=== PATIENT | female | born 1935 | race Caucasian/White ===

== ENCOUNTER → 2017-01-05 | Outpatient (CLI) | payer MEDICARE ==
--- NOTE | 2017-01-05 14:12 | FL ---
EXAMINATION TYPE: FL small bowel follow through DATE OF EXAM: 01/05/2017 12:36 PM COMPARISON: NONE HISTORY: Abdominal Pain The patient ingested thin liquid barium without difficulty. Preliminary radiograph demonstrates mode rate fecal stasis. Small bowel follow-through was performed with transit time of 180 minutes. Small bowel loops appear to be of normal caliber and demonstrate normal mucosal fold pattern. No evidence for intrinsic or extrinsic mass. No evidence for mucosal abnormality. Moderate-sized proximal jejuna l diverticulum. I do not see evidence for Crohn's disease. Normal-appearing terminal ileum. IMPRESSION: 1.Moderate-sized proximal jejunal diverticulum. Otherwise unremarkable study.
== END | disposition home or self-care (01) ==
LOC: RADFLMAIN 08:50
PROVIDERS: ATTEND Surgery
DX: K57.10 Diverticulosis of small intestine without perforation or abscess without bleeding (principal); K92.2 Gastrointestinal hemorrhage, unspecified
CPT/HCPCS: 74250

== ENCOUNTER 2017-02-02 14:32 | Inpatient (IN) | payer MEDICARE ==
[2017-02-02] MEDS ORDERED: PANTOPRAZOLE 40 MG/10 ML VIAL IVP STA (15:14)
--- NOTE | 2017-02-02 15:20 | ED ---
GI Bleed HPI - General Chief complaint: GI Bleed Stated complaint: PAMELA, Abd Pain Time Seen by Provider: 02/02/17 14:50 Source: patient, family, RN notes reviewed Mode of arrival: ambulatory Limitations: no limitations - History of Present Illness Initial comments: This is a 81-year-old female with a history of diverticulitis with 2 previous episodes of GI bleeding once in July of this past year once in October of this year who felt dizzy last night but this morning he had an episode of burgundy-colored stool. She also complains some lower abdominal discomfort. She denies any fevers chills or sweats per her family members her skin color appears be within normal limits. She has been extensively worked up and thus far no source of bleeding is found MD complaint: gross hematochezia - Related Data Home Medications Medication Instructions Recorded Confirmed Levothyroxine Sodium [Synthroid] 100 mcg PO DAILY 03/07/14 02/02/17 Multivitamins, Thera [Multivitamin 1 tab PO DAILY 03/07/14 02/02/17 (formulary)] Bumetanide [Bumex] 1 mg PO DAILY 12/20/16 02/02/17 DULoxetine HCL [Cymbalta] 20 mg PO DAILY 12/20/16 02/02/17 Ipratropium Nebulized [Atrovent 0.5 mg INHALATION RT-QID 12/20/16 02/02/17 Nebulized] Omeprazole 40 mg PO DAILY 12/20/16 02/02/17 diphenhydrAMINE HCL [Benadryl] 25 mg PO HS 12/20/16 02/02/17 Budesonide/Formoterol Fumarate 2 puff INHALATION RT-BID 02/02/17 02/02/17 [Symbicort 80-4.5 Mcg Inhaler] Meclizine [Antivert] 25 mg PO TID PRN 02/02/17 02/02/17 Potassium Chloride [K-Tab ER] 10 meq PO BID 02/02/17 02/02/17 traMADol HCl [Ultram] 50 mg PO Q6H PRN 02/02/17 02/02/17 Allergies Allergy/AdvReac Type Severity Reaction Status Date / Time codeine Allergy Unknown Itching, Verified 02/02/17 16:03 red skin iodine Allergy Unknown Itching, Verified 02/02/17 16:03 red skin Sulfa (Sulfonamide Allergy Unknown Itching, Verified 02/02/17 16:03 Antibiotics) red skin Review of Systems ROS Statement: Those systems with pertinent positive or pertinent negative responses have been documented in the HPI. ROS Other: All systems not noted in ROS Statement are negative. Past Medical History Past Medical History: Cancer, COPD, GERD/Reflux, Hypertension, Musculoskeletal Disorder, Osteoarthritis (OA), Sleep Apnea/CPAP/BIPAP, Thyroid Disorder Additional Past Medical History / Comment(s): CURRENT HEMATOMA LEFT KNEE, USES A WALKER TO AMBULATE, HX OF SCOLIOSIS, HX ANEMIA, HX BREAST AND SKIN CA History of Any Multi-Drug Resistant Organisms: None Reported Past Surgical History: Back Surgery, Cholecystectomy, Hysterectomy, Joint Replacement, Tonsillectomy Additional Past Surgical History / Comment(s): GILLIAN KNEE REPLACEMENT, (R) mastectomy and lymph node removal 1998, GILLIAN GREAT TOENAILS REMOVED, GILLIAN CATARACT SX Past Anesthesia/Blood Transfusion Reactions: No Reported Reaction Past Psychological History: Anxiety Additional Psychological History / Comment(s): IS CURRENT CAREGIVER FOR WITH CANCER Smoking Status: Former smoker Past Alcohol Use History: None Reported Additional Past Alcohol Use History / Comment(s): STARTED SMOKING 1943, QUIT 1979, 1/2PPD Past Drug Use History: None Reported - Past Family History Mother Additional Family Medical History / Comment(s): MOTHER OF TB WHEN PT WAS 6 MONTHS OLD Father Family Medical History: Coronary Artery Disease (CAD) Additional Family Medical History / Comment(s): Father 18 years ago from a heart attack. General Exam - General Exam Comments Initial Comments: This is a well-developed well-nourished awake alert oriented 3 female Limitations: no limitations General appearance: alert, in no apparent distress Head exam: Present: atraumatic, normocephalic, normal inspection Eye exam: Present: normal appearance, PERRL, EOMI. Absent: scleral icterus, conjunctival injection, periorbital swelling ENT exam: Present: normal exam, mucous membranes moist Neck exam: Present: normal inspection. Absent: tenderness, meningismus, lymphadenopathy Respiratory exam: Present: normal lung sounds bilaterally. Absent: respiratory distress, wheezes, rales, rhonchi, stridor Cardiovascular Exam: Present: regular rate, normal rhythm, normal heart sounds. Absent: systolic murmur, diastolic murmur, rubs, gallop, clicks GI/Abdominal exam: Present: soft, tenderness (Mild left lower quadrant tenderness palpation), normal bowel sounds. Absent: distended, guarding, rebound, rigid Rectal exam: Present: heme (+) stool, other (Burgundy-colored stool) Extremities exam: Present: normal inspection, full ROM, normal capillary refill. Absent: tenderness, pedal edema, joint swelling, calf tenderness Back exam: Present: normal inspection Neurological exam: Present: alert, oriented X3, CN II-XII intact Psychiatric exam: Present: normal affect, normal mood Skin exam: Present: warm, dry, intact, normal color. Absent: rash Course Vital Signs 02/02/17 02/02/17 14:35 15:37 Temperature 98.1 F Pulse Rate 87 81 Respiratory 20 17 Rate Blood Pressure 125/60 109/55 O2 Sat by Pulse 98 97 Oximetry Medical Decision Making - Medical Decision Making I did discuss findings with the patient family as well as Dr. Page who did come the emergency department see the patient patient will be admitted with consultation by Dr. Martin who is covering Dr. camp - Lab Data Result diagrams: 02/02/17 15:08 02/02/17 15:08 Lab Results 02/02/17 02/02/17 02/02/17 Range/Units 15:08 15:08 15:08 WBC 7.0 (3.8-10.6) k/uL RBC 3.18 L (3.80-5.40) m/uL Hgb 11.1 L (11.4-16.0) gm/dL Hct 31.9 L (34.0-46.0) % MCV 100.4 H D (80.0-100.0) fL MCH 34.8 (25.0-35.0) pg MCHC 34.7 (31.0-37.0) g/dL RDW 14.3 (11.5-15.5) % Plt Count 207 (150-450) k/uL Neutrophils % 72 % Lymphocytes % 14 % Monocytes % 9 % Eosinophils % 2 % Basophils % 0 % Neutrophils # 5.0 (1.3-7.7) k/uL Lymphocytes # 1.0 (1.0-4.8) k/uL Monocytes # 0.6 (0-1.0) k/uL Eosinophils # 0.2 (0-0.7) k/uL Basophils # 0.0 (0-0.2) k/uL Macrocytosis Slight PT 9.7 (9.0-12.0) sec INR 0.9 (<1.1) APTT 20.9 L (22.0-30.0) sec Sodium 143 (137-145) mmol/L Potassium 4.3 (3.5-5.1) mmol/L Chloride 102 (98-107) mmol/L Carbon Dioxide 31 H (22-30) mmol/L Anion Gap 10 mmol/L BUN 32 H (7-17) mg/dL Creatinine 0.80 (0.52-1.04) mg/dL Est GFR (MDRD) Af Amer >60 (>60 ml/min/1.73 sqM) Est GFR (MDRD) Non-Af >60 (>60 ml/min/1.73 sqM) Glucose 83 (74-99) mg/dL Calcium 9.1 (8.4-10.2) mg/dL Magnesium 2.3 (1.6-2.3) mg/dL Total Bilirubin 0.6 (0.2-1.3) mg/dL AST 28 (14-36) U/L ALT 35 (9-52) U/L Alkaline Phosphatase 67 (38-126) U/L Total Protein 6.6 (6.3-8.2) g/dL Albumin 3.9 (3.5-5.0) g/dL Stool Occult Blood (Negative) 02/02/17 Range/Units 15:33 WBC (3.8-10.6) k/uL RBC (3.80-5.40) m/uL Hgb (11.4-16.0) gm/dL Hct (34.0-46.0) % MCV (80.0-100.0) fL MCH (25.0-35.0) pg MCHC (31.0-37.0) g/dL RDW (11.5-15.5) % Plt Count (150-450) k/uL Neutrophils % % Lymphocytes % % Monocytes % % Eosinophils % % Basophils % % Neutrophils # (1.3-7.7) k/uL Lymphocytes # (1.0-4.8) k/uL Monocytes # (0-1.0) k/uL Eosinophils # (0-0.7) k/uL Basophils # (0-0.2) k/uL Macrocytosis PT (9.0-12.0) sec INR (<1.1) APTT (22.0-30.0) sec Sodium (137-145) mmol/L Potassium (3.5-5.1) mmol/L Chloride (98-107) mmol/L Carbon Dioxide (22-30) mmol/L Anion Gap mmol/L BUN (7-17) mg/dL Creatinine (0.52-1.04) mg/dL Est GFR (MDRD) Af Amer (>60 ml/min/1.73 sqM) Est GFR (MDRD) Non-Af (>60 ml/min/1.73 sqM) Glucose (74-99) mg/dL Calcium (8.4-10.2) mg/dL Magnesium (1.6-2.3) mg/dL Total Bilirubin (0.2-1.3) mg/dL AST (14-36) U/L ALT (9-52) U/L Alkaline Phosphatase (38-126) U/L Total Protein (6.3-8.2) g/dL Albumin (3.5-5.0) g/dL Stool Occult Blood Positive H (Negative) Disposition Clinical Impression: Hematochezia, GI bleed, Anemia Disposition: ADMITTED IP TO THIS [facility] Condition: Stable
[2017-02-02 15:37] LABS: Basophils % (A) 0 %; CH 33.3; CHCM 33.3; Eosinophils # (A) 0.2 k/uL (0-0.7); Eosinophils % (A) 2 %; HCT 31.9 % (34.0-46.0); HDW 2.87; HGB 11.1 gm/dL (11.4-16.0); Luc # (Auto) 0.22; Luc % (Auto) 3; Lymphocytes % (A) 14 %; MCH 34.8 pg (25.0-35.0); MCHC 34.7 g/dL (31.0-37.0); Macrocytosis Slight; Mean Platelet Volume 7.3; Monocytes # (A) 0.6 k/uL (0-1.0); Monocytes % (A) 9 %; Neutrophils % (A) 72 %; RBC 3.18 m/uL (3.80-5.40); RDW 14.3 % (11.5-15.5)
[2017-02-02 15:43] LABS: MCV 100.4 fL (80.0-100.0)
[2017-02-02 15:45] LABS: ALT 35 U/L (9-52); AST 28 U/L (14-36); Alkaline Phosphatase 67 U/L (38-126); Anion Gap 10 mmol/L; Blood Urea Nitrogen 32 mg/dL (7-17); Calcium 9.1 mg/dL (8.4-10.2); Carbon Dioxide 31 mmol/L (22-30); Chloride 102 mmol/L (98-107); Glucose 83 mg/dL (74-99); Magnesium 2.3 mg/dL (1.6-2.3); Non-African American GFR(MDRD) >60 (>60 ml/min/1.73 sqM); Potassium 4.3 mmol/L (3.5-5.1); Sodium 143 mmol/L (137-145); Total Bilirubin 0.6 mg/dL (0.2-1.3); Total Protein 6.6 g/dL (6.3-8.2)
[2017-02-02 15:47] LABS: INR 0.9 (<1.1); Prothrombin Time 9.7 sec (9.0-12.0)
[2017-02-02 16:00] LABS: Partial Thromboplastin Time 20.9 sec (22.0-30.0)
[2017-02-02 16:04] LABS: Creatine Kinase 31 U/L (30-135)
[2017-02-02] MEDS ORDERED: NALOXONE 0.4 MG/ML 1 ML VIAL IV PRN (16:08)
[2017-02-02] MEDS ORDERED: SODIUM CHLORIDE 0.9% 1,000 ML IV SCH (16:15)
[2017-02-02 16:16] LABS: Troponin I <0.012 ng/mL (0.000-0.034)
[2017-02-02] MEDS ORDERED: ALBUTEROL NEBULIZED 2.5 MG/3 ML INHALATION PRN (16:18)
[2017-02-02] MEDS ORDERED: traMADol 50 MG TAB PO PRN (16:18)
[2017-02-02 16:21] LABS: Creatine Kinase MB 0.3 ng/mL (0.0-2.4)
[2017-02-02] MEDS ORDERED: IPRATROPIUM-ALBUTEROL 3 ML NEB INHALATION SCH (20:00)
--- NOTE | 2017-02-02 20:05 | HP ---
Patient is an 81-year-old with a history of diverticulosis in the past, came in with 3 episodes of GI bleed today morning and patient initially started seeing copper-colored blood, but after which it turned into bright red blood per rectum. Patient was also complaining of dizziness. Patient has episodes of GI bleed in the past, admitted twice in [facility]. Patient underwent extensive testing, twice colonoscopy and upper GI endoscopy along with a nuclear RBC scan, all of which came back negative. Patient is supposed to get a capsule endoscopy. Patient was evaluated by Dr. Bernard and Dr. Taryn Kaye at the other hospital. Patient denied any fever chills. Patient denied any nausea, vomiting. Patient does have history of COPD, does wear 2L of oxygen. Patient denied any recent antibiotics use. Home medications include: 1. Levothyroxine. 2. Multivitamin. 3. Bumex. 4. Duloxetine. 5. Ipratropium. 6. Omeprazole. 7. Diphenhydramine. 8. Symbicort. 9. Meclizine. 10. Potassium chloride. 11. Tramadol. ALLERGIES: ALLERGIC TO CODEINE, IODINE AND SULFA DRUGS. REVIEW OF SYSTEMS: CONSTITUTIONAL: No fever, no malaise, no fatigue. HEENT: No recent visual problems or hearing problems. Denied any sore throat. CARDIOVASCULAR: No chest pain, orthopnea, PND, no palpitations, no syncope. PULMONARY: No shortness of breath, no cough, no hemoptysis. GASTROINTESTINAL: As described in HPI. NEUROLOGICAL: No headaches, no weakness, no numbness. HEMATOLOGICAL: Denies any bleeding or petechiae. GENITOURINARY: Denies any burning micturition, frequency, or urgency. MUSCULOSKELETAL/RHEUMATOLOGICAL: Denies any joint pain, swelling, or any muscle pain. ENDOCRINE: Denies any polyuria or polydipsia. The rest of the 14 point review of systems is negative. PAST MEDICAL HISTORY: Significant for COPD, gastroesophageal reflux disease, hypertension, osteoarthritis, sleep apnea, hypothyroidism, episodes of GI bleed in the past, source is unknown at the time. Patient has a remote history of diverticulosis, back surgery, cholecystectomy, hysterectomy, joint replacement surgery, anxiety disorder. SOCIAL HISTORY: Former smoker, quit smoking in 1979. Denied any alcohol abuse or any drug abuse. FAMILY HISTORY: Mother with tuberculosis. Father had coronary artery disease. PHYSICAL EXAMINATION: VITAL SIGNS: Temperature 98.1, pulse of 57, respiratory rate 20, blood pressure is 101/55, saturating at 97% on room air. GENERAL: The patient is alert and oriented x3, not in any acute distress. Well developed, well nourished. HEENT: Pupils are round and equally reacting to light. EOMI. No scleral icterus. No conjunctival pallor. Normocephalic, atraumatic. No pharyngeal erythema. No thyromegaly. CARDIOVASCULAR: S1 and S2 present. No murmurs, rubs, or gallops. PULMONARY: Chest is clear to auscultation, no wheezing or crackles. ABDOMEN: Soft, nontender, nondistended, normoactive bowel sounds. No palpable organomegaly. MUSCULOSKELETAL: No joint swelling or deformity. EXTREMITIES: No cyanosis, clubbing, or pedal edema. NEUROLOGICAL: Gross neurological examination did not reveal any focal deficits. SKIN: No rashes. LABORATORY DATA: CBC, CMP are abnormal for hemoglobin of 11.1, bicarbonate of 31, BUN of 32, creatinine 0.8. ASSESSMENT AND PLAN: 1. Possible lower gastrointestinal bleed. Since she is actively bleeding, probably this is appropriate time to get a tagged red blood cells scan, which will be obtained and Gastroenterology will be consulted. Patient will be monitored. Patient is on IV b.i.d. Protonix, which will be continued. 2. Chronic obstructive pulmonary disease without any acute exacerbation. 3. Gastroesophageal reflux disease. 4. Hyperlipidemia. 5. Sleep apnea for which she will continue with her home continuous positive airway pressure machine. 6. For above-mentioned chronic medical problems, will go ahead and continue her home medications.
--- NOTE | 2017-02-02 21:03 | NM ---
EXAMINATION TYPE: NM GI bleeding DATE OF EXAM: 02/02/2017 8:40 PM HISTORY: GI bleeding COMPARISON: NONE Following administration of 3 ml PYP 27.2 mCi Tc 99m Sodium Pertechnete. Immediate images post inject ion. FINDINGS: The 2 hour images showed tracer accumulation in the lateral right upper quadrant suggestive of active bleeding near the hepatic flexure of the colon. The tracer appears to move in the transverse colon t owards the splenic flexure. IMPRESSION: The exam shows evidence of active bleeding involving the hepatic flexure of the colon.
[2017-02-02 21:08] LABS: CH 33.3; CHCM 33.3; HCT 28.6 % (34.0-46.0); HGB 9.9 gm/dL (11.4-16.0); MCH 34.6 pg (25.0-35.0); MCHC 34.4 g/dL (31.0-37.0); MCV 100.4 fL (80.0-100.0); Macrocytosis Slight; Mean Platelet Volume 7.7; RBC 2.85 m/uL (3.80-5.40); RDW 14.3 % (11.5-15.5); WBC 5.6 k/uL (3.8-10.6)
[2017-02-02] MEDS ORDERED: IPRATROPIUM-ALBUTEROL 3 ML NEB INHALATION PRN (21:29)
[2017-02-02] MEDS ORDERED: SODIUM CHLORIDE 0.9% 1,000 ML IV ONE (21:44)
[2017-02-02] MEDS: PANTOPRAZOLE 40 MG/10 ML VIAL IV SCH (23:48)
[2017-02-02] MEDS: SODIUM CHLORIDE 0.9% 1,000 ML IV SCH (23:48)
[2017-02-03 04:43] LABS: Basophils % (A) 1 %; CH 32.9; CHCM 32.2; Eosinophils # (A) 0.1 k/uL (0-0.7); Eosinophils % (A) 3 %; HCT 24.1 % (34.0-46.0); HDW 2.87; Luc % (Auto) 4; Lymphocytes # (A) 0.7 k/uL (1.0-4.8); Lymphocytes % (A) 14 %; MCH 34.8 pg (25.0-35.0); MCHC 33.9 g/dL (31.0-37.0); MCV 102.8 fL (80.0-100.0); Macrocytosis Slight; Mean Platelet Volume 7.4; Monocytes # (A) 0.4 k/uL (0-1.0); Monocytes % (A) 8 %; Neutrophils # (A) 3.7 k/uL (1.3-7.7); Neutrophils % (A) 72 %; RBC 2.34 m/uL (3.80-5.40); RDW 14.2 % (11.5-15.5); WBC 5.2 k/uL (3.8-10.6)
[2017-02-03 04:45] LABS: HGB 8.1 gm/dL (11.4-16.0)
[2017-02-03] MEDS: LEVOTHYROXINE 100 MCG TAB PO SCH ×2 (06:29→12:19)
[2017-02-03] MEDS: IPRATROPIUM-ALBUTEROL 3 ML NEB INHALATION SCH ×4 (07:33→19:11)
[2017-02-03] MEDS: SYMBICORT 80-4.5 MCG INHALER INHALATION SCH ×3 (07:33→19:11)
[2017-02-03] MEDS: PANTOPRAZOLE 40 MG/10 ML VIAL IV SCH ×2 (08:54→21:00)
--- NOTE | 2017-02-03 10:24 | P.CONS ---
History of Present Illness - Reason for Consult Consult date: 02/03/17 gi bleed Requesting physician: Toma Page - History of Present Illness 81-year-old female history diverticulosis admitted with rectal bleeding 2 days. Tagged RBC scan reported hepatic flexure bleeding. Apparently she's had multiple GI bleeds in the past and evaluated at [facility] with extensive testing including colonoscopies EGD and nuclear scanning. This is her third episode since July with painless rectal bleeding. Patient describes is bright red burgundy in nature approximate 3-4 episodes since yesterday. Denies fever chills or hematemesis or melena. Denies excessive use of aspirin or NSAIDs. EGD colonoscopy performed by Dr. Bernard at [facility] December 2016 identified extensive diverticular disease with tortuous colon, and hiatal hernia. Hemoglobin on admission 11.1 currently 8.1. MCV 102. INR 0.9. Platelet 175. BUN 32. Creatinine 0.8. Stool occult blood positive. Transfuse 1 unit of blood. Review of Systems Constitutional: Denies fever, chills, sweats, weight gain, or loss. HEENT: Negative for migraines, blurred vision or loss, earaches, drainage, tinnitus, oral mucosal lesions, dysphagia, or odynophagia. CARDIAC: Negative for chest pain, arrhythmias, or palpitation. RESPIRATORY: COPD. Negative for shortness of breath, hemoptysis, cough, or sputum production. GI: See HPI for pertinent findings. : Negative for hematuria, urgency, frequency, polyuria, or dysuria. GYNc: Breast cancer hx. Negative vaginal discharge. MUSCULOSKELETAL: Osteoarthritis. NEUROLOGIC: Negative for stroke or TIA. ENDOCRINE: Hypothyroid. SKIN: Negative for rash or itching. PSYCHIATRIC: Anxiety All systems: negative (See HPI) Past Medical History Past Medical History: Cancer, COPD, GERD/Reflux, Musculoskeletal Disorder, Osteoarthritis (OA), Thyroid Disorder Additional Past Medical History / Comment(s): CURRENT HEMATOMA LEFT KNEE, USES A WALKER TO AMBULATE, HX OF SCOLIOSIS, HX ANEMIA, HX BREAST AND SKIN CA History of Any Multi-Drug Resistant Organisms: None Reported Past Surgical History: Back Surgery, Cholecystectomy, Hysterectomy, Joint Replacement, Tonsillectomy Additional Past Surgical History / Comment(s): GILLIAN KNEE REPLACEMENT, (R) mastectomy and lymph node removal 1998, GILLIAN GREAT TOENAILS REMOVED, GILLIAN CATARACT SX Past Anesthesia/Blood Transfusion Reactions: No Reported Reaction Past Psychological History: Anxiety Additional Psychological History / Comment(s): IS CURRENT CAREGIVER FOR WITH CANCER Smoking Status: Former smoker Past Alcohol Use History: None Reported Additional Past Alcohol Use History / Comment(s): STARTED SMOKING 1943, QUIT 1979, 1/2PPD Past Drug Use History: None Reported - Past Family History Mother Additional Family Medical History / Comment(s): MOTHER OF TB WHEN PT WAS 6 MONTHS OLD Father Family Medical History: Coronary Artery Disease (CAD) Additional Family Medical History / Comment(s): Father 18 years ago from a heart attack. Medications and Allergies Home Medications Medication Instructions Recorded Confirmed Type Levothyroxine Sodium [Synthroid] 100 mcg PO DAILY 03/07/14 02/02/17 History Multivitamins, Thera [Multivitamin 1 tab PO DAILY 03/07/14 02/02/17 History (formulary)] Bumetanide [Bumex] 1 mg PO DAILY 12/20/16 02/02/17 History DULoxetine HCL [Cymbalta] 20 mg PO DAILY 12/20/16 02/02/17 History Ipratropium Nebulized [Atrovent 0.5 mg INHALATION RT-QID 12/20/16 02/02/17 History Nebulized] Omeprazole 40 mg PO DAILY 12/20/16 02/02/17 History diphenhydrAMINE HCL [Benadryl] 25 mg PO HS 12/20/16 02/02/17 History Albuterol Nebulized [Ventolin 2.5 mg INHALATION RT-Q6H PRN 02/02/17 02/02/17 History Nebulized] Budesonide/Formoterol Fumarate 2 puff INHALATION RT-BID 02/02/17 02/02/17 History [Symbicort 80-4.5 Mcg Inhaler] Meclizine [Antivert] 25 mg PO TID PRN 02/02/17 02/02/17 History Potassium Chloride [K-Tab ER] 10 meq PO BID 02/02/17 02/02/17 History traMADol HCl [Ultram] 50 mg PO Q6H PRN 02/02/17 02/02/17 History Allergies Allergy/AdvReac Type Severity Reaction Status Date / Time codeine Allergy Unknown Itching, Verified 02/02/17 16:03 red skin iodine Allergy Unknown Itching, Verified 02/02/17 16:03 red skin Sulfa (Sulfonamide Allergy Unknown Itching, Verified 02/02/17 16:03 Antibiotics) red skin Physical Exam Vitals: Vital Signs Temp Pulse Pulse Resp BP BP Pulse Ox 02/03/17 07:52 80 02/03/17 07:36 80 02/03/17 05:00 79 17 96 02/03/17 00:00 97.5 F L 75 16 105/61 97 02/02/17 23:03 97.6 F 59 L 17 109/56 96 02/02/17 21:41 82 16 101/51 96 02/02/17 21:28 84 18 99/46 96 02/02/17 21:18 82 18 99/52 97 02/02/17 20:59 98.3 F 84 18 98/52 97 02/02/17 16:42 83 17 109/55 99 Intake and Output 02/02/17 02/03/17 02/03/17 22:59 06:59 14:59 Intake Total 1500 0 Balance 1500 0 Intake: Intake, IV Titration 1500 Amount Sodium Chloride 0.9% 1, 500 000 ml @ 75 mls/hr IV . [id number] MILANA Rx#:[id number] Sodium Chloride 0.9% 1, 1000 000 ml @ 999 mls/hr IV . Q1H1M ONE Rx#:[id number] Oral 0 0 Other: # Voids 2 Weight 73.1 kg General appearance: The patient is alert, oriented, in no acute distress. HET: Head is normocephalic and atraumatic. Pupils are equal and reactive. Oropharynx is clear without lesions. Neck: Supple without lymphadenopathy. Trachea midline. Heart: S1 S2. Regular rate and rhythm. Lungs: No crackles or wheezes are heard. Abdomen: Soft, nontender, nondistended with bowel sounds. No peritoneal signs. No palpable organomegaly or masses. Extremities: Normal skin color and turgor. No cyanosis, rash, ulceration, clubbing, or edema. Radial and pedal pulses are 2/4 bilaterally. Neurological: No focal deficits. Strength and sensation are grossly intact. Results CBC & Chem 7: 02/03/17 03:35 02/02/17 15:08 Labs: Abnormal Lab Results - Last 24 Hours (Table) 02/02/17 02/03/17 Range/Units 20:55 03:35 RBC 2.85 L 2.34 L (3.80-5.40) m/uL Hgb 9.9 L 8.1 L D (11.4-16.0) gm/dL Hct 28.6 L 24.1 L (34.0-46.0) % MCV 100.4 H 102.8 H (80.0-100.0) fL Lymphocytes # 0.7 L (1.0-4.8) k/uL Assessment and Plan (1) GI bleed Narrative/Plan: Suspect diverticular bleed Status: Acute (2) Acute blood loss anemia Status: Acute (3) Hematochezia Status: Acute Plan: 1. Clear liquid diet. 2. Recommend general surgical consultation patient is also requesting to see a surgeon. 3. Repeat endoscopy not planned at this time considering she's had multiple endoscopic exams in the last 2-4 months. 4. Continue monitor CBC. Thank you for this kind referral and the opportunity to participate in the care of your patient. This consultation was discussed with Dr. Browning. The impression and plan of care have been directed as dictated.
[2017-02-03 10:57] LABS: Basophils % (A) 0 %; CH 33.4; CHCM 33.8; Eosinophils # (A) 0.1 k/uL (0-0.7); Eosinophils % (A) 3 %; HCT 21.8 % (34.0-46.0); HDW 2.99; HGB 7.7 gm/dL (11.4-16.0); Luc # (Auto) 0.18; Luc % (Auto) 4; Lymphocytes # (A) 0.8 k/uL (1.0-4.8); Lymphocytes % (A) 15 %; MCH 35.2 pg (25.0-35.0); MCHC 35.4 g/dL (31.0-37.0); MCV 99.4 fL (80.0-100.0); Mean Platelet Volume 8.6; Monocytes # (A) 0.4 k/uL (0-1.0); Monocytes % (A) 8 %; Neutrophils # (A) 3.7 k/uL (1.3-7.7); Neutrophils % (A) 71 %; RBC 2.19 m/uL (3.80-5.40); RDW 14.5 % (11.5-15.5); WBC 5.2 k/uL (3.8-10.6); WBC (Perox) 5.54
[2017-02-03] MEDS: DULoxetine HCL 20 MG CAPSULE.DR PO SCH (12:17)
--- NOTE | 2017-02-03 13:26 | P.GSCN ---
History of Present Illness Consult date: 02/03/17 Reason for Consult: GI bleed History of present illness: This is a 81-year-old female who's had multiple hospital admissions for GI bleed. Patient's had extensive workup with multiple upper and lower endoscopies which failed to show source of GI bleeding. Patient states that she started have another episode of GI bleeding yesterday. She states that she had bright red blood per rectum. She had a tagged red cell scan performed last night which shows evidence of bleeding at the hepatic flexure. Review of Systems - Constitutional Reports as per HPI Past Medical History Past Medical History: Cancer, COPD, GERD/Reflux, Musculoskeletal Disorder, Osteoarthritis (OA), Thyroid Disorder Additional Past Medical History / Comment(s): CURRENT HEMATOMA LEFT KNEE, USES A WALKER TO AMBULATE, HX OF SCOLIOSIS, HX ANEMIA, HX BREAST AND SKIN CA History of Any Multi-Drug Resistant Organisms: None Reported Past Surgical History: Back Surgery, Cholecystectomy, Hysterectomy, Joint Replacement, Tonsillectomy Additional Past Surgical History / Comment(s): GILLIAN KNEE REPLACEMENT, (R) mastectomy and lymph node removal 1998, GILLIAN GREAT TOENAILS REMOVED, GILLIAN CATARACT SX Past Anesthesia/Blood Transfusion Reactions: No Reported Reaction Past Psychological History: Anxiety Additional Psychological History / Comment(s): IS CURRENT CAREGIVER FOR WITH CANCER Smoking Status: Former smoker Past Alcohol Use History: None Reported Additional Past Alcohol Use History / Comment(s): STARTED SMOKING 1943, QUIT 1979, 1/2PPD Past Drug Use History: None Reported - Past Family History Mother Additional Family Medical History / Comment(s): MOTHER OF TB WHEN PT WAS 6 MONTHS OLD Father Family Medical History: Coronary Artery Disease (CAD) Additional Family Medical History / Comment(s): Father 18 years ago from a heart attack. Medications and Allergies Home Medications Medication Instructions Recorded Confirmed Type Levothyroxine Sodium [Synthroid] 100 mcg PO DAILY 03/07/14 02/02/17 History Multivitamins, Thera [Multivitamin 1 tab PO DAILY 03/07/14 02/02/17 History (formulary)] Bumetanide [Bumex] 1 mg PO DAILY 12/20/16 02/02/17 History DULoxetine HCL [Cymbalta] 20 mg PO DAILY 12/20/16 02/02/17 History Ipratropium Nebulized [Atrovent 0.5 mg INHALATION RT-QID 12/20/16 02/02/17 History Nebulized] Omeprazole 40 mg PO DAILY 12/20/16 02/02/17 History diphenhydrAMINE HCL [Benadryl] 25 mg PO HS 12/20/16 02/02/17 History Albuterol Nebulized [Ventolin 2.5 mg INHALATION RT-Q6H PRN 02/02/17 02/02/17 History Nebulized] Budesonide/Formoterol Fumarate 2 puff INHALATION RT-BID 02/02/17 02/02/17 History [Symbicort 80-4.5 Mcg Inhaler] Meclizine [Antivert] 25 mg PO TID PRN 02/02/17 02/02/17 History Potassium Chloride [K-Tab ER] 10 meq PO BID 02/02/17 02/02/17 History traMADol HCl [Ultram] 50 mg PO Q6H PRN 02/02/17 02/02/17 History Allergies Allergy/AdvReac Type Severity Reaction Status Date / Time codeine Allergy Unknown Itching, Verified 02/02/17 16:03 red skin iodine Allergy Unknown Itching, Verified 02/02/17 16:03 red skin Sulfa (Sulfonamide Allergy Unknown Itching, Verified 02/02/17 16:03 Antibiotics) red skin Surgical - Exam Vital Signs Temp Pulse Resp BP Pulse Ox 98.1 F 87 20 125/60 98 02/02/17 14:35 02/02/17 14:35 02/02/17 14:35 02/02/17 14:35 02/02/17 14:35 - General well developed, no distress - Eyes PERRL - ENT normal pinna - Neck no masses - Respiratory normal expansion - Cardiovascular Rhythm: regular - Abdomen Abdomen: soft, non tender Results - Labs 02/03/17 09:34 02/02/17 15:08 Abnormal Lab Results - Last 24 Hours (Table) 02/02/17 02/03/17 02/03/17 Range/Units 20:55 03:35 09:34 RBC 2.85 L 2.34 L 2.19 L (3.80-5.40) m/uL Hgb 9.9 L 8.1 L D 7.7 L (11.4-16.0) gm/dL Hct 28.6 L 24.1 L 21.8 L (34.0-46.0) % MCV 100.4 H 102.8 H (80.0-100.0) fL MCH 35.2 H (25.0-35.0) pg Lymphocytes # 0.7 L 0.8 L (1.0-4.8) k/uL Assessment and Plan Plan: GI bleed secondary to bleeding at hepatic flexure. Patient will undergo right colectomy in the a.m. after bowel prep.
[2017-02-03] MEDS ORDERED: PEG 3350-NA SULF,BICARB,CL/KCL 4,000 ML BOTTLE PO ONE (14:00)
--- NOTE | 2017-02-03 15:00 | PN ---
Patient is an 81-year-old admitted with GI bleed. The patient appears to have GI bleed from the hepatic flexure and surgery is being consulted at this point of time. The patient has one bloody bowel movement today and patient's hemoglobin is 7.7. I am transfusing one unit of blood. REVIEW OF SYSTEMS: CARDIOVASCULAR: No chest pain, no orthopnea, no PND, no palpitations. PULMONARY: Denied any shortness of breath. No cough or hemoptysis. GASTROINTESTINAL: No diarrhea, nausea or vomiting. No abdominal pain. Normoactive bowel sounds. NEUROLOGIC: No headaches, no weakness, no numbness. Medications are reviewed. PHYSICAL EXAMINATION: VITAL SIGNS: Temperature 97.3, pulse of 80, respiratory rate 20, blood pressure is 98/44. Saturating at 100% on 2 L O2 by nasal cannula. GENERAL: The patient is alert and oriented x3, not in any acute distress. Well developed, well nourished. HEENT: Pupils round and equally reactive to light and patient does have conjunctival pallor. No scleral icterus was appreciated. CARDIOVASCULAR: S1 and S2 present. No murmurs, rubs, or gallops. PULMONARY: Chest is clear to auscultation, no wheezing or crackles. ABDOMEN: Soft, nontender, nondistended, normoactive bowel sounds. No palpable organomegaly. MUSCULOSKELETAL: No joint swelling or deformity. EXTREMITIES: No cyanosis, clubbing, or pedal edema. NEUROLOGICAL: Gross neurological examination did not reveal any focal deficits. SKIN: No rashes. LABORATORY DATA: Hemoglobin is 7.7. I do not have any basic metabolic profile available. ASSESSMENT AND PLAN: 1. Lower gastrointestinal bleed from hepatic flexure. Surgery is being consulted as mentioned above transfuse one more unit. 2. Chronic obstructive pulmonary disease without any acute exacerbation. 3. Gastroesophageal reflux disease. 4. Hyperlipidemia. 5. Sleep apnea. For above chronic medical problems, we will go ahead and continue with present medications.
[2017-02-03 19:52] LABS: Anisocytosis Slight; Basophils % (A) 0 %; CH 31.8; CHCM 33.2; Eosinophils # (A) 0.2 k/uL (0-0.7); Eosinophils % (A) 3 %; HDW 2.98; HGB 8.7 gm/dL (11.4-16.0); Luc % (Auto) 4; Lymphocytes # (A) 0.9 k/uL (1.0-4.8); Lymphocytes % (A) 16 %; MCH 33.4 pg (25.0-35.0); MCHC 34.6 g/dL (31.0-37.0); MCV 96.6 fL (80.0-100.0); Mean Platelet Volume 8.1; Monocytes # (A) 0.5 k/uL (0-1.0); Monocytes % (A) 9 %; Neutrophils # (A) 3.8 k/uL (1.3-7.7); Neutrophils % (A) 69 %; RBC 2.59 m/uL (3.80-5.40); RDW 16.7 % (11.5-15.5); WBC 5.6 k/uL (3.8-10.6); WBC (Perox) 5.73
[2017-02-04 06:58] LABS: Anisocytosis Slight; CH 32.7; CHCM 33.1; HCT 24.9 % (34.0-46.0); HGB 8.2 gm/dL (11.4-16.0); MCH 32.6 pg (25.0-35.0); MCHC 32.8 g/dL (31.0-37.0); MCV 99.4 fL (80.0-100.0); Macrocytosis Slight; Mean Platelet Volume 7.5; RBC 2.51 m/uL (3.80-5.40); RDW 17.4 % (11.5-15.5); WBC 4.6 k/uL (3.8-10.6)
[2017-02-04 07:07] LABS: Anion Gap 6 mmol/L; Blood Urea Nitrogen 19 mg/dL (7-17); Calcium 8.2 mg/dL (8.4-10.2); Carbon Dioxide 26 mmol/L (22-30); Chloride 110 mmol/L (98-107); Glucose 93 mg/dL (74-99); Non-African American GFR(MDRD) >60 (>60 ml/min/1.73 sqM); Potassium 3.7 mmol/L (3.5-5.1); Sodium 142 mmol/L (137-145)
[2017-02-04] MEDS: IPRATROPIUM-ALBUTEROL 3 ML NEB INHALATION SCH ×4 (08:52→20:29)
[2017-02-04] MEDS: SYMBICORT 80-4.5 MCG INHALER INHALATION SCH ×2 (08:52→20:29)
--- NOTE | 2017-02-04 09:21 | P.PN ---
Subjective Principal diagnosis: GI bleed 81-year-old female with lower GI bleed and extensive diverticulosis. Tagged RBC scan reported bleeding at hepatic flexure. Still passing bloody bowel movements. Scheduled for right colectomy today with general surgery. Hemoglobin 8.2. Minimal abdominal discomfort. No emesis. Afebrile. Objective - Vital Signs Vital signs: Vital Signs Temp 97.6 F 02/04/17 04:00 Pulse 86 02/04/17 09:02 Resp 19 02/04/17 04:00 BP 103/55 02/04/17 04:00 Pulse Ox 96 02/04/17 08:53 Intake & Output 02/03/17 02/04/17 02/04/17 18:59 06:59 18:59 Intake Total 830 4600 Output Total 152 5156 Balance 678 -556 Weight 73.1 kg 75 kg Intake: IV 600 Sodium Chloride 0.9% 1, 600 000 ml @ 75 mls/hr IV . [id number] [facility] Rx#:[id number] Oral 520 4000 Blood Product 310 Rc As-1 Unit 310 [id number] Output: Urine 150 150 Stool 2 6 Urine/Stool Mix 5000 Other: Voiding Method Bedside Commode # Voids 2 # Bowel Movements 2 2 - Exam General appearance: The patient is alert, oriented, in no acute distress. HET: Head is normocephalic and atraumatic. Pupils are equal and reactive. Oropharynx is clear without lesions. Neck: Supple without lymphadenopathy. Trachea midline. Heart: S1 S2. Regular rate and rhythm. Lungs: No crackles or wheezes are heard. Abdomen: Soft, nontender, nondistended with bowel sounds. No peritoneal signs. No palpable organomegaly or masses. Extremities: Normal skin color and turgor. No cyanosis, rash, ulceration, clubbing, or edema. Radial and pedal pulses are 2/4 bilaterally. Neurological: No focal deficits. Strength and sensation are grossly intact. - Labs CBC & Chem 7: 02/04/17 06:24 02/04/17 06:24 Labs: Abnormal Lab Results - Last 24 Hours (Table) 02/03/17 02/03/17 02/04/17 Range/Units 09:34 19:13 06:24 RBC 2.19 L 2.59 L 2.51 L (3.80-5.40) m/uL Hgb 7.7 L 8.7 L 8.2 L (11.4-16.0) gm/dL Hct 21.8 L 25.0 L 24.9 L (34.0-46.0) % MCH 35.2 H (25.0-35.0) pg RDW 16.7 H 17.4 H (11.5-15.5) % Plt Count 145 L 142 L (150-450) k/uL Lymphocytes # 0.8 L 0.9 L (1.0-4.8) k/uL Chloride (98-107) mmol/L BUN (7-17) mg/dL Calcium (8.4-10.2) mg/dL 02/04/17 Range/Units 06:24 RBC (3.80-5.40) m/uL Hgb (11.4-16.0) gm/dL Hct (34.0-46.0) % MCH (25.0-35.0) pg RDW (11.5-15.5) % Plt Count (150-450) k/uL Lymphocytes # (1.0-4.8) k/uL Chloride 110 H (98-107) mmol/L BUN 19 H (7-17) mg/dL Calcium 8.2 L (8.4-10.2) mg/dL Assessment and Plan (1) GI bleed Narrative/Plan: Suspect diverticular bleed Status: Acute (2) Acute blood loss anemia Status: Acute (3) Hematochezia Status: Acute Plan: 1. Right colectomy with general surgery today. 2. CBC monitoring. Supportive measures. We'll follow as needed. Assessment and plan a care discussed with Dr. Browning.
[2017-02-04] MEDS ORDERED: IV FLUID CONTINUATION 1,000 ML IV ONE (11:36)
[2017-02-04] MEDS ORDERED: DEXAMETHASONE SOD PHOS (MDV) 100 MG/10 ML VIAL IVP ONE (12:00)
[2017-02-04] MEDS: ONDANSETRON 4 MG/2 ML VIAL IVP PRN (12:02)
[2017-02-04] MEDS ORDERED: ceFAZolin 2 GM in SODIUM CHLORIDE 0.9% 100 ML IVPB ONE (13:05)
[2017-02-04] MEDS ORDERED: metroNIDAZOLE-NS PMX 500 MG in SALINE 1 100ML.BAG IVPB STA (13:05)
[2017-02-04] MEDS ORDERED: HYDROmorphone (PF) 1 MG/ML ONE (13:50)
[2017-02-04] MEDS ORDERED: PHENYLEPHRINE-0.9% NACL SYG 1 MG/10 ML SYRINGE ONE (13:50)
[2017-02-04] MEDS ORDERED: NEOSTIGMINE 1 MG/ML 10 ML VIAL ONE (13:50)
[2017-02-04] MEDS ORDERED: GLYCOPYRROLATE 0.2 MG/ML 2 ML VIAL ONE (13:50)
[2017-02-04] MEDS ORDERED: ROCURONIUM BROMIDE 10 MG/ML 10 ML VIAL IV ONE (13:50)
[2017-02-04] MEDS ORDERED: PROPOFOL 10 MG/ML 20 ML VIAL IV ONE (13:50)
[2017-02-04] MEDS ORDERED: fentaNYL (PF) 50 MCG/ML 2 ML AMP ONE (13:50)
[2017-02-04] MEDS ORDERED: SUCCINYLCHOLINE CHLORIDE 100 MG/5 ML SYR IV ONE (13:50)
[2017-02-04] MEDS ORDERED: LIDOCAINE 1% INJ 10MG/ML (20 ML MDV) ONE (13:50)
--- NOTE | 2017-02-04 13:58 | PN ---
Patient is an 81-year-old, admitted with GI bleed, found to have GI bleed at that the hepatic flexure of the colon. Patient is going for hemicolectomy. Patient still having blood when she is undergoing the GoLYTELY preparation. REVIEW OF SYSTEMS: GASTROINTESTINAL: As described in HPI. CARDIOVASCULAR: No chest pain, no orthopnea, no PND, no palpitations. PULMONARY: Denied any shortness of breath. No cough or hemoptysis. NEUROLOGIC: No headaches, no weakness, no numbness. Medications were reviewed. PHYSICAL EXAMINATION: Temperature 98.6, pulse of 64, respiratory rate of 16, blood pressure is 123/59, saturating at 100% on 2 L of O2 by nasal cannula. HEENT: Conjunctival pallor unchanged, alert and oriented x3, does not have any scleral icterus. GENERAL: The patient is alert and oriented x3, not in any acute distress. Well developed, well nourished. Normocephalic, atraumatic. No pharyngeal erythema. No thyromegaly. CARDIOVASCULAR: S1 and S2 present. No murmurs, rubs, or gallops. PULMONARY: Chest is clear to auscultation, no wheezing or crackles. ABDOMEN: Soft, nontender, nondistended, normoactive bowel sounds. No palpable organomegaly. MUSCULOSKELETAL: No joint swelling or deformity. EXTREMITIES: No cyanosis, clubbing, or pedal edema. NEUROLOGICAL: Gross neurological examination did not reveal any focal deficits. SKIN: No rashes. LABORATORY DATA: CBC and basic metabolic profile are abnormal for elevated chloride of 110. Will change her fluids to lactated Ringer's because of elevated chloride. ASSESSMENT AND PLAN: 1. Lower gastrointestinal bleed at the hepatic flexure. Management as mentioned above. 2. Chronic obstructive pulmonary disease without any acute exacerbation. 3. Gastroesophageal reflux disease. 4. Hyperlipidemia. 5. Sleep apnea. Patient's hemoglobin remained freely stable though although patient clinically does have bleed. Received 1 unit of blood transfusion; however, hemoglobin is 7.2. Patient may need more transfusions depending on how surgery goes.
[2017-02-04] MEDS ORDERED: SODIUM CHLORIDE 0.9% 1,000 ML IV ONE (15:06)
--- NOTE | 2017-02-04 15:35 | P.PN ---
Progress Note - Text I had a lengthy discussion with the patient and her family in the preoperative hold area. I discussed with her that the tagged RBC scan shows evidence of bleeding at hepatic flexure. I discussed the patient and the family that is possible to have a another site of bleeding start after surgery. I discussed through that if we undergo right colectomy and she bleeds again from her colon she will need subtotal colectomy. Patient family agreed with surgery.
--- NOTE | 2017-02-04 15:38 | P.OP ---
Date of Procedure: 02/04/17 Preoperative Diagnosis: GI bleed Postoperative Diagnosis: GI bleed at hepatic flexure Umbilical hernia. Procedure(s) Performed: Ileocolectomy Umbilical hernia repair Anesthesia: KEVIN Surgeon: Ranier Don Estimated Blood Loss (ml): 10 Pathology: other (Right beto-colectomy) Condition: stable Disposition: PACU Description of Procedure: The patient's placed the operative table in the supine position. She received general anesthesia. Her abdomen was prepped and draped in usual sterile fashion. The abdomen was entered through midline incision. The stomach was examined there is no blood in the stomach. There. Minimal blood in the duodenum or the first part small bowel. At this point the right colon was mobilized. The hepatic flexure is mobilized. Then the terminal ileum was transected with the linear cutter stapler. Using LigaSure device the mesentery of the terminal ileum right colon and proximal transverse colon was divided. The transverse colon was divided near the distal third. The specimen sent to pathology. A [id number] functional end-to-end staple anastomosis was then created using the EPHRAIM and TA stapler. A 3-0 GI silk sutures uses crotch stitch. The abdomen irrigated. There is no bleeding seen. The fascia was closed with looped #1 PDS suture. Skin was closed ivone. Patient was sent to recovery in stable condition.
[2017-02-04] MEDS: HYDROmorphone 1 MG/ML 1 ML SYRINGE IVP PRN ×2 (18:09→21:01)
[2017-02-04] MEDS: LACTATED RINGERS 1,000 ML IV SCH (18:12)
[2017-02-04] MEDS: SODIUM CHLORIDE 0.9% 1,000 ML IV SCH ×2 (18:13→18:15)
[2017-02-04] MEDS: LEVOTHYROXINE 100 MCG TAB PO SCH (18:14)
[2017-02-04] MEDS: DULoxetine HCL 20 MG CAPSULE.DR PO SCH (18:14)
[2017-02-04] MEDS: PANTOPRAZOLE 40 MG/10 ML VIAL IV SCH ×2 (18:14→21:01)
[2017-02-05] MEDS: LACTATED RINGERS 1,000 ML IV SCH ×2 (03:32→18:24)
[2017-02-05] MEDS: HYDROmorphone 1 MG/ML 1 ML SYRINGE IVP PRN ×2 (03:33→18:25)
[2017-02-05] MEDS: LEVOTHYROXINE 100 MCG TAB PO SCH ×2 (06:23→09:08)
[2017-02-05 06:56] LABS: Anisocytosis Slight; CHCM 32.7; HDW 3.02; HGB 10.1 gm/dL (11.4-16.0); MCH 32.1 pg (25.0-35.0); MCHC 32.6 g/dL (31.0-37.0); MCV 98.5 fL (80.0-100.0); Macrocytosis Slight; Mean Platelet Volume 7.2; RBC 3.15 m/uL (3.80-5.40); RDW 16.8 % (11.5-15.5); WBC 14.1 k/uL (3.8-10.6)
[2017-02-05 07:19] LABS: Anion Gap 8 mmol/L; Blood Urea Nitrogen 19 mg/dL (7-17); Calcium 8.4 mg/dL (8.4-10.2); Carbon Dioxide 24 mmol/L (22-30); Chloride 111 mmol/L (98-107); Glucose 107 mg/dL (74-99); Non-African American GFR(MDRD) >60 (>60 ml/min/1.73 sqM); Potassium 4.1 mmol/L (3.5-5.1); Sodium 143 mmol/L (137-145)
--- NOTE | 2017-02-05 07:39 | P.PN ---
Subjective The patient is postoperative day 1 from a right hemicolectomy for GI bleeding. She's having some mild incisional pain. No nausea or vomiting. No flatus. She is thirsty. Objective - Vital Signs Vital signs: Vital Signs Temp 98.0 F 02/05/17 04:00 Pulse 101 H 02/05/17 04:00 Resp 20 02/05/17 04:00 BP 144/63 02/05/17 04:00 Pulse Ox 98 02/05/17 04:00 Intake & Output 02/04/17 02/05/17 02/05/17 18:59 06:59 18:59 Intake Total 3340 0 Output Total 635 200 Balance 2705 -200 Weight 80.5 kg Intake: IV 2100 Oral 0 Blood Product 1240 Rc As-1 Unit 310 [id number] Rc As-1 Unit 310 [id number] Other 0 Rc As-1 Unit 0 [id number] Rc As-1 Unit 0 [id number] Output: Urine 585 200 Estimated Blood Loss 50 Other: Voiding Method Bedside Commode Indwelling Catheter # Voids 1 - Constitutional General appearance: Present: cooperative, no acute distress - Gastrointestinal General gastrointestinal: Present: decreased bowel sounds, soft, tenderness ( Incisional) - Labs CBC & Chem 7: 02/05/17 06:26 02/05/17 06:22 Labs: Abnormal Lab Results - Last 24 Hours (Table) 02/04/17 02/05/17 02/05/17 Range/Units 06:24 06:22 06:26 WBC 14.1 H (3.8-10.6) k/uL RBC 2.51 L 3.15 L (3.80-5.40) m/uL Hgb 8.2 L 10.1 L (11.4-16.0) gm/dL Hct 24.9 L 31.0 L (34.0-46.0) % RDW 17.4 H 16.8 H (11.5-15.5) % Plt Count 142 L (150-450) k/uL Chloride 111 H (98-107) mmol/L BUN 19 H (7-17) mg/dL Glucose 107 H (74-99) mg/dL Assessment and Plan (1) Acute blood loss anemia Status: Acute (2) GI bleed Status: Acute Plan: We'll start the patient on some clear liquids. Encourage activity. Check her CBC. Progressing slowly.
[2017-02-05] MEDS: IPRATROPIUM-ALBUTEROL 3 ML NEB INHALATION SCH ×4 (08:25→20:06)
[2017-02-05] MEDS: SYMBICORT 80-4.5 MCG INHALER INHALATION SCH ×2 (08:26→20:06)
[2017-02-05] MEDS: DEXTROSE 5%-0.45% NACL 1,000 ML IV SCH ×2 (08:58→22:22)
[2017-02-05] MEDS: DULoxetine HCL 20 MG CAPSULE.DR PO SCH (08:59)
[2017-02-05] MEDS: PANTOPRAZOLE 40 MG/10 ML VIAL IV SCH ×2 (08:59→22:22)
[2017-02-05] MEDS: METOCLOPRAMIDE 5 MG/ML 2 ML VIAL IVP SCH ×2 (12:12→18:24)
[2017-02-05] MEDS: ONDANSETRON 4 MG/2 ML VIAL IVP PRN (18:24)
[2017-02-06] MEDS: METOCLOPRAMIDE 5 MG/ML 2 ML VIAL IVP SCH ×4 (00:11→17:02)
[2017-02-06] MEDS: ONDANSETRON 4 MG/2 ML VIAL IVP PRN (01:29)
[2017-02-06] MEDS: LACTATED RINGERS 1,000 ML IV SCH ×2 (05:14→17:04)
[2017-02-06 06:01] LABS: Anisocytosis Slight; Basophils % (A) 0 %; CH 32.8; CHCM 33.1; Eosinophils # (A) 0.1 k/uL (0-0.7); Eosinophils % (A) 1 %; HCT 30.3 % (34.0-46.0); HDW 3.03; HGB 9.5 gm/dL (11.4-16.0); Luc # (Auto) 0.16; Luc % (Auto) 1; Lymphocytes # (A) 0.4 k/uL (1.0-4.8); Lymphocytes % (A) 3 %; MCH 31.4 pg (25.0-35.0); MCHC 31.4 g/dL (31.0-37.0); MCV 99.9 fL (80.0-100.0); Macrocytosis Slight; Mean Platelet Volume 7.5; Monocytes # (A) 0.7 k/uL (0-1.0); Monocytes % (A) 5 %; Neutrophils # (A) 12.2 k/uL (1.3-7.7); Neutrophils % (A) 90 %; RBC 3.03 m/uL (3.80-5.40); RDW 16.7 % (11.5-15.5); WBC 13.5 k/uL (3.8-10.6); WBC (Perox) 14.67
[2017-02-06 06:20] LABS: Anion Gap 7 mmol/L; Blood Urea Nitrogen 13 mg/dL (7-17); Calcium 8.4 mg/dL (8.4-10.2); Carbon Dioxide 26 mmol/L (22-30); Chloride 102 mmol/L (98-107); Glucose 157 mg/dL (74-99); Non-African American GFR(MDRD) >60 (>60 ml/min/1.73 sqM); Potassium 3.6 mmol/L (3.5-5.1); Sodium 135 mmol/L (137-145)
[2017-02-06] MEDS: LEVOTHYROXINE 100 MCG TAB PO SCH (06:56)
[2017-02-06] MEDS: IPRATROPIUM-ALBUTEROL 3 ML NEB INHALATION SCH ×4 (07:35→20:59)
[2017-02-06] MEDS: SYMBICORT 80-4.5 MCG INHALER INHALATION SCH ×2 (07:35→21:00)
[2017-02-06] MEDS: PANTOPRAZOLE 40 MG/10 ML VIAL IV SCH ×2 (08:02→23:21)
--- NOTE | 2017-02-06 09:33 | P.PN ---
Subjective Principal diagnosis: Status post right hemicolectomy for GI bleeding The patient is seen on rounds. She had some oozing from her incision which was controlled with pressure dressing. She's had some nausea and vomiting. No flatus. She feels better today. Objective - Vital Signs Vital signs: Vital Signs Temp 97.7 F 02/06/17 08:00 Pulse 113 H 02/06/17 08:00 Resp 20 02/06/17 08:00 BP 143/65 02/06/17 08:00 Pulse Ox 96 02/06/17 08:00 Intake & Output 02/05/17 02/06/17 02/06/17 18:59 06:59 18:59 Intake Total 1025 1075 Output Total 406 900 2 Balance 619 175 -2 Weight 81 kg Intake: Intake, IV Titration 300 825 Amount Dextrose 5%-0.45% NaCl 1, 300 825 000 ml @ 75 mls/hr IV . [id number] [facility] Rx#:[id number] Oral 725 250 Output: Urine 400 900 Uretheral (Rankin) 450 Stool 6 2 Other: Voiding Method Indwelling Catheter Indwelling Catheter Indwelling Catheter # Voids 1 - Constitutional General appearance: Present: cooperative, no acute distress - Respiratory Respiratory: bilateral: CTA - Gastrointestinal General gastrointestinal: Present: normal bowel sounds (Bowel sounds are very good today), soft Localized gastrointestinal: surgical scar: midline (The dressing is intact clean and dry at this point) - Labs CBC & Chem 7: 02/06/17 05:36 02/06/17 05:36 Labs: Abnormal Lab Results - Last 24 Hours (Table) 02/06/17 02/06/17 Range/Units 05:36 05:36 WBC 13.5 H (3.8-10.6) k/uL RBC 3.03 L (3.80-5.40) m/uL Hgb 9.5 L (11.4-16.0) gm/dL Hct 30.3 L (34.0-46.0) % RDW 16.7 H (11.5-15.5) % Neutrophils # 12.2 H (1.3-7.7) k/uL Lymphocytes # 0.4 L (1.0-4.8) k/uL Sodium 135 L (137-145) mmol/L Glucose 157 H (74-99) mg/dL Assessment and Plan (1) Acute blood loss anemia Status: Acute (2) GI bleed Status: Acute Plan: Encouraged activity. Instructed her to hold off on clear liquids until she begins passing flatus. She is progressing slowly.
[2017-02-06] MEDS: DEXTROSE 5%-0.45% NACL 1,000 ML IV SCH ×2 (12:15→23:20)
[2017-02-06] MEDS: DULoxetine HCL 20 MG CAPSULE.DR PO SCH (12:21)
--- NOTE | 2017-02-06 12:33 | PN ---
DATE OF SERVICE: 02/05/2017 INTERVAL HISTORY: Ms. Spence is an 81-year-old female with past medical history of COPD, GERD, hyperlipidemia, admitted to the hospital with a GI bleed. The patient was found to have GI bleed at the hepatic flexure of the colon and underwent hemicolectomy. The patient is postop day 1 today. She also had reversal of colostomy. Currently, the patient is lying in her bed. She does not have any active complaints. REVIEW OF SYSTEMS: CONSTITUTIONAL: No fever, chills. GI: The patient complains of abdominal soreness and earlier when patient was having some bleed at the incisional site, later the bandage was changed and currently the bleeding is under control. CARDIOVASCULAR: No chest pain. No palpitations. RESPIRATORY: No difficulty in breathing. No cough or hemoptysis. Patient's medications have been reviewed. She is currently on Ventolin, DuoNeb, Symbicort, dextrose, Cymbalta, Dilaudid, Ringer lactate at 75 mL, Synthroid, Reglan,( ), Protonix, and tramadol. VITAL SIGNS: Temperature 97.6, heart rate 98, respiratory rate 16, blood pressure 117/56, saturating at 96% on 2 liters of nasal cannula. GENERAL EXAMINATION: Patient does not appear to be in any acute kind of distress. HEAD: Atraumatic, normocephalic. EYES: Pupils round, and reactive to light. NECK: No JVD. No thyromegaly. CARDIOVASCULAR: S1, S2 heard. PULMONARY: Bilateral breath sounds are slightly diminished in the lower lung howard. No crackles or wheezes. ABDOMEN: Soft, nontender. Patient has a midline surgical scar that is in dressing and dressing does not show any active bleeding. MUSCULOSKELETAL: No joint swelling or deformity. EXTREMITIES: No cyanosis, no clubbing, no edema. NEUROLOGICAL: HOSPICE SUPERINTENDENT alert, awake, oriented x3. SKIN: No rash. The patient's labs: White count of 14.1, hemoglobin is 10.1, platelets of 169. Sodium 143, potassium 4.1, chloride 111, bicarb 24, BUN 19, creatinine 0.72. ASSESSMENT AND PLAN: 1. Lower gastrointestinal bleed at hepatic flexure, status post right hemicolectomy. 2. History of chronic obstructive pulmonary disease not in exacerbation. 3. Gastroesophageal reflux disease. 4. Hypertension. 5. Sleep apnea. PLAN: Patient's hemoglobin status post surgery has been stable at around 10. Will continue the patient on breathing treatments and encourage her to do the incentive spirometry and continue with the rest of the home medications regimen. Further recommendations to follow depending on the progress of the patient.
[2017-02-07] MEDS: METOCLOPRAMIDE 5 MG/ML 2 ML VIAL IVP SCH ×5 (03:45→23:03)
[2017-02-07] MEDS: LEVOTHYROXINE 100 MCG TAB PO SCH ×2 (05:46→07:49)
[2017-02-07 06:25] LABS: Anisocytosis Slight; Basophils % (A) 0 %; CH 31.9; CHCM 32.9; Eosinophils # (A) 0.2 k/uL (0-0.7); Eosinophils % (A) 3 %; HCT 24.7 % (34.0-46.0); HDW 3.24; HGB 8.4 gm/dL (11.4-16.0); Luc # (Auto) 0.15; Luc % (Auto) 2; Lymphocytes # (A) 0.5 k/uL (1.0-4.8); Lymphocytes % (A) 8 %; MCH 33.2 pg (25.0-35.0); MCV 97.5 fL (80.0-100.0); Macrocytosis Slight; Mean Platelet Volume 7.1; Monocytes # (A) 0.5 k/uL (0-1.0); Monocytes % (A) 8 %; Neutrophils # (A) 4.7 k/uL (1.3-7.7); Neutrophils % (A) 78 %; RBC 2.54 m/uL (3.80-5.40); RDW 16.3 % (11.5-15.5); WBC (Perox) 6.35
[2017-02-07 06:37] LABS: Anion Gap 4 mmol/L; Blood Urea Nitrogen 8 mg/dL (7-17); Carbon Dioxide 29 mmol/L (22-30); Chloride 107 mmol/L (98-107); Glucose 103 mg/dL (74-99); Non-African American GFR(MDRD) >60 (>60 ml/min/1.73 sqM); Potassium 3.3 mmol/L (3.5-5.1); Sodium 140 mmol/L (137-145)
[2017-02-07] MEDS: PANTOPRAZOLE 40 MG/10 ML VIAL IV SCH ×2 (07:50→21:51)
[2017-02-07] MEDS: DULoxetine HCL 20 MG CAPSULE.DR PO SCH (07:50)
[2017-02-07] MEDS: SYMBICORT 80-4.5 MCG INHALER INHALATION SCH ×2 (08:31→19:52)
[2017-02-07] MEDS: IPRATROPIUM-ALBUTEROL 3 ML NEB INHALATION SCH ×4 (08:31→19:52)
[2017-02-07] MEDS ORDERED: POTASSIUM CHLORIDE 10 MEQ in WATER FOR INJECTION 1 100ML.BAG IVPB ONE (09:17)
[2017-02-07] MEDS ORDERED: Potassium Replacement Protocol 1 EACH MISC MISCELLANE PRN (09:17)
--- NOTE | 2017-02-07 15:29 | PN ---
DATE OF SERVICE: 02/06/2017 INTERVAL HISTORY: Ms. Spence is an 81-year-old female with a past medical history of COPD, GERD, hypertension, hyperlipidemia, admitted to the hospital with GI bleed. The patient was found to have a GI bleed at the hepatic flexure of the colon and underwent a colostomy. The patient is postop day 2. Yesterday, she had some bleeding at the incisional site, but today she does not have any active complaints. She took a few steps in the hallway. She is doing her incentive spirometry. She does not have any active complaints. She did pass gas once this morning. REVIEW OF SYSTEMS: CONSTITUTIONAL: No fever, chills, or rigors. GI: Patient has abdominal soreness, did pass gas once this morning. CARDIOVASCULAR: No chest pain or palpitations. RESPIRATORY: No cough. No difficulty in breathing. Patient's medications have been reviewed. On examination, patient's vital signs, temperature 97.5, heart rate 90 to 100, respiratory rate 16, blood pressure 116/54, saturating at 96% on 2 L of nasal cannula. GENERAL EXAMINATION: Patient does not appear to be in acute distress. HEAD: Atraumatic, normocephalic. EYES: Pupils, round, and reactive to light. NECK: No JVD. No thyromegaly. CARDIOVASCULAR: S1, S2 heard. Positive for holosystolic murmur. PULMONARY: decreased breath sounds in the lower lung howard. No crackles or wheezes. ABDOMEN: Soft. The patient has a midline surgical scar that is in dressing which does not show any active bleeding. MUSCULOSKELETAL: No joint swelling or deformity. EXTREMITIES: No cyanosis, no clubbing, no edema. NEUROLOGICAL: NEON TUBE PUMPER Alert, awake, oriented x3. SKIN: No rash. Patient's labs from this morning, white count of 13.5, hemoglobin is 9.4, platelets of 201. Sodium 135, potassium 3.6, chloride 102, bicarb 26, BUN 13, creatinine 0.60. ASSESSMENT AND PLAN: 1. Lower gastrointestinal bleed at hepatic flexure, status post right hemicolectomy. 2. History of chronic obstructive pulmonary disease, not in exacerbation. 3. Gastroesophageal reflux disease. 4. Hypertension. 5. Sleep apnea. PLAN: Patient has been having clear liquids and is passing gas. Will continue the patient on the current medication regimen. Continue with breathing treatments and further recommendations to follow depending on the progress of the patient.
[2017-02-07 15:38] VITALS: BMI 34.4
[2017-02-07] MEDS: DEXTROSE 5%-0.45% NACL 1,000 ML IV SCH (16:33)
--- NOTE | 2017-02-07 16:45 | P.PN ---
Subjective Principal diagnosis: GI bleed The patient underwent right colectomy on Tuesday. She has had no further evidence of GI bleed. She denies a significant abdominal pain. Objective - Vital Signs Vital signs: Vital Signs Temp 97.6 F 02/07/17 12:00 Pulse 88 02/07/17 16:11 Resp 18 02/07/17 12:00 BP 130/60 02/07/17 12:00 Pulse Ox 97 02/07/17 12:00 Intake & Output 02/06/17 02/07/17 02/07/17 18:59 06:59 18:59 Intake Total 1200 1150 356 Output Total 636 300 4 Balance 564 850 352 Weight 77.3 kg 77.3 kg Intake: Intake, IV Titration 600 Amount Dextrose 5%-0.45% NaCl 1, 600 000 ml @ 75 mls/hr IV . [id number] [facility] Rx#:[id number] Oral 1200 550 356 Output: Urine 630 300 Uretheral (Rankin) 330 Stool 6 4 Other: Voiding Method Toilet Toilet Toilet # Voids 1 1 - Constitutional General appearance: Present: average body habitus, cooperative - Gastrointestinal Gastrointestinal Comment(s): Abdomen soft. Incision is clean dry and intact. - Labs CBC & Chem 7: 02/07/17 05:52 02/07/17 05:52 Labs: Abnormal Lab Results - Last 24 Hours (Table) 02/07/17 02/07/17 Range/Units 05:52 05:52 RBC 2.54 L (3.80-5.40) m/uL Hgb 8.4 L (11.4-16.0) gm/dL Hct 24.7 L (34.0-46.0) % RDW 16.3 H (11.5-15.5) % Lymphocytes # 0.5 L (1.0-4.8) k/uL Potassium 3.3 L (3.5-5.1) mmol/L Glucose 103 H (74-99) mg/dL Calcium 8.0 L (8.4-10.2) mg/dL Assessment and Plan Plan: Status post extended right colectomy for GI bleed at hepatic flexure. Patient has had no significant GI bleed since surgery. We will increase her diet. Her hemoglobin will be rechecked.
[2017-02-07] MEDS ORDERED: MELATONIN 3 MG TABLET PO PRN (21:38)
[2017-02-07] MEDS: diphenhydrAMINE 25 MG CAP PO SCH (21:50)
--- NOTE | 2017-02-07 21:57 | PN ---
DATE OF SERVICE: 02/07/2017 INTERVAL HISTORY: Ms. Spence is an 81-year-old female with a past medical history of COPD, GERD, hypertension, hyperlipidemia, admitted to the hospital with GI bleed. The patient was found to have GI bleed of the hepatic flexure of the colon and underwent right hemicolectomy. The patient is postop day three. She has been started on clear liquids and is slowly being advanced. Patient did have her lunch this afternoon. She had a small bowel movement which was red in color along with some stool. REVIEW OF SYSTEMS: CONSTITUTIONAL: Denies having any fevers, chills, or rigors. RESPIRATORY: No cough. No difficulty in breathing. GI: Patient has abdominal soreness, had a small bowel movement this morning. : No dysuria or hematuria. The patient's medications have been reviewed. On examination, patient's vital signs temperature 97.6, heart rate 84, respiratory rate 16, blood pressure 130/60, saturating at 97% on 2 liters of nasal cannula. GENERAL EXAMINATION: Patient appears to be in no acute distress. HEAD: Atraumatic, normocephalic. EYES: Pupils equal, round and reactive to light. NECK: No jugular venous distention. No thyromegaly. CARDIOVASCULAR: S1 and S2 heard. Positive for holosystolic murmur. PULMONARY: Decreased breath sounds in the lower lung howard. No crackles or wheezes. ABDOMEN: Soft. The patient has a midline scar that is in dressing though does not show any active bleeding. MUSCULOSKELETAL: No joint swelling or deformity. EXTREMITIES: No cyanosis, no clubbing. Hypopigmented lesions present on bilateral lower extremities. NEUROLOGICAL: ANIMAL CAREGIVER alert and awake and oriented x3. SKIN: No rash. Patient's labs: White count of 6, hemoglobin is 8.4, platelets of 154. Sodium 140, potassium 3.8, chloride 107, bicarb 29, BUN 8, creatinine 0.60. ASSESSMENT AND PLAN: 1. Lower gastrointestinal bleed and hepatic flexure, status post right hemicolectomy. 2. History of chronic obstructive pulmonary disease not in exacerbation. 3. Gastroesophageal reflux disease. 4. Hypertension. 5. Sleep apnea. PLAN: Plan is to advance the patient's diet as tolerated and continue with the rest of his medications regimen and anticipate discharge in the next 24 hours.
[2017-02-08 01:43] VITALS: RESP 16
[2017-02-08] MEDS: LEVOTHYROXINE 100 MCG TAB PO SCH (05:44)
[2017-02-08] MEDS: METOCLOPRAMIDE 5 MG/ML 2 ML VIAL IVP SCH ×3 (05:44→19:23)
[2017-02-08] MEDS: DEXTROSE 5%-0.45% NACL 1,000 ML IV SCH ×2 (05:48→19:22)
[2017-02-08] MEDS: SYMBICORT 80-4.5 MCG INHALER INHALATION SCH ×2 (08:49→20:27)
[2017-02-08] MEDS: IPRATROPIUM-ALBUTEROL 3 ML NEB INHALATION SCH ×4 (08:49→20:27)
[2017-02-08] MEDS: PANTOPRAZOLE 40 MG/10 ML VIAL IV SCH ×2 (09:04→22:11)
[2017-02-08] MEDS: DULoxetine HCL 20 MG CAPSULE.DR PO SCH (09:04)
[2017-02-08 09:56] LABS: Anisocytosis Slight; Basophils % (A) 0 %; CH 31.9; CHCM 31.4; Eosinophils # (A) 0.2 k/uL (0-0.7); Eosinophils % (A) 4 %; HDW 3.15; HGB 9.3 gm/dL (11.4-16.0); Hypochromasia Slight; Luc # (Auto) 0.14; Luc % (Auto) 2; Lymphocytes # (A) 0.8 k/uL (1.0-4.8); Lymphocytes % (A) 12 %; MCH 32.8 pg (25.0-35.0); MCV 102.3 fL (80.0-100.0); Macrocytosis Moderate; Mean Platelet Volume 7.4; Monocytes # (A) 0.4 k/uL (0-1.0); Monocytes % (A) 7 %; Neutrophils # (A) 4.6 k/uL (1.3-7.7); Neutrophils % (A) 75 %; RBC 2.83 m/uL (3.80-5.40); RDW 16.5 % (11.5-15.5); WBC 6.2 k/uL (3.8-10.6); WBC (Perox) 6.22
--- NOTE | 2017-02-08 13:38 | P.PN ---
Progress Note - Text The patient is resting comfortably in her bed. She denies any complaints of significant pain. She is tolerating a soft diet. On exam her vital signs are stable. Her abdomen soft. Her incision site is clean dry and intact. Hemoglobin is 9.4. It is actually increased. Status post right colectomy for GI bleed at hepatic flexure. Patient will be observed. She'll hopefully be discharged home the next 24-48 hours.
--- NOTE | 2017-02-08 17:35 | P.PN ---
Subjective 81-year-old female with past medical history of COPD GERD hypertension dyslipidemia, the hospital with a GI bleed. Patient apparently underwent multiple episodes of small amounts of bleeding in the past. Patient apparently was noted to have some bleeding in the hepatic flexure underwent a right-sided colectomy. Patient is currently tolerating food is ambulating has had 2 bowel movements denies having any difficulty breathing nausea vomiting or diarrhea. Patient is currently and chronically on 2 L supplemental oxygen for the last 15 years. Denies headaches, nausea, vomiting, urinary urgency or frequency. Objective - Vital Signs Vital signs: Vital Signs Temp 97.2 F L 02/08/17 07:00 Pulse 86 02/08/17 16:29 Resp 16 02/08/17 08:00 BP 157/73 02/08/17 07:00 Pulse Ox 98 02/08/17 07:00 Intake & Output 02/07/17 02/08/17 02/08/17 18:59 06:59 18:59 Intake Total 356 955 375 Output Total 6 2 302 Balance 350 953 73 Weight 77.3 kg 77.3 kg 77.3 kg Intake: Intake, IV Titration 600 375 Amount Dextrose 5%-0.45% NaCl 1, 600 375 000 ml @ 75 mls/hr IV . [id number] [facility] Rx#:[id number] Oral 356 355 Output: Urine 300 Stool 6 2 2 Other: Voiding Method Toilet Toilet Toilet # Voids 1 2 - Exam Physical exam Gen. appearance oriented 3 in no distress Neck is supple no JVD Lungs dry crackles appreciated Heart S1-S2 heard regular rate and rhythm no murmurs appreciated Abdomen is soft nontender no organomegaly bowel sounds are intact Neurologically cranial nerves II-12 grossly intact no focal motor or sensory deficits noted Skin no abnormalities appreciated - Labs CBC & Chem 7: 02/08/17 09:35 02/07/17 18:54 Labs: Abnormal Lab Results - Last 24 Hours (Table) 02/08/17 Range/Units 09:35 RBC 2.83 L (3.80-5.40) m/uL Hgb 9.3 L (11.4-16.0) gm/dL Hct 29.0 L (34.0-46.0) % MCV 102.3 H (80.0-100.0) fL RDW 16.5 H (11.5-15.5) % Lymphocytes # 0.8 L (1.0-4.8) k/uL Assessment and Plan Plan: #1 acute on chronic lower GI bleed causing her chronic cough anemia. #2 history of COPD #3 chronic hypoxic respiratory failure #4 GERD #5 hypertension #6 objective sleep apnea Plan Patient is cleared to be discharged. We'll encourage ambulation. Incentive spirometry to continue. We'll repeat a chest x-ray in the a.m. and thereafter be discharged. Physical exam findings appreciated R likely secondary to scarring from a chronic diagnosis of COPD.
[2017-02-08] MEDS: diphenhydrAMINE 25 MG CAP PO SCH (22:12)
[2017-02-09] MEDS: METOCLOPRAMIDE 5 MG/ML 2 ML VIAL IVP SCH ×3 (01:48→12:23)
[2017-02-09] MEDS: LEVOTHYROXINE 100 MCG TAB PO SCH (05:34)
[2017-02-09] MEDS: DEXTROSE 5%-0.45% NACL 1,000 ML IV SCH (06:59)
[2017-02-09] MEDS: IPRATROPIUM-ALBUTEROL 3 ML NEB INHALATION SCH ×2 (08:04→12:22)
[2017-02-09] MEDS: PANTOPRAZOLE 40 MG/10 ML VIAL IV SCH (08:15)
[2017-02-09] MEDS: DULoxetine HCL 20 MG CAPSULE.DR PO SCH (08:15)
[2017-02-09] MEDS: SYMBICORT 80-4.5 MCG INHALER INHALATION SCH (08:16)
[2017-02-09 08:45] VITALS: BP 139/75; PULSE 89; TEMP 98.3
--- NOTE | 2017-02-09 08:59 | XR ---
EXAMINATION TYPE: XR chest 1V portable DATE OF EXAM: 02/09/2017 8:51 AM COMPARISON: 09/19/2012 HISTORY: Difficulty in breathing TECHNIQUE: Single frontal view of the chest is obtained. FINDINGS: The heart is enlarged and there are subsegmental consolidation left upper lobe and right l ower lobe. Postsurgical change involving the right axilla. Arthropathy of the shoulders. Diffuse oste openia noted. IMPRESSION: 1. Left upper lobe and right lower lobe subsegmental consolidation with small right effusion. Correla te for pneumonia.
--- NOTE | 2017-02-09 13:11 | P.DS ---
Providers Date of admission: 02/02/17 16:08 Attending physician: Toma Page Consults: 02/03/17 11:06 Consult Physician Routine Consulting Provider: Rainer Don Consult Reason/Comments: GI bleed Do you want consulting provider notified?: Yes Primary care physician: Torey Manzanares [facility] Course: 81-year-old female with past medical history of COPD GERD hypertension dyslipidemia, the hospital with a GI bleed. Patient apparently underwent multiple episodes of small amounts of bleeding in the past. Patient underwent a tagged nuclear scan was noted to have active bleeding in the hepatic flexure thereafter was taken surgery for right-sided colectomy. Patient's hemoglobin has been stable since then. Patient is currently tolerating food is ambulating has had 2 bowel movements denies having any difficulty breathing nausea vomiting or diarrhea. Patient is currently and chronically on 2 L supplemental oxygen for the last 15 years. A chest x-ray on the day of discharge was noted to have some abnormalities, radiologist read of consolidation. However patient does not have any active symptoms of cough and increased sputum production or fever or chills. This may just be an incidental finding Denies headaches, nausea, vomiting, urinary urgency or frequency. - Exam Physical exam Gen. appearance oriented 3 in no distress Neck is supple no JVD Lungs dry crackles appreciated Heart S1-S2 heard regular rate and rhythm no murmurs appreciated Abdomen is soft nontender no organomegaly bowel sounds are intact Neurologically cranial nerves II-12 grossly intact no focal motor or sensory deficits noted Skin no abnormalities appreciated Assessment and Plan Plan: #1 acute on chronic lower GI bleed causing her chronic cough anemia. #2 history of COPD #3 chronic hypoxic respiratory failure #4 GERD #5 hypertension #6obstructive sleep apnea #7 acute tracheobronchitis Ceftin on discharge. To follow up with general surgeon regards to abdominal wound. A repeat CBC and follow up with Dr. Herrera Was discussed with the patient. And is discharged home in a stable condition recommended breathing treatments 3 times a day to continue Ceftin referred on steroids as patient recently underwent a surgery and has had bleeding episodes. Patient Condition at Discharge: Stable Plan - Discharge Summary New Discharge Prescriptions: Cefuroxime [Ceftin] 250 mg PO BID #14 tablet Discharge Medication List Levothyroxine Sodium [Synthroid] 100 mcg PO DAILY 03/07/14 [History] Multivitamins, Thera [Multivitamin (formulary)] 1 tab PO DAILY 03/07/14 [History ] Bumetanide [BUMEX] 1 mg PO DAILY 12/20/16 [History] DULoxetine HCL [Cymbalta] 20 mg PO DAILY 12/20/16 [History] Ipratropium Nebulized [Atrovent Nebulized] 0.5 mg INHALATION RT-QID 12/20/16 [ History] Omeprazole 40 mg PO DAILY 12/20/16 [History] diphenhydrAMINE HCL [Benadryl] 25 mg PO HS 12/20/16 [History] Albuterol Nebulized [Ventolin Nebulized] 2.5 mg INHALATION RT-Q6H PRN 02/02/17 [ History] Budesonide/Formoterol Fumarate [Symbicort 80-4.5 Mcg Inhaler] 2 puff INHALATION RT-BID 02/02/17 [History] Meclizine [Antivert] 25 mg PO TID PRN 02/02/17 [History] Potassium Chloride [K-Tab ER] 10 meq PO BID 02/02/17 [History] traMADol HCl [Ultram] 50 mg PO Q6H PRN 02/02/17 [History] Cefuroxime [Ceftin] 250 mg PO BID #14 tablet 02/09/17 [Rx] Follow up Appointment(s)/Referral(s): Torey Manzanares DO [Primary Care Provider] - 02/14/17 11:00 am () Will Pizano MD [STAFF PHYSICIAN] - As Needed (This is the doctor that saw you in the hospital) Rainer Don MD [STAFF PHYSICIAN] - 02/15/17 11:00 am Patient Instructions/Handouts: Colectomy (DC) Activity/Diet/Wound Care/Special Instructions: [facility] Visiting Nurse [phone] Discharge Disposition: HOME WITH HOME HEALTH SERVICES
--- NOTE | 2017-02-11 08:06 | CDI ---
In responding to this query, please exercise your independent professional judgment. The [facility] Coding Staff and Clinical Documentation Specialists appreciate your assistance in clarifying documentation, maintaining compliance with coding guidelines, accurately documenting patients condition and capturing severity of illness. The fact that a question is asked does not imply that any particular answer is desired or expected. Communication forms are a method of clarifying documentation and are not made part of the Legal Health Record. Thank you in advance for your clarification. Last Revision, December 2015 [facility] Alesia Marks [address] [place] [address] Documentation Clarification Form Date: 02/11/2017 7:59:00 AM From: Steph Angel Phone: Admit Date: 02/02/2017 4:08:00 PM Patient Name: Simon Spence Visit Number: [id number] Discharge Date: 02/11/17 Dr. Rainer Bushania Documentation in the Operative Report under procedures performed states umbilical hernia was repair. Please add description of umbilical hernia repair to the operative report in order to capture the procedure correctly. Please document in your progress notes and discharge summary in order to capture severity of illness and risk of mortality. Include clinical findings that support your diagnosis. FYI: Press F11 to launch patient chart MIA Hernandez, CCS, AHIMA Certified I-10 Supervisor Keymodule Assembly/Roller Operator Supervisor Keymodule Assembly II EMERSON
== END 2017-02-09 14:03 | disposition home health service (06) | DRG 330 ==
LOC: EC 14:32 → 6SEL 16:08 → 3SUR 02-07 20:17 → 6PED 02-09 12:00
PROVIDERS: ADMIT Internal Medicine; ATTEND Internal Medicine
PROC: 0DTF0ZZ Resection of Right Large Intestine, Open Approach (ICD-10-PCS; 2017-02-04)
PROC: 0WQF0ZZ Repair Abdominal Wall, Open Approach (ICD-10-PCS; 2017-02-04)
PROC: 30233N1 Transfusion of Nonautologous Red Blood Cells into Peripheral Vein, Percutaneous Approach (ICD-10-PCS; principal; 2017-02-04 14:10)
DX: K57.31 Diverticulosis of large intestine without perforation or abscess with bleeding (principal); D62 Acute posthemorrhagic anemia; J96.11 Chronic respiratory failure with hypoxia; J44.0 Chronic obstructive pulmonary disease with (acute) lower respiratory infection; Z99.81 Dependence on supplemental oxygen; J20.9 Acute bronchitis, unspecified; M41.9 Scoliosis, unspecified; K42.9 Umbilical hernia without obstruction or gangrene; I10 Essential (primary) hypertension; K21.9 Gastro-esophageal reflux disease without esophagitis; M19.91 Primary osteoarthritis, unspecified site; G47.30 Sleep apnea, unspecified; E03.9 Hypothyroidism, unspecified; K44.9 Diaphragmatic hernia without obstruction or gangrene; E78.5 Hyperlipidemia, unspecified; F41.9 Anxiety disorder, unspecified; Z90.49 Acquired absence of other specified parts of digestive tract; Z90.710 Acquired absence of both cervix and uterus; Z96.653 Presence of artificial knee joint, bilateral; Z87.891 Personal history of nicotine dependence; Z85.3 Personal history of malignant neoplasm of breast; Z98.42 Cataract extraction status, left eye; Z98.41 Cataract extraction status, right eye; Z85.828 Personal history of other malignant neoplasm of skin; Z90.11 Acquired absence of right breast and nipple; Z79.51 Long term (current) use of inhaled steroids; Z79.899 Other long term (current) drug therapy
CPT/HCPCS: 36415; 36430; 71010; 78278; 80048; 80053; 82272; 82550; 82553; 83735; 84132; 84484; 85025; 85027; 85610; 85730; 86850; 86900; 86901; 86920; 88307; 94640; 94760; 96374; 99285

== ENCOUNTER → 2017-11-21 | Outpatient (CLI) | payer MEDICARE ==
--- NOTE | 2017-11-21 10:58 | MM ---
Reason for exam: additional evaluation requested from prior study. Last mammogram was performed 1 year and 2 months ago. History: Patient is postmenopausal, has history of breast cancer at age 62, and history of other cancer. Excisional biopsy of the right breast, November 02, 2010. Mastectomy of the right breast, 1997. Chemotherapy, 1997. Radiation therapy of the right breast, 1997. Took estrogen for 29 years beginning at age 33. Took tamoxifen for 9 years. Physical Findings: Nurse did not find any significant physical abnormalities on exam. MG 3D Diag Mammo W/Cad LT CC and MLO view(s) were taken of the left breast. Prior study comparison: September 30, 2016, left breast MG 3d diag mammo w/cad LT. September 29, 2015, left breast MG 3d diag mammo w/cad LT. There are scattered fibroglandular densities. Stable benign calcifications. There is no discrete abnormality. No significant new findings when compared with previous films. These results were verbally communicated with the patient and result sheet given to the patient on 11/21/17. ASSESSMENT: Benign, BI-RAD 2 RECOMMENDATION: Follow-up diagnostic mammogram of the left breast in 1 year.
== END | disposition home or self-care (01) ==
LOC: RADMAMWWP 10:04
PROVIDERS: ATTEND Family Medicine
DX: R92.2 Inconclusive mammogram (principal); Z85.3 Personal history of malignant neoplasm of breast
CPT/HCPCS: 77065; G0279

== ENCOUNTER → 2018-02-21 | Outpatient (CLI) | payer MEDICARE | END | disposition home or self-care (01) | LOC: LABPAT 14:09 | PROVIDERS: ATTEND Surgery | DX: Z01.818 Encounter for other preprocedural examination (principal); Z01.812 Encounter for preprocedural laboratory examination; K43.2 Incisional hernia without obstruction or gangrene; D64.9 Anemia, unspecified; F17.200 Nicotine dependence, unspecified, uncomplicated | CPT/HCPCS: 36415; 80053; 85025; 86850; 86900; 86901; 93005 ==

== ENCOUNTER 2018-02-28 07:31 | Day surgery (SDC) | payer MEDICARE ==
[2018-02-21 15:23] LABS: Basophils % (A) 0 %; Eosinophils # (A) 0.1 k/uL (0-0.7); Eosinophils % (A) 2 %; HCT 37.1 % (34.0-46.0); HGB 12.3 gm/dL (11.4-16.0); Lymphocytes % (A) 13 %; MCH 32.5 pg (25.0-35.0); MCHC 33.1 g/dL (31.0-37.0); Mean Platelet Volume 7.3; Monocytes # (A) 0.5 k/uL (0-1.0); Monocytes % (A) 6 %; Neutrophils # (A) 6.3 k/uL (1.3-7.7); Neutrophils % (A) 78 %; Platelet Count 201 k/uL (150-450); RBC 3.77 m/uL (3.80-5.40); RDW 13.4 % (11.5-15.5); WBC 8.1 k/uL (3.8-10.6)
[2018-02-21 15:27] LABS: MCV 98.4 fL (80.0-100.0)
[2018-02-21 15:28] LABS: Calcium 9.4 mg/dL (8.4-10.2); Potassium 4.1 mmol/L (3.5-5.1); Total Bilirubin 0.9 mg/dL (0.2-1.3); Total Protein 6.6 g/dL (6.3-8.2)
[2018-02-23 09:51] VITALS: BMI 35.3
[~2018-02-28 07:31] MED LIST: DEXAMETHASONE SOD PHOSPHATE 10 MG/ML 1 ML VIAL IV ONE; HEPARIN SODIUM,PORCINE 5,000 UNIT/ML 1 ML VIAL SQ ONE; LACTATED RINGERS 1,000 ML IV SCH; LIDOCAINE 1% 20 ML VIAL (10MG/ML) FOR IV START INTRADERMA PRN; MIDAZOLAM 2 MG/2 ML VIAL IV PRN; ONDANSETRON ODT 4 MG TAB PO ONE; ceFAZolin IN SWFI 2 GM/20 ML SYRINGE IVP ONE
--- NOTE | 2018-02-28 08:29 | P.GSHP ---
History of Present Illness H&P Date: 02/28/18 Chief Complaint: Incisional hernia This 82-year-old female who presents today for laparoscopic robotic repair of incisional hernia. Patient a previous right colectomy. She developed an incisional hernia in the upper midline position. Past Medical History Past Medical History: Cancer, COPD, GERD/Reflux, GI Bleed, Musculoskeletal Disorder, Osteoarthritis (OA), Sleep Apnea/CPAP/BIPAP, Thyroid Disorder Additional Past Medical History / Comment(s): INCISIONAL HERNIA, STATES NO CHF, HAS GILLIAN LEG SWELLING, O2 AT 2L VIA NC. OCCASIONAL VERTIGO, HX NARCOLEPSY, HX DIVERTICULITIS, HX OF SCOLIOSIS, HX ANEMIA, HX RT BREAST CA, CHEMO AND RADIATION 1998, AND SKIN CA, History of Any Multi-Drug Resistant Organisms: None Reported Past Surgical History: Back Surgery, Bowel Resection, Cholecystectomy, Hysterectomy, Joint Replacement, Tonsillectomy Additional Past Surgical History / Comment(s): GILLIAN KNEE REPLACEMENT, (R) mastectomy and lymph node removal 1998, GILLIAN GREAT TOENAILS REMOVED, GILLIAN CATARACT SX Past Anesthesia/Blood Transfusion Reactions: No Reported Reaction Past Psychological History: Anxiety, Depression Additional Psychological History / Comment(s): IS CURRENT CAREGIVER FOR WITH CANCER Smoking Status: Former smoker Past Alcohol Use History: None Reported Additional Past Alcohol Use History / Comment(s): STARTED SMOKING 1943, QUIT 1979, 1/2PPD Past Drug Use History: None Reported - Past Family History Mother Additional Family Medical History / Comment(s): MOTHER OF TB WHEN PT WAS 6 MONTHS OLD Father Family Medical History: Coronary Artery Disease (CAD) Additional Family Medical History / Comment(s): Father 18 years ago from a heart attack. Medications and Allergies Home Medications Medication Instructions Recorded Confirmed Type Levothyroxine Sodium [Synthroid] 100 mcg PO DAILY 03/07/14 02/23/18 History Multivitamins, Thera [Multivitamin 1 tab PO DAILY 03/07/14 02/23/18 History (formulary)] Bumetanide [BUMEX] 1 mg PO DAILY 12/20/16 02/23/18 History DULoxetine HCL [Cymbalta] 20 mg PO DAILY 12/20/16 02/23/18 History diphenhydrAMINE HCL [Benadryl] 25 mg PO HS 12/20/16 02/23/18 History Budesonide/Formoterol Fumarate 2 puff INHALATION RT-BID 02/02/17 02/23/18 History [Symbicort 80-4.5 Mcg Inhaler] Meclizine [Antivert] 25 mg PO TID PRN 02/02/17 02/23/18 History Acetaminophen [Tylenol Extra 500 mg PO Q6H PRN 02/23/18 02/23/18 History Strength] Albuterol Sulfate [Proair Hfa] 1 - 2 puff INHALATION Q6HR PRN 02/23/18 02/23/18 History Artificial Tears-Hypromellose 1 drops BOTH EYES TID 02/23/18 02/23/18 History [Artificial Tear Drops] Ascorbic Acid [Vitamin C] 1,000 mg PO DAILY 02/23/18 02/23/18 History Calcium Carbonate [Calcium] 600 mg PO DAILY 02/23/18 02/23/18 History Cholecalciferol [Vitamin D3] 1,000 unit PO DAILY 02/23/18 02/23/18 History DULoxetine HCL [Cymbalta] 30 mg PO DAILY 02/23/18 02/23/18 History Ferrous Sulfate [Feosol] 325 mg PO DAILY 02/23/18 02/23/18 History Folic Acid 0.8 mg PO DAILY 02/23/18 02/23/18 History Ipratropium-Albuterol Nebulize 3 ml INHALATION QID 02/23/18 02/23/18 History [Duoneb 0.5 mg-3 mg/3 ml Soln] L.acidoph,Paracasei, B.lactis 1 each PO DAILY 02/23/18 02/23/18 History [Probiotic] LORazepam [Ativan] 0.5 mg PO BID PRN 02/23/18 02/23/18 History Meloxicam [Mobic] 15 mg PO DAILY 02/23/18 02/23/18 History [place]-3 Fatty Acids/Fish Oil [Fish 1 each PO DAILY 02/23/18 02/23/18 History Oil 1,000 mg Softgel] Potassium Chloride 750 mg PO DAILY 02/23/18 History Vitamin B Complex 1 each PO DAILY 02/23/18 02/23/18 History Allergies Allergy/AdvReac Type Severity Reaction Status Date / Time codeine Allergy Unknown Itching, Verified 02/23/18 09:31 red skin iodine Allergy Unknown Itching, Verified 02/23/18 09:31 red skin Sulfa (Sulfonamide Allergy Unknown Itching, Verified 02/23/18 09:31 Antibiotics) red skin Surgical - Exam Vital Signs Temp Pulse Resp BP Pulse Ox 98.3 F 72 20 132/65 96 02/28/18 08:15 02/28/18 08:15 02/28/18 08:15 02/28/18 08:15 02/28/18 08:15 - General well developed, no distress - Eyes PERRL - ENT normal pinna - Neck no masses - Respiratory normal expansion - Cardiovascular Rhythm: regular - Abdomen Abdomen: soft, non tender Results - Labs 02/21/18 14:22 02/21/18 14:22 Assessment and Plan Assessment: Incisional hernia. We'll perform laparoscopic robotic assistance repair.
[2018-02-28] MEDS ORDERED: ONDANSETRON 4 MG/2 ML VIAL IVP ONE (08:38)
[2018-02-28] MEDS ORDERED: ROCURONIUM BROMIDE 10 MG/ML 10 ML VIAL IV ONE (09:04)
[2018-02-28] MEDS ORDERED: PROPOFOL 10 MG/ML 20 ML VIAL IV ONE (09:04)
[2018-02-28] MEDS ORDERED: MIDAZOLAM 2 MG/2 ML VIAL ONE (09:04)
[2018-02-28] MEDS ORDERED: GLYCOPYRROLATE 0.2 MG/ML 2 ML VIAL ONE (09:04)
[2018-02-28] MEDS ORDERED: LIDOCAINE 1% INJ 10MG/ML (20 ML MDV) ONE (09:04)
[2018-02-28] MEDS ORDERED: fentaNYL (PF) 50 MCG/ML 2 ML AMP ONE (09:04)
[2018-02-28] MEDS ORDERED: NEOSTIGMINE 1 MG/ML 10 ML VIAL ONE (09:04)
[2018-02-28] MEDS ORDERED: BUPIVACAINE (PF) 0.25% 30 ML VIAL SQ ONE ×2 (09:21)
--- NOTE | 2018-02-28 10:15 | P.OP ---
Date of Procedure: 02/28/18 Preoperative Diagnosis: Incisional hernia Postoperative Diagnosis: Incisional hernia Procedure(s) Performed: Laparoscopic robotic-assisted repair of incisional hernia Anesthesia: KEVIN Surgeon: Rainer Don Estimated Blood Loss (ml): 5 Pathology: none sent Condition: stable Disposition: PACU Description of Procedure: The patient was placed on the operating table in the supine position. He received general anesthesia. His abdomen was prepped and draped usual fashion. Using a 5 mm optical trocar under direct visualization the peritoneal cavity was entered in the left upper quadrant. The abdomen was then insufflated. The laparoscope was placed back into the perineal cavity. Next a 8 mm robotic trocar was placed in the left lower quadrant and a 12 mm robotic trocar was placed in the left lateral position. The original 5 mm trocar was exchanged for a 8 mm robotic trocar. The patient's placed in the left side up position. And the patient was docked to the robot. The incisional hernia was visualized. Using hook cautery the peritoneum over the incisional hernia was excised. The fascial opening was repaired using 0V LOC suture. Next a piece of 11 cm round ventral light ST mesh was placed into the. Cavity and secured with 2 OV lock suture. The patient was undocked the robot. The needles were retrieved. The fascia of the 12 mm trocar site was closed with 0 Ethibond suture. Skin was closed interrupted 3-0 Monocryl suture. Dermabond dressings was applied. Patient tolerated procedure well and was sent to recovery room stable condition.
[2018-02-28 10:17] VITALS: TEMP 97
[2018-02-28] MEDS: MORPHINE SULFATE 2 MG/ML SYRINGE IV PRN ×2 (10:24→10:30)
[2018-02-28 11:21] VITALS: RESP 18
[2018-02-28] MEDS ORDERED: HYDROcodone/APAP 7.5-325MG 1 EACH TAB PO ONE (13:00)
[2018-02-28 13:18] VITALS: BP 102/55; PULSE 65
[2018-02-28] MEDS ORDERED: LACTATED RINGERS 1,000 ML IV ONE (13:20)
== END 2018-02-28 13:37 | disposition home or self-care (01) ==
LOC: OR 07:31
PROVIDERS: ATTEND Surgery
DX: K43.2 Incisional hernia without obstruction or gangrene (principal); J44.9 Chronic obstructive pulmonary disease, unspecified; K21.9 Gastro-esophageal reflux disease without esophagitis; M19.90 Unspecified osteoarthritis, unspecified site; E07.9 Disorder of thyroid, unspecified; G47.33 Obstructive sleep apnea (adult) (pediatric); F41.9 Anxiety disorder, unspecified; F32.9 Major depressive disorder, single episode, unspecified; Z99.89 Dependence on other enabling machines and devices; Z99.81 Dependence on supplemental oxygen; Z85.3 Personal history of malignant neoplasm of breast; Z85.828 Personal history of other malignant neoplasm of skin; Z92.3 Personal history of irradiation; Z92.21 Personal history of antineoplastic chemotherapy; Z90.11 Acquired absence of right breast and nipple; Z90.49 Acquired absence of other specified parts of digestive tract; Z79.890 Hormone replacement therapy; Z79.1 Long term (current) use of non-steroidal anti-inflammatories (NSAID); Z79.51 Long term (current) use of inhaled steroids; Z79.899 Other long term (current) drug therapy; Z88.5 Allergy status to narcotic agent; Z88.2 Allergy status to sulfonamides; Z91.09 Other allergy status, other than to drugs and biological substances; Z87.891 Personal history of nicotine dependence
CPT/HCPCS: 49654; C1781; J2250; J1644; J1100; J2710; J2405; J2001; J3010; J2270; J2704; J0690; 36415; 80053; 85025; 86850; 86900; 86901; 93005

== ENCOUNTER → 2018-03-08 | Outpatient (CLI) | payer MEDICARE ==
--- NOTE | 2018-03-08 11:36 | XR ---
EXAMINATION TYPE: XR chest 2V DATE OF EXAM: 03/08/2018 COMPARISON: 02/09/2017 TECHNIQUE: PA and lateral views submitted. HISTORY: Difficulty breathing FINDINGS: Heart is enlarged and there is a curvature of the spine with atherosclerotic change aorta. Postsurgic al change or axilla. Small pleural effusion bilaterally with subsegmental consolidation. IMPRESSION: 1. Bilateral lower lobe subsegmental consolidation and small effusion.
== END | disposition home or self-care (01) ==
LOC: RADXRYALE 10:58
PROVIDERS: ATTEND Physician Assistant Medical
DX: J90 Pleural effusion, not elsewhere classified (principal)
CPT/HCPCS: 71046

== ENCOUNTER 2018-03-15 12:50 | Inpatient (IN) | payer MEDICARE ==
[2018-03-15] MEDS ORDERED: IPRATROPIUM-ALBUTEROL 3 ML NEB INHALATION STA (13:23)
--- NOTE | 2018-03-15 13:34 | ED ---
General Adult HPI - General Chief complaint: Shortness of Breath Stated complaint: Low heart rate / fluid in legs Time Seen by Provider: 03/15/18 13:12 Source: patient, RN notes reviewed, old records reviewed Mode of arrival: wheelchair Limitations: no limitations - History of Present Illness Initial comments: This is an 82-year-old female to the ER for evaluation of lower extremity edema and shortness of breath. Patient has history of recent surgery, coming in for evaluation of significant lower extremity edema not improving with outpatient wound care. Patient currently on antibiotics, edema is worsening and shortness of breath is increasing. again that it just had recent surgery otherwise denies any other complaints no chest pain - Related Data Home Medications Medication Instructions Recorded Confirmed Levothyroxine Sodium [Synthroid] 100 mcg PO DAILY 03/07/14 03/15/18 Multivitamins, Thera [Multivitamin 1 tab PO DAILY 03/07/14 03/15/18 (formulary)] Bumetanide [BUMEX] 1 mg PO DAILY 12/20/16 03/15/18 DULoxetine HCL [Cymbalta] 20 mg PO DAILY 12/20/16 03/15/18 diphenhydrAMINE HCL [Benadryl] 25 mg PO HS 12/20/16 03/15/18 Budesonide/Formoterol Fumarate 2 puff INHALATION RT-BID 02/02/17 03/15/18 [Symbicort 80-4.5 Mcg Inhaler] Meclizine [Antivert] 25 mg PO TID PRN 02/02/17 03/15/18 Acetaminophen [Tylenol Extra 500 mg PO Q6H PRN 02/23/18 03/15/18 Strength] Albuterol Sulfate [Proair Hfa] 1 - 2 puff INHALATION RT-Q6H PRN 02/23/18 Artificial Tears-Hypromellose 1 drops BOTH EYES TID 02/23/18 03/15/18 [Artificial Tear Drops] Ascorbic Acid [Vitamin C] 1,000 mg PO DAILY 02/23/18 03/15/18 Calcium Carbonate [Calcium] 600 mg PO DAILY 02/23/18 03/15/18 Cholecalciferol [Vitamin D3] 1,000 unit PO DAILY 02/23/18 03/15/18 DULoxetine HCL [Cymbalta] 30 mg PO DAILY 02/23/18 03/15/18 Ferrous Sulfate [Feosol] 325 mg PO DAILY 02/23/18 03/15/18 Folic Acid 0.8 mg PO DAILY 02/23/18 03/15/18 Ipratropium-Albuterol Nebulize 3 ml INHALATION RT-QID 02/23/18 03/15/18 [Duoneb 0.5 mg-3 mg/3 ml Soln] L.acidoph,Paracasei, B.lactis 1 cap PO DAILY 02/23/18 03/15/18 [Probiotic] LORazepam [Ativan] 0.5 mg PO BID PRN 02/23/18 03/15/18 Meloxicam [Mobic] 15 mg PO DAILY 02/23/18 03/15/18 [place]-3 Fatty Acids/Fish Oil [Fish 1 cap PO DAILY 02/23/18 03/15/18 Oil 1,000 mg Softgel] Potassium Chloride 750 mg PO DAILY 02/23/18 03/15/18 Vitamin B Complex 1 cap PO DAILY 02/23/18 03/15/18 Cephalexin [Keflex] 500 mg PO TID 03/15/18 03/15/18 Furosemide [Lasix] 20 mg PO BID 03/15/18 03/15/18 HYDROcodone/APAP 7.5-325MG [[place] 1 tab PO Q4H PRN 03/15/18 03/15/18 7.5] Previous Rx's Medication Instructions Recorded Docusate [Colace] 100 mg PO BID #20 capsule 02/28/18 Allergies Allergy/AdvReac Type Severity Reaction Status Date / Time codeine Allergy Unknown Itching, Verified 03/15/18 12:59 red skin iodine Allergy Unknown Itching, Verified 03/15/18 12:59 red skin Sulfa (Sulfonamide Allergy Unknown Itching, Verified 03/15/18 12:59 Antibiotics) red skin Review of Systems ROS Statement: Those systems with pertinent positive or pertinent negative responses have been documented in the HPI. ROS Other: All systems not noted in ROS Statement are negative. Past Medical History Past Medical History: Cancer, COPD, GERD/Reflux, GI Bleed, Musculoskeletal Disorder, Osteoarthritis (OA), Sleep Apnea/CPAP/BIPAP, Thyroid Disorder Additional Past Medical History / Comment(s): INCISIONAL HERNIA, STATES NO CHF, HAS GLILIAN LEG SWELLING, O2 AT 2L VIA NC. OCCASIONAL VERTIGO, HX NARCOLEPSY, HX DIVERTICULITIS, HX OF SCOLIOSIS, HX ANEMIA, HX RT BREAST CA, CHEMO AND RADIATION 1998, AND SKIN CA, History of Any Multi-Drug Resistant Organisms: None Reported Past Surgical History: Back Surgery, Bowel Resection, Cholecystectomy, Hernia Repair, Hysterectomy, Joint Replacement, Tonsillectomy Additional Past Surgical History / Comment(s): GILLIAN KNEE REPLACEMENT, (R) mastectomy and lymph node removal 1998, GILLIAN GREAT TOENAILS REMOVED, GILLIAN CATARACT SX Past Anesthesia/Blood Transfusion Reactions: No Reported Reaction Past Psychological History: Anxiety, Depression Smoking Status: Former smoker Past Alcohol Use History: None Reported Past Drug Use History: None Reported - Past Family History Mother Additional Family Medical History / Comment(s): MOTHER OF TB WHEN PT WAS 6 MONTHS OLD Father Family Medical History: Coronary Artery Disease (CAD) Additional Family Medical History / Comment(s): Father 18 years ago from a heart attack. General Exam Limitations: no limitations General appearance: alert, in no apparent distress Head exam: Present: atraumatic, normocephalic, normal inspection Eye exam: Present: normal appearance, PERRL, EOMI. Absent: scleral icterus, conjunctival injection, periorbital swelling ENT exam: Present: normal exam, mucous membranes moist Neck exam: Present: normal inspection. Absent: tenderness, meningismus, lymphadenopathy Respiratory exam: Present: respiratory distress, decreased breath sounds, prolonged expiratory. Absent: wheezes, rales, rhonchi, stridor Cardiovascular Exam: Present: regular rate, normal rhythm, normal heart sounds. Absent: systolic murmur, diastolic murmur, rubs, gallop, clicks GI/Abdominal exam: Present: soft, normal bowel sounds. Absent: distended, tenderness, guarding, rebound, rigid Extremities exam: Present: normal inspection, full ROM, normal capillary refill , pedal edema, other (Bilateral lower extremity edema 3+, positive erythema with mild weeping). Absent: tenderness, joint swelling, calf tenderness Back exam: Present: normal inspection Neurological exam: Present: alert, oriented X3, CN II-XII intact Psychiatric exam: Present: normal affect, normal mood Skin exam: Present: warm, dry, intact, normal color. Absent: rash Course Vital Signs 03/15/18 03/15/18 03/15/18 12:57 13:48 14:04 Temperature 99.9 F H Pulse Rate 60 91 96 Respiratory 22 Rate Blood Pressure 137/65 O2 Sat by Pulse 97 Oximetry 03/15/18 14:46 Temperature 97.7 F Pulse Rate 91 Respiratory 18 Rate Blood Pressure 129/79 O2 Sat by Pulse 98 Oximetry - Reevaluation(s) Reevaluation #1: 03/15/18 15:14 Patient really denying any chest pain, currently being treated with outpatient antibiotics for lower extremity cellulitis, Keflex EKG Findings - EKG Comments: EKG Findings:: EKG shows sinus rhythm rate of 88, MD 134, QRS 80, QTC 454 Medical Decision Making - Medical Decision Making Female the ER for evaluation of shortness of breath more extremity edema. Increased pitting edema in bilateral legs leg pain. Patient does have concurrent CHF with lower extremity edema. Will admit for diuresis - Lab Data Result diagrams: 03/15/18 13:30 03/15/18 13:30 Lab Results 03/15/18 03/15/18 03/15/18 Range/Units 13:30 13:30 13:30 WBC 9.3 (3.8-10.6) k/uL RBC 3.05 L (3.80-5.40) m/uL Hgb 9.6 L (11.4-16.0) gm/dL Hct 30.1 L (34.0-46.0) % MCV 98.7 (80.0-100.0) fL MCH 31.5 (25.0-35.0) pg MCHC 31.9 (31.0-37.0) g/dL RDW 14.8 (11.5-15.5) % Plt Count 273 (150-450) k/uL Neutrophils % 81 % Lymphocytes % 9 % Monocytes % 6 % Eosinophils % 2 % Basophils % 0 % Neutrophils # 7.5 (1.3-7.7) k/uL Lymphocytes # 0.8 L (1.0-4.8) k/uL Monocytes # 0.5 (0-1.0) k/uL Eosinophils # 0.2 (0-0.7) k/uL Basophils # 0.0 (0-0.2) k/uL Hypochromasia Slight Macrocytosis Slight PT (9.0-12.0) sec INR (<1.2) APTT (22.0-30.0) sec Sodium 143 (137-145) mmol/L Potassium 4.1 (3.5-5.1) mmol/L Chloride 104 (98-107) mmol/L Carbon Dioxide 30 (22-30) mmol/L Anion Gap 9 mmol/L BUN 23 H (7-17) mg/dL Creatinine 0.79 (0.52-1.04) mg/dL Est GFR (CKD-EPI)AfAm 82 (>60 ml/min/1.73 sqM) Est GFR (CKD-EPI)NonAf 71 (>60 ml/min/1.73 sqM) Glucose 90 (74-99) mg/dL Calcium 8.7 (8.4-10.2) mg/dL Magnesium 2.2 (1.6-2.3) mg/dL Total Bilirubin 0.6 (0.2-1.3) mg/dL AST 28 (14-36) U/L ALT 32 (9-52) U/L Alkaline Phosphatase 62 (38-126) U/L Total Creatine Kinase 35 (30-135) U/L CK-MB (CK-2) 0.6 (0.0-2.4) ng/mL CK-MB (CK-2) Rel Index 1.7 Troponin I 0.019 (0.000-0.034) ng/mL NT-Pro-B Natriuret Pep pg/mL Total Protein 5.8 L (6.3-8.2) g/dL Albumin 3.4 L (3.5-5.0) g/dL 03/15/18 03/15/18 Range/Units 13:30 13:30 WBC (3.8-10.6) k/uL RBC (3.80-5.40) m/uL Hgb (11.4-16.0) gm/dL Hct (34.0-46.0) % MCV (80.0-100.0) fL MCH (25.0-35.0) pg MCHC (31.0-37.0) g/dL RDW (11.5-15.5) % Plt Count (150-450) k/uL Neutrophils % % Lymphocytes % % Monocytes % % Eosinophils % % Basophils % % Neutrophils # (1.3-7.7) k/uL Lymphocytes # (1.0-4.8) k/uL Monocytes # (0-1.0) k/uL Eosinophils # (0-0.7) k/uL Basophils # (0-0.2) k/uL Hypochromasia Macrocytosis PT 9.6 (9.0-12.0) sec INR 1.0 (<1.2) APTT 21.4 L (22.0-30.0) sec Sodium (137-145) mmol/L Potassium (3.5-5.1) mmol/L Chloride (98-107) mmol/L Carbon Dioxide (22-30) mmol/L Anion Gap mmol/L BUN (7-17) mg/dL Creatinine (0.52-1.04) mg/dL Est GFR (CKD-EPI)AfAm (>60 ml/min/1.73 sqM) Est GFR (CKD-EPI)NonAf (>60 ml/min/1.73 sqM) Glucose (74-99) mg/dL Calcium (8.4-10.2) mg/dL Magnesium (1.6-2.3) mg/dL Total Bilirubin (0.2-1.3) mg/dL AST (14-36) U/L ALT (9-52) U/L Alkaline Phosphatase (38-126) U/L Total Creatine Kinase (30-135) U/L CK-MB (CK-2) (0.0-2.4) ng/mL CK-MB (CK-2) Rel Index Troponin I (0.000-0.034) ng/mL NT-Pro-B Natriuret Pep 773 pg/mL Total Protein (6.3-8.2) g/dL Albumin (3.5-5.0) g/dL - Radiology Data Radiology results: report reviewed (Chest x-ray positive for CHF), image reviewed Disposition Clinical Impression: Acute pulmonary edema, Congestive heart failure, Bilateral lower extremity edema Disposition: ADMITTED IP TO THIS HOSP Condition: Fair Referrals: Torey Manzanares DO [Primary Care Provider] - 1-2 days
[2018-03-15 13:55] LABS: Basophils % (A) 0 %; Eosinophils # (A) 0.2 k/uL (0-0.7); Eosinophils % (A) 2 %; HCT 30.1 % (34.0-46.0); HGB 9.6 gm/dL (11.4-16.0); Hypochromasia Slight; Lymphocytes # (A) 0.8 k/uL (1.0-4.8); Lymphocytes % (A) 9 %; MCH 31.5 pg (25.0-35.0); MCHC 31.9 g/dL (31.0-37.0); MCV 98.7 fL (80.0-100.0); Macrocytosis Slight; Mean Platelet Volume 7.1; Monocytes # (A) 0.5 k/uL (0-1.0); Monocytes % (A) 6 %; Neutrophils # (A) 7.5 k/uL (1.3-7.7); Neutrophils % (A) 81 %; Platelet Count 273 k/uL (150-450); RBC 3.05 m/uL (3.80-5.40); RDW 14.8 % (11.5-15.5); WBC 9.3 k/uL (3.8-10.6)
[2018-03-15 14:04] LABS: Prothrombin Time 9.6 sec (9.0-12.0)
[2018-03-15 14:13] LABS: Albumin 3.4 g/dL (3.5-5.0); Calcium 8.7 mg/dL (8.4-10.2); Magnesium 2.2 mg/dL (1.6-2.3); Potassium 4.1 mmol/L (3.5-5.1); Total Bilirubin 0.6 mg/dL (0.2-1.3); Total Protein 5.8 g/dL (6.3-8.2)
[2018-03-15 14:15] LABS: Partial Thromboplastin Time 21.4 sec (22.0-30.0)
[2018-03-15 14:25] LABS: Creatine Kinase MB 0.6 ng/mL (0.0-2.4); Troponin I 0.019 ng/mL (0.000-0.034)
--- NOTE | 2018-03-15 14:33 | XR ---
EXAMINATION TYPE: XR chest 2V DATE OF EXAM: 03/15/2018 COMPARISON: 03/08/2018 HISTORY: 82-year-old female difficulty breathing, bilateral leg edema TECHNIQUE: AP and lateral views FINDINGS: Heart mildly enlarged. Diffuse interstitial prominence. Some hazy right upper lung densities likely s uperimposition artifact. No significant pleural effusion on the lateral view. Patient's panniculus al riaz the right base limits assessment. Surgical clips in the right axilla. IMPRESSION: Cardiomegaly and interstitial prominence. Correlate for mild CHF. No pedro luis pulmonary edema or pleural effusion.
[2018-03-15] MEDS ORDERED: cefTRIAXone IN SWFI 1,000 MG/10 ML SYRINGE IVP STA (15:14)
--- NOTE | 2018-03-15 15:17 | US ---
EXAMINATION TYPE: US venous doppler duplex LE BI DATE OF EXAM: 03/15/2018 3:03 PM COMPARISON: NONE CLINICAL HISTORY: 82-year-old female Swelling and pain. SIDE PERFORMED: Bilateral TECHNIQUE: The lower extremity deep venous system is examined utilizing real time linear array sonog michael with graded compression, doppler sonography and color-flow sonography. FINDINGS: VESSELS IMAGED: External Iliac Vein (EIV) Common Femoral Vein Deep Femoral Vein Greater Saphenous Vein * Femoral Vein Popliteal Vein Small Saphenous Vein * Proximal Calf Veins (* superficial vessels) Right Leg: Negative for DVT Left Leg: Negative for DVT. There is some subcutaneous edema along the visualized upper left calf. IMPRESSION: No evidence for DVT within the bilateral lower extremities imaged from the groin to the upper calves.
[2018-03-15] MEDS ORDERED: ACETAMINOPHEN TAB 500 MG TAB PO PRN (16:11)
[2018-03-15] MEDS ORDERED: MECLIZINE 25 MG TAB PO PRN (16:14)
[2018-03-15] MEDS ORDERED: LORazepam 0.5 MG TAB PO PRN (16:14)
--- NOTE | 2018-03-15 16:14 | P.HPIM ---
History of Present Illness this is a pleasant 82 years old female with past medical history of COPD, GERD , GI bleed, OA, sleep apnea on CPAP, thyroid disorder, recent surgery for bowel obstruction and incisional hernia , she has been chronic bilateral leg swelling recently treated for cellulitis history of right breast cancer status post chemo and radiotherapy 1998 and skin cancer who presents with dyspnea and worsening like edema of 2 days' duration patient had recent surgery for her umbilical hernia done laparoscopically about 2 weeks ago. After that patient was getting worse with bilateral leg swelling and developed cellulitis of the left lower extremity, she's been treated on Keflex today is her fifth day of treatment and as per patient and daughter she showed interval improvement, however her left leg is distal warm and swollen Review of Systems 14 point systemic review were negative except for mentioned in HPI Past Medical History Past Medical History: Cancer, COPD, GERD/Reflux, GI Bleed, Musculoskeletal Disorder, Osteoarthritis (OA), Sleep Apnea/CPAP/BIPAP, Thyroid Disorder Additional Past Medical History / Comment(s): INCISIONAL HERNIA, STATES NO CHF, HAS GILLIAN LEG SWELLING, O2 AT 2L VIA NC. OCCASIONAL VERTIGO, HX NARCOLEPSY, HX DIVERTICULITIS, HX OF SCOLIOSIS, HX ANEMIA, HX RT BREAST CA, CHEMO AND RADIATION 1998, AND SKIN CA, History of Any Multi-Drug Resistant Organisms: None Reported Past Surgical History: Back Surgery, Bowel Resection, Cholecystectomy, Hernia Repair, Hysterectomy, Joint Replacement, Tonsillectomy Additional Past Surgical History / Comment(s): GILLIAN KNEE REPLACEMENT, (R) mastectomy and lymph node removal 1998, GILLIAN GREAT TOENAILS REMOVED, GILLIAN CATARACT SX Past Anesthesia/Blood Transfusion Reactions: No Reported Reaction Past Psychological History: Anxiety, Depression Smoking Status: Former smoker Past Alcohol Use History: None Reported Past Drug Use History: None Reported - Past Family History Mother Additional Family Medical History / Comment(s): MOTHER OF TB WHEN PT WAS 6 MONTHS OLD Father Family Medical History: Coronary Artery Disease (CAD) Additional Family Medical History / Comment(s): Father 18 years ago from a heart attack. Medications and Allergies Home Medications Medication Instructions Recorded Confirmed Type Levothyroxine Sodium [Synthroid] 100 mcg PO DAILY 03/07/14 03/15/18 History Multivitamins, Thera [Multivitamin 1 tab PO DAILY 03/07/14 03/15/18 History (formulary)] Bumetanide [BUMEX] 1 mg PO DAILY 12/20/16 03/15/18 History DULoxetine HCL [Cymbalta] 20 mg PO DAILY 12/20/16 03/15/18 History diphenhydrAMINE HCL [Benadryl] 25 mg PO HS 12/20/16 03/15/18 History Budesonide/Formoterol Fumarate 2 puff INHALATION RT-BID 02/02/17 03/15/18 History [Symbicort 80-4.5 Mcg Inhaler] Meclizine [Antivert] 25 mg PO TID PRN 02/02/17 03/15/18 History Acetaminophen [Tylenol Extra 500 mg PO Q6H PRN 02/23/18 03/15/18 History Strength] Albuterol Sulfate [Proair Hfa] 1 - 2 puff INHALATION RT-Q6H PRN 02/23/18 History Artificial Tears-Hypromellose 1 drops BOTH EYES TID 02/23/18 03/15/18 History [Artificial Tear Drops] Ascorbic Acid [Vitamin C] 1,000 mg PO DAILY 02/23/18 03/15/18 History Calcium Carbonate [Calcium] 600 mg PO DAILY 02/23/18 03/15/18 History Cholecalciferol [Vitamin D3] 1,000 unit PO DAILY 02/23/18 03/15/18 History DULoxetine HCL [Cymbalta] 30 mg PO DAILY 02/23/18 03/15/18 History Ferrous Sulfate [Feosol] 325 mg PO DAILY 02/23/18 03/15/18 History Folic Acid 0.8 mg PO DAILY 02/23/18 03/15/18 History Ipratropium-Albuterol Nebulize 3 ml INHALATION RT-QID 02/23/18 03/15/18 History [Duoneb 0.5 mg-3 mg/3 ml Soln] L.acidoph,Paracasei, B.lactis 1 cap PO DAILY 02/23/18 03/15/18 History [Probiotic] LORazepam [Ativan] 0.5 mg PO BID PRN 02/23/18 03/15/18 History Meloxicam [Mobic] 15 mg PO DAILY 02/23/18 03/15/18 History [place]-3 Fatty Acids/Fish Oil [Fish 1 cap PO DAILY 02/23/18 03/15/18 History Oil 1,000 mg Softgel] Potassium Chloride 750 mg PO DAILY 02/23/18 03/15/18 History Vitamin B Complex 1 cap PO DAILY 02/23/18 03/15/18 History Docusate [Colace] 100 mg PO BID #20 capsule 02/28/18 03/15/18 Rx Cephalexin [Keflex] 500 mg PO TID 03/15/18 03/15/18 History Furosemide [Lasix] 20 mg PO BID 03/15/18 03/15/18 History HYDROcodone/APAP 7.5-325MG [[place] 1 tab PO Q4H PRN 03/15/18 03/15/18 History 7.5] Allergies Allergy/AdvReac Type Severity Reaction Status Date / Time codeine Allergy Unknown Itching, Verified 03/15/18 12:59 red skin iodine Allergy Unknown Itching, Verified 03/15/18 12:59 red skin Sulfa (Sulfonamide Allergy Unknown Itching, Verified 03/15/18 12:59 Antibiotics) red skin Physical Exam Vitals: Vital Signs Temp Pulse Resp BP Pulse Ox 03/15/18 14:46 97.7 F 91 18 129/79 98 03/15/18 14:04 96 03/15/18 13:48 91 03/15/18 12:57 99.9 F H 60 22 137/65 97 Intake and Output 03/15/18 03/15/18 03/15/18 06:59 14:59 22:59 Other: Weight 82.554 kg Constitutional: No acute distress, conversant, pleasant Eyes: Anicteric sclerae, moist conjunctiva, no lid-lag PERRLA ENMT: NC/AT Oropharynx clear, no erythema, exudates Neck: Supple, FROM, no masses, or JVD No carotid bruits No thyromegaly Lungs: Clear to auscultation Clear to percussion Normal respiratory effort, no accessory muscle use Cardiovascular: Heart regular in rate and rhythm, No murmurs, gallops, or rubs No peripheral edema Abdominal: Soft Nontender, no guarding, rebound or rigidity Abdomen moving with respiration Normoactive bowel sounds No hepatomegaly, No splenomegaly No palpable mass No abdominal wall hernia noted Skin: Normal temperature, tone, texture, turgor No induration No subcutaneous nodules No rash, lesions No ulcers Extremities: No digital cyanosis No clubbing Pedal pulses intact and symmetrical Radial pulses intact and symmetrical Normal gait and station bilateral leg edema left leg erythema and swelling, improved partially on Keflex by the patient and daughter at bedside Psychiatric: Alert and oriented to person, place and time Appropriate affect Intact judgement Neuro: Muscles Strength 5/5 in all 4 extremities Sensation to light touch grossly present throughout Cranial nerves II-XII grossly intact No focal sensory deficits Results CBC & Chem 7: 03/15/18 13:30 03/15/18 13:30 Labs: Abnormal Lab Results - Last 24 Hours (Table) 03/15/18 03/15/18 03/15/18 Range/Units 13:30 13:30 13:30 RBC 3.05 L (3.80-5.40) m/uL Hgb 9.6 L (11.4-16.0) gm/dL Hct 30.1 L (34.0-46.0) % Lymphocytes # 0.8 L (1.0-4.8) k/uL APTT 21.4 L (22.0-30.0) sec BUN 23 H (7-17) mg/dL Total Protein 5.8 L (6.3-8.2) g/dL Albumin 3.4 L (3.5-5.0) g/dL Assessment and Plan Plan: -possible acute CHF exacerbation,CXR shows cardiomegaly with interstitial prominence possible for mild CHF, we'll do serial troponins, EKG, echocardiogram, and call cardiology consult with Dr. Marc wilde. Continue with diuresis. EKG reviewed shows normal sinus rhythm at 88 bpm -hypothyroidism on levothyroxine -Bilateral lower extremity cellulitis, she was recently on Keflex, comes with worsening leg edema. Patient has low-grade fever of 99.9 on admission, no leukocytosis, US of lower extremity is negative for DVT in both legs. Continue with Keflex. Call ID consult DVT prophylaxis subcutaneous heparin GI pX Pepcid PT/OT is called and suspended patient is okay to involve the daughter and son at bedside with her healthcare and share all her information with them
[2018-03-15] MEDS: FUROSEMIDE 10 MG/ML 4 ML VIAL IV SCH ×2 (16:31→23:04)
[2018-03-15] MEDS: SYMBICORT 80-4.5 MCG INHALER INHALATION SCH (20:00)
[2018-03-15] MEDS: ALBUTEROL NEBULIZED 2.5 MG/3 ML INHALATION PRN (20:00)
[2018-03-15] MEDS ORDERED: FUROSEMIDE 20 MG TAB PO SCH (21:00)
[2018-03-15] MEDS: diphenhydrAMINE 25 MG CAP PO SCH (21:29)
[2018-03-15] MEDS: DOCUSATE 100 MG CAP PO SCH (21:29)
[2018-03-15] MEDS: FAMOTIDINE 20 MG/2 ML VIAL IV SCH (21:29)
[2018-03-15] MEDS: HEPARIN SODIUM,PORCINE 5,000 UNIT/ML 1 ML VIAL SQ SCH (21:30)
[2018-03-15] MEDS: ARTIFICIAL TEARS-HYPROMELLOSE DROPS 15 ML BTL BOTH EYES SCH (21:30)
[2018-03-15] MEDS: CEPHALEXIN 500 MG CAP PO SCH (21:30)
[2018-03-15] MEDS: cefTRIAXone IN SWFI 1,000 MG/10 ML SYRINGE IVP SCH (23:03)
[2018-03-16] MEDS: LEVOTHYROXINE 100 MCG TAB PO SCH (06:08)
[2018-03-16 06:28] LABS: Basophils % (A) 0 %; Eosinophils # (A) 0.2 k/uL (0-0.7); Eosinophils % (A) 2 %; HCT 29.8 % (34.0-46.0); HGB 9.4 gm/dL (11.4-16.0); Hypochromasia Moderate; Lymphocytes # (A) 0.6 k/uL (1.0-4.8); Lymphocytes % (A) 6 %; MCH 32.2 pg (25.0-35.0); MCHC 31.7 g/dL (31.0-37.0); MCV 101.9 fL (80.0-100.0); Macrocytosis Slight; Mean Platelet Volume 6.7; Monocytes # (A) 0.7 k/uL (0-1.0); Monocytes % (A) 6 %; Neutrophils # (A) 8.7 k/uL (1.3-7.7); Neutrophils % (A) 84 %; Platelet Count 250 k/uL (150-450); RBC 2.92 m/uL (3.80-5.40); RDW 14.9 % (11.5-15.5); WBC 10.4 k/uL (3.8-10.6)
[2018-03-16 06:33] LABS: Calcium 8.7 mg/dL (8.4-10.2); Potassium 3.8 mmol/L (3.5-5.1)
[2018-03-16] MEDS: SYMBICORT 80-4.5 MCG INHALER INHALATION SCH ×2 (07:32→20:10)
[2018-03-16] MEDS: ALBUTEROL NEBULIZED 2.5 MG/3 ML INHALATION PRN ×2 (07:32→20:10)
[2018-03-16] MEDS: CEPHALEXIN 500 MG CAP PO SCH ×2 (08:48→16:16)
[2018-03-16] MEDS: DULoxetine HCL 20 MG CAPSULE.DR PO SCH (08:48)
[2018-03-16] MEDS: ARTIFICIAL TEARS-HYPROMELLOSE DROPS 15 ML BTL BOTH EYES SCH ×3 (08:48→20:12)
[2018-03-16] MEDS: BUMETANIDE 1 MG TAB PO SCH (08:48)
[2018-03-16] MEDS: FUROSEMIDE 10 MG/ML 4 ML VIAL IV SCH ×3 (08:48→23:19)
[2018-03-16] MEDS: HEPARIN SODIUM,PORCINE 5,000 UNIT/ML 1 ML VIAL SQ SCH ×2 (08:48→20:12)
[2018-03-16] MEDS: POTASSIUM CHLORIDE ER 10 MEQ TAB.ER.PRT PO SCH (08:49)
[2018-03-16] MEDS: FOLIC ACID 1 MG TAB PO SCH (08:49)
[2018-03-16] MEDS: FAMOTIDINE 20 MG/2 ML VIAL IV SCH (08:49)
[2018-03-16] MEDS: FERROUS SULFATE 325 MG TAB PO SCH (08:49)
[2018-03-16] MEDS: ASCORBIC ACID 500 MG TAB PO SCH (08:49)
[2018-03-16] MEDS: CHOLECALCIFEROL 1,000 UNIT TAB PO SCH (08:49)
[2018-03-16] MEDS: DOCUSATE 100 MG CAP PO SCH ×2 (08:49→20:12)
[2018-03-16] MEDS: cefTRIAXone IN SWFI 1,000 MG/10 ML SYRINGE IVP SCH (08:52)
[2018-03-16] MEDS ORDERED: NON-FORMULARY DRUG (Omega-3 Fatty Acids/Fish Oil [Fish Oil 1,000 Mg Softgel] 1 CAP) PO SCH (09:00)
[2018-03-16 10:21] VITALS: BMI 35.6
[2018-03-16] MEDS: CALCIUM CARBONATE 500 MG CHEWABLE PO SCH (11:34)
--- NOTE | 2018-03-16 12:00 | P.PN ---
Subjective this is a pleasant 82 years old female with past medical history of COPD, GERD , GI bleed, OA, sleep apnea on CPAP, thyroid disorder, recent surgery for bowel obstruction and incisional hernia , she has been chronic bilateral leg swelling recently treated for cellulitis history of right breast cancer status post chemo and radiotherapy 1998 and skin cancer who presents with dyspnea and worsening like edema of 2 days' duration patient had recent surgery for her umbilical hernia done laparoscopically about 2 weeks ago. After that patient was getting worse with bilateral leg swelling and developed cellulitis of the left lower extremity, she's been treated on Keflex today is her fifth day of treatment and as per patient and daughter she showed interval improvement, however her left leg is distal warm and swollen On 03/16/2018 Objective - Vital Signs Vital signs: Vital Signs Temp 96.4 F L 03/16/18 11:21 Pulse 62 03/16/18 11:22 Resp 18 03/16/18 11:22 BP 113/56 03/16/18 11:21 Pulse Ox 98 03/16/18 11:21 Intake & Output 03/15/18 03/16/18 03/16/18 18:59 06:59 18:59 Intake Total 240 200 Output Total 200 1950 Balance 40 -1950 200 Weight 82.554 kg 80.2 kg 80.2 kg Intake: Oral 240 200 Output: Urine 200 1950 Other: Voiding Method Toilet Toilet Toilet # Voids 1 1 - Exam Constitutional: No acute distress, conversant, pleasant Eyes: Anicteric sclerae, moist conjunctiva, no lid-lag PERRLA ENMT: NC/AT Oropharynx clear, no erythema, exudates Neck: Supple, FROM, no masses, or JVD No carotid bruits No thyromegaly Lungs: Clear to auscultation Clear to percussion Normal respiratory effort, no accessory muscle use Cardiovascular: Heart regular in rate and rhythm, No murmurs, gallops, or rubs No peripheral edema Abdominal: Soft Nontender, no guarding, rebound or rigidity Abdomen moving with respiration Normoactive bowel sounds No hepatomegaly, No splenomegaly No palpable mass No abdominal wall hernia noted Skin: Normal temperature, tone, texture, turgor No induration No subcutaneous nodules No rash, lesions No ulcers Extremities: No digital cyanosis No clubbing Pedal pulses intact and symmetrical Radial pulses intact and symmetrical Normal gait and station bilateral leg edema - left leg erythema and swelling, improved partially on Keflex by the patient and daughter at bedside Psychiatric: Alert and oriented to person, place and time Appropriate affect Intact judgement Neuro: Muscles Strength 5/5 in all 4 extremities Sensation to light touch grossly present throughout Cranial nerves II-XII grossly intact No focal sensory deficits - Labs CBC & Chem 7: 03/16/18 05:52 03/16/18 05:52 Labs: Abnormal Lab Results - Last 24 Hours (Table) 03/15/18 03/15/18 03/15/18 Range/Units 13:30 13:30 13:30 RBC 3.05 L (3.80-5.40) m/uL Hgb 9.6 L (11.4-16.0) gm/dL Hct 30.1 L (34.0-46.0) % MCV (80.0-100.0) fL Neutrophils # (1.3-7.7) k/uL Lymphocytes # 0.8 L (1.0-4.8) k/uL APTT 21.4 L (22.0-30.0) sec Carbon Dioxide (22-30) mmol/L BUN 23 H (7-17) mg/dL Total Protein 5.8 L (6.3-8.2) g/dL Albumin 3.4 L (3.5-5.0) g/dL 03/16/18 03/16/18 Range/Units 05:52 05:52 RBC 2.92 L (3.80-5.40) m/uL Hgb 9.4 L (11.4-16.0) gm/dL Hct 29.8 L (34.0-46.0) % MCV 101.9 H (80.0-100.0) fL Neutrophils # 8.7 H (1.3-7.7) k/uL Lymphocytes # 0.6 L (1.0-4.8) k/uL APTT (22.0-30.0) sec Carbon Dioxide 31 H (22-30) mmol/L BUN 19 H (7-17) mg/dL Total Protein (6.3-8.2) g/dL Albumin (3.5-5.0) g/dL Assessment and Plan Plan: -possible acute CHF exacerbation,CXR shows cardiomegaly with interstitial prominence possible for mild CHF, serial troponins are negative, echocardiogram : Pending, and call cardiology consult with Dr. Marc wilde. Continue with diuresis. EKG reviewed shows normal sinus rhythm at 88 bpm -hypothyroidism on levothyroxine -Left lower extremity cellulitis, she was recently on Keflex, comes with worsening leg edema. Patient has low-grade fever of 99.9 on admission, no leukocytosis, US of lower extremity is negative for DVT in both legs. She is improving, Continue with Keflex. Call ID consult DVT prophylaxis subcutaneous heparin GI pX Pepcid PT/OT is called and is reviewed patient is okay to involve the daughter and son at bedside with her healthcare and share all her information with them
--- NOTE | 2018-03-16 12:22 | P.PN ---
Subjective Progress Note Date: 03/16/18 Principal diagnosis: CHF This is a pleasant 82-year-old female who follows with Dr. Ramirez in the office. Patient has had a cardiac catheterization in 2011 which revealed minimal coronary artery disease with mild aortic stenosis. A MONO was performed in 2010 which revealed moderate left ear, moderate TR, secundum ASD. Echo performed in 2016 short and normal ejection fraction, moderate MR and moderate AI's. She has a known history of COPD, sleep apnea on CPAP, thyroid disorder, prior history of breast cancer with mastectomy, scoliosis, anemia, prior skin cancer, prior history of smoking, she had a recent surgery for a bowel obstruction as well as incisional hernia, patient also recently noticed significant swelling in her bilateral lower extremities and they became very red. She went to see her primary care doctor as an outpatient who initiated antibiotics and also put her on Lasix. Patient usually takes Bumex as her diuretic at home in spite of being put on Lasix she states that her legs continued to swell, she went back to see her primary care doctor who referred her to come to the emergency room for further evaluation. Besides the fact that her legs are swollen and quite red, she also states that she has been more short of breath than her usual. Chest x-ray on admission showed cardiomegaly and interstitial prominence. Mild congestive heart failure with no pedro luis pulmonary edema or pleural effusion. Bilateral venous duplex study was also performed which was negative for DVT in the right or left leg. At pressure 112/ 56 with a heart rate in the 60s, 98% on 2 L of oxygen. White blood cell count is normal, hemoglobin 9.4, platelet count 250. Sodium 140, potassium 3.8, BUN 19, creatinine 0.8. Troponins 0.019, 0.014, 0.012, 0.012. BNP level 773, 864 and 1030. At the time of my examination this morning, patient is sitting up in her chair at bedside, denies any overt shortness of breath at present. States that her legs have decreased in size at least by half of what they were at home. Patient has diuresed well on IV Lasix. Objective - Vital Signs Vital signs: Vital Signs Temp 96.4 F L 03/16/18 11:21 Pulse 62 03/16/18 11:22 Resp 18 03/16/18 11:22 BP 113/56 03/16/18 11:21 Pulse Ox 98 03/16/18 11:21 Intake & Output 03/15/18 03/16/18 03/16/18 18:59 06:59 18:59 Intake Total 240 200 Output Total 200 1950 Balance 40 -1950 200 Weight 82.554 kg 80.2 kg 80.2 kg Intake: Oral 240 200 Output: Urine 200 1950 Other: Voiding Method Toilet Toilet Toilet # Voids 1 1 - Exam PHYSICAL EXAMINATION: HEENT: Head is atraumatic, normocephalic. Pupils equal, round. Neck is supple. There is no elevated jugular venous pressure. HEART EXAMINATION: Heart S1 and S2 1 systolic murmur is heard. CHEST EXAMINATION: Lungs are clear to auscultation and precussion. No chest wall tenderness is noted on palpation or with deep breathing. ABDOMEN: Soft, nontender. Bowel sounds are heard. No organomegaly noted. EXTREMITIES:[ 2+ peripheral pulses with trace to 1+ evidence of peripheral edema , bilateral cellulitis. Swelling greater in the left lower extremity. Tender to touch. NEUROLOGIC patient is awake, alert and oriented -3. . - Labs CBC & Chem 7: 03/16/18 05:52 03/16/18 05:52 Labs: Abnormal Lab Results - Last 24 Hours (Table) 03/15/18 03/15/18 03/15/18 Range/Units 13:30 13:30 13:30 RBC 3.05 L (3.80-5.40) m/uL Hgb 9.6 L (11.4-16.0) gm/dL Hct 30.1 L (34.0-46.0) % MCV (80.0-100.0) fL Neutrophils # (1.3-7.7) k/uL Lymphocytes # 0.8 L (1.0-4.8) k/uL APTT 21.4 L (22.0-30.0) sec Carbon Dioxide (22-30) mmol/L BUN 23 H (7-17) mg/dL Total Protein 5.8 L (6.3-8.2) g/dL Albumin 3.4 L (3.5-5.0) g/dL 03/16/18 03/16/18 Range/Units 05:52 05:52 RBC 2.92 L (3.80-5.40) m/uL Hgb 9.4 L (11.4-16.0) gm/dL Hct 29.8 L (34.0-46.0) % MCV 101.9 H (80.0-100.0) fL Neutrophils # 8.7 H (1.3-7.7) k/uL Lymphocytes # 0.6 L (1.0-4.8) k/uL APTT (22.0-30.0) sec Carbon Dioxide 31 H (22-30) mmol/L BUN 19 H (7-17) mg/dL Total Protein (6.3-8.2) g/dL Albumin (3.5-5.0) g/dL Assessment and Plan Plan: Assessment and plan #1 symptoms of bilateral lower extremity edema with evidence of cellulitis. Patient currently on antibiotics. BNP level normal for the patient's age, no clear-cut evidence of congestive cardiac failure. Echocardiogram with Doppler study performed in the office in 2015 revealed a normal left ventricular systolic function with moderate MR and moderate . DVT ruled out by venous duplex study in either lower extremity. #2 hypertension #3 COPD #4 prior history of smoking #5 hypothyroidism on levothyroxine #6 sleep apnea, on CPAP #7 recent surgery for bowel obstruction and incisional hernia Plan We will continue current dose of IV Lasix. We will also repeat an echocardiogram with Doppler study. Further recommendations to follow. DNP note has been reviewed, I agree with a documented findings and plan of care. Patient was seen and examined.
--- NOTE | 2018-03-16 13:27 | ECHOF ---
Referral Reason:CHF MEASUREMENTS -------- HEIGHT: 149.9 cm WEIGHT: 79.8 kg BP: 126/62 IVSd: 1.4 cm (0.6 - 1.1) LVIDd: 3.5 cm (3.9 - 5.3) LVPWd: 1.3 cm (0.6 - 1.1) IVSs: 2.0 cm LVIDs: 2.3 cm LVPWs: 1.7 cm RVIDd: 3.5 cm (< 3.3) LAESV Index (A-L): 32.30 ml/m Ao Diam: 3.1 cm (2.0 - 3.7) LA Diam: 3.2 cm (2.7 - 3.8) AV Cusp: 0.9 cm (1.5 - 2.6) MV E Oscar: 1.21 m/s MV DecT: 248 ms MV A Oscar: 1.15 m/s MV E/A Ratio: 1.06 AV maxP.57 mmHg AV meanP.20 mmHg RAP: 5.00 mmHg RVSP: 30.75 mmHg FINDINGS -------- Sinus rhythm with extra systolic beats. This was a technically adequate study. The left ventricular size is normal. There is mild concentric left ventricular hypertrophy. Overa ll left ventricular systolic function is normal with, an EF between 55 - 60 %. The right ventricle is mildly enlarged. LA is midly dilated 29-33ml/m2. RA appears enlarged. There is severe aortic valve sclerosis. Trace amount of aortic regurgitation. There is severe ao rtic stenosis present. Peak/mean gradient across the Aortic Valve is 76.57mmHg / 49.20mmHg. The mitral valve leaflets are mildly thickened. Mild mitral annular calcification present. Mild-t o-moderate mitral regurgitation is present. Mild tricuspid regurgitation present. Right ventricular systolic pressure is normal at < 35 mmHg. There is no evidence of pulmonary hypertension. The pulmonic valve was not well visualized. The aortic root size is normal. Normal inferior vena cava with normal inspiratory collapse consistent with estimated right atrial pre ssure of 5 mmHg. There is no pericardial effusion. CONCLUSIONS -------- 1. Sinus rhythm with extra systolic beats. 2. This was a technically adequate study. 3. The left ventricular size is normal. 4. There is mild concentric left ventricular hypertrophy. 5. Overall left ventricular systolic function is normal with, an EF between 55 - 60 %. 6. The right ventricle is mildly enlarged. 7. LA is midly dilated 29-33ml/m2. 8. RA appears enlarged. 9. There is severe aortic valve sclerosis. 10. Trace amount of aortic regurgitation. 11. There is severe aortic stenosis present. 12. Peak/mean gradient across the Aortic Valve is 76.57mmHg / 49.20mmHg. 13. The mitral valve leaflets are mildly thickened. 14. Mild mitral annular calcification present. 15. [id number] mitral regurgitation is present. 16. Mild tricuspid regurgitation present. 17. Right ventricular systolic pressure is normal at < 35 mmHg. 18. There is no evidence of pulmonary hypertension. 19. The pulmonic valve was not well visualized. 20. The aortic root size is normal. 21. There is no pericardial effusion. SOCIAL WELFARE CLERK: Km Tee RDCS
[2018-03-16] MEDS: FAMOTIDINE 20 MG TAB PO SCH (22:15)
[2018-03-16] MEDS: diphenhydrAMINE 25 MG CAP PO SCH (22:15)
[2018-03-16] MEDS: ceFAZolin IN SWFI 2 GM/20 ML SYRINGE IVP SCH (23:19)
--- NOTE | 2018-03-17 00:39 | CONS ---
CONSULTATION DATE OF CONSULTATION: 03/16/2018. REASON FOR CONSULTATION: Bilateral lower extremity cellulitis. HISTORY OF PRESENT ILLNESS: The patient is an 82-year-old, female presenting to the ER at [facility] yesterday afternoon with chief complaints of the lower extremity edema and shortness of breath. The patient did mention that she was having significant swelling and redness in her both legs, left more than right, that started about a week ago. The patient has been evaluated by the nurse practitioner for the PCP who started her on the oral Keflex despite being on Keflex for a few days. The patient did have significant swelling and redness of the left lung base specially the patient described having a pain in the left leg is mostly throbbing 5 to 6/10, and no radiation. With these symptoms, the patient presented to the hospital with the patient has been evaluated. She did have a lower extremity Doppler that was negative for DVT. The patient did have a chest x-ray. The patient has cardiomegaly interstitial prominence. For mild CHF. The patient was started on Rocephin 1 g. Keflex was continued. Infectious Disease was consulted for any further recommendation regarding antibiotic therapy. REVIEW OF SYSTEMS: CONSTITUTIONAL: Positive for weakness, some chills but denies any high-grade fever. Eyes no complaint. ENT no complaint. Respiratory as per HPI. CARDIOVASCULAR: As per HPI. Genitourinary no complaint. Gastrointestinal: No complaint. Musculoskeletal no complaint. Integumentary: As per HPI. PSYCHOLOGICAL: No complaint. Neurological no complaint. NEUROLOGICAL: No complaint. PAST MEDICAL HISTORY: Significant for COPD, gastroesophageal reflux disease, GI bleed, sleep apnea, osteoarthritis, hypothyroidism, incisional hernia. PAST SURGICAL HISTORY: Back surgery, bowel resection, cholecystectomy, hernia repair, hysterectomy, bilateral knee replacement, right mastectomy. SOCIAL HISTORY: Remote history of smoking. No drinking or drug use. FAMILY HISTORY: Mother of TB when the patient was [id number]. Father history coronary artery disease, who of heart attack. ALLERGIES: SULFA, IODINE and CODEINE. MEDICATIONS: Include the patient is currently on Tylenol, Ventolin, vitamin C, Symbicort, Bumex, TUMS, Keflex 500 every 8, Benadryl, Colace, Cymbalta, Pepcid, iron sulfate, Lasix, heparin, Synthroid, Ativan and Antivert. EXAMINATION: Blood pressure is 119/57 with a pulse of 76, temperature 97.5. She is 99% on 2 L nasal cannula. General description is an elderly female, lying in bed in no distress. No tachypnea or accessory muscles of respiration use. HEENT: Shows pallor, no scleral icterus. Oral mucosa membranes are dry. No pharyngeal erythema or thrush. Neck trachea central. No thyromegaly. Lungs unlabored breathing, decreased breath sounds. No wheeze or crackles. Heart S1, S2. Regular rate and rhythm. ABDOMEN: Soft no tenderness. No guarding or rigidity. Extremities: Left leg with more swelling and slightly warm to touch. No evidence of athlete's foot. No induration or fluctuation or any drainage. Neurological: The patient is awake, alert, oriented times three. Mood and affect normal. LABS: Hemoglobin 9.4, white count 10.4, BUN of 19, creatinine 0.80. Electrolytes have been normal. Liver enzymes are normal. No culture during this admission. Lower extremity Doppler was negative for DVT. DIAGNOSTIC IMPRESSION AND PLAN: Patient with bilateral lower extremity cellulitis, left in the right with diffuse swelling and redness likely representing a streptococcal cellulitis. The failing outpatient oral Keflex could be related to the burden of disease. PLAN: 1. Discontinue the Rocephin Keflex. 2. Start the patient on cefazolin 2 g q.8 hours. 3. from just above to below the knee to keep the swelling down. 4. We will follow up on clinical condition and culture to further adjust medication if needed. Thank you for this consultation. Will follow this patient along with you. MMODL / IJN: [id number] /
[2018-03-17] MEDS: LEVOTHYROXINE 100 MCG TAB PO SCH (05:52)
[2018-03-17 06:55] LABS: Basophils # (A) 0.1 k/uL (0-0.2); Basophils % (A) 1 %; Eosinophils # (A) 0.2 k/uL (0-0.7); Eosinophils % (A) 3 %; HCT 30.5 % (34.0-46.0); HGB 9.5 gm/dL (11.4-16.0); Hypochromasia Slight; Lymphocytes # (A) 0.7 k/uL (1.0-4.8); Lymphocytes % (A) 13 %; MCH 31.2 pg (25.0-35.0); MCV 100.6 fL (80.0-100.0); Macrocytosis Slight; Mean Platelet Volume 6.9; Monocytes # (A) 0.4 k/uL (0-1.0); Monocytes % (A) 8 %; Neutrophils # (A) 3.6 k/uL (1.3-7.7); Neutrophils % (A) 71 %; Platelet Count 240 k/uL (150-450); RBC 3.04 m/uL (3.80-5.40); RDW 14.5 % (11.5-15.5); WBC 5.2 k/uL (3.8-10.6)
[2018-03-17 07:08] LABS: Calcium 8.7 mg/dL (8.4-10.2); Potassium 3.7 mmol/L (3.5-5.1)
[2018-03-17] MEDS: ALBUTEROL NEBULIZED 2.5 MG/3 ML INHALATION PRN ×2 (07:18→19:33)
[2018-03-17] MEDS: SYMBICORT 80-4.5 MCG INHALER INHALATION SCH ×2 (07:18→19:32)
[2018-03-17] MEDS: ceFAZolin IN SWFI 2 GM/20 ML SYRINGE IVP SCH ×3 (09:15→22:46)
[2018-03-17] MEDS: HEPARIN SODIUM,PORCINE 5,000 UNIT/ML 1 ML VIAL SQ SCH ×2 (09:16→20:53)
[2018-03-17] MEDS: DOCUSATE 100 MG CAP PO SCH ×2 (09:16→20:53)
[2018-03-17] MEDS: FUROSEMIDE 10 MG/ML 4 ML VIAL IV SCH ×3 (09:16→22:47)
[2018-03-17] MEDS: DULoxetine HCL 20 MG CAPSULE.DR PO SCH (09:16)
[2018-03-17] MEDS: CHOLECALCIFEROL 1,000 UNIT TAB PO SCH (09:16)
[2018-03-17] MEDS: BUMETANIDE 1 MG TAB PO SCH (09:16)
[2018-03-17] MEDS: ARTIFICIAL TEARS-HYPROMELLOSE DROPS 15 ML BTL BOTH EYES SCH ×3 (09:16→20:53)
[2018-03-17] MEDS: ASCORBIC ACID 500 MG TAB PO SCH (09:16)
[2018-03-17] MEDS: FAMOTIDINE 20 MG TAB PO SCH (09:17)
[2018-03-17] MEDS: FERROUS SULFATE 325 MG TAB PO SCH (09:17)
[2018-03-17] MEDS: POTASSIUM CHLORIDE ER 10 MEQ TAB.ER.PRT PO SCH (09:17)
[2018-03-17] MEDS: FOLIC ACID 1 MG TAB PO SCH (09:17)
[2018-03-17] MEDS: CALCIUM CARBONATE 500 MG CHEWABLE PO SCH (11:49)
--- NOTE | 2018-03-17 12:10 | P.PN ---
Subjective this is a pleasant 82 years old female with past medical history of COPD, GERD , GI bleed, OA, sleep apnea on CPAP, thyroid disorder, recent surgery for bowel obstruction and incisional hernia , she has been chronic bilateral leg swelling recently treated for cellulitis history of right breast cancer status post chemo and radiotherapy 1998 and skin cancer who presents with dyspnea and worsening like edema of 2 days' duration patient had recent surgery for her umbilical hernia done laparoscopically about 2 weeks ago. After that patient was getting worse with bilateral leg swelling and developed cellulitis of the left lower extremity, she's been treated on Keflex today is her fifth day of treatment and as per patient and daughter she showed interval improvement, however her left leg is distal warm and swollen On 03/17/2018 Patient still with little dyspnea and weakness, patient antibiotic is wished to cefazolin, patient has improvement in her lower extremity cellulitis patient repeat echocardiogram showing severe aortic stenosis. Cardiology team are following the patient Patient does not have fever, she is a little bit tachypneic at 20-22/m oxygen saturation are 99% on 2 L nasal cannula. WBC 5.2, hemoglobin 9.5 sodium 143, potassium 3.7, creatinine 1.09 Objective - Vital Signs Vital signs: Vital Signs Temp 97.0 F L 03/17/18 12:04 Pulse 82 03/17/18 12:04 Resp 18 03/17/18 12:04 BP 104/54 03/17/18 12:04 Pulse Ox 99 03/17/18 12:04 Intake & Output 03/16/18 03/17/18 03/17/18 18:59 06:59 18:59 Intake Total 400 200 Output Total 700 Balance 400 -700 200 Weight 80.2 kg 77.6 kg Intake: Oral 400 200 Output: Urine 700 Other: Voiding Method Toilet Toilet Toilet # Voids 1 2 - Exam Constitutional: No acute distress, conversant, pleasant Eyes: Anicteric sclerae, moist conjunctiva, no lid-lag PERRLA ENMT: NC/AT Oropharynx clear, no erythema, exudates Neck: Supple, FROM, no masses, or JVD No carotid bruits No thyromegaly Lungs: Clear to auscultation Clear to percussion Normal respiratory effort, no accessory muscle use Cardiovascular: Heart regular in rate and rhythm, No murmurs, gallops, or rubs No peripheral edema Abdominal: Soft Nontender, no guarding, rebound or rigidity Abdomen moving with respiration Normoactive bowel sounds No hepatomegaly, No splenomegaly No palpable mass No abdominal wall hernia noted Skin: Normal temperature, tone, texture, turgor No induration No subcutaneous nodules No rash, lesions No ulcers Extremities: No digital cyanosis No clubbing Pedal pulses intact and symmetrical Radial pulses intact and symmetrical Normal gait and station bilateral leg edema - left leg erythema and swelling, improved partially on Keflex by the patient and daughter at bedside Psychiatric: Alert and oriented to person, place and time Appropriate affect Intact judgement Neuro: Muscles Strength 5/5 in all 4 extremities Sensation to light touch grossly present throughout Cranial nerves II-XII grossly intact No focal sensory deficits - Labs CBC & Chem 7: 03/17/18 06:29 03/17/18 06:29 Labs: Abnormal Lab Results - Last 24 Hours (Table) 03/17/18 03/17/18 Range/Units 06:29 06:29 RBC 3.04 L (3.80-5.40) m/uL Hgb 9.5 L (11.4-16.0) gm/dL Hct 30.5 L (34.0-46.0) % MCV 100.6 H (80.0-100.0) fL Lymphocytes # 0.7 L (1.0-4.8) k/uL Chloride 97 L (98-107) mmol/L Carbon Dioxide 38 H (22-30) mmol/L BUN 27 H (7-17) mg/dL Creatinine 1.09 H (0.52-1.04) mg/dL Assessment and Plan Plan: -possible acute CHF exacerbation,CXR shows cardiomegaly with interstitial prominence possible for mild CHF, serial troponins are negative, echocardiogram : Severe aortic stenosis, cardiology consult is appreciated. Continue with diuresis. EKG reviewed shows normal sinus rhythm at 88 bpm, patient still needs monitoring of lytes and vitals, and a dressing the aortic stenosis problem -hypothyroidism on levothyroxine -Left lower extremity cellulitis, change antibiotic to cefazolin, no leukocytosis, US of lower extremity is negative for DVT in both legs. She is improving, Continue with Keflex. ID consult is appreciated. Patient still needs intravenous antibiotics DVT prophylaxis subcutaneous heparin GI pX Pepcid PT/OT is called and is reviewed patient is okay to involve the daughter and son at bedside with her healthcare and share all her information with them
--- NOTE | 2018-03-17 16:09 | P.PN ---
Subjective Progress Note Date: 03/17/18 This 82-year-old female was admitted to the hospital with a edema of the legs and cellulitis. She also had mild CHF changes and chest x-ray. Echo showed evidence of severe aortic stenosis. Patient however also showed evidence of progressive anemia. Patient has history of previous GI bleeding. The gradient may be falsely high because of the anemia. I will recommend evaluation for GI bleeding. Because of the infection and cellulitis, patient is not a candidate for any valve surgery at this time. Once patient is stable she could be discharged home. Patient to have evaluation for valve disease as an outpatient. Objective - Vital Signs Vital signs: Vital Signs Temp 97.0 F L 03/17/18 12:04 Pulse 82 03/17/18 12:04 Resp 18 03/17/18 12:04 BP 104/54 03/17/18 12:04 Pulse Ox 98 03/17/18 12:25 Intake & Output 03/16/18 03/17/18 03/17/18 18:59 06:59 18:59 Intake Total 400 500 Output Total 700 300 Balance 400 -700 200 Weight 80.2 kg 77.6 kg Intake: Oral 400 500 Output: Urine 700 300 Other: Voiding Method Toilet Toilet Toilet # Voids 1 2 1 # Bowel Movements 1 - Exam GENERAL EXAM: Patient is alert and oriented and doesn't appear to be in any acute distress HEENT: Normocephalic. Normal reaction of pupils, equal size, normal range of extraocular motion. No erythema or exudates in the throat. NECK: No masses, no nuchal rigidity. CHEST: No chest wall deformity. LUNGS: Equal air entry with no crackles or wheeze. HEART: Systolic murmur heard ABDOMEN: No hepatosplenomegaly, normal bowel sounds, no guarding or rigidity. SKIN: No rashes CENTRAL NERVOUS SYSTEM: No focal deficits. EXTREMITIES: Resolving edema and cellulitis - Labs CBC & Chem 7: 03/17/18 06:29 03/17/18 06:29 Labs: Abnormal Lab Results - Last 24 Hours (Table) 03/17/18 03/17/18 Range/Units 06:29 06:29 RBC 3.04 L (3.80-5.40) m/uL Hgb 9.5 L (11.4-16.0) gm/dL Hct 30.5 L (34.0-46.0) % MCV 100.6 H (80.0-100.0) fL Lymphocytes # 0.7 L (1.0-4.8) k/uL Chloride 97 L (98-107) mmol/L Carbon Dioxide 38 H (22-30) mmol/L BUN 27 H (7-17) mg/dL Creatinine 1.09 H (0.52-1.04) mg/dL Assessment and Plan (1) Aortic stenosis Current Visit: Yes Status: Acute Code(s): I35.0 - NONRHEUMATIC AORTIC (VALVE ) STENOSIS SNOMED Code(s): 78900720 (2) Bilateral lower extremity edema Current Visit: Yes Status: Acute Code(s): R60.0 - LOCALIZED EDEMA SNOMED Code(s): 203983747 (3) Cellulitis Current Visit: Yes Status: Acute Code(s): L03.90 - CELLULITIS, UNSPECIFIED SNOMED Code(s): 272017396 (4) Anemia Current Visit: No Status: Acute Code(s): D64.9 - ANEMIA, UNSPECIFIED SNOMED Code(s): 716996108 (5) GI bleed Current Visit: No Status: Acute Code(s): K92.2 - GASTROINTESTINAL HEMORRHAGE , UNSPECIFIED SNOMED Code(s): 89400786 Plan: Patient is mainly admitted with edema and cellulitis. That seemed to be improving. Echo is suggestive of severe aortic stenosis. The gradient may be falsely high because of anemia. I would recommend evaluation of her anemia. Because of cellulitis and infections, patient is not a candidate for bipolar replacement at this time. I will recommend that patient be discharged home. She could have further evaluation of the valve disease as an outpatient.
--- NOTE | 2018-03-17 17:43 | PN ---
PROGRESS NOTE DATE OF SERVICE: 03/17/2018 REASON FOR FOLLOWUP: Left lower extremity cellulitis. INTERVAL HISTORY: The patient is afebrile. She is breathing comfortably. Denies having any chest pain or cough; no abdominal pain. Overall swelling and redness of the leg have improved. The pain has improved as well. PHYSICAL EXAMINATION: Blood pressure 104/54 with a pulse of 82, temperature 97. She is 99% on 2 L nasal cannula. General description is an elderly female lying in bed in no distress. RESPIRATORY SYSTEM: Unlabored breathing. Clear to auscultation anteriorly. HEART: S1, S2. Regular rate and rhythm. ABDOMEN: Soft. No tenderness. Left leg swelling and redness are much improved. LABS: Hemoglobin 9.5, white count 5.2, BUN of 27, creatinine 1.09. DIAGNOSTIC IMPRESSION AND PLAN: Patient with left lower extremity cellulitis with diffuse swelling and redness, likely streptococcal disease, currently on Cefazolin; to be transitioned to oral Keflex on discharge. She has been advised Jesse wrap to keep the swelling down to prevent recurrent cellulitis. Continue with supportive care. MMODL / IJN: [id number] /
[2018-03-17] MEDS: diphenhydrAMINE 25 MG CAP PO SCH (22:35)
[2018-03-18 06:29] LABS: Basophils % (A) 1 %; Eosinophils # (A) 0.2 k/uL (0-0.7); Eosinophils % (A) 4 %; HCT 29.6 % (34.0-46.0); HGB 9.6 gm/dL (11.4-16.0); Hypochromasia Slight; Lymphocytes # (A) 0.7 k/uL (1.0-4.8); Lymphocytes % (A) 14 %; MCHC 32.5 g/dL (31.0-37.0); MCV 98.6 fL (80.0-100.0); Mean Platelet Volume 7.4; Monocytes # (A) 0.4 k/uL (0-1.0); Monocytes % (A) 9 %; Neutrophils # (A) 3.3 k/uL (1.3-7.7); Neutrophils % (A) 69 %; Platelet Count 245 k/uL (150-450); RDW 14.5 % (11.5-15.5); WBC 4.7 k/uL (3.8-10.6)
[2018-03-18] MEDS: LEVOTHYROXINE 100 MCG TAB PO SCH (06:30)
[2018-03-18 06:43] LABS: Calcium 8.9 mg/dL (8.4-10.2); Potassium 3.8 mmol/L (3.5-5.1)
[2018-03-18] MEDS: FUROSEMIDE 10 MG/ML 4 ML VIAL IV SCH ×2 (10:05→17:48)
[2018-03-18] MEDS: ceFAZolin IN SWFI 2 GM/20 ML SYRINGE IVP SCH ×2 (10:05→17:48)
[2018-03-18] MEDS: DOCUSATE 100 MG CAP PO SCH ×2 (10:06→21:42)
[2018-03-18] MEDS: BUMETANIDE 1 MG TAB PO SCH (10:06)
[2018-03-18] MEDS: HEPARIN SODIUM,PORCINE 5,000 UNIT/ML 1 ML VIAL SQ SCH ×2 (10:07→21:42)
[2018-03-18] MEDS: FAMOTIDINE 20 MG TAB PO SCH (10:07)
[2018-03-18] MEDS: DULoxetine HCL 20 MG CAPSULE.DR PO SCH (10:07)
[2018-03-18] MEDS: POTASSIUM CHLORIDE ER 10 MEQ TAB.ER.PRT PO SCH (10:08)
[2018-03-18] MEDS: ARTIFICIAL TEARS-HYPROMELLOSE DROPS 15 ML BTL BOTH EYES SCH ×3 (10:25→21:42)
[2018-03-18] MEDS: ALBUTEROL NEBULIZED 2.5 MG/3 ML INHALATION PRN ×2 (11:52→20:51)
[2018-03-18] MEDS: SYMBICORT 80-4.5 MCG INHALER INHALATION SCH ×2 (11:52→20:49)
[2018-03-18] MEDS: FERROUS SULFATE 325 MG TAB PO SCH (12:14)
[2018-03-18] MEDS: ASCORBIC ACID 500 MG TAB PO SCH (12:14)
[2018-03-18] MEDS: FOLIC ACID 1 MG TAB PO SCH (12:14)
[2018-03-18] MEDS: CHOLECALCIFEROL 1,000 UNIT TAB PO SCH (12:14)
[2018-03-18] MEDS: CALCIUM CARBONATE 500 MG CHEWABLE PO SCH (12:14)
--- NOTE | 2018-03-18 15:27 | P.PN ---
Subjective Progress Note Date: 03/18/18 This patient is admitted with cellulitis and edema of the legs and also CHF. She responded very well to diuretic therapy. Edema is almost cleared. She continues to be mildly anemic. No complaints of chest pain or shortness of breath. Echocardiogram showed evidence of possible severe aortic stenosis. Patient will have follow-up with Dr. Ramirez for further evaluation as an outpatient Objective - Vital Signs Vital signs: Vital Signs Temp 98.2 F 03/18/18 12:00 Pulse 60 03/18/18 12:07 Resp 18 03/18/18 12:00 BP 100/62 03/18/18 12:00 Pulse Ox 91 L 03/18/18 12:00 Intake & Output 03/17/18 03/18/18 03/18/18 18:59 06:59 18:59 Intake Total 500 180 Output Total 300 Balance 200 180 Weight 77.3 kg Intake: Oral 500 180 Output: Urine 300 Other: Voiding Method Toilet Toilet Toilet # Voids 1 0 2 # Bowel Movements 1 1 - Exam GENERAL EXAM: Patient is alert and oriented and doesn't appear to be in any acute distress HEENT: Normocephalic. Normal reaction of pupils, equal size, normal range of extraocular motion. No erythema or exudates in the throat. NECK: No masses, no nuchal rigidity. CHEST: No chest wall deformity. LUNGS: Equal air entry with no crackles or wheeze. HEART: Systolic murmur heard ABDOMEN: No hepatosplenomegaly, normal bowel sounds, no guarding or rigidity. SKIN: No rashes CENTRAL NERVOUS SYSTEM: No focal deficits. EXTREMITIES: Resolving edema and cellulitis - Labs CBC & Chem 7: 03/18/18 06:05 03/18/18 06:05 Labs: Abnormal Lab Results - Last 24 Hours (Table) 03/18/18 03/18/18 Range/Units 06:05 06:05 RBC 3.00 L (3.80-5.40) m/uL Hgb 9.6 L (11.4-16.0) gm/dL Hct 29.6 L (34.0-46.0) % Lymphocytes # 0.7 L (1.0-4.8) k/uL Chloride 97 L (98-107) mmol/L Carbon Dioxide 38 H (22-30) mmol/L BUN 34 H (7-17) mg/dL Creatinine 1.06 H (0.52-1.04) mg/dL Assessment and Plan (1) Aortic stenosis Current Visit: Yes Status: Acute Code(s): I35.0 - NONRHEUMATIC AORTIC (VALVE ) STENOSIS SNOMED Code(s): 10572079 (2) Bilateral lower extremity edema Current Visit: Yes Status: Acute Code(s): R60.0 - LOCALIZED EDEMA SNOMED Code(s): 468703834 (3) Cellulitis Current Visit: Yes Status: Acute Code(s): L03.90 - CELLULITIS, UNSPECIFIED SNOMED Code(s): 101764645 (4) Anemia Current Visit: No Status: Acute Code(s): D64.9 - ANEMIA, UNSPECIFIED SNOMED Code(s): 854105766 (5) GI bleed Current Visit: No Status: Acute Code(s): K92.2 - GASTROINTESTINAL HEMORRHAGE , UNSPECIFIED SNOMED Code(s): 51460730 Plan: Stable. Less short of breath. Edema is cleared. Possible discharge tomorrow. Follow-up with Dr. Ramirez
[2018-03-18] MEDS: diphenhydrAMINE 25 MG CAP PO SCH (21:42)
[2018-03-19] MEDS: ceFAZolin IN SWFI 2 GM/20 ML SYRINGE IVP SCH ×2 (00:20→10:05)
[2018-03-19] MEDS: FUROSEMIDE 10 MG/ML 4 ML VIAL IV SCH ×2 (00:20→09:34)
[2018-03-19] MEDS: LEVOTHYROXINE 100 MCG TAB PO SCH (06:51)
[2018-03-19] MEDS: ALBUTEROL NEBULIZED 2.5 MG/3 ML INHALATION PRN (08:52)
[2018-03-19] MEDS: SYMBICORT 80-4.5 MCG INHALER INHALATION SCH (08:52)
[2018-03-19] MEDS: ARTIFICIAL TEARS-HYPROMELLOSE DROPS 15 ML BTL BOTH EYES SCH (09:34)
[2018-03-19] MEDS: BUMETANIDE 1 MG TAB PO SCH (09:35)
[2018-03-19] MEDS: DOCUSATE 100 MG CAP PO SCH (09:35)
[2018-03-19] MEDS: FAMOTIDINE 20 MG TAB PO SCH (09:35)
[2018-03-19] MEDS: HEPARIN SODIUM,PORCINE 5,000 UNIT/ML 1 ML VIAL SQ SCH (09:36)
[2018-03-19] MEDS: POTASSIUM CHLORIDE ER 10 MEQ TAB.ER.PRT PO SCH (09:36)
[2018-03-19] MEDS: DULoxetine HCL 20 MG CAPSULE.DR PO SCH (10:05)
[2018-03-19 10:49] VITALS: RESP 18
--- NOTE | 2018-03-19 11:43 | P.PN ---
Subjective Progress Note Date: 03/18/18 Principal diagnosis: Cellulitis Ms. Spence is an 22-year-old pleasant female with a past medical history of COPD, GERD, ulcerative sleep apnea, thyroid disorder admitted to the hospital with a chief complaint of chronic bilateral leg swelling that has worsened over the past few days. She is currently being treated for bilateral lower extremity cellulitis with IV antibiotics and showed interval significant improvement. On 03/18/2018- patient is lying in her bed comfortably. She mentions that the bilateral lower extremity pain and redness improved significantly, but still has some pain in the left leg. Review of systems Constitutional: No fever chills or rigors Cardiovascular: No chest pain, palpitations, PND Respiratory: No cough or sputum production or difficulty in breathing GI: No abdominal pain nausea vomiting or diarrhea Neurological: No focal deficits Objective - Vital Signs Vital signs: Vital Signs Temp 97 F L 03/18/18 08:00 Pulse 60 03/18/18 11:53 Resp 18 03/18/18 08:00 BP 94/55 03/18/18 08:00 Pulse Ox 98 03/18/18 08:00 Intake & Output 03/17/18 03/18/18 03/18/18 18:59 06:59 18:59 Intake Total 500 180 Output Total 300 Balance 200 180 Weight 77.3 kg Intake: Oral 500 180 Output: Urine 300 Other: Voiding Method Toilet Toilet # Voids 1 0 # Bowel Movements 1 1 - Exam GENERAL EXAM GEN. APPEARANCE: alert, in no apparent distress HEAD EXAM: atraumatic, normocephalic, normal inspection RESPIRATORY EXAM: normal lung sounds bilaterally. Absent: respiratory distress , wheezes, rales, rhonchi, stridor CARDIOVASCULAR EXAM: regular rate, normal rhythm, normal heart sounds. Absent : systolic murmur, diastolic murmur, rubs, gallop, clicks GI/ABDOMINAL EXAM: soft, normal bowel sounds. Absent: distended, tenderness, guarding, rebound, rigid EXTREMITIES EXAM: Hyperpigmentation of the skin over bilateral lower extremities. Positive for mild tenderness on the left lower extremity NEUROLOGICAL EXAM: alert, oriented X3, CN II-XII intact, motor sensory deficit PSYCHIATRIC EXAM: normal affect, normal mood SKIN EXAM: warm, dry, intact, normal color. Absent: rash - Labs CBC & Chem 7: 03/18/18 06:05 03/18/18 06:05 Labs: Abnormal Lab Results - Last 24 Hours (Table) 03/18/18 03/18/18 Range/Units 06:05 06:05 RBC 3.00 L (3.80-5.40) m/uL Hgb 9.6 L (11.4-16.0) gm/dL Hct 29.6 L (34.0-46.0) % Lymphocytes # 0.7 L (1.0-4.8) k/uL Chloride 97 L (98-107) mmol/L Carbon Dioxide 38 H (22-30) mmol/L BUN 34 H (7-17) mg/dL Creatinine 1.06 H (0.52-1.04) mg/dL Assessment and Plan Assessment: ASSESSMENT Left lower extremity cellulitis Acute exacerbation systolic congestive heart failure Severe aortic stenosis Hypothyroidism PLAN Will continue with IV antibiotics as per ID recommendations for now. Patient's respiratory status has improved with diuretics. Anticipate discharge in the next 24 hours.
[2018-03-19] MEDS: CHOLECALCIFEROL 1,000 UNIT TAB PO SCH (12:15)
[2018-03-19] MEDS: FERROUS SULFATE 325 MG TAB PO SCH (12:15)
[2018-03-19] MEDS: FOLIC ACID 1 MG TAB PO SCH (12:15)
[2018-03-19] MEDS: ASCORBIC ACID 500 MG TAB PO SCH (12:15)
[2018-03-19] MEDS: CALCIUM CARBONATE 500 MG CHEWABLE PO SCH (12:15)
--- NOTE | 2018-03-19 12:29 | P.DS ---
Providers Date of admission: 03/16/18 13:59 Attending physician: Danielle Vergara Consults: 03/15/18 15:11 Consult Physician Routine Consulting Provider: Kamlesh Shipman Consult Reason/Comments: chfy Do you want consulting provider notified?: Yes 03/15/18 16:10 Consult Physician Routine Consulting Provider: Veronica Gee Consult Reason/Comments: Left leg cellulitis Do you want consulting provider notified?: Already Contacted Primary care physician: Torey Manzanares [facility] Course: Mrs. Spence is a pleasant 82 years old female with past medical history of COPD , GERD, GI bleed, OA, sleep apnea on CPAP, thyroid disorder, recent surgery for bowel obstruction and incisional hernia , she has chronic bilateral leg swelling recently treated for cellulitis. She also has history of right breast cancer status post chemo and radiotherapy 1998 and skin cancer who presents with dyspnea and worsening like edema of 2 days duration Patient had recent surgery for her umbilical hernia done laparoscopically about 2 weeks ago. After that patient was getting worse with bilateral leg swelling and developed cellulitis of the left lower extremity, she's been treated on Keflex today is her fifth day of treatment and as per patient and daughter she showed interval improvement, however her left leg is distal warm and swollen. In the hospital she was treated with Cefazolin and she showed significant improvement in her left lower extremity swelling and redness. She was seen by ID Dr. Gee and recommended that she can be discharged on Keflex. DISCHARGE DIAGNOSIS Left lower extremity cellulitis - resolved Acute exacerbation systolic congestive heart failure - resolved Severe aortic stenosis Hypothyroidism She is advised to follow up with her PCP Dr. Manzanares in 3-4 days. Within 30 minutes spent towards the discharge of the patient. Patient Condition at Discharge: Fair Plan - Discharge Summary Discharge Rx Participant: No New Discharge Prescriptions: Continue Levothyroxine Sodium [Synthroid] 100 mcg PO DAILY Multivitamins, Thera [Multivitamin (formulary)] 1 tab PO DAILY DULoxetine HCL [Cymbalta] 20 mg PO DAILY diphenhydrAMINE HCL [Benadryl] 25 mg PO HS Bumetanide [BUMEX] 1 mg PO DAILY Budesonide/Formoterol Fumarate [Symbicort 80-4.5 Mcg Inhaler] 2 puff INHALATION RT-BID Meclizine [Antivert] 25 mg PO TID PRN PRN Reason: DIZZINESS Ferrous Sulfate [Iron (65 MG Elemental)] 325 mg PO DAILY Cholecalciferol [Vitamin D3] 1,000 unit PO DAILY Meloxicam [Mobic] 15 mg PO DAILY Artificial Tears-Hypromellose [Artificial Tear Drops] 1 drops BOTH EYES TID Albuterol Sulfate [Proair Hfa] 1 - 2 puff INHALATION RT-Q6H PRN PRN Reason: Shortness Of Breath LORazepam [Ativan] 0.5 mg PO BID PRN PRN Reason: Anxiety Potassium Chloride 750 mg PO DAILY [place]-3 Fatty Acids/Fish Oil [Fish Oil 1,000 mg Softgel] 1 cap PO DAILY L.acidoph,Paracasei, B.lactis [Probiotic] 1 cap PO DAILY Ipratropium-Albuterol Nebulize [Duoneb 0.5 mg-3 mg/3 ml Soln] 3 ml INHALATION RT-QID Folic Acid 0.8 mg PO DAILY Calcium Carbonate [Calcium] 600 mg PO DAILY Ascorbic Acid [Vitamin C] 1,000 mg PO DAILY Acetaminophen [Tylenol Extra Strength] 500 mg PO Q6H PRN PRN Reason: Pain DULoxetine HCL [Cymbalta] 30 mg PO DAILY Docusate [Colace] 100 mg PO BID #20 capsule Furosemide [Lasix] 20 mg PO BID HYDROcodone/APAP 7.5-325MG [[place] 7.5-325] 1 tab PO Q4H PRN PRN Reason: Pain Cephalexin [Keflex] 500 mg PO TID 3 Days #9 No Action Vitamin B Complex 1 cap PO DAILY Discharge Medication List Levothyroxine Sodium [Synthroid] 100 mcg PO DAILY 03/07/14 [History] Multivitamins, Thera [Multivitamin (formulary)] 1 tab PO DAILY 03/07/14 [History ] Bumetanide [BUMEX] 1 mg PO DAILY 12/20/16 [History] DULoxetine HCL [Cymbalta] 20 mg PO DAILY 12/20/16 [History] diphenhydrAMINE HCL [Benadryl] 25 mg PO HS 12/20/16 [History] Budesonide/Formoterol Fumarate [Symbicort 80-4.5 Mcg Inhaler] 2 puff INHALATION RT-BID 02/02/17 [History] Meclizine [Antivert] 25 mg PO TID PRN 02/02/17 [History] Acetaminophen [Tylenol Extra Strength] 500 mg PO Q6H PRN 02/23/18 [History] Albuterol Sulfate [Proair Hfa] 1 - 2 puff INHALATION RT-Q6H PRN 02/23/18 [ History] Artificial Tears-Hypromellose [Artificial Tear Drops] 1 drops BOTH EYES TID [History] Ascorbic Acid [Vitamin C] 1,000 mg PO DAILY 02/23/18 [History] Calcium Carbonate [Calcium] 600 mg PO DAILY 02/23/18 [History] Cholecalciferol [Vitamin D3] 1,000 unit PO DAILY 02/23/18 [History] DULoxetine HCL [Cymbalta] 30 mg PO DAILY 02/23/18 [History] Ferrous Sulfate [Iron (65 MG Elemental)] 325 mg PO DAILY 02/23/18 [History] Folic Acid 0.8 mg PO DAILY 02/23/18 [History] Ipratropium-Albuterol Nebulize [Duoneb 0.5 mg-3 mg/3 ml Soln] 3 ml INHALATION RT -QID 02/23/18 [History] L.acidoph,Paracasei, B.lactis [Probiotic] 1 cap PO DAILY 02/23/18 [History] LORazepam [Ativan] 0.5 mg PO BID PRN 02/23/18 [History] Meloxicam [Mobic] 15 mg PO DAILY 02/23/18 [History] [place]-3 Fatty Acids/Fish Oil [Fish Oil 1,000 mg Softgel] 1 cap PO DAILY [History] Potassium Chloride 750 mg PO DAILY 02/23/18 [History] Vitamin B Complex 1 cap PO DAILY 02/23/18 [History] Docusate [Colace] 100 mg PO BID #20 capsule 02/28/18 [Rx] Furosemide [Lasix] 20 mg PO BID 03/15/18 [History] HYDROcodone/APAP 7.5-325MG [[place] 7.5-325] 1 tab PO Q4H PRN 03/15/18 [History] Cephalexin [Keflex] 500 mg PO TID 3 Days #9 03/19/18 [Rx] Follow up Appointment(s)/Referral(s): [facility], [NON-STAFF] - Torey Manzanares DO [Primary Care Provider] - 1-2 days Discharge Disposition: HOME SELF-CARE
[2018-03-19 13:00] VITALS: BP 113/61; PULSE 58; TEMP 99.9
== END 2018-03-19 14:54 | disposition home health service (06) | DRG 602 ==
LOC: EC 12:50 → 6SEL 15:11 → OBSVTOIN 03-16 13:59 → 6SEL 03-19 14:28
PROVIDERS: ADMIT Hospitalist; ATTEND Hospitalist
DX: L03.116 Cellulitis of left lower limb (principal); I50.23 Acute on chronic systolic (congestive) heart failure; Q21.1 Atrial septal defect; I08.3 Combined rheumatic disorders of mitral, aortic and tricuspid valves; M41.9 Scoliosis, unspecified; D64.9 Anemia, unspecified; I11.0 Hypertensive heart disease with heart failure; J44.9 Chronic obstructive pulmonary disease, unspecified; L03.115 Cellulitis of right lower limb; M19.91 Primary osteoarthritis, unspecified site; G47.30 Sleep apnea, unspecified; K21.9 Gastro-esophageal reflux disease without esophagitis; K43.2 Incisional hernia without obstruction or gangrene; G47.419 Narcolepsy without cataplexy; F32.9 Major depressive disorder, single episode, unspecified; F41.9 Anxiety disorder, unspecified; E03.9 Hypothyroidism, unspecified; Z79.1 Long term (current) use of non-steroidal anti-inflammatories (NSAID); Z79.890 Hormone replacement therapy; Z79.51 Long term (current) use of inhaled steroids; Z79.899 Other long term (current) drug therapy; Z99.81 Dependence on supplemental oxygen; Z92.21 Personal history of antineoplastic chemotherapy; Z92.3 Personal history of irradiation; Z85.828 Personal history of other malignant neoplasm of skin; Z85.3 Personal history of malignant neoplasm of breast; Z90.11 Acquired absence of right breast and nipple; Z90.710 Acquired absence of both cervix and uterus; Z90.49 Acquired absence of other specified parts of digestive tract; Z96.653 Presence of artificial knee joint, bilateral; Z87.891 Personal history of nicotine dependence; Z98.42 Cataract extraction status, left eye; Z98.41 Cataract extraction status, right eye; Z88.5 Allergy status to narcotic agent; Z88.2 Allergy status to sulfonamides; Z88.8 Allergy status to other drugs, medicaments and biological substances; Z83.1 Family history of other infectious and parasitic diseases; Z82.49 Family history of ischemic heart disease and other diseases of the circulatory system
CPT/HCPCS: 36415; 71046; 80048; 80053; 82550; 82553; 83735; 83880; 84484; 85025; 85610; 85730; 93005; 93306; 93970; 94640; 94760; 96374; 96375; 99285

== ENCOUNTER 2018-06-16 06:23 | Day surgery (SDC) | payer MEDICARE ==
[2018-06-08 15:19] VITALS: BMI 34.9
[2018-06-16] MEDS ORDERED: ALPRAZolam 0.5 MG TAB PO PRN (06:24)
[2018-06-16] MEDS ORDERED: ATORVASTATIN 80 MG TAB PO STA (06:24)
[2018-06-16] MEDS ORDERED: ASPIRIN 325 MG TAB PO STA (06:24)
[2018-06-16] MEDS ORDERED: SODIUM CHLORIDE 0.9% 1,000 ML in EMPTY BAG 1 BAG IV ONE (06:24)
[2018-06-16] MEDS ORDERED: ALPRAZolam 0.25 MG TAB PO PRN (06:24)
[2018-06-16] MEDS ORDERED: NITROGLYCERIN SL TABS 0.4 MG TAB SUBLINGUAL PRN (06:24)
[2018-06-16 07:12] VITALS: PULSE 74; TEMP 97.9
[2018-06-16] MEDS ORDERED: fentaNYL (PF) 50 MCG/ML 2 ML AMP ONE ×2 (07:17→08:46)
[2018-06-16] MEDS ORDERED: MIDAZOLAM 2 MG/2 ML VIAL ONE (07:17)
[2018-06-16] MEDS ORDERED: IV FLUID CONTINUATION 900 ML IV ONE (07:30)
[2018-06-16] MEDS: BENZOCAINE SPRAY 1 CAN MUCOUS MEM ONE ×2 (07:32→07:39)
[2018-06-16] MEDS ORDERED: LIDOCAINE 1% INJ 10MG/ML (20 ML MDV) ONE (07:35)
[2018-06-16] MEDS: fentaNYL (PF) 50 MCG/ML 2 ML AMP IVP ONE ×2 (07:37→09:07)
[2018-06-16] MEDS ORDERED: MIDAZOLAM 2 MG/2 ML VIAL IVP ONE ×2 (07:38→07:42)
[2018-06-16] MEDS: IV FLUID CONTINUATION 1,000 ML IV ONE ×2 (08:00→10:56)
[2018-06-16] MEDS ORDERED: methylPREDNISolone SOD SUCCI 125 MG/2 ML VIAL ONE (08:32)
[2018-06-16] MEDS ORDERED: methylPREDNISolone SOD SUCCI 125 MG/2 ML VIAL IVP ONE (08:35)
[2018-06-16] MEDS ORDERED: LIDOCAINE 1% (PF) 10MG/ML VIAL SQ ONE (08:41)
[2018-06-16] MEDS ORDERED: LIDOCAINE 1% INJ 10MG/ML (20 ML MDV) SQ ONE (08:41)
[2018-06-16] MEDS ORDERED: fentaNYL (PF) 50 MCG/ML 2 ML AMP IV ONE (08:47)
[2018-06-16] MEDS ORDERED: IOPAMIDOL-370 125ML BTL INJ ONE (09:07)
[2018-06-16] MEDS ORDERED: RX INFO: IV CONTRAST WAS GIVEN 1 EACH MISC MISCELLANE PRN (09:25)
[2018-06-16] MEDS ORDERED: SODIUM CHLORIDE 0.9% 1,000 ML IV SCH (09:30)
--- NOTE | 2018-06-16 09:43 | ECHOT ---
TRANSESOPHAGEAL ECHOCARDIOGRAM DATE OF SERVICE: 06/16/2018 PERFORMING PHYSICIAN: Maury Ayala MD, broker assistant. PROCEDURE PERFORMED: Transesophageal echocardiogram. INDICATION: This is a pleasant 82-year-old female patient who was diagnosed recently with severe aortic stenosis based on transthoracic echocardiogram. A transesophageal echocardiogram is for further clarification of the aortic valve. COMPLICATION: None. LEVEL OF SEDATION: Moderate with sedation length of 8 minutes. PROCEDURE DESCRIPTION: After obtaining an informed consent, explaining the procedure, benefits, risks, complications and alternatives, the patient was brought to the transesophageal echocardiogram suite. A pulse oximetry and heart rate monitors were attached to the patient prior to the procedure. The patient's throat was sprayed using lidocaine locally. Following that, the patient was turned into left lateral position. A bite guard was placed and the patient was then sedated with the above doses of Versed and fentanyl in divided doses. Following that, the transesophageal echocardiogram probe was advanced through the bite guard into the mid esophagus where 2-D echocardiogram images as well as color Doppler images of various cardiac structures were obtained. We evaluated the interatrial septum using 2-D echocardiogram, color Doppler, and contrast study. The procedure was completed. There were no complications. FINDINGS: The left ventricular dimension appeared to be within normal limits. The left ventricular systolic function is mildly impaired with EF around 45%. The right ventricle is of normal size and function. The left atrium appeared to be moderately dilated. The left atrial appendage appeared to be free from any thrombus. 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 The aortic valve is thickened and calcified. It seems to be trileaflet aortic valve with evidence of severe aortic stenosis with an aortic valve area by planimetry of 0.7 centimeters square and peak gradient of 83 and mean of 53 mmHg. The mitral valve also seems to be thickened and calcified with evidence of moderate mitral regurgitation with a central jet. There was moderate tricuspid regurgitation seen as well. The aortic root appeared to be within normal limits for dimension. CONCLUSION: 1. Severe aortic stenosis. The aortic valve area by planimetry was 0.7 centimeters square. The aortic valve peak gradient was 83 and mean of 53 mmHg. 2. Mildly impaired left ventricular function with an ejection fraction between 45% to 50% and global hypokinesia. 3. Normal right ventricular dimension and systolic function. 4. Moderate biatrial enlargement. 5. Normal left atrial appendage without any evidence of thrombus. 6. 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 7. Thickened mitral valve leaflets with moderate mitral insufficiency. 8. Moderate tricuspid regurgitation. 9. No evidence of pericardial effusion. POSTPROCEDURE MANAGEMENT: Evaluate the patient for aortic valve replacement, likely transcatheter replacement. MMODL / IJN: [id number] /
--- NOTE | 2018-06-16 09:49 | CC ---
CARDIAC CATHETERIZATION REPORT DATE OF SERVICE: 06/16/2018 PERFORMING PHYSICIAN: Maury Ayala MD, inspector wreath. PROCEDURE PERFORMED: 1. Right heart catheterization. 2. Selective right and left coronary angiogram. INDICATION: This is a pleasant 82-year-old female patient who was diagnosed recently with severe aortic stenosis. The heart catheterization is to evaluate her coronaries. APPROACH: Right common femoral artery. COMPLICATION: None. LEVEL OF SEDATION: Moderate with sedation length of 25 minutes. PROCEDURE DESCRIPTION: After obtaining an informed consent, the patient was brought to the cardiac label paster. The right common femoral vein was cannulated using micropuncture technique, the micropuncture wire passed easily then I placed an 8-Croatian sheath in the right common femoral vein. Subsequently I did cannulate the right common femoral artery using also micropuncture technique, the micropuncture wire passed easily then I placed a 6-Croatian sheath in the right common femoral artery. Subsequently I performed a right heart catheterization using 6-Croatian swan catheter. I did measure the pressures in the right heart including pulmonary capillary wedge pressure. I did not do thermodilution. Subsequently I did selective right and left coronary angiogram using an Amplatzer 1 for the right coronary artery and JL4 for the left coronary system. The procedure was completed without any complication. SELECTIVE CORONARY ANGIOGRAM: 1. The right coronary artery does have posterior takeoff. I had difficulty engaging it using JR4 or Nico right or Nico right posterior. I was able to engage the right coronary artery using an AL1. The RCA has mild disease only in the proximal portion. In the mid and distal portion, it appeared to be angiographically normal. 2. The left main is a large caliber vessel and seems to be angiographically normal. It bifurcates into left circumflex and left anterior descending artery. 3. The left circumflex is a large caliber vessel and it is a codominant vessel. The proximal left circumflex appeared to be angiographically normal. The mid circumflex is normal and gives rise into a large OM branch which bifurcates into 2 separate branches both are angiographically normal. The circumflex distally is angiographically normal and bifurcates into PDA and PLV branches both are angiographically normal. 4. The LAD: The proximal LAD is angiographically normal and gives rise into a medium- sized diagonal branch which seems to be normal. The mid LAD and distal LAD are angiographically normal as well. The LAD in the mid portion gives rise into a small diagonal branch which seems to be angiographically normal. HEMODYNAMICS: 1. The pulmonary capillary wedge pressure was 22 mmHg. 2. Pulmonary artery pressures were as follows: Systolic 38, diastolic 20, and mean of 28 mmHg. 3. The right ventricular systolic pressure was 37 mmHg and end-diastolic pressure of 12 mmHg. 4. The RA pressure was 10 mmHg. CONCLUSION: 1. Mild pulmonary hypertension. The pulmonary artery systolic pressure was 39 mmHg with a mean of 28 mmHg. 2. Mild nonobstructive disease involving the right coronary artery. The RCA has posterior takeoff. It was engaged using an AL1 catheter. 3. Mild disease involving the left coronary system. 4. Codominant right and left coronary systems. POSTPROCEDURE MANAGEMENT: The patient will be evaluated for transcatheter aortic valve replacement. MMODL / IJN: [id number] /
--- NOTE | 2018-06-16 09:55 | LTR ---
June 16, 2018 Re: Fredeverton Simon Dear Dr. Manzanares: Ms. Simon Spence underwent today transesophageal echocardiogram and heart catheterization for further evaluation of aortic valve disease. She does have severe aortic stenosis confirmed by transesophageal echocardiogram. Beside that, she does have mild nonobstructive coronary artery disease confirmed by a heart catheterization. I am going to send the patient to be evaluated for transcatheter aortic valve replacement in the next few weeks. I want to thank you for allowing me to participate in her care and please do not hesitate to call if you have any question or concern. Sincerely, Maury Ayala MD MMMANJUL / CARMENN: [id number] /
[2018-06-16 11:08] VITALS: RESP 20
[2018-06-16] MEDS ORDERED: ACETAMINOPHEN TAB 325 MG TAB ONE (14:06)
[2018-06-16 16:50] VITALS: BP 139/44
== END 2018-06-16 16:50 | disposition home or self-care (01) ==
LOC: CATHCVL 06:23
PROVIDERS: ATTEND Internal Medicine Interventional Cardiology
DX: I08.3 Combined rheumatic disorders of mitral, aortic and tricuspid valves (principal); I25.10 Atherosclerotic heart disease of native coronary artery without angina pectoris; Q21.1 Atrial septal defect; I27.20 Pulmonary hypertension, unspecified; I10 Essential (primary) hypertension; E78.00 Pure hypercholesterolemia, unspecified
CPT/HCPCS: 93312; 93320; 93325; 93460; C1894 ×3; C1769 ×2; J2250; J2930; J2001; J3010; Q9967

== ENCOUNTER → 2018-07-18 | Outpatient (CLI) | payer MEDICARE | END | disposition home or self-care (01) | LOC: CPPFTMAIN 09:02 | PROVIDERS: ATTEND Internal Medicine Cardiovascular Disease | DX: I35.0 Nonrheumatic aortic (valve) stenosis (principal) | CPT/HCPCS: 94060; 94726; 94729 ==

== ENCOUNTER → 2018-07-25 | Outpatient (CLI) | payer MEDICARE ==
--- NOTE | 2018-07-25 12:01 | XR ---
EXAMINATION TYPE: XR abdomen 2V DATE OF EXAM: 07/25/2018 COMPARISON: NONE HISTORY: Abdominal pain and diarrhea TECHNIQUE: One view abdominal series FINDINGS: The osseous structures are intact. The bowel gas pattern is nonspecific. There are multiple air-flui d levels. There are dilated bowel loops in the mid and upper abdomen. Basilar consolidation is seen. Diffuse osteopenia with arthropathy of the hips and severe degenerative disc disease with scoliosis o f the vertebral column. IMPRESSION: 1. Nonspecific abdomen with dilated bowel loops and air-fluid levels correlate for ileus or enteritis versus partial obstruction. 2. Bilateral subsegmental atelectasis or infiltrate.
== END | disposition home or self-care (01) ==
LOC: RADXRYALE 11:14
PROVIDERS: ATTEND Physician Assistant Medical
DX: K63.89 Other specified diseases of intestine (principal)
CPT/HCPCS: 74019

== ENCOUNTER 2018-08-18 11:15 | Emergency (ER) | payer MEDICARE ==
--- NOTE | 2018-08-18 12:04 | ED ---
General Adult HPI - General Chief complaint: Recheck/Abnormal Lab/Rx Stated complaint: Abnormal Labs-sent by dr Ramirez Seen by Provider: 08/18/18 11:43 Source: patient, RN notes reviewed Mode of arrival: wheelchair Limitations: no limitations - History of Present Illness Initial comments: Patient 82-year-old female presented to the emergency room today with a chief complaint of low hemoglobin. Patient does admit that she had blood drawn recently and was called told that her hemoglobin was low to come here to the hospital. She has not that she's been tired. She states been tired for approximately the last year. Patient doesn't that she had a recent colonoscopy one week ago was told that everything looked okay. She denies any other complaints or symptoms. Patient denies any recent fever, chills, shortness of breath, chest pain, back pain, abdominal pain, nausea or vomiting, numbness or tingling, dysuria or hematuria, constipation or diarrhea, headaches or visual changes, or any other complaints. - Related Data Home Medications Medication Instructions Recorded Confirmed Levothyroxine Sodium [Synthroid] 100 mcg PO DAILY 03/07/14 08/18/18 Multivitamins, Thera [Multivitamin 1 tab PO DAILY 03/07/14 08/18/18 (formulary)] Calcium Carbonate [Calcium] 600 mg PO DAILY 02/23/18 08/18/18 DULoxetine HCL [Cymbalta] 30 mg PO DAILY 02/23/18 08/18/18 Ferrous Sulfate [Iron (65 MG 325 mg PO DAILY 02/23/18 08/18/18 Elemental)] LORazepam [Ativan] 0.5 mg PO DAILY PRN 02/23/18 08/18/18 Meloxicam [Mobic] 15 mg PO HS 02/23/18 08/18/18 Furosemide [Lasix] 40 mg PO BID 03/15/18 08/18/18 Albuterol Inhaler [Ventolin Hfa 1 - 2 puff INHALATION RT-Q6H PRN 06/08/18 Inhaler] Albuterol Nebulized [Ventolin 2.5 mg INHALATION RT-Q6H 06/08/18 08/18/18 Nebulized] Budesonide-Formot 160-4.5 Mcg 2 puff INHALATION RT-BID 06/08/18 08/18/18 [Symbicort 160-4.5 Mcg Inhaler] Ipratropium Nebulized [Atrovent 0.5 mg INHALATION RT-Q8H 06/08/18 08/18/18 Nebulized] Omeprazole 40 mg PO DAILY 06/08/18 08/18/18 Potassium Chloride [Klor-Con 10 meq PO BID 06/08/18 08/18/18 Sprinkle] SILVER sulfADIAZINE Cream 1 applic TOPICAL DAILY 06/08/18 08/18/18 [Silvadene 1% Cream] Allergies Allergy/AdvReac Type Severity Reaction Status Date / Time codeine Allergy Unknown Itching, Verified 08/18/18 12:43 red skin iodine Allergy Unknown Itching, Verified 08/18/18 12:43 red skin Sulfa (Sulfonamide Allergy Unknown Itching, Verified 08/18/18 12:43 Antibiotics) red skin lactose AdvReac belching,ga Verified 08/18/18 12:43 s,bloating Review of Systems ROS Statement: Those systems with pertinent positive or pertinent negative responses have been documented in the HPI. ROS Other: All systems not noted in ROS Statement are negative. Past Medical History Past Medical History: Cancer, COPD, GERD/Reflux, GI Bleed, Musculoskeletal Disorder, Osteoarthritis (OA), Sleep Apnea/CPAP/BIPAP, Thyroid Disorder Additional Past Medical History / Comment(s): INCISIONAL HERNIA(sx), STATES NO CHF, HAS GILLIAN LEG SWELLING, O2 AT 2L VIA NC. OCCASIONAL VERTIGO, HX NARCOLEPSY, HX DIVERTICULITIS, HX OF SCOLIOSIS, HX ANEMIA, HX RT BREAST CA, CHEMO AND RADIATION 1998, AND SKIN CA,no cpap used,uti History of Any Multi-Drug Resistant Organisms: None Reported Past Surgical History: Back Surgery, Bowel Resection, Cholecystectomy, Hernia Repair, Hysterectomy, Joint Replacement, Tonsillectomy Additional Past Surgical History / Comment(s): GILLIAN KNEE REPLACEMENT, (R) mastectomy and lymph node removal 1998, GILLIAN GREAT TOENAILS REMOVED, GILLIAN CATARACT SX,02-28-18 laparoscopic robotic assisted repair of incisional hernia. Past Anesthesia/Blood Transfusion Reactions: No Reported Reaction Additional Past Anesthesia/Blood Transfusion Reaction / Comment(s): past blood transfusions-no reaction Past Psychological History: Anxiety, Depression Smoking Status: Former smoker Past Alcohol Use History: None Reported Past Drug Use History: None Reported - Past Family History Mother Additional Family Medical History / Comment(s): MOTHER OF TB WHEN PT WAS 6 MONTHS OLD Father Family Medical History: Coronary Artery Disease (CAD), Myocardial Infarction (ME ) Additional Family Medical History / Comment(s): Father 18 years ago from a heart attack. General Exam - General Exam Comments Initial Comments: General: The patient is awake and alert, in no distress, and does not appear acutely ill. Eye: Pupils are equal, round and reactive to light. Extra-ocular movements are intact. No nystagmus. There is normal conjunctiva bilaterally. No signs of icterus. Ears, nose, mouth and throat: There are moist mucous membranes and no oral lesions. Neck: The neck is supple, there is no tenderness or JVD. Cardiovascular: There is a regular rate and rhythm. No murmur, rub or gallop is appreciated. Respiratory: Lungs are clear to auscultation, respirations are non-labored, breath sounds are equal. No wheezes, stridor, rales, or rhonchi. Gastrointestinal: Soft, non-distended, non-tender abdomen without masses or organomegaly noted. There is no rebound or guarding present. No CVA tenderness. Musculoskeletal: Normal ROM, no tenderness. Sensation intact. Strength 5/5. Pulses equal bilaterally 2+. Neurological: A&O x 3. CN II-XII intact, There are no obvious motor or sensory deficits. Coordination appears grossly intact. Speech is normal. Skin: Skin is warm and dry and no rashes or lesions are noted. Psychiatric: Cooperative, appropriate mood & affect, normal judgment. Limitations: no limitations Course Vital Signs 08/18/18 08/18/18 11:35 12:34 Temperature 97.5 F L Pulse Rate 89 85 Respiratory 16 Rate Blood Pressure 99/56 107/51 O2 Sat by Pulse 93 L 100 Oximetry Medical Decision Making - Medical Decision Making Patient's labs been reviewed. Her hemoglobin is 8.1. This is stable. Her guaiac is negative. Patient has no other complaint other than generalized feeling tired she states is been over the last year. She has no pain. Vital stable. At this time patient will be discharged follow-up family doctor over the next 2 days to have repeat blood work. Advised return if any symptoms increase or worsen. - Lab Data Result diagrams: 08/18/18 12:15 08/18/18 12:15 Lab Results 08/18/18 08/18/18 08/18/18 Range/Units 12:15 12:15 12:15 WBC 7.4 (3.8-10.6) k/uL RBC 2.48 L (3.80-5.40) m/uL Hgb 8.1 L (11.4-16.0) gm/dL Hct 25.1 L (34.0-46.0) % MCV 101.0 H (80.0-100.0) fL MCH 32.7 (25.0-35.0) pg MCHC 32.4 (31.0-37.0) g/dL RDW 16.9 H (11.5-15.5) % Plt Count 256 (150-450) k/uL Neutrophils % 72 % Lymphocytes % 15 % Monocytes % 7 % Eosinophils % 3 % Basophils % 1 % Neutrophils # 5.3 (1.3-7.7) k/uL Lymphocytes # 1.1 (1.0-4.8) k/uL Monocytes # 0.5 (0-1.0) k/uL Eosinophils # 0.2 (0-0.7) k/uL Basophils # 0.0 (0-0.2) k/uL Hypochromasia Moderate Poikilocytosis Slight Anisocytosis Slight Macrocytosis Slight PT 9.7 (9.0-12.0) sec INR 1.0 (<1.2) APTT 23.4 (22.0-30.0) sec Sodium 141 (137-145) mmol/L Potassium 4.2 (3.5-5.1) mmol/L Chloride 102 (98-107) mmol/L Carbon Dioxide 31 H (22-30) mmol/L Anion Gap 8 mmol/L BUN 29 H (7-17) mg/dL Creatinine 1.20 H (0.52-1.04) mg/dL Est GFR (CKD-EPI)AfAm 49 (>60 ml/min/1.73 sqM) Est GFR (CKD-EPI)NonAf 43 (>60 ml/min/1.73 sqM) Glucose 90 (74-99) mg/dL Calcium 8.6 (8.4-10.2) mg/dL Total Bilirubin 0.8 (0.2-1.3) mg/dL AST 29 (14-36) U/L ALT 24 (9-52) U/L Alkaline Phosphatase 70 (38-126) U/L Total Protein 6.5 (6.3-8.2) g/dL Albumin 3.3 L (3.5-5.0) g/dL Urine Color Urine Appearance (Clear) Urine pH (5.0-8.0) Ur Specific [place] (1.001-1.035) Urine Protein (Negative) Urine Glucose (UA) (Negative) Urine Ketones (Negative) Urine Blood (Negative) Urine Nitrite (Negative) Urine Bilirubin (Negative) Urine Urobilinogen (<2.0) mg/dL Ur Leukocyte Esterase (Negative) Stool Occult Blood (Negative) 08/18/18 08/18/18 Range/Units 12:15 13:40 WBC (3.8-10.6) k/uL RBC (3.80-5.40) m/uL Hgb (11.4-16.0) gm/dL Hct (34.0-46.0) % MCV (80.0-100.0) fL MCH (25.0-35.0) pg MCHC (31.0-37.0) g/dL RDW (11.5-15.5) % Plt Count (150-450) k/uL Neutrophils % % Lymphocytes % % Monocytes % % Eosinophils % % Basophils % % Neutrophils # (1.3-7.7) k/uL Lymphocytes # (1.0-4.8) k/uL Monocytes # (0-1.0) k/uL Eosinophils # (0-0.7) k/uL Basophils # (0-0.2) k/uL Hypochromasia Poikilocytosis Anisocytosis Macrocytosis PT (9.0-12.0) sec INR (<1.2) APTT (22.0-30.0) sec Sodium (137-145) mmol/L Potassium (3.5-5.1) mmol/L Chloride (98-107) mmol/L Carbon Dioxide (22-30) mmol/L Anion Gap mmol/L BUN (7-17) mg/dL Creatinine (0.52-1.04) mg/dL Est GFR (CKD-EPI)AfAm (>60 ml/min/1.73 sqM) Est GFR (CKD-EPI)NonAf (>60 ml/min/1.73 sqM) Glucose (74-99) mg/dL Calcium (8.4-10.2) mg/dL Total Bilirubin (0.2-1.3) mg/dL AST (14-36) U/L ALT (9-52) U/L Alkaline Phosphatase (38-126) U/L Total Protein (6.3-8.2) g/dL Albumin (3.5-5.0) g/dL Urine Color Light Yellow Urine Appearance Clear (Clear) Urine pH 7.0 (5.0-8.0) Ur Specific [place] 1.007 (1.001-1.035) Urine Protein Negative (Negative) Urine Glucose (UA) Negative (Negative) Urine Ketones Negative (Negative) Urine Blood Negative (Negative) Urine Nitrite Negative (Negative) Urine Bilirubin Negative (Negative) Urine Urobilinogen <2.0 (<2.0) mg/dL Ur Leukocyte Esterase Negative (Negative) Stool Occult Blood Negative (Negative) Disposition Clinical Impression: Anemia Disposition: HOME SELF-CARE Condition: Good Instructions: Anemia (ED) Additional Instructions: Please use medication as discussed. Please follow-up with family doctor in the next 2 days. Please return to emergency room if the symptoms increase or worsen or for any other concerns. Is patient prescribed a controlled substance at d/c from ED?: No Referrals: Torey Manzanares DO [Primary Care Provider] - 1-2 days Time of Disposition: 14:23
[2018-08-18 12:35] LABS: Anisocytosis Slight; Appearance,Urine Clear (Clear); Basophils % (A) 1 %; Bilirubin,Urine Negative (Negative); Blood,Urine Negative (Negative); Color,Urine Light Yellow; Eosinophils # (A) 0.2 k/uL (0-0.7); Eosinophils % (A) 3 %; Glucose,Urine (UA) Negative (Negative); HCT 25.1 % (34.0-46.0); HGB 8.1 gm/dL (11.4-16.0); Hypochromasia Moderate; Ketones,Urine Negative (Negative); Leukocyte Esterase,Urine Negative (Negative); Lymphocytes # (A) 1.1 k/uL (1.0-4.8); Lymphocytes % (A) 15 %; MCH 32.7 pg (25.0-35.0); MCHC 32.4 g/dL (31.0-37.0); Macrocytosis Slight; Mean Platelet Volume 6.9; Monocytes # (A) 0.5 k/uL (0-1.0); Monocytes % (A) 7 %; Neutrophils # (A) 5.3 k/uL (1.3-7.7); Neutrophils % (A) 72 %; Nitrite,Urine Negative (Negative); Platelet Count 256 k/uL (150-450); Poikilocytosis Slight; Protein,Urine Negative (Negative); RBC 2.48 m/uL (3.80-5.40); RDW 16.9 % (11.5-15.5); Specific Gravity,Urine 1.007 (1.001-1.035); Urobilinogen,Urine <2.0 mg/dL (<2.0); WBC 7.4 k/uL (3.8-10.6)
[2018-08-18 12:42] LABS: Partial Thromboplastin Time 23.4 sec (22.0-30.0); Prothrombin Time 9.7 sec (9.0-12.0)
[2018-08-18 12:46] LABS: Albumin 3.3 g/dL (3.5-5.0); Calcium 8.6 mg/dL (8.4-10.2); Potassium 4.2 mmol/L (3.5-5.1); Total Bilirubin 0.8 mg/dL (0.2-1.3); Total Protein 6.5 g/dL (6.3-8.2)
--- NOTE | 2018-08-18 13:08 | XR ---
EXAMINATION TYPE: XR chest 2V DATE OF EXAM: 08/18/2018 COMPARISON: Prior chest x-ray 03/15/2018 HISTORY: Shortness of breath TECHNIQUE: Frontal and lateral views of the chest are obtained. FINDINGS: Surgical clips present over the right axilla. Patient is rotated. There is no focal air sp pilo opacity, pleural effusion, or pneumothorax seen. The cardiac silhouette size is stable, appearan ce of the heart may be accentuated by rotation. There is a spinal curvature, possible kyphosis Thoracic lumbar junction. Question prominence of the interstitium. The osseous structures are intact. The aorta is dense. IMPRESSION: Possible cardiomegaly. Correlate to exclude pulmonary venous hypertension and interstiti al edema, follow-up recommended.
[2018-08-18 15:01] VITALS: BP 123/60; PULSE 84; RESP 22; TEMP 98.4
== END 2018-08-18 15:01 | disposition home or self-care (01) ==
LOC: EC 11:15
DX: D64.9 Anemia, unspecified (principal); J44.9 Chronic obstructive pulmonary disease, unspecified; K21.9 Gastro-esophageal reflux disease without esophagitis; M19.90 Unspecified osteoarthritis, unspecified site; E07.9 Disorder of thyroid, unspecified; F41.9 Anxiety disorder, unspecified; F32.9 Major depressive disorder, single episode, unspecified; G47.30 Sleep apnea, unspecified; Z99.89 Dependence on other enabling machines and devices; Z85.3 Personal history of malignant neoplasm of breast; Z92.21 Personal history of antineoplastic chemotherapy; Z85.828 Personal history of other malignant neoplasm of skin; Z96.653 Presence of artificial knee joint, bilateral; Z87.891 Personal history of nicotine dependence; Z79.1 Long term (current) use of non-steroidal anti-inflammatories (NSAID); Z79.51 Long term (current) use of inhaled steroids; Z79.899 Other long term (current) drug therapy; Z88.5 Allergy status to narcotic agent; Z91.048 Other nonmedicinal substance allergy status; Z88.2 Allergy status to sulfonamides; Z91.011 Allergy to milk products
CPT/HCPCS: 36415; 71046; 80053; 81003; 82272; 85025; 85610; 85730; 99283

== ENCOUNTER → 2018-11-20 | Outpatient (CLI) | payer MEDICARE ==
--- NOTE | 2018-11-21 11:51 | MM ---
Reason for exam: history of breast cancer, mastectomy. Last mammogram was performed 1 year ago. History: Patient is postmenopausal, has history of breast cancer at age 62, and history of other cancer. Excisional biopsy of the right breast, November 02, 2010. Mastectomy of the right breast, 1997. Chemotherapy, 1997. Radiation therapy of the right breast, 1997. Took estrogen for 29 years beginning at age 33. Took tamoxifen for 9 years. Physical Findings: Nurse did not find any significant physical abnormalities on exam. MG 3D Diag Mammo W/Cad LT CC, MLO, ML, and LM view(s) were taken of the left breast. Prior study comparison: November 21, 2017, left breast MG 3d diag mammo w/cad LT. September 30, 2016, left breast MG 3d diag mammo w/cad LT. There are scattered fibroglandular densities. There are vascular calcifications. stable small axillary tail node. No significant new finding when compared with prior studies. These results were verbally communicated with the patient and result sheet given to the patient on 11/20/18. ASSESSMENT: Negative, BI-RAD 1 RECOMMENDATION: Routine screening mammogram of the left breast in 1 year.
== END | disposition home or self-care (01) ==
LOC: RADMAMWWP 12:50
PROVIDERS: ATTEND Family Medicine
DX: Z08 Encounter for follow-up examination after completed treatment for malignant neoplasm (principal); Z85.3 Personal history of malignant neoplasm of breast
CPT/HCPCS: 77065; G0279; 77061

== ENCOUNTER → 2019-12-13 | Outpatient (CLI) | payer MEDICARE ==
--- NOTE | 2019-12-17 08:59 | MM ---
Reason for exam: screening (asymptomatic). Last mammogram was performed 1 year and 1 month ago. History: Patient is postmenopausal, has history of breast cancer at age 62, and history of other cancer. Excisional biopsy of the right breast, November 02, 2010. Mastectomy of the right breast, 1997. Chemotherapy, 1997. Radiation therapy of the right breast, 1997. Took estrogen for 29 years beginning at age 33. Took tamoxifen for 9 years. Physical Findings: A clinical breast exam by your physician is recommended on an annual basis and results should be correlated with mammographic findings. MG 3D Scr Ritchie Unilateral W/Cad CC and MLO view(s) were taken of the left breast. Prior study comparison: November 20, 2018, left breast MG 3d diag mammo w/cad LT. November 21, 2017, left breast MG 3d diag mammo w/cad LT. There are scattered fibroglandular densities. No significant changes when compared with prior studies. ASSESSMENT: Benign, BI-RAD 2 RECOMMENDATION: Routine screening mammogram of the left breast in 1 year.
== END | disposition home or self-care (01) ==
LOC: RADMAMWWP 10:46
PROVIDERS: ATTEND Family Medicine
DX: Z12.31 Encounter for screening mammogram for malignant neoplasm of breast (principal); Z85.3 Personal history of malignant neoplasm of breast
CPT/HCPCS: 77067

== ENCOUNTER → 2020-07-30 | Outpatient (CLI) | payer MEDICARE ==
--- NOTE | 2020-07-30 08:31 | US ---
EXAMINATION TYPE: US abdomen limited DATE OF EXAM: 07/30/2020 COMPARISON: NONE CLINICAL HISTORY: R94.5 Abn Liver function, R19.7 Diarrhea. Hx of cholecystectomy EXAM MEASUREMENTS: Liver Length: 14.4 cm Gallbladder Wall: Surgically absent CBD: 1.5 cm Right Kidney: 8.0 x 4.4 x 5.0 cm Pancreas: limited visualization/not seen well Liver: Increased attenuation, decreased visualization of vessels suggestive of fatty infiltrate Gallbladder: Surgically absent Evidence for sonographic Spencer's sign: No CBD: appears enlarged Right Kidney: No hydronephrosis or masses seen IMPRESSION: 1. Nonspecific appearance of liver can be seen with hepatic steatosis, enteritis or diffuse hepatocel lular disease. 2. postcholecystectomy changes. CBD does measure dilated at 1.5 cm (normal for postcholecystectomy up to 1 cm), correlate clinically.
== END | disposition home or self-care (01) ==
LOC: RADUSWWP 07:32
PROVIDERS: ATTEND Family Medicine
DX: K76.0 Fatty (change of) liver, not elsewhere classified (principal); K83.8 Other specified diseases of biliary tract; Z90.49 Acquired absence of other specified parts of digestive tract
CPT/HCPCS: 76705

== ENCOUNTER 2020-09-19 20:55 | Observation (INO) | payer MEDICARE ==
[2020-09-19] MEDS ORDERED: SODIUM CHLORIDE 0.9% 1,000 ML IV ONE (21:56)
[2020-09-19] MEDS ORDERED: methylPREDNISolone SOD SUCCI 125 MG/2 ML VIAL IV STA (22:20)
[2020-09-19] MEDS ORDERED: diphenhydrAMINE 50 MG/ML 1 ML VIAL IVP STA (22:20)
[2020-09-19] MEDS ORDERED: FAMOTIDINE 20 MG/2 ML VIAL IV STA (22:20)
[2020-09-19 22:40] LABS: Basophils # (A) 0.1 k/uL (0-0.2); Basophils % (A) 1 %; Eosinophils # (A) 0.2 k/uL (0-0.7); Eosinophils % (A) 2 %; HCT 31.2 % (34.0-46.0); Hypochromasia Slight; Lymphocytes # (A) 1.3 k/uL (1.0-4.8); Lymphocytes % (A) 9 %; MCH 31.4 pg (25.0-35.0); MCHC 32.1 g/dL (31.0-37.0); MCV 97.8 fL (80.0-100.0); Mean Platelet Volume 7.3; Monocytes % (A) 7 %; Neutrophils # (A) 12.1 k/uL (1.3-7.7); Neutrophils % (A) 80 %; Platelet Count 224 k/uL (150-450); RBC 3.19 m/uL (3.80-5.40); RDW 14.3 % (11.5-15.5); WBC 15.1 k/uL (3.8-10.6)
[2020-09-19 22:43] LABS: Appearance,Urine Clear (Clear); Bilirubin,Urine Negative (Negative); Blood,Urine Negative (Negative); Color,Urine Yellow; Glucose,Urine (UA) Negative (Negative); Hyaline Casts,Urine 16 /lpf (0-2); Ketones,Urine Negative (Negative); Leukocyte Esterase,Urine Moderate (Negative); Mucus,Urine Rare /hpf; Nitrite,Urine Negative (Negative); PH, Urine 5.5 (5.0-8.0); Protein,Urine Trace (Negative); RBC,Urine 2 /hpf (0-5); Specific Gravity,Urine 1.022 (1.001-1.035); Squamous Epithelial Cell,Urine <1 /hpf (0-4); Urobilinogen,Urine <2.0 mg/dL (<2.0); WBC,Urine 8 /hpf (0-5)
[2020-09-19 22:50] LABS: INR 0.9 (<1.2); Prothrombin Time 9.6 sec (9.0-12.0)
[2020-09-19 22:53] LABS: Amphetamine Screen,Urine Not Detected (NotDetected); Barbiturate Screen,Urine Not Detected (NotDetected); Benzodiazepines Screen,Urine Not Detected (NotDetected); Cocaine Screen,Urine Not Detected (NotDetected); Methadone Screen, Urine Not Detected (NotDetected); Opiate Screen,Urine Not Detected (NotDetected); Oxycodone Screen, Urine Not Detected (NotDetected); Phencyclidine Screen,Urine Not Detected (NotDetected); Tricyclic Antidepressant,Urine Not Detected (NotDetected); Urn Cannabinoid Scrn Not Detected (NotDetected)
[2020-09-19 22:56] LABS: Albumin 3.3 g/dL (3.5-5.0); Calcium 8.5 mg/dL (8.4-10.2); Potassium 5.2 mmol/L (3.5-5.1); Total Bilirubin 0.6 mg/dL (0.2-1.3); Total Protein 6.8 g/dL (6.3-8.2)
--- NOTE | 2020-09-19 22:58 | ED ---
General Adult HPI - General Chief complaint: Altered Mental Status Stated complaint: Altered Mental Status Time Seen by Provider: 09/19/20 21:41 Source: patient, family, EMS, RN notes reviewed, old records reviewed Mode of arrival: EMS Limitations: no limitations - History of Present Illness Initial comments: 84-year-old female presents to the emergency department today with complaints of increased confusion and weakness and falls for the past 3 days. Patient's daughter reports that they went to see their primary care doctor because she fell and caused an abrasion over her right leg. Patient's daughter noted that she seemed to have some episodes of confusion and didn't know where she was in the home. She also reports it seemed that her eyes were not tracking well. Patient at this time denies any complaints including headache. Patient's aroldo contreras reports that she has been diagnosed with dementia and is concerned that seems to be significantly progressing of her confusion intermittently for the past 3 days. Patient has had a history of TAVR 2 years ago. - Related Data Home Medications Medication Instructions Recorded Confirmed Levothyroxine Sodium [Synthroid] 100 mcg PO DAILY 03/07/14 08/18/18 Multivitamins, Thera [Multivitamin 1 tab PO DAILY 03/07/14 08/18/18 (formulary)] Calcium Carbonate [Calcium] 600 mg PO DAILY 02/23/18 08/18/18 DULoxetine HCL [Cymbalta] 30 mg PO DAILY 02/23/18 08/18/18 Ferrous Sulfate [Iron (65 MG 325 mg PO DAILY 02/23/18 08/18/18 Elemental)] LORazepam [Ativan] 0.5 mg PO DAILY PRN 02/23/18 08/18/18 Meloxicam [Mobic] 15 mg PO HS 02/23/18 08/18/18 Furosemide [Lasix] 40 mg PO BID 03/15/18 08/18/18 Albuterol Inhaler (Mhu) [Ventolin 1 - 2 puff INHALATION RT-Q6H PRN 06/08/18 08/18/18 Hfa Inhaler (Mhu)] Albuterol Nebulized [Ventolin 2.5 mg INHALATION RT-Q6H 06/08/18 08/18/18 Nebulized] Budesonide-Formot 160-4.5 Mcg 2 puff INHALATION RT-BID 06/08/18 08/18/18 [Symbicort 160-4.5 Mcg Inhaler] Ipratropium Nebulized [Atrovent 0.5 mg INHALATION RT-Q8H 06/08/18 08/18/18 Nebulized 0.2 MG/ML] Omeprazole 40 mg PO DAILY 06/08/18 08/18/18 Potassium Chloride [Klor-Con 10 meq PO BID 06/08/18 08/18/18 Sprinkle] SILVER sulfADIAZINE Cream 1 applic TOPICAL DAILY 06/08/18 08/18/18 [Silvadene 1% Cream] Allergies Allergy/AdvReac Type Severity Reaction Status Date / Time codeine Allergy Unknown Itching, Verified 09/19/20 22:17 red skin iodine Allergy Unknown Itching, Verified 09/19/20 22:17 red skin Sulfa (Sulfonamide Allergy Unknown Itching, Verified 09/19/20 22:17 Antibiotics) red skin lactose AdvReac belching,ga Verified 09/19/20 22:17 s,bloating Review of Systems ROS Statement: Those systems with pertinent positive or pertinent negative responses have been documented in the HPI. ROS Other: All systems not noted in ROS Statement are negative. Past Medical History Past Medical History: Cancer, COPD, GERD/Reflux, GI Bleed, Musculoskeletal Disorder, Osteoarthritis (OA), Sleep Apnea/CPAP/BIPAP, Thyroid Disorder Additional Past Medical History / Comment(s): INCISIONAL HERNIA(sx), STATES NO CHF, HAS GILLIAN LEG SWELLING, O2 AT 2L VIA NC. OCCASIONAL VERTIGO, HX NARCOLEPSY, HX DIVERTICULITIS, HX OF SCOLIOSIS, HX ANEMIA, HX RT BREAST CA, CHEMO AND RADIATION 1998, AND SKIN CA,no cpap used,uti History of Any Multi-Drug Resistant Organisms: ESBL Date of last positivie culture/infection: 12/01/18 ESBL E. coli MDRO Source:: Urine Past Surgical History: Back Surgery, Bowel Resection, Cholecystectomy, Hernia Repair, Hysterectomy, Joint Replacement, Tonsillectomy Additional Past Surgical History / Comment(s): GILLIAN KNEE REPLACEMENT, (R) mastectomy and lymph node removal 1998, GILLIAN GREAT TOENAILS REMOVED, GILLIAN CATARACT SX,02-28-18 laparoscopic robotic assisted repair of incisional hernia. Past Anesthesia/Blood Transfusion Reactions: No Reported Reaction Additional Past Anesthesia/Blood Transfusion Reaction / Comment(s): past blood transfusions-no reaction Past Psychological History: Anxiety, Depression Smoking Status: Former smoker Past Alcohol Use History: None Reported Past Drug Use History: None Reported - Past Family History Mother Additional Family Medical History / Comment(s): MOTHER OF TB WHEN PT WAS 6 MONTHS OLD Father Family Medical History: Coronary Artery Disease (CAD), Myocardial Infarction (MT) Additional Family Medical History / Comment(s): Father 18 years ago from a heart attack. General Exam - General Exam Comments Initial Comments: 84-year-old female. Alert and oriented 3. Limitations: no limitations General appearance: alert, in no apparent distress Head exam: Present: atraumatic, normocephalic, normal inspection Eye exam: Present: normal appearance, PERRL, EOMI. Absent: scleral icterus, conjunctival injection, periorbital swelling ENT exam: Present: normal exam, mucous membranes moist, other (Patient has evidence of a left-sided facial droop. Normal sensation over the face.) Neck exam: Present: normal inspection. Absent: tenderness, meningismus, lymp hadenopathy Respiratory exam: Present: normal lung sounds bilaterally. Absent: respiratory distress, wheezes, rales, rhonchi, stridor Cardiovascular Exam: Present: regular rate, normal rhythm, normal heart sounds. Absent: systolic murmur, diastolic murmur, rubs, gallop, clicks GI/Abdominal exam: Present: soft, normal bowel sounds. Absent: distended, tenderness, guarding, rebound, rigid Extremities exam: Present: normal inspection, full ROM, normal capillary refill, other (Patient has evidence of bilateral peripheral edema. She has evidence of abrasion with dressing covering this over her right walls). Absent: tenderness, pedal edema, joint swelling, calf tenderness Back exam: Present: normal inspection Neurological exam: Present: alert, oriented X3, CN II-XII intact Expanded Patient oriented to: Present: person, place, time Speech: Present: fluid speech Cranial nerves: EOM's Intact: Normal, Tongue Deviation: Abnormal Left, Facial Palsy with Forehead Movement: Abnormal Left Cerebellar function: Finger to Nose: Normal Upper motor neuron: Pronator Drift: Normal Sensory exam: Upper Extremity Light Touch: Normal, Lower Extremity Light Touch: Normal Motor strength exam: RUE: 5, LUE: 5, RLE: 5, LLE: 5 Eye Response: (4) open spontaneously Motor Response: (6) obeys commands Verbal Response: (5) oriented Morse Total: 15 Psychiatric exam: Present: normal affect, normal mood Skin exam: Present: warm, dry, intact, normal color. Absent: rash Course Vital Signs 09/19/20 09/19/20 09/19/20 21:16 21:30 22:00 Temperature 98.4 F Pulse Rate 87 Respiratory 18 Rate Blood Pressure 126/48 126/48 126/48 O2 Sat by Pulse 96 99 87 L Oximetry 09/19/20 09/19/20 22:30 23:33 Temperature Pulse Rate 71 Respiratory 18 Rate Blood Pressure 126/48 127/59 O2 Sat by Pulse 100 100 Oximetry - Reevaluation(s) Reevaluation #1: 09/20/20 00:31 With questioning daughter she's noticed a facial droop she cannot point in time frame when she noticed that the facial droop. This may have been going on for the past 3 days without the daughter noticing. Medical Decision Making - Medical Decision Making 84-year-old female with history of developing dementia presents with worsening altered mental status changes for the past 3 days as well as falls. Patient denies any complaints of pain at this time. Patient's daughter noted that she's been somewhat confused around the house and he seemed to be intermittent episodes of confusion. At time of arrival Patient was noted have a mild left- sided facial droop and daughter does not know when this could've started. Patient's denies any complaints of pain. Patient had an NIH of 2, and with length of symptoms starting approximately 3 days ago Patient is not a candidate for TPA. Patient did have CT brain and a CHERRY completed showing no significant stenosis. There was a right carotid artery bifurcation plaque that was noted. Patient case was discussed with Dr. Galvez Whom discussed the case with Bethanie Morgan who agrees to the admission for weakness and failure to thrive and falls. Aware that no neurology is available this weekend. - Lab Data Result diagrams: 09/19/20 22:09/19/20: Lab Results 09/19/20 09/19/20 09/19/20 Range/Units 22:27 22:27 22:27 WBC 15.1 H (3.8-10.6) k/uL RBC 3.19 L (3.80-5.40) m/uL Hgb 10.0 L (11.4-16.0) gm/dL Hct 31.2 L (34.0-46.0) % MCV 97.8 (80.0-100.0) fL MCH 31.4 (25.0-35.0) pg MCHC 32.1 (31.0-37.0) g/dL RDW 14.3 (11.5-15.5) % Plt Count 224 (150-450) k/uL MPV 7.3 Neutrophils % 80 % Lymphocytes % 9 % Monocytes % 7 % Eosinophils % 2 % Basophils % 1 % Neutrophils # 12.1 H (1.3-7.7) k/uL Lymphocytes # 1.3 (1.0-4.8) k/uL Monocytes # 1.0 (0-1.0) k/uL Eosinophils # 0.2 (0-0.7) k/uL Basophils # 0.1 (0-0.2) k/uL Hypochromasia Slight PT 9.6 (9.0-12.0) sec INR 0.9 (<1.2) APTT 23.0 (22.0-30.0) sec Sodium (137-145) mmol/L Potassium (3.5-5.1) mmol/L Chloride (98-107) mmol/L Carbon Dioxide (22-30) mmol/L Anion Gap mmol/L BUN (7-17) mg/dL Creatinine (0.52-1.04) mg/dL Est GFR (CKD-EPI)AfAm (>60 ml/min/1.73 sqM) Est GFR (CKD-EPI)NonAf (>60 ml/min/1.73 sqM) Glucose (74-99) mg/dL Calcium (8.4-10.2) mg/dL Total Bilirubin (0.2-1.3) mg/dL AST (14-36) U/L ALT (4-34) U/L Alkaline Phosphatase (38-126) U/L Troponin I (0.000-0.034) ng/mL Total Protein (6.3-8.2) g/dL Albumin (3.5-5.0) g/dL Urine Color Yellow Urine Appearance Clear (Clear) Urine pH 5.5 (5.0-8.0) Ur Specific Fischer 1.022 (1.001-1.035) Urine Protein Trace H (Negative) Urine Glucose (UA) Negative (Negative) Urine Ketones Negative (Negative) Urine Blood Negative (Negative) Urine Nitrite Negative (Negative) Urine Bilirubin Negative (Negative) Urine Urobilinogen <2.0 (<2.0) mg/dL Ur Leukocyte Esterase Moderate H (Negative) Urine RBC 2 (0-5) /hpf Urine WBC 8 H (0-5) /hpf Ur Squamous Epith Cells <1 (0-4) /hpf Hyaline Casts 16 H (0-2) /lpf Urine Mucus Rare H (None) /hpf Urine Opiates Screen Not Detected (NotDetected) Ur Oxycodone Screen Not Detected (NotDetected) Urine Methadone Screen Not Detected (NotDetected) Ur Propoxyphene Screen Not Detected (NotDetected) Ur Barbiturates Screen Not Detected (NotDetected) U Tricyclic Antidepress Not Detected (NotDetected) Ur Phencyclidine Scrn Not Detected (NotDetected) Ur Amphetamines Screen Not Detected (NotDetected) U Methamphetamines Scrn Not Detected (NotDetected) U Benzodiazepines Scrn Not Detected (NotDetected) Urine Cocaine Screen Not Detected (NotDetected) U Marijuana (THC) Screen Not Detected (NotDetected) 09/19/20 09/19/20 Range/Units 22:27 22:27 WBC (3.8-10.6) k/uL RBC (3.80-5.40) m/uL Hgb (11.4-16.0) gm/dL Hct (34.0-46.0) % MCV (80.0-100.0) fL MCH (25.0-35.0) pg MCHC (31.0-37.0) g/dL RDW (11.5-15.5) % Plt Count (150-450) k/uL MPV Neutrophils % % Lymphocytes % % Monocytes % % Eosinophils % % Basophils % % Neutrophils # (1.3-7.7) k/uL Lymphocytes # (1.0-4.8) k/uL Monocytes # (0-1.0) k/uL Eosinophils # (0-0.7) k/uL Basophils # (0-0.2) k/uL Hypochromasia PT (9.0-12.0) sec INR (<1.2) APTT (22.0-30.0) sec Sodium 138 (137-145) mmol/L Potassium 5.2 H (3.5-5.1) mmol/L Chloride 107 (98-107) mmol/L Carbon Dioxide 28 (22-30) mmol/L Anion Gap 3 mmol/L BUN 37 H (7-17) mg/dL Creatinine 0.96 (0.52-1.04) mg/dL Est GFR (CKD-EPI)AfAm 63 (>60 ml/min/1.73 sqM) Est GFR (CKD-EPI)NonAf 55 (>60 ml/min/1.73 sqM) Glucose 114 H (74-99) mg/dL Calcium 8.5 (8.4-10.2) mg/dL Total Bilirubin 0.6 (0.2-1.3) mg/dL AST 40 H (14-36) U/L ALT 12 (4-34) U/L Alkaline Phosphatase 74 (38-126) U/L Troponin I <0.012 (0.000-0.034) ng/mL Total Protein 6.8 (6.3-8.2) g/dL Albumin 3.3 L (3.5-5.0) g/dL Urine Color Urine Appearance (Clear) Urine pH (5.0-8.0) Ur Specific Fischer (1.001-1.035) Urine Protein (Negative) Urine Glucose (UA) (Negative) Urine Ketones (Negative) Urine Blood (Negative) Urine Nitrite (Negative) Urine Bilirubin (Negative) Urine Urobilinogen (<2.0) mg/dL Ur Leukocyte Esterase (Negative) Urine RBC (0-5) /hpf Urine WBC (0-5) /hpf Ur Squamous Epith Cells (0-4) /hpf Hyaline Casts (0-2) /lpf Urine Mucus (None) /hpf Urine Opiates Screen (NotDetected) Ur Oxycodone Screen (NotDetected) Urine Methadone Screen (NotDetected) Ur Propoxyphene Screen (NotDetected) Ur Barbiturates Screen (NotDetected) U Tricyclic Antidepress (NotDetected) Ur Phencyclidine Scrn (NotDetected) Ur Amphetamines Screen (NotDetected) U Methamphetamines Scrn (NotDetected) U Benzodiazepines Scrn (NotDetected) Urine Cocaine Screen (NotDetected) U Marijuana (THC) Screen (NotDetected) 09/20/20 01:03 EKG performed at 2220 shows normal sinus rhythm left axis. Minimal voltage criteria for LVH may be normal.. Abnormal EKG. Ventricular rate of 83 bpm. Was 146 most seconds. QRS ration is 80 ms. QT QTc is 368/432 ms. - Radiology Data Radiology results: report reviewed Chest x-ray shows pulmonary fibrotic changes. No heart failure. Cardiomegaly. No change compared old exam. Cervical atrophy and chronic small vessel ischemia changes. No acute intracranial abnormality. There are some progression of atrophy compared old exam. Mild plaque of the right carotid artery bifurcation. No evidence of hemodynamic stenosis. Negative CT angiogram of the brain. Disposition Clinical Impression: Falls, Failure to thrive, Facial droop, UTI (urinary tract infection), Congestive heart failure, Bilateral lower extremity edema, Dementia Disposition: ADMITTED IP TO THIS HOSP Condition: Stable Is patient prescribed a controlled substance at d/c from ED?: No Referrals: Torey Manzanares DO [Primary Care Provider] - 1-2 days Time of Disposition: 01:09
--- NOTE | 2020-09-19 23:43 | XR ---
EXAMINATION TYPE: XR chest 1V DATE OF EXAM: 09/19/2020 COMPARISON: 08/18/2018 HISTORY: Altered mental status. Short of breath. TECHNIQUE: FINDINGS: Heart is enlarged. There is some coarsening of interstitial markings. There is no gross hea rt failure. There is aortic valve surgery. There is no definite pleural effusion. There is mild thora cic dextroscoliosis. Thoracic aorta is atheromatous. IMPRESSION: Pulmonary fibrotic changes. No heart failure. Cardiomegaly. No change compared to old exa m.
--- NOTE | 2020-09-19 23:49 | CT ---
EXAMINATION TYPE: CT brain wo con DATE OF EXAM: 09/19/2020 COMPARISON: 03/07/2014 HISTORY: ams CT DLP: 1104 mGycm Automated exposure control for dose reduction was used. There is diffuse cerebral atrophy. There is no mass effect nor midline shift. There is no evidence of intracranial hemorrhage. There is patchy hypodensity in the periventricular white matter. The calvar ium is intact. Skull base is intact. IMPRESSION: Cerebral atrophy and chronic small vessel ischemia. No acute intracranial abnormality. There is some progression of the atrophy compared to old exam.
--- NOTE | 2020-09-20 00:02 | CT ---
EXAMINATION TYPE: CT angio head neck DATE OF EXAM: 09/19/2020 COMPARISON: None HISTORY: ams CT DLP: 395.7 mGycm Automated exposure control for dose reduction was used. CONTRAST: Performed with IV Contrast, patient injected with 65 mL of Isovue 370. Images were obtained from the aortic arch to the vertex of the brain with IV contrast and 3-D post pr ocessed images. There is intact aortic arch. There is normal branching pattern of the great vessels on the aortic arc h. There is arterial flow in both subclavian arteries. There is arterial flow in the common internal and external carotid arteries bilaterally. There is some plaque formation at the right carotid artery bifurcation with calcification. There is no evidence of any significant stenosis. Lumen narrowing is less than 15%. There is arterial flow in both vertebral arteries. Left vertebral artery is larger th an the right. The basilar artery fills mostly from the left side. There is no evidence of carotid or vertebral artery aneurysm or dissection. There is arterial flow in the anterior middle and posterior cerebral arteries. There is no mass effec t. I see no evidence of intracranial arterial stenosis. There is arterial flow in both intracranial i nternal carotid arteries. There is normal contrast opacification of the venous sinuses. There is no m ass effect. I see no intracranial aneurysm or neovascularity. IMPRESSION: Mild plaque at the right carotid artery bifurcation. No evidence of hemodynamic stenosis. Negative CT angiogram of the brain.
[2020-09-20] MEDS ORDERED: cefTRIAXone IN SWFI 1,000 MG/10 ML SYRINGE IVP STA (01:09)
[2020-09-20] MEDS ORDERED: NALOXONE 0.4 MG/ML 1 ML VIAL IV PRN (01:10)
[2020-09-20] MEDS ORDERED: IBUPROFEN 400 MG TAB PO PRN (01:10)
[2020-09-20] MEDS ORDERED: ACETAMINOPHEN TAB 325 MG TAB PO PRN (01:10)
[2020-09-20] MEDS ORDERED: LORazepam 0.5 MG TAB PO PRN (01:11)
[2020-09-20] MEDS ORDERED: IPRATROPIUM-ALBUTEROL 3 ML NEB INHALATION PRN (01:52)
[2020-09-20] MEDS ORDERED: ALBUTEROL NEBULIZED 2.5 MG/3 ML INHALATION SCH (02:00)
[2020-09-20] MEDS ORDERED: ASPIRIN 325 MG TAB PO STA (02:58)
[2020-09-20] MEDS: LEVOTHYROXINE 100 MCG TAB PO SCH (06:38)
[2020-09-20] MEDS ORDERED: IPRATROPIUM 0.5 MG/2.5 ML NEBU INHALATION SCH (08:00)
[2020-09-20] MEDS ORDERED: NON FORMULARY DRUG (Omeprazole [Omeprazole] 40 MG Capsule.Dr) PO SCH (09:00)
[2020-09-20] MEDS ORDERED: SILVER SULFADIAZINE TOPICAL SCH (09:00)
[2020-09-20] MEDS ORDERED: POTASSIUM CHLORIDE ER 10 MEQ TAB.ER.PRT PO SCH (09:00)
[2020-09-20] MEDS ORDERED: FAMOTIDINE 20 MG TAB PO SCH (09:30)
[2020-09-20] MEDS: CALCIUM CARBONATE 500 MG CHEWABLE PO SCH (09:44)
[2020-09-20] MEDS: MULTIVITAMINS, THERA 1 EACH TAB PO SCH (09:44)
[2020-09-20] MEDS: PANTOPRAZOLE 40 MG/10 ML VIAL IV SCH (09:44)
[2020-09-20] MEDS: DULoxetine HCL 30 MG CAPSULE.DR PO SCH (09:44)
[2020-09-20] MEDS: FERROUS SULFATE 325 MG TAB PO SCH (09:44)
[2020-09-20] MEDS: FUROSEMIDE 20 MG TAB PO SCH ×2 (09:44→20:23)
--- NOTE | 2020-09-20 11:17 | P.HPIM ---
History of Present Illness 84-year-old pleasant female was sent in because of increased confusion weakness and fall. When I valid the patient patient is alert oriented 3 doesn't appear to be confused although does have generalized weakness. No evidence of sepsis at this time. Patient had history of TAVR 2 years ago she denied any significant cough or dysuria. Patient was told she had does have dementia although patient mental status and memory are pretty good for her age. Patient used to live in an apartment by herself for presently living with the daughter although daughter is unable to take care of the patient lately. Patient doesn't like to go to [facility] but willing to go to subacute rehabitation for Few days. Patient denied any syncope. Patient is a bit short of breath when I saw the patient although this is normal for her patient has probably fibrosis and uses 2 L of oxygen at home predominantly at nighttime patient is an not believe she is more short of breath than usual chest x-ray showed pulmonary fibrosis Review of Systems REVIEW OF SYSTEMS: CONSTITUTIONAL: No fever, no malaise, no fatigue. HEENT: No recent visual problems or hearing problems. Denied any sore throat. CARDIOVASCULAR: No chest pain, orthopnea, PND, no palpitations, no syncope. PULMONARY: No shortness of breath, no cough, no hemoptysis. GASTROINTESTINAL: No diarrhea, no nausea, no vomiting, no abdominal pain. NEUROLOGICAL: No headaches, no weakness, no numbness. HEMATOLOGICAL: Denies any bleeding or petechiae. GENITOURINARY: Denies any burning micturition, frequency, or urgency. MUSCULOSKELETAL/RHEUMATOLOGICAL: Denies any joint pain, swelling, or any muscle pain. ENDOCRINE: Denies any polyuria or polydipsia. The rest of the 14-point review of systems is negative. Past Medical History Past Medical History: Cancer, COPD, GERD/Reflux, GI Bleed, Musculoskeletal Disorder, Osteoarthritis (OA), Sleep Apnea/CPAP/BIPAP, Thyroid Disorder Additional Past Medical History / Comment(s): INCISIONAL HERNIA(sx), STATES NO CHF, HAS GILLIAN LEG SWELLING, O2 AT 2L VIA NC. OCCASIONAL VERTIGO, HX NARCOLEPSY, HX DIVERTICULITIS, HX OF SCOLIOSIS, HX ANEMIA, HX RT BREAST CA, CHEMO AND RADIATION 1998, AND SKIN CA,no cpap used,uti History of Any Multi-Drug Resistant Organisms: ESBL Date of last positivie culture/infection: 12/01/18 ESBL E. coli MDRO Source:: Urine Past Surgical History: Appendectomy, Back Surgery, Bowel Resection, Cholecystectomy, Hernia Repair, Hysterectomy, Joint Replacement, Tonsillectomy Additional Past Surgical History / Comment(s): GILLIAN KNEE REPLACEMENT, (R) mastectomy and lymph node removal 1998, GILLIAN GREAT TOENAILS REMOVED, GILLIAN CATARACT SX,5-11-17 laparoscopic robotic assisted repair of incisional hernia. Past Anesthesia/Blood Transfusion Reactions: No Reported Reaction Additional Past Anesthesia/Blood Transfusion Reaction / Comment(s): past blood t ransfusions-no reaction Past Psychological History: Anxiety, Depression Additional Psychological History / Comment(s): Lives with daughter. Wears 2 L of O2 at night. Smoking Status: Former smoker Past Alcohol Use History: None Reported Additional Past Alcohol Use History / Comment(s): STARTED SMOKING 1943, QUIT 1979, 1/2PPD Past Drug Use History: None Reported - Past Family History Mother Additional Family Medical History / Comment(s): MOTHER OF TB WHEN PT WAS 6 MONTHS OLD Father Family Medical History: Coronary Artery Disease (CAD), Myocardial Infarction ([place]) Additional Family Medical History / Comment(s): Father 18 years ago from a heart attack. Medications and Allergies Home Medications Medication Instructions Recorded Confirmed Type Levothyroxine Sodium [Synthroid] 100 mcg PO DAILY 03/07/14 09/20/20 History Multivitamins, Thera [Multivitamin 1 tab PO DAILY 03/07/14 09/20/20 History (formulary)] Calcium Carbonate [Calcium] 600 mg PO DAILY 02/23/18 09/20/20 History Ferrous Sulfate [Iron (65 MG 325 mg PO DAILY 02/23/18 09/20/20 History Elemental)] Meloxicam [Mobic] 15 mg PO HS 02/23/18 09/20/20 History Furosemide [Lasix] 20 mg PO DAILY 03/15/18 09/20/20 History Albuterol Nebulized [Ventolin 2.5 mg INHALATION RT-Q6H PRN 06/08/18 09/20/20 History Nebulized] Budesonide-Formot 160-4.5 Mcg 1 puff INHALATION RT-DAILY PRN 06/08/18 09/20/20 History [Symbicort 160-4.5 Mcg Inhaler] Albuterol Inhaler [Ventolin Hfa 1 puff INHALATION RT-TID PRN 09/20/20 09/20/20 History Inhaler] Ascorbic Acid [Vitamin C] 500 mg PO DAILY 09/20/20 09/20/20 History Atorvastatin [Lipitor] 20 mg PO DAILY 09/20/20 09/20/20 History Cetirizine HCl [Zyrtec] 10 mg PO DAILY 09/20/20 09/20/20 History Cholecalciferol [Vitamin D3 (25 1,000 unit PO DAILY 09/20/20 09/20/20 History Mcg = 1000 Iu)] Clopidogrel [Plavix] 75 mg PO DAILY 09/20/20 09/20/20 History Clotrimazole Cream [Lotrimin Cream] 1 applic TOPICAL BID 09/20/20 09/20/20 History Diphenoxylate HCl/Atropine 1 tab PO QID PRN 09/20/20 09/20/20 History [Lomotil 2.5-0.025 mg Tablet] Memantine [Namenda] 10 mg PO BID 09/20/20 09/20/20 History Metoprolol Succinate [Toprol XL] 25 mg PO DAILY 09/20/20 09/20/20 History Nystatin 100,000 Unit/gm Powd 1 applic TOPICAL BID PRN 09/20/20 09/20/20 History [Mycostatin Powder] Potassium Chloride [Klor-Con 10] 10 meq PO DAILY 09/20/20 09/20/20 History Triamcinolone 0.1% Cream [Kenalog 1 applicatio TOPICAL DAILY 09/20/20 09/20/20 History 0.1% Cream] Vit C/E/Zn/Coppr/Lutein/Zeaxan 1 cap PO BID 09/20/20 09/20/20 History [Preservision Areds 2 Softgel] Allergies Allergy/AdvReac Type Severity Reaction Status Date / Time codeine Allergy Unknown Itching, Verified 09/19/20 22:17 red skin iodine Allergy Unknown Itching, Verified 09/19/20 22:17 red skin Sulfa (Sulfonamide Allergy Unknown Itching, Verified 09/19/20 22:17 Antibiotics) red skin lactose AdvReac belching,ga Verified 09/19/20 22:17 s,bloating Physical Exam Vitals: Vital Signs Temp Pulse Pulse Resp BP BP Pulse Ox 09/20/20 09:35 98.1 F 66 18 141/63 98 09/20/20 04:00 98.0 F 73 18 126/58 98 09/20/20 03:30 99.2 F 82 18 132/74 96 09/20/20 01:38 97.8 F 71 20 148/79 98 09/19/20 23:33 71 18 127/59 100 09/19/20 22:30 126/48 100 09/19/20 22:00 126/48 87 L 09/19/20 21:30 126/48 99 09/19/20 21:16 98.4 F 87 18 126/48 96 Intake and Output 09/19/20 09/20/20 09/20/20 22:59 06:59 14:59 Intake Total 200 Balance 200 Intake: Oral 200 Other: Voiding Method Diaper Diaper Incontinent Incontinent # Voids 0 Weight 78.471 kg 82.5 kg PHYSICAL EXAMINATION: GENERAL: The patient is alert and oriented x3, not in any acute distress. Well developed, well nourished. HEENT: Pupils are round and equally reacting to light. EOMI. No scleral icterus. No conjunctival pallor. Normocephalic, atraumatic. No pharyngeal erythema. No thyromegaly. CARDIOVASCULAR: S1 and S2 present. No murmurs, rubs, or gallops. PULMONARY: Chest is clear to auscultation, no wheezing or crackles. ABDOMEN: Soft, nontender, nondistended, normoactive bowel sounds. No palpable organomegaly. MUSCULOSKELETAL: No joint swelling or deformity. EXTREMITIES: No cyanosis, clubbing, or pedal edema. NEUROLOGICAL: Gross neurological examination did not reveal any focal deficits. SKIN: Some skin abrasions due to fall Results CBC & Chem 7: 09/19/20 22:27 09/19/20 22:27 Labs: Abnormal Lab Results - Last 24 Hours (Table) 09/19/20 09/19/20 09/19/20 Range/Units 22:27 22:27 22:27 WBC 15.1 H (3.8-10.6) k/uL RBC 3.19 L (3.80-5.40) m/uL Hgb 10.0 L (11.4-16.0) gm/dL Hct 31.2 L (34.0-46.0) % Neutrophils # 12.1 H (1.3-7.7) k/uL Potassium 5.2 H (3.5-5.1) mmol/L BUN 37 H (7-17) mg/dL Glucose 114 H (74-99) mg/dL AST 40 H (14-36) U/L Albumin 3.3 L (3.5-5.0) g/dL Urine Protein Trace H (Negative) Ur Leukocyte Esterase Moderate H (Negative) Urine WBC 8 H (0-5) /hpf Hyaline Casts 16 H (0-2) /lpf Urine Mucus Rare H (None) /hpf Thrombosis Risk Factor Assmnt - Choose All That Apply Any of the Below Risk Factors Present?: Yes Each Factor Represents 1 point: Abnormal pulmonary function (COPD), Obesity (BMI >25) Other Risk Factors: Yes Each Risk Factor Represents 3 Points: Age 75 years or older Other congenital or acquired thrombophilia - If yes, enter type in comment: No Thrombosis Risk Factor Assessment Total Risk Factor Score: 5 Thrombosis Risk Factor Assessment Level: High Risk Assessment and Plan Plan: -Fall: Secondary to generalized weakness which I believe his AIDS-related patient will need physical therapy and occupational therapy evaluation. -Possibly of some senile dementia although patient is alert oriented 3 not confused when I evaluated the patient no evidence of infection at this time -Chronic Hypoxic respiratory failure secondary to pulmonary fibrosis no evidence of CHF exacerbation of pneumonia at this time -COPD without any acute exacerbation -Sleep apnea CPAP machine at nighttime -Hypothyroidism -Depression -DVT prophylaxis with Lovenox
[2020-09-20] MEDS: SYMBICORT 160-4.5 MCG INHALER INHALATION SCH ×2 (11:25→18:53)
[2020-09-20] MEDS: IPRATROPIUM-ALBUTEROL 3 ML NEB INHALATION SCH ×3 (11:26→18:53)
[2020-09-20] MEDS ORDERED: MELOXICAM 7.5 MG TAB PO SCH (21:00)
[2020-09-21] MEDS: LEVOTHYROXINE 100 MCG TAB PO SCH (05:35)
[2020-09-21 06:10] LABS: HCT 29.1 % (34.0-46.0); HGB 9.5 gm/dL (11.4-16.0); Hypochromasia Slight; MCH 31.9 pg (25.0-35.0); MCHC 32.5 g/dL (31.0-37.0); MCV 98.1 fL (80.0-100.0); Mean Platelet Volume 7.2; Platelet Count 203 k/uL (150-450); RBC 2.97 m/uL (3.80-5.40); RDW 14.3 % (11.5-15.5); WBC 10.7 k/uL (3.8-10.6)
[2020-09-21 06:19] LABS: Calcium 7.9 mg/dL (8.4-10.2); Potassium 3.9 mmol/L (3.5-5.1)
[2020-09-21 07:30] VITALS: BP 173/81; RESP 14; TEMP 97.7
[2020-09-21] MEDS: FUROSEMIDE 20 MG TAB PO SCH (08:15)
[2020-09-21] MEDS: MULTIVITAMINS, THERA 1 EACH TAB PO SCH (08:15)
[2020-09-21] MEDS: CALCIUM CARBONATE 500 MG CHEWABLE PO SCH (08:15)
[2020-09-21] MEDS: PANTOPRAZOLE 40 MG/10 ML VIAL IV SCH (08:15)
[2020-09-21] MEDS: FERROUS SULFATE 325 MG TAB PO SCH (08:15)
[2020-09-21] MEDS: DULoxetine HCL 30 MG CAPSULE.DR PO SCH (08:24)
[2020-09-21] MEDS: SYMBICORT 160-4.5 MCG INHALER INHALATION SCH (08:34)
[2020-09-21] MEDS: IPRATROPIUM-ALBUTEROL 3 ML NEB INHALATION SCH ×2 (08:34→12:00)
[2020-09-21] MEDS ORDERED: ENOXAPARIN 30 MG/0.3 ML SYRINGE SQ SCH (09:00)
[2020-09-21 12:11] VITALS: PULSE 82
--- NOTE | 2020-09-21 14:57 | P.DS ---
Providers Date of admission: 09/20/20 01:10 Attending physician: Danielle Vergara [facility] Course: 84-year-old pleasant female was sent in because of increased confusion weakness and fall. When I valid the patient patient is alert oriented 3 doesn't appear to be confused although does have generalized weakness. No evidence of sepsis at this time. Patient had history of TAVR 2 years ago she denied any significant cough or dysuria. Patient was told she had does have dementia although patient mental status and memory are pretty good for her age. Patient used to live in an apartment by herself for presently living with the daughter although daughter is unable to take care of the patient lately. Patient doesn't like to go to correction but willing to go to subacute rehabitation for Few days. Patient denied any syncope. Patient is a bit short of breath when I saw the patient although this is normal for her patient has probably fibrosis and uses 2 L of oxygen at home predominantly at nighttime patient is an not believe she is more short of breath than usual chest x-ray showed pulmonary fibrosis REVIEW OF SYSTEMS: CONSTITUTIONAL: No fever, no malaise, no fatigue. CARDIOVASCULAR: No chest pain, PND, no palpitations, PULMONARY: No shortness of breath, GASTROINTESTINAL: No diarrhea, no nausea, no vomiting, no abdominal pain. NEUROLOGICAL: No headaches, , no numbness. GENITOURINARY: Denies any burning micturition, 09/21/2020 patient seen onfollow-up, she is very anxious to go home, states she does not wish to stay in the hospital any longer. She is reportedly then pacing up and down the hallway because she doesn't wish to be here anymore, daughter has agreed to pick patient up. Discussed with patient that medical recommendations for her to be evaluated by PT/OT so that any physical needs could be appropriately addressed. there is no evidence of any contributing acute infectious etiology. No fever, hemodynamically stable. PHYSICAL EXAMINATION: GENERAL: The patient is alert and oriented x3, not in any acute distress. Well developed, well nourished. HEENT: Pupils are round and equally reacting to light. EOMI. No scleral icterus. No conjunctival pallor. Normocephalic, atraumatic. No pharyngeal erythema. No thyromegaly. CARDIOVASCULAR: S1 and S2 present. No murmurs, rubs, or gallops. PULMONARY: Chest is clear to auscultation, no wheezing or crackles. ABDOMEN: Soft, nontender, nondistended, normoactive bowel sounds. No palpable organomegaly. MUSCULOSKELETAL: No joint swelling or deformity. EXTREMITIES: No cyanosis, clubbing, 2+ edema NEUROLOGICAL: Gross neurological examination did not reveal any focal deficits. SKIN: Some skin abrasions due to fall Plan: -Fall: Secondary to generalized weakness which I believe is age-related f unctional decline. we recommended patient be evaluated by PT/OT to address any physical needs, or possibly evaluate her for placement, however patient does not wish to stay in the hospital any longer and would prefer to go home. patient is alert and appropriate and family is willing to take her back home. -asymptomatic bacteriuria: Patient will not require further antimicrobial therapy upon discharge -Possibly of some senile dementia although patient is alert oriented 3 not confused when I evaluated the patient no evidence of infection at this time -Chronic Hypoxic respiratory failure secondary to pulmonary fibrosis no evidence of CHF exacerbation of pneumonia at this time -COPD without any acute exacerbation -Sleep apnea CPAP machine at nighttime -Hypothyroidism -Depression -DVT prophylaxis with Lovenox Patient Condition at Discharge: Stable Plan - Discharge Summary Discharge Rx Participant: No New Discharge Prescriptions: Continue Levothyroxine Sodium [Synthroid] 100 mcg PO DAILY Multivitamins, Thera [Multivitamin (formulary)] 1 tab PO DAILY Ferrous Sulfate [Iron (65 MG Elemental)] 325 mg PO DAILY Meloxicam [Mobic] 15 mg PO HS Calcium Carbonate [Calcium] 600 mg PO DAILY Furosemide [Lasix] 20 mg PO DAILY Albuterol Nebulized [Ventolin Nebulized] 2.5 mg INHALATION RT-Q6H PRN PRN Reason: Shortness Of Breath Budesonide-Formot 160-4.5 Mcg [Symbicort 160-4.5 Mcg Inhaler] 1 puff INHALATION RT-DAILY PRN PRN Reason: Shortness Of Breath Triamcinolone 0.1% Cream [Kenalog 0.1% Cream] 1 applicatio TOPICAL DAILY Potassium Chloride [Klor-Con 10] 10 meq PO DAILY Nystatin 100,000 Unit/gm Powd [Mycostatin Powder] 1 applic TOPICAL BID PRN PRN Reason: Rash Metoprolol Succinate [Toprol XL] 25 mg PO DAILY Memantine [Namenda] 10 mg PO BID Diphenoxylate HCl/Atropine [Lomotil 2.5-0.025 mg Tablet] 1 tab PO QID PRN PRN Reason: Loose Stool Clotrimazole Cream [Lotrimin Cream] 1 applic TOPICAL BID Clopidogrel [Plavix] 75 mg PO DAILY Atorvastatin [Lipitor] 20 mg PO DAILY Albuterol Inhaler [Ventolin Hfa Inhaler] 1 puff INHALATION RT-TID PRN PRN Reason: Shortness Of Breath Vit C/E/Zn/Coppr/Lutein/Zeaxan [Preservision Areds 2 Softgel] 1 cap PO BID Cholecalciferol [Vitamin D3 (25 Mcg = 1000 Iu)] 1,000 unit PO DAILY Cetirizine HCl [Zyrtec] 10 mg PO DAILY Ascorbic Acid [Vitamin C] 500 mg PO DAILY Discharge Medication List Levothyroxine Sodium [Synthroid] 100 mcg PO DAILY 03/07/14 [History] Multivitamins, Thera [Multivitamin (formulary)] 1 tab PO DAILY 03/07/14 [History] Calcium Carbonate [Calcium] 600 mg PO DAILY 02/23/18 [History] Ferrous Sulfate [Iron (65 MG Elemental)] 325 mg PO DAILY 02/23/18 [History] Meloxicam [Mobic] 15 mg PO HS 02/23/18 [History] Furosemide [Lasix] 20 mg PO DAILY 03/15/18 [History] Albuterol Nebulized [Ventolin Nebulized] 2.5 mg INHALATION RT-Q6H PRN 06/08/18 [History] Budesonide-Formot 160-4.5 Mcg [Symbicort 160-4.5 Mcg Inhaler] 1 puff INHALATION RT-DAILY PRN 06/08/18 [History] Albuterol Inhaler [Ventolin Hfa Inhaler] 1 puff INHALATION RT-TID PRN 09/20/20 [History] Ascorbic Acid [Vitamin C] 500 mg PO DAILY 09/20/20 [History] Atorvastatin [Lipitor] 20 mg PO DAILY 09/20/20 [History] Cetirizine HCl [Zyrtec] 10 mg PO DAILY 09/20/20 [History] Cholecalciferol [Vitamin D3 (25 Mcg = 1000 Iu)] 1,000 unit PO DAILY 09/20/20 [History] Clopidogrel [Plavix] 75 mg PO DAILY 09/20/20 [History] Clotrimazole Cream [Lotrimin Cream] 1 applic TOPICAL BID 09/20/20 [History] Diphenoxylate HCl/Atropine [Lomotil 2.5-0.025 mg Tablet] 1 tab PO QID PRN 09/20/20 [History] Memantine [Namenda] 10 mg PO BID 09/20/20 [History] Metoprolol Succinate [Toprol XL] 25 mg PO DAILY 09/20/20 [History] Nystatin 100,000 Unit/gm Powd [Mycostatin Powder] 1 applic TOPICAL BID PRN 09/20/20 [History] Potassium Chloride [Klor-Con 10] 10 meq PO DAILY 09/20/20 [History] Triamcinolone 0.1% Cream [Kenalog 0.1% Cream] 1 applicatio TOPICAL DAILY 09/20/20 [History] Vit C/E/Zn/Coppr/Lutein/Zeaxan [Preservision Areds 2 Softgel] 1 cap PO BID 09/20/20 [History] Follow up Appointment(s)/Referral(s): Torey Manzanares DO [Primary Care Provider] - 3 Days
== END 2020-09-21 15:40 | disposition home health service (06) ==
LOC: EC 20:55 → 6NMEDSUR 09-20 01:10 → 3SCARD 09-20 04:31 → 5NMEDONC 09-20 21:06
PROVIDERS: ADMIT Hospitalist; ATTEND Hospitalist
DX: F03.90 Unspecified dementia, unspecified severity, without behavioral disturbance, psychotic disturbance, mood disturbance, and anxiety (principal); J44.9 Chronic obstructive pulmonary disease, unspecified; K21.9 Gastro-esophageal reflux disease without esophagitis; Z87.19 Personal history of other diseases of the digestive system; M19.90 Unspecified osteoarthritis, unspecified site; I11.0 Hypertensive heart disease with heart failure; I50.9 Heart failure, unspecified; R62.7 Adult failure to thrive; E03.9 Hypothyroidism, unspecified; G47.30 Sleep apnea, unspecified; Z99.89 Dependence on other enabling machines and devices; M79.89 Other specified soft tissue disorders; Z99.81 Dependence on supplemental oxygen; M41.9 Scoliosis, unspecified; F41.9 Anxiety disorder, unspecified; F32.9 Major depressive disorder, single episode, unspecified; D64.9 Anemia, unspecified; Z85.3 Personal history of malignant neoplasm of breast; Z91.81 History of falling; Z92.21 Personal history of antineoplastic chemotherapy; Z92.3 Personal history of irradiation; Z85.828 Personal history of other malignant neoplasm of skin; Z86.19 Personal history of other infectious and parasitic diseases; Z87.440 Personal history of urinary (tract) infections; Z98.49 Cataract extraction status, unspecified eye; Z98.890 Other specified postprocedural states; Z96.653 Presence of artificial knee joint, bilateral; Z87.891 Personal history of nicotine dependence; Z83.1 Family history of other infectious and parasitic diseases; Z82.49 Family history of ischemic heart disease and other diseases of the circulatory system; Z95.2 Presence of prosthetic heart valve; R82.71 Bacteriuria; J96.11 Chronic respiratory failure with hypoxia; J84.10 Pulmonary fibrosis, unspecified; Z79.1 Long term (current) use of non-steroidal anti-inflammatories (NSAID); Z90.49 Acquired absence of other specified parts of digestive tract; Z90.10 Acquired absence of unspecified breast and nipple; Z90.710 Acquired absence of both cervix and uterus; Z79.890 Hormone replacement therapy; Z79.51 Long term (current) use of inhaled steroids; Z79.899 Other long term (current) drug therapy; Z79.02 Long term (current) use of antithrombotics/antiplatelets; Z91.011 Allergy to milk products; Z88.5 Allergy status to narcotic agent; Z88.2 Allergy status to sulfonamides; Z91.048 Other nonmedicinal substance allergy status
CPT/HCPCS: 96376; 96372; 96375 ×3; 96361 ×2; 96374; 99285; 36415; 94640 ×4; 94760; 93005; 80061; 80053; 80048; 84484; 85025; 85027; 85610; 85730; 81001; 80306; 87086; 71045; 70496; 70450; 70498; G0378 ×4; J1200; J2930; J0696; J1650; C9113 ×2; Q9967

== ENCOUNTER 2021-02-04 15:44 | Emergency (ER) | payer MEDICARE ==
[2021-02-04 18:09] VITALS: BP 149/81; PULSE 69; RESP 17; TEMP 98.7
--- NOTE | 2021-02-04 19:16 | ED ---
General Adult HPI - General Chief complaint: Extremity Problem,Nontraumatic Stated complaint: possible blood clot Time Seen by Provider: 02/04/21 18:55 Source: patient, family Mode of arrival: wheelchair Limitations: no limitations - History of Present Illness Initial comments: 85-year-old female patient presents to the emergency department today for rickie luation for possible blood clot in the left leg. Patient had a fall several days ago and sustained injury to her left leg. They report an area of bruising and swelling. They called the PCP today who told them to come in for evaluation for possible blood clot. Patient reports tenderness to the area, no pain. Generally has swelling to her lower extremities and takes lasix. States this is not different or worse than usual. Does report progressing dementia and general debility family is working on placement to extended care facility. Patient denies any recent rash, fever, chills, cough, shortness of breath, chest pain, abdominal pain, nausea, vomiting, diarrhea, constipation, back pain, numbness, tingling, dizziness, weakness, hematuria, dysuria, urinary urgency, urinary frequency, headache, visual changes, or any other complaints. - Related Data Home Medications Medication Instructions Recorded Confirmed Levothyroxine Sodium [Synthroid] 100 mcg PO DAILY 03/07/14 09/20/20 Multivitamins, Thera [Multivitamin 1 tab PO DAILY 03/07/14 09/20/20 (formulary)] Calcium Carbonate [Calcium] 600 mg PO DAILY 02/23/18 09/20/20 Ferrous Sulfate [Iron (65 MG 325 mg PO DAILY 02/23/18 09/20/20 Elemental)] Meloxicam [Mobic] 15 mg PO HS 02/23/18 09/20/20 Furosemide [Lasix] 20 mg PO DAILY 03/15/18 09/20/20 Albuterol Nebulized [Ventolin 2.5 mg INHALATION RT-Q6H PRN 06/08/18 09/20/20 Nebulized] Budesonide-Formot 160-4.5 Mcg 1 puff INHALATION RT-DAILY PRN 06/08/18 09/20/20 [Symbicort 160-4.5 Mcg Inhaler] Albuterol Inhaler [Ventolin Hfa 1 puff INHALATION RT-TID PRN 09/20/20 09/20/20 Inhaler] Ascorbic Acid [Vitamin C] 500 mg PO DAILY 09/20/20 09/20/20 Atorvastatin [Lipitor] 20 mg PO DAILY 09/20/20 09/20/20 Cetirizine HCl [Zyrtec] 10 mg PO DAILY 09/20/20 09/20/20 Cholecalciferol [Vitamin D3 (25 1,000 unit PO DAILY 09/20/20 09/20/20 Mcg = 1000 Iu)] Clopidogrel [Plavix] 75 mg PO DAILY 09/20/20 09/20/20 Clotrimazole Cream [Lotrimin Cream] 1 applic TOPICAL BID 09/20/20 09/20/20 Diphenoxylate HCl/Atropine 1 tab PO QID PRN 09/20/20 09/20/20 [Lomotil 2.5-0.025 mg Tablet] Memantine [Namenda] 10 mg PO BID 09/20/20 09/20/20 Metoprolol Succinate [Toprol XL] 25 mg PO DAILY 09/20/20 09/20/20 Nystatin 100,000 Unit/gm Powd 1 applic TOPICAL BID PRN 09/20/20 09/20/20 [Mycostatin Powder] Potassium Chloride [Klor-Con 10] 10 meq PO DAILY 09/20/20 09/20/20 Triamcinolone 0.1% Cream [Kenalog 1 applicatio TOPICAL DAILY 09/20/20 09/20/20 0.1% Cream] Vit C/E/Zn/Coppr/Lutein/Zeaxan 1 cap PO BID 09/20/20 09/20/20 [Preservision Areds 2 Softgel] Allergies Allergy/AdvReac Type Severity Reaction Status Date / Time codeine Allergy Unknown Itching, Verified 02/04/21 18:09 red skin iodine Allergy Unknown Itching, Verified 02/04/21 18:09 red skin Sulfa (Sulfonamide Allergy Unknown Itching, Verified 02/04/21 18:09 Antibiotics) red skin lactose AdvReac belching,ga Verified 02/04/21 18:09 s,bloating Review of Systems ROS Statement: Those systems with pertinent positive or pertinent negative responses have been documented in the HPI. ROS Other: All systems not noted in ROS Statement are negative. Past Medical History Past Medical History: Cancer, COPD, GERD/Reflux, GI Bleed, Musculoskeletal Disorder, Osteoarthritis (OA), Sleep Apnea/CPAP/BIPAP, Thyroid Disorder Additional Past Medical History / Comment(s): INCISIONAL HERNIA(sx), STATES NO CHF, HAS GILLIAN LEG SWELLING, O2 AT 2L VIA NC. OCCASIONAL VERTIGO, HX NARCOLEPSY, HX DIVERTICULITIS, HX OF SCOLIOSIS, HX ANEMIA, HX RT BREAST CA, CHEMO AND RADIATION 1998, AND SKIN CA,no cpap used,uti History of Any Multi-Drug Resistant Organisms: ESBL Date of last positivie culture/infection: 12/01/18 ESBL E. coli MDRO Source:: Urine Past Surgical History: Appendectomy, Back Surgery, Bowel Resection, Cholecystectomy, Hernia Repair, Hysterectomy, Joint Replacement, Tonsillectomy Additional Past Surgical History / Comment(s): GILLIAN KNEE REPLACEMENT, (R) mastectomy and lymph node removal 1998, GILLIAN GREAT TOENAILS REMOVED, GILLIAN CATARACT SX,02-28-18 laparoscopic robotic assisted repair of incisional hernia. Past Anesthesia/Blood Transfusion Reactions: No Reported Reaction Additional Past Anesthesia/Blood Transfusion Reaction / Comment(s): past blood transfusions-no reaction Past Psychological History: Anxiety, Depression Smoking Status: Former smoker Past Alcohol Use History: None Reported Past Drug Use History: None Reported - Past Family History Mother Additional Family Medical History / Comment(s): MOTHER OF TB WHEN PT WAS 6 MONTHS OLD Father Family Medical History: Coronary Artery Disease (CAD), Myocardial Infarction ([place]) Additional Family Medical History / Comment(s): Father 18 years ago from a heart attack. General Exam Limitations: no limitations General appearance: alert, in no apparent distress, other (This is a well- developed, well-nourished adult female patient in no acute distress. Vital signs upon presentation are temperature 98.7F, pulse 69, respirations 17, blood pressure 149/81, pulse ox 94% on room air.) Eye exam: Present: normal appearance, PERRL, EOMI. Absent: scleral icterus, conjunctival injection, periorbital swelling ENT exam: Present: normal exam, normal oropharynx, mucous membranes moist Respiratory exam: Present: normal lung sounds bilaterally. Absent: respiratory distress, wheezes, rales, rhonchi, stridor Cardiovascular Exam: Present: regular rate, normal rhythm, normal heart sounds. Absent: systolic murmur, diastolic murmur, rubs, gallop, clicks GI/Abdominal exam: Present: soft, normal bowel sounds. Absent: distended, tenderness, guarding, rebound, rigid Extremities exam: Present: full ROM, normal capillary refill, other (Left anterior lower leg ecchymosis and hematoma. There is 2+ pitting edema to the right lower extremity. Skin to the leg is pink, warm, dry. Cap refill less than 3 seconds. Pedal and posttibial pulses 2+.). Absent: tenderness, pedal edema, joint swelling, calf tenderness Neurological exam: Present: alert, oriented X3, CN II-XII intact Psychiatric exam: Present: normal affect, normal mood Skin exam: Present: warm, dry, intact, normal color. Absent: rash Course Vital Signs 02/04/21 18:06 Temperature 98.7 F Pulse Rate 69 Respiratory 17 Rate Blood Pressure 149/81 O2 Sat by Pulse 94 L Oximetry Medical Decision Making - Medical Decision Making 85-year-old female patient presents to the emergency department today for evaluation of an area of ecchymosis to the left lower leg. Physical examination did reveal small hematoma with surrounding ecchymosis. This area was tender to touch. No swelling to the leg generally. Tenderness. There was 2+ pitting edema to the right lower leg which patient states is common for her, states the asymmetry is common. Denies any shortness of breath. They were instructed to come in by the primary care physician for possible blood clot, the area of concern was the hematoma to the left leg. Symptoms and findings are not consistent with DVT. No ultrasound is necessary. Patient and family are requesting discharge. They're instructed to follow-up with the primary care physician for recheck in 1-2 days. Return parameters were discussed in detail. They verbalize understanding and agree with this plan. My attending is Dr. Baldwin. Disposition Clinical Impression: Hematoma of left lower leg, Lower extremity edema Disposition: HOME SELF-CARE Condition: Good Instructions (If sedation given, give patient instructions): Leg Edema (ED), Hematoma (ED) Additional Instructions: Keeps legs elevated. Follow-up with the primary care physician for recheck in 1-2 days. Return to the emergency department for any new, worsening, or concerning symptoms. Is patient prescribed a controlled substance at d/c from ED?: No Referrals: Torey Manzanares DO [Primary Care Provider] - 1-2 days Time of Disposition: 19:15
== END 2021-02-04 19:28 | disposition home or self-care (01) ==
LOC: EC 15:44
DX: S80.12XA Contusion of left lower leg, initial encounter (principal); R60.0 Localized edema; J44.9 Chronic obstructive pulmonary disease, unspecified; K21.9 Gastro-esophageal reflux disease without esophagitis; M19.90 Unspecified osteoarthritis, unspecified site; F03.90 Unspecified dementia, unspecified severity, without behavioral disturbance, psychotic disturbance, mood disturbance, and anxiety; G47.30 Sleep apnea, unspecified; F41.9 Anxiety disorder, unspecified; F32.9 Major depressive disorder, single episode, unspecified; Z87.891 Personal history of nicotine dependence; Z79.51 Long term (current) use of inhaled steroids; W18.30XA Fall on same level, unspecified, initial encounter
CPT/HCPCS: 99283

== ENCOUNTER 2021-05-24 13:08 | Emergency (ER) | payer MEDICARE ==
[2021-05-24 13:31] VITALS: RESP 18; TEMP 98.7
[2021-05-24 14:11] LABS: Albumin 3.8 g/dL (3.5-5.0); Calcium 9.8 mg/dL (8.4-10.2); Potassium 5.2 mmol/L (3.5-5.1); Total Bilirubin 0.7 mg/dL (0.2-1.3); Total Protein 6.6 g/dL (6.3-8.2)
[2021-05-24 14:19] LABS: INR 0.9 (<1.2); Partial Thromboplastin Time 22.1 sec (22.0-30.0); Prothrombin Time 9.7 sec (9.0-12.0)
[2021-05-24 14:24] LABS: Basophils % (A) 1 %; Eosinophils # (A) 0.2 k/uL (0-0.7); Eosinophils % (A) 2 %; HCT 33.1 % (34.0-46.0); HGB 11.1 gm/dL (11.4-16.0); Lymphocytes % (A) 13 %; MCH 34.5 pg (25.0-35.0); MCHC 33.5 g/dL (31.0-37.0); Macrocytosis Slight; Mean Platelet Volume 7.3; Monocytes # (A) 0.6 k/uL (0-1.0); Monocytes % (A) 8 %; Neutrophils # (A) 5.5 k/uL (1.3-7.7); Neutrophils % (A) 74 %; Platelet Count 179 k/uL (150-450); RBC 3.21 m/uL (3.80-5.40); RDW 14.5 % (11.5-15.5); WBC 7.4 k/uL (3.8-10.6)
--- NOTE | 2021-05-24 14:34 | CT ---
EXAMINATION TYPE: CT brain prashantine wo con DATE OF EXAM: 05/24/2021 COMPARISON: 09/19/2020 HISTORY: fall CT DLP: 1359.8 mGycm Automated exposure control for dose reduction was used. There is cerebral cortical atrophy. There is no mass effect nor midline shift. There is no sign of in tracranial hemorrhage. Calvarium is intact. Skull base is intact. There is normal aeration of the mas toid sinuses. There is mild cervical kyphotic curvature. There is degenerative disc space narrowing from C4 to C7 w ith spur formation. Posterior elements are intact. The facet joints appear intact. The skull base is intact. There is no evidence of a fracture. IMPRESSION: Spondylotic changes in the cervical spine. No fracture. Cerebral atrophy and hydrocephalus. No acute intracranial abnormality. No change compared to old exam .
--- NOTE | 2021-05-24 14:49 | XR ---
EXAMINATION TYPE: XR shoulder complete RT DATE OF EXAM: 05/24/2021 COMPARISON: NONE HISTORY: Pain TECHNIQUE: 3 views FINDINGS: I see no fracture nor dislocation. Glenohumeral joint is intact. There are surgical clips a t the right axilla. IMPRESSION: Negative right shoulder exam.
--- NOTE | 2021-05-24 14:51 | XR ---
EXAMINATION TYPE: XR lumbar spine 2 or 3V DATE OF EXAM: 05/24/2021 COMPARISON: 01/14/2014 HISTORY: Pain TECHNIQUE: 3 views FINDINGS: There is lumbar dextroscoliosis. There is multilevel lumbar spondylotic changes. There is n o significant compression deformity. There is osteosclerosis in the L1-L2 levels with extensive spur formation. The sacroiliac joints are intact. IMPRESSION: Spondylotic changes with dextroscoliosis. No acute fracture seen. No change compared to o ld exam.
[2021-05-24 14:57] LABS: Appearance,Urine Clear (Clear); Bilirubin,Urine Negative (Negative); Blood,Urine Negative (Negative); Color,Urine Yellow; Glucose,Urine (UA) Negative (Negative); Ketones,Urine Negative (Negative); Leukocyte Esterase,Urine Negative (Negative); Nitrite,Urine Negative (Negative); PH, Urine 6.5 (5.0-8.0); Protein,Urine Negative (Negative); Specific Gravity,Urine 1.007 (1.001-1.035); Urobilinogen,Urine <2.0 mg/dL (<2.0)
--- NOTE | 2021-05-24 15:39 | ED ---
Fall HPI - General Chief Complaint: Fall Stated Complaint: fall out of bed Time Seen by Provider: 05/24/21 13:24 Source: patient, RN notes reviewed Mode of arrival: wheelchair - History of Present Illness Initial Comments: Patient is an 85-year-old female that presents to the emergency department status post fall 1 day ago at her assisted living facility. She notes that she fell in the bed and then bounced onto the floor. She noted that she does have several bruises on her right shoulder back of her head neck and low back. Patient daughter notes that she does have a history of UTIs and has been more confused lately. Patient's daughter also notes that she was recently diagnosed with Alzheimer's/dementia. Patient was otherwise a well-appearing 85-year-old female who denied any pain while sitting up in bed during exam and interview. Daughter did note that she is being treated for a cellulitis of the right lower extremity but it looks more swollen today than usual. Patient denied any chest pain shortness of breath headache nausea vomiting diarrhea constipation fever fatigue chills. - Related Data Home Medications Medication Instructions Recorded Confirmed Levothyroxine Sodium [Synthroid] 100 mcg PO DAILY 03/07/14 09/20/20 Multivitamins, Thera [Multivitamin 1 tab PO DAILY 03/07/14 09/20/20 (formulary)] Calcium Carbonate [Calcium] 600 mg PO DAILY 02/23/18 09/20/20 Ferrous Sulfate [Iron (65 MG 325 mg PO DAILY 02/23/18 09/20/20 Elemental)] Meloxicam [Mobic] 15 mg PO HS 02/23/18 09/20/20 Furosemide [Lasix] 20 mg PO DAILY 03/15/18 09/20/20 Albuterol Nebulized [Ventolin 2.5 mg INHALATION RT-Q6H PRN 06/08/18 09/20/20 Nebulized] Budesonide-Formot 160-4.5 Mcg 1 puff INHALATION RT-DAILY PRN 06/08/18 09/20/20 [Symbicort 160-4.5 Mcg Inhaler] Albuterol Inhaler [Ventolin Hfa 1 puff INHALATION RT-TID PRN 09/20/20 09/20/20 Inhaler] Ascorbic Acid [Vitamin C] 500 mg PO DAILY 09/20/20 09/20/20 Atorvastatin [Lipitor] 20 mg PO DAILY 09/20/20 09/20/20 Cetirizine HCl [Zyrtec] 10 mg PO DAILY 09/20/20 09/20/20 Cholecalciferol [Vitamin D3 (25 1,000 unit PO DAILY 09/20/20 09/20/20 Mcg = 1000 Iu)] Clopidogrel [Plavix] 75 mg PO DAILY 09/20/20 09/20/20 Clotrimazole Cream [Lotrimin Cream] 1 applic TOPICAL BID 09/20/20 09/20/20 Diphenoxylate HCl/Atropine 1 tab PO QID PRN 09/20/20 09/20/20 [Lomotil 2.5-0.025 mg Tablet] Memantine [Namenda] 10 mg PO BID 09/20/20 09/20/20 Metoprolol Succinate [Toprol XL] 25 mg PO DAILY 09/20/20 09/20/20 Nystatin 100,000 Unit/gm Powd 1 applic TOPICAL BID PRN 09/20/20 09/20/20 [Mycostatin Powder] Potassium Chloride [Klor-Con 10] 10 meq PO DAILY 09/20/20 09/20/20 Triamcinolone 0.1% Cream [Kenalog 1 applicatio TOPICAL DAILY 09/20/20 09/20/20 0.1% Cream] Vit C/E/Zn/Coppr/Lutein/Zeaxan 1 cap PO BID 09/20/20 09/20/20 [Preservision Areds 2 Softgel] Allergies Allergy/AdvReac Type Severity Reaction Status Date / Time codeine Allergy Unknown Itching, Verified 02/04/21 18:09 red skin iodine Allergy Unknown Itching, Verified 02/04/21 18:09 red skin Sulfa (Sulfonamide Allergy Unknown Itching, Verified 02/04/21 18:09 Antibiotics) red skin lactose AdvReac belching,ga Verified 02/04/21 18:09 s,bloating Review of Systems ROS Statement: Those systems with pertinent positive or pertinent negative responses have been documented in the HPI. ROS Other: All systems not noted in ROS Statement are negative. Past Medical History Past Medical History: Cancer, COPD, Dementia, GERD/Reflux, GI Bleed, Musculoskeletal Disorder, Osteoarthritis (OA), Sleep Apnea/CPAP/BIPAP, Thyroid Disorder Additional Past Medical History / Comment(s): INCISIONAL HERNIA(sx), STATES NO CHF, HAS GILLIAN LEG SWELLING, O2 AT 2L VIA NC. OCCASIONAL VERTIGO, HX NARCOLEPSY, HX DIVERTICULITIS, HX OF SCOLIOSIS, HX ANEMIA, HX RT BREAST CA, CHEMO AND RADIATION 1998, AND SKIN CA,no cpap used,uti History of Any Multi-Drug Resistant Organisms: ESBL Date of last positivie culture/infection: 12/01/18 ESBL E. coli MDRO Source:: Urine Past Surgical History: Appendectomy, Back Surgery, Bowel Resection, Cholecystectomy, Hernia Repair, Hysterectomy, Joint Replacement, Tonsillectomy Additional Past Surgical History / Comment(s): GILLIAN KNEE REPLACEMENT, (R) mastectomy and lymph node removal 1998, GILLIAN GREAT TOENAILS REMOVED, GILLIAN CATARACT SX,02-28-18 laparoscopic robotic assisted repair of incisional hernia. Past Anesthesia/Blood Transfusion Reactions: No Reported Reaction Additional Past Anesthesia/Blood Transfusion Reaction / Comment(s): past blood transfusions-no reaction Past Psychological History: Anxiety, Depression Smoking Status: Former smoker Past Alcohol Use History: None Reported Past Drug Use History: None Reported - Past Family History Mother Additional Family Medical History / Comment(s): MOTHER OF TB WHEN PT WAS 6 MONTHS OLD Father Family Medical History: Coronary Artery Disease (CAD), Myocardial Infarction ([place]) Additional Family Medical History / Comment(s): Father 18 years ago from a heart attack. General Exam Limitations: no limitations General appearance: alert, in no apparent distress Head exam: Present: atraumatic, normocephalic, normal inspection Eye exam: Present: normal appearance, PERRL, EOMI. Absent: scleral icterus, conjunctival injection, periorbital swelling Neck exam: Present: normal inspection Respiratory exam: Present: normal lung sounds bilaterally. Absent: respiratory distress, wheezes, rales, rhonchi, stridor Cardiovascular Exam: Present: regular rate, normal rhythm, normal heart sounds. Absent: systolic murmur, diastolic murmur, rubs, gallop, clicks GI/Abdominal exam: Present: soft, normal bowel sounds. Absent: distended, tenderness, guarding, rebound, rigid Extremities exam: Present: normal inspection, full ROM, normal capillary refill. Absent: tenderness, pedal edema, joint swelling, calf tenderness Neurological exam: Present: alert, oriented X3 Psychiatric exam: Present: normal affect, normal mood Skin exam: Present: warm, dry, intact, normal color, other (Several bruises on the right shoulder posterior skull posterior neck and lumbar area back.). Absent: rash Course Vital Signs 05/24/21 13:23 Temperature 98.7 F Pulse Rate 66 Respiratory 18 Rate Blood Pressure 165/73 O2 Sat by Pulse 98 Oximetry Medical Decision Making - Medical Decision Making 85-year-old female status post fall with right shoulder posterior head and neck and lumbar bruising. Patient does take blood thinners. Basic labs, CT of the brain and C-spine, right shoulder x-ray, lumbar spine x- ray ordered. Imaging negative for any acute fractures dislocations or processes. Labs unremarkable. Case discussed with Dr. Jarquin, patient can discharge home with follow-up to primary care. - Lab Data Result diagrams: 05/24/21 13:45 05/24/21 13:45 Lab Results 05/24/21 05/24/21 05/24/21 Range/Units 13:45 13:45 13:45 WBC 7.4 (3.8-10.6) k/uL RBC 3.21 L (3.80-5.40) m/uL Hgb 11.1 L (11.4-16.0) gm/dL Hct 33.1 L (34.0-46.0) % MCV 103.0 H (80.0-100.0) fL MCH 34.5 (25.0-35.0) pg MCHC 33.5 (31.0-37.0) g/dL RDW 14.5 (11.5-15.5) % Plt Count 179 (150-450) k/uL MPV 7.3 Neutrophils % 74 % Lymphocytes % 13 % Monocytes % 8 % Eosinophils % 2 % Basophils % 1 % Neutrophils # 5.5 (1.3-7.7) k/uL Lymphocytes # 1.0 (1.0-4.8) k/uL Monocytes # 0.6 (0-1.0) k/uL Eosinophils # 0.2 (0-0.7) k/uL Basophils # 0.0 (0-0.2) k/uL Macrocytosis Slight PT 9.7 (9.0-12.0) sec INR 0.9 (<1.2) APTT 22.1 (22.0-30.0) sec Sodium (137-145) mmol/L Potassium (3.5-5.1) mmol/L Chloride (98-107) mmol/L Carbon Dioxide (22-30) mmol/L Anion Gap mmol/L BUN (7-17) mg/dL Creatinine (0.52-1.04) mg/dL Est GFR (CKD-EPI)AfAm (>60 ml/min/1.73 sqM) Est GFR (CKD-EPI)NonAf (>60 ml/min/1.73 sqM) Glucose (74-99) mg/dL Calcium (8.4-10.2) mg/dL Total Bilirubin (0.2-1.3) mg/dL AST (14-36) U/L ALT (4-34) U/L Alkaline Phosphatase (38-126) U/L Total Protein (6.3-8.2) g/dL Albumin (3.5-5.0) g/dL Urine Color Yellow Urine Appearance Clear (Clear) Urine pH 6.5 (5.0-8.0) Ur Specific [place] 1.007 (1.001-1.035) Urine Protein Negative (Negative) Urine Glucose (UA) Negative (Negative) Urine Ketones Negative (Negative) Urine Blood Negative (Negative) Urine Nitrite Negative (Negative) Urine Bilirubin Negative (Negative) Urine Urobilinogen <2.0 (<2.0) mg/dL Ur Leukocyte Esterase Negative (Negative) 05/24/21 Range/Units 13:45 WBC (3.8-10.6) k/uL RBC (3.80-5.40) m/uL Hgb (11.4-16.0) gm/dL Hct (34.0-46.0) % MCV (80.0-100.0) fL MCH (25.0-35.0) pg MCHC (31.0-37.0) g/dL RDW (11.5-15.5) % Plt Count (150-450) k/uL MPV Neutrophils % % Lymphocytes % % Monocytes % % Eosinophils % % Basophils % % Neutrophils # (1.3-7.7) k/uL Lymphocytes # (1.0-4.8) k/uL Monocytes # (0-1.0) k/uL Eosinophils # (0-0.7) k/uL Basophils # (0-0.2) k/uL Macrocytosis PT (9.0-12.0) sec INR (<1.2) APTT (22.0-30.0) sec Sodium 138 (137-145) mmol/L Potassium 5.2 H (3.5-5.1) mmol/L Chloride 104 (98-107) mmol/L Carbon Dioxide 30 (22-30) mmol/L Anion Gap 4 mmol/L BUN 20 H (7-17) mg/dL Creatinine 0.89 (0.52-1.04) mg/dL Est GFR (CKD-EPI)AfAm 69 (>60 ml/min/1.73 sqM) Est GFR (CKD-EPI)NonAf 60 (>60 ml/min/1.73 sqM) Glucose 79 (74-99) mg/dL Calcium 9.8 (8.4-10.2) mg/dL Total Bilirubin 0.7 (0.2-1.3) mg/dL AST 42 H (14-36) U/L ALT 19 (4-34) U/L Alkaline Phosphatase 65 (38-126) U/L Total Protein 6.6 (6.3-8.2) g/dL Albumin 3.8 (3.5-5.0) g/dL Urine Color Urine Appearance (Clear) Urine pH (5.0-8.0) Ur Specific [place] (1.001-1.035) Urine Protein (Negative) Urine Glucose (UA) (Negative) Urine Ketones (Negative) Urine Blood (Negative) Urine Nitrite (Negative) Urine Bilirubin (Negative) Urine Urobilinogen (<2.0) mg/dL Ur Leukocyte Esterase (Negative) - Radiology Data Radiology results: report reviewed, image reviewed CT of the brain and C-spine: Spondylitic changes in the cervical spine. No fr acture. Cerebral atrophy and hydrocephalus. No acute intracranial abnormality. No change compared to old exam. X-ray right shoulder: Negative right shoulder exam. Lumbar spine x-ray: Spondylitic changes with dextroscoliosis. No acute fracture seen. No change compared to old exam. Ultrasound right lower extremity: No evidence of deep vein thrombosis in right leg. Disposition Clinical Impression: Fall, Contusion of right shoulder, Scalp contusion Disposition: HOME SELF-CARE Condition: Stable Instructions (If sedation given, give patient instructions): Fall Prevention for Older Adults (ED) Additional Instructions: Please return to the Emergency Department if symptoms worsen or any other concerns. Follow-up with primary care in the next 1-2 days. Continue to see wound care for right lower extremity. Take Tylenol and/or Motrin as needed for pain control. Is patient prescribed a controlled substance at d/c from ED?: No Referrals: Torey Manzanares DO [Primary Care Provider] - 1-2 days Time of Disposition: 15:45
--- NOTE | 2021-05-24 15:41 | US ---
EXAMINATION TYPE: US venous doppler duplex LE RT DATE OF EXAM: 05/24/2021 3:26 PM COMPARISON: NONE CLINICAL HISTORY: swelling. Patient has recently been on antibiotics for leg infection. Swelling. O n blood thinners. No hx blood clot. SIDE PERFORMED: Right TECHNIQUE: The lower extremity deep venous system is examined utilizing real time linear array sonog michael with graded compression, doppler sonography and color-flow sonography. VESSELS IMAGED: Common Femoral Vein Deep Femoral Vein Greater Saphenous Vein * Femoral Vein Popliteal Vein Small Saphenous Vein * Proximal Calf Veins (* superficial vessels) Right Leg: Negative for DVT IMPRESSION: No evidence of deep vein thrombosis in the right leg.
[2021-05-24 16:53] VITALS: BP 155/74; PULSE 72
== END 2021-05-24 16:51 | disposition home or self-care (01) ==
LOC: EC 13:08
DX: S40.011A Contusion of right shoulder, initial encounter (principal); S00.03XA Contusion of scalp, initial encounter; S30.0XXA Contusion of lower back and pelvis, initial encounter; J44.9 Chronic obstructive pulmonary disease, unspecified; K21.9 Gastro-esophageal reflux disease without esophagitis; M19.90 Unspecified osteoarthritis, unspecified site; G47.30 Sleep apnea, unspecified; E07.9 Disorder of thyroid, unspecified; F32.9 Major depressive disorder, single episode, unspecified; Z90.89 Acquired absence of other organs; Z90.49 Acquired absence of other specified parts of digestive tract; Z90.710 Acquired absence of both cervix and uterus; Z90.09 Acquired absence of other part of head and neck; W06.XXXA Fall from bed, initial encounter; Z87.891 Personal history of nicotine dependence
CPT/HCPCS: 36415; 70450; 72100; 72125; 80053; 81003; 85025; 85610; 85730; 99284

== ENCOUNTER 2021-06-09 10:22 | Inpatient (IN) | payer MEDICARE ==
--- NOTE | 2021-06-09 11:01 | ED ---
General Adult HPI - General Chief complaint: Chest Pain Stated complaint: chest pain, SOB, leg infection Source: patient, family Mode of arrival: wheelchair Limitations: no limitations - History of Present Illness Initial comments: 85 year old female presents for chest pain ongoing today. Patient states the pain starts in the center of the chest and wraps around to the right. Patient also complains of bilateral leg swelling. Patient does have a history of dementia. Denies SOB, NVD, abdominal pain. Patient seen for ATP. - Related Data Home Medications Medication Instructions Recorded Confirmed Levothyroxine Sodium [Synthroid] 100 mcg PO DAILY@79903/07/14 06/09/21 Multivitamins, Thera [Multivitamin 1 tab PO DAILY@79903/07/14 06/09/21 (formulary)] Ferrous Sulfate [Iron (65 MG 325 mg PO DAILY@169902/23/18 06/09/21 Elemental)] Meloxicam [Mobic] 15 mg PO DAILY@79902/23/18 06/09/21 Furosemide [Lasix] 20 mg PO DAILY@0803/15/18 06/09/21 Albuterol Nebulized [Ventolin 2.5 mg INHALATION RT-TID 06/08/18 06/09/21 Nebulized] Budesonide-Formot 160-4.5 Mcg 1 puff INHALATION RT-BID@0800,0 06/08/18 06/09/21 [Symbicort 160-4.5 Mcg Inhaler] Albuterol Inhaler [Ventolin Hfa 2 puff INHALATION RT-Q4H PRN 09/20/20 06/09/21 Inhaler] Atorvastatin [Lipitor] 20 mg PO DAILY@0 09/20/20 06/09/21 Cetirizine HCl [Zyrtec] 10 mg PO DAILY@0809/20/20 06/09/21 Clopidogrel [Plavix] 75 mg PO DAILY@0809/20/20 06/09/21 Diphenoxylate HCl/Atropine 1 tab PO BID PRN 09/20/20 06/09/21 [Lomotil 2.5-0.025 mg Tablet] Metoprolol Succinate [Toprol XL] 25 mg PO DAILY@0809/20/20 06/09/21 Nystatin 100,000 Unit/gm Powd 1 applic TOPICAL BID PRN 09/20/20 06/09/21 [Mycostatin Powder] Potassium Chloride [Klor-Con 10] 10 meq PO DAILY@0809/20/20 06/09/21 Vit C/E/Zn/Coppr/Lutein/Zeaxan 2 cap PO DAILY@0809/20/20 06/09/21 [Preservision Areds 2 Softgel] ALPRAZolam [Xanax] 0.25 mg PO BID PRN 06/09/21 06/09/21 Acetaminophen Tab [Tylenol Tab] 500 mg PO Q4H PRN 06/09/21 06/09/21 Pilar-Cookson Gummies 2 tab PO Q6H PRN 06/09/21 06/09/21 Bismuth Subsalicylate 262 - 524 mg PO Q6H PRN 06/09/21 06/09/21 [Pepto-Bismol] Calcium Carbonate/Vitamin D3 1 tab PO DAILY@169906/09/21 06/09/21 [Calcium 600 mg-D3 20 mcg (800 unit)] Cholecalciferol (Vitamin D3) 125 mcg PO DAILY@169906/09/21 06/09/21 [Vitamin D3 (125 MCG = 5,000 IU)] Dextromethorphan Polistirex 60 ml PO Q12H PRN 06/09/21 06/09/21 [Delsym] Escitalopram [Lexapro] 20 mg PO DAILY@1300 06/09/21 06/09/21 Alie-C 1 tab PO DAILY@169906/09/21 06/09/21 Gabapentin [Neurontin] 100 mg PO DAILY@169906/09/21 06/09/21 Ipratropium Nebulized [Atrovent 0.5 mg INHALATION RT-TID 06/09/21 06/09/21 Nebulized 0.2 MG/ML] L.acidoph,Paracasei, B.lactis 1 cap PO DAILY@1700 PRN 06/09/21 06/09/21 [Probiotic] Meclizine HCl 25 mg PO TID PRN 06/09/21 06/09/21 Melatonin 10 mg PO HS@199906/09/21 06/09/21 Mirabegron [Myrbetriq] 25 mg PO DAILY@0806/09/21 06/09/21 Mupirocin 2% Oint [Bactroban 2% 1 applic TOPICAL HS@199906/09/21 06/09/21 Oint] Super Vitamin B Complex 1 tab PO DAILY@79906/09/21 06/09/21 Allergies Allergy/AdvReac Type Severity Reaction Status Date / Time codeine Allergy Unknown Itching, Verified 06/09/21 15:11 red skin iodine Allergy Unknown Itching, Verified 06/09/21 15:11 red skin Sulfa (Sulfonamide Allergy Unknown Itching, Verified 06/09/21 15:11 Antibiotics) red skin lactose AdvReac belching,ga Verified 06/09/21 15:11 s,bloating Review of Systems ROS Statement: Those systems with pertinent positive or pertinent negative responses have been documented in the HPI. ROS Other: All systems not noted in ROS Statement are negative. Past Medical History Past Medical History: Cancer, Chest Pain / Angina, COPD, Dementia, GERD/Reflux, GI Bleed, Musculoskeletal Disorder, Osteoarthritis (OA), Sleep Apnea/CPAP/BIPAP, Thyroid Disorder Additional Past Medical History / Comment(s): INCISIONAL HERNIA(sx), STATES NO CHF, HAS GILLIAN LEG SWELLING, O2 AT 2L VIA NC. OCCASIONAL VERTIGO, HX NARCOLEPSY, HX DIVERTICULITIS, HX OF SCOLIOSIS, HX ANEMIA, HX RT BREAST CA, CHEMO AND RADIATION 1998, AND SKIN CA,no cpap used,uti History of Any Multi-Drug Resistant Organisms: ESBL Date of last positivie culture/infection: 12/01/18 ESBL E. coli MDRO Source:: Urine Past Surgical History: Appendectomy, Back Surgery, Bowel Resection, Cholecystectomy, Hernia Repair, Hysterectomy, Joint Replacement, Tonsillectomy Additional Past Surgical History / Comment(s): GILLIAN KNEE REPLACEMENT, (R) mastectomy and lymph node removal 1998, GILLIAN GREAT TOENAILS REMOVED, GILLIAN CATARACT SX,02-28-18 laparoscopic robotic assisted repair of incisional hernia. Past Anesthesia/Blood Transfusion Reactions: No Reported Reaction Additional Past Anesthesia/Blood Transfusion Reaction / Comment(s): past blood transfusions-no reaction Past Psychological History: Anxiety, Depression Smoking Status: Former smoker Past Alcohol Use History: None Reported Past Drug Use History: None Reported - Past Family History Mother Additional Family Medical History / Comment(s): MOTHER OF TB WHEN PT WAS 6 MONTHS OLD Father Family Medical History: Coronary Artery Disease (CAD), Myocardial Infarction ([place]) Additional Family Medical History / Comment(s): Father 18 years ago from a heart attack. General Exam Limitations: no limitations General appearance: alert, in no apparent distress Head exam: Present: atraumatic, normocephalic, normal inspection Eye exam: Present: normal appearance, PERRL, EOMI. Absent: scleral icterus, conjunctival injection, periorbital swelling ENT exam: Present: normal exam, mucous membranes moist Neck exam: Present: normal inspection, full ROM. Absent: tenderness Respiratory exam: Present: normal lung sounds bilaterally. Absent: respiratory distress, wheezes Cardiovascular Exam: Present: regular rate, normal rhythm, normal heart sounds Extremities exam: Present: normal capillary refill (Capillary refill less than 2 seconds, DP pulse 2+ right lower extremity.), other (Erythema noted on the right lower leg below the knee and into the right foot. There are chronic-appearing wounds.) Course Vital Signs 06/09/21 06/09/21 06/09/21 10:51 14:38 15:06 Temperature 98.1 F 97.3 F L Pulse Rate 75 68 Respiratory 18 18 18 Rate Blood Pressure 137/82 180/99 O2 Sat by Pulse 95 96 Oximetry EKG Findings - EKG Comments: EKG Findings:: Normal sinus rhythm, ventricular rate 77, WV interval 150, QTC 434 Medical Decision Making - Medical Decision Making Patient was formally seen by me in the emergency room. Patient has a history of breast cancer, COPD, dementia. She is presenting to the emergency room for a chief complaint of chest pain as well as right leg infection. Patient was complaining of pain when she presented worse on the left side and wrapping around under her breast. Her daughter states she was also complaining of left arm pain during this time. Daughter also brings patient in because she has had an infection in the right leg. This has been ongoing for a few weeks now. They have been on 3 different antibiotics and have been wrapping the leg without success. No fevers. Daughter feels patient may need placement because she is an assisted facility right now does not seem to be enough care for her.Patient has no other complaints at this time including shortness of breath, chest pain, abdominal pain, nausea or vomiting, headache, or visual changes. EKG nonischemic. Troponin is negative. Chest x-ray shows a correlate for p ulmonary artery hypertension as well as aortic ectasia. Patient will be admitted for cardiology consultation and trending troponin. In regards to cellulitis patient does have a white blood cell count of 11 with a left shift. X-ray of the foot and the lower legs show no acute abnormalities. At this time patient will be admitted for failure of outpatient treatment for cellulitis as well. Patient started on some physical and - Lab Data Result diagrams: 06/09/21 11:30 06/09/21 11:30 Lab Results 06/09/21 06/09/21 06/09/21 Range/Units 11:30 11:30 11:30 WBC 11.1 H (3.8-10.6) k/uL RBC 4.38 (3.80-5.40) m/uL Hgb 13.4 (11.4-16.0) gm/dL Hct 40.8 (34.0-46.0) % MCV 93.1 D (80.0-100.0) fL MCH 30.7 (25.0-35.0) pg MCHC 32.9 (31.0-37.0) g/dL RDW 13.5 (11.5-15.5) % Plt Count 379 D (150-450) k/uL MPV 7.2 Neutrophils % 73 % Lymphocytes % 18 % Monocytes % 6 % Eosinophils % 1 % Basophils % 0 % Neutrophils # 8.2 H (1.3-7.7) k/uL Lymphocytes # 2.0 (1.0-4.8) k/uL Monocytes # 0.7 (0-1.0) k/uL Eosinophils # 0.1 (0-0.7) k/uL Basophils # 0.0 (0-0.2) k/uL PT 10.4 (9.0-12.0) sec INR 1.0 (<1.2) APTT 22.3 (22.0-30.0) sec Sodium 132 L (137-145) mmol/L Potassium 4.2 (3.5-5.1) mmol/L Chloride 98 (98-107) mmol/L Carbon Dioxide 25 (22-30) mmol/L Anion Gap 9 mmol/L BUN 13 (7-17) mg/dL Creatinine 0.77 (0.52-1.04) mg/dL Est GFR (CKD-EPI)AfAm 82 (>60 ml/min/1.73 sqM) Est GFR (CKD-EPI)NonAf 71 (>60 ml/min/1.73 sqM) Glucose 109 H (74-99) mg/dL Calcium 9.5 (8.4-10.2) mg/dL Magnesium 1.9 (1.6-2.3) mg/dL Total Bilirubin 0.5 (0.2-1.3) mg/dL AST 21 (14-36) U/L ALT 12 (4-34) U/L Alkaline Phosphatase 70 (38-126) U/L Troponin I (0.000-0.034) ng/mL Total Protein 6.8 (6.3-8.2) g/dL Albumin 4.0 (3.5-5.0) g/dL 06/09/21 Range/Units 11:30 WBC (3.8-10.6) k/uL RBC (3.80-5.40) m/uL Hgb (11.4-16.0) gm/dL Hct (34.0-46.0) % MCV (80.0-100.0) fL MCH (25.0-35.0) pg MCHC (31.0-37.0) g/dL RDW (11.5-15.5) % Plt Count (150-450) k/uL MPV Neutrophils % % Lymphocytes % % Monocytes % % Eosinophils % % Basophils % % Neutrophils # (1.3-7.7) k/uL Lymphocytes # (1.0-4.8) k/uL Monocytes # (0-1.0) k/uL Eosinophils # (0-0.7) k/uL Basophils # (0-0.2) k/uL PT (9.0-12.0) sec INR (<1.2) APTT (22.0-30.0) sec Sodium (137-145) mmol/L Potassium (3.5-5.1) mmol/L Chloride (98-107) mmol/L Carbon Dioxide (22-30) mmol/L Anion Gap mmol/L BUN (7-17) mg/dL Creatinine (0.52-1.04) mg/dL Est GFR (CKD-EPI)AfAm (>60 ml/min/1.73 sqM) Est GFR (CKD-EPI)NonAf (>60 ml/min/1.73 sqM) Glucose (74-99) mg/dL Calcium (8.4-10.2) mg/dL Magnesium (1.6-2.3) mg/dL Total Bilirubin (0.2-1.3) mg/dL AST (14-36) U/L ALT (4-34) U/L Alkaline Phosphatase (38-126) U/L Troponin I <0.012 (0.000-0.034) ng/mL Total Protein (6.3-8.2) g/dL Albumin (3.5-5.0) g/dL Disposition Clinical Impression: Cellulitis, Failure of outpatient treatment, Chest pain Disposition: ADMITTED IP TO THIS HOSP Is patient prescribed a controlled substance at d/c from ED?: No Referrals: Torey Manzanares DO [Primary Care Provider] - 1-2 days Time of Disposition: 15:47
[2021-06-09 12:13] LABS: Potassium 4.2 mmol/L (3.5-5.1)
[2021-06-09 12:25] LABS: Partial Thromboplastin Time 22.3 sec (22.0-30.0); Prothrombin Time 10.4 sec (9.0-12.0)
[2021-06-09 12:32] LABS: Basophils % (A) 0 %; Eosinophils # (A) 0.1 k/uL (0-0.7); Eosinophils % (A) 1 %; HCT 40.8 % (34.0-46.0); HGB 13.4 gm/dL (11.4-16.0); Lymphocytes % (A) 18 %; MCH 30.7 pg (25.0-35.0); MCHC 32.9 g/dL (31.0-37.0); Mean Platelet Volume 7.2; Monocytes # (A) 0.7 k/uL (0-1.0); Monocytes % (A) 6 %; Neutrophils # (A) 8.2 k/uL (1.3-7.7); Neutrophils % (A) 73 %; RBC 4.38 m/uL (3.80-5.40); RDW 13.5 % (11.5-15.5); WBC 11.1 k/uL (3.8-10.6)
[2021-06-09 12:36] LABS: MCV 93.1 fL (80.0-100.0); Platelet Count 379 k/uL (150-450)
[2021-06-09 12:51] LABS: Calcium 9.5 mg/dL (8.4-10.2); Magnesium 1.9 mg/dL (1.6-2.3); Total Bilirubin 0.5 mg/dL (0.2-1.3); Total Protein 6.8 g/dL (6.3-8.2)
--- NOTE | 2021-06-09 14:50 | XR ---
EXAMINATION TYPE: XR chest 2V DATE OF EXAM: 06/09/2021 COMPARISON: Chest x-ray 09/19/2020, CT lumbar spine 03/07/2014, CT 09/19/2020 HISTORY: Chest pain, shortness of breath, cellulitis TECHNIQUE: Frontal and lateral views of the chest are obtained. FINDINGS: There is no focal air space opacity, pleural effusion, or pneumothorax seen. The cardiac silhouette size is stable.. The osseous structures are remarkable for spinal curvature, multilevel lower thoracic spinal fusion changes, compression deformity at T11 is present.. The aorta is dense an d ectatic, tortuous. There is eventration of the right hemidiaphragm. There is some basal pleural thi ckening. Prominence of the pulmonary artery is again noted. IMPRESSION: Correlate for pulmonary artery hypertension. Aortic ectasia. Additional findings above.
[2021-06-09] MEDS ORDERED: CEFEPIME 2 GM in SODIUM CHLORIDE 0.9% 100 ML IVPB STA (14:57)
--- NOTE | 2021-06-09 15:36 | XR ---
EXAMINATION TYPE: XR tibia fibula RT DATE OF EXAM: 06/09/2021 COMPARISON: NONE HISTORY: Pain TECHNIQUE: Two views are submitted. FINDINGS: The osseous structures are intact. Diffuse osteopenia with postsurgical change involving the knee. So ft tissue calcifications are noted. Vascular calcification seen. Calcifications are seen anterior to the knee joint and indeterminate in etiology. IMPRESSION: 1. No acute osseous abnormality.
[2021-06-09] MEDS ORDERED: ASPIRIN 81 MG PO STA (15:39)
--- NOTE | 2021-06-09 15:40 | XR ---
EXAMINATION TYPE: XR foot complete RT DATE OF EXAM: 06/09/2021 COMPARISON: NONE HISTORY: Pain TECHNIQUE: Three views are submitted. FINDINGS: The osseous structures are intact. There is no acute fracture or dislocation. Pes planus deformity with small plantar calcaneal spur. Soft tissue edema suggested. There are hammertoe deformities with arthropathy of the all and TP joints most marked involving the first digit with erosive changes and complete loss of joint space. Arthropathy of the first tarsal metatarsal junction noted.. IMPRESSION: 1. No acute fracture or dislocation. If symptoms persist, follow-up exam in 7 to 10 days could be ob tained. 2. Severe arthropathy.
[2021-06-09] MEDS ORDERED: MELATONIN 5 MG TABLET PO PRN (15:49)
[2021-06-09] MEDS ORDERED: ACETAMINOPHEN TAB 500 MG TAB PO PRN (15:49)
[2021-06-09] MEDS ORDERED: DIPHENOX-ATROP 2.5-0.025 MG 1 EACH TAB PO PRN (15:49)
[2021-06-09] MEDS ORDERED: BISMUTH SUBSALICYLATE 4,192 MG/240 ML BOTTLE PO PRN (15:49)
[2021-06-09] MEDS ORDERED: DEXTROMETHORPHAN POLISTIREX 30 MG/5 ML PO PRN (15:49)
[2021-06-09] MEDS ORDERED: ALBUTEROL NEBULIZED 2.5 MG/3 ML INHALATION PRN (15:49)
[2021-06-09] MEDS ORDERED: MECLIZINE 25 MG TAB PO PRN (15:49)
[2021-06-09] MEDS ORDERED: NYSTATIN 100,000 UNIT/GM POWD 15 GM TOPICAL PRN (15:49)
[2021-06-09] MEDS: ATORVASTATIN 20 MG TAB PO SCH (17:04)
[2021-06-09] MEDS: CHOLECALCIFEROL 25 MCG (1000 IU) TABLET PO SCH (17:05)
[2021-06-09] MEDS: GABAPENTIN 100 MG CAP PO SCH (17:05)
[2021-06-09] MEDS: FERROUS SULFATE 325 MG TAB PO SCH (17:11)
[2021-06-09] MEDS: CALCIUM CARB-VIT D 500 MG-5 MCG TAB PO SCH (17:15)
[2021-06-09] MEDS ORDERED: IPRATROPIUM 0.5 MG/2.5 ML NEBU INHALATION SCH (20:00)
[2021-06-09] MEDS: IPRATROPIUM-ALBUTEROL 3 ML NEB INHALATION SCH (20:19)
[2021-06-09] MEDS: SYMBICORT 160-4.5 MCG INHALER INHALATION SCH (20:19)
[2021-06-09] MEDS: FAMOTIDINE 20 MG TAB PO SCH (21:24)
[2021-06-09] MEDS: MUPIROCIN 2% OINT 22 GM TUBE TOPICAL SCH (21:24)
[2021-06-09] MEDS: FUROSEMIDE 10 MG/ML 4 ML VIAL IV SCH (21:24)
[2021-06-10 08:38] LABS: Calcium 9.2 mg/dL (8.4-10.2); Potassium 4.4 mmol/L (3.5-5.1)
[2021-06-10 08:44] LABS: HCT 31.8 % (34.0-46.0); HGB 10.8 gm/dL (11.4-16.0); MCH 35.4 pg (25.0-35.0); Macrocytosis Slight; Mean Platelet Volume 7.2; Platelet Count 246 k/uL (150-450); RBC 3.06 m/uL (3.80-5.40); RDW 14.5 % (11.5-15.5); WBC 8.7 k/uL (3.8-10.6)
[2021-06-10] MEDS: ENOXAPARIN 40 MG/0.4 ML SYRINGE SQ SCH (08:49)
[2021-06-10 08:50] LABS: MCV 104.2 fL (80.0-100.0)
[2021-06-10] MEDS: FUROSEMIDE 10 MG/ML 4 ML VIAL IV SCH (08:50)
[2021-06-10] MEDS: FAMOTIDINE 20 MG TAB PO SCH (08:50)
[2021-06-10] MEDS: CLOPIDOGREL 75 MG TAB PO SCH (08:50)
[2021-06-10] MEDS: METOPROLOL SUCCINATE (ER) 25 MG TAB.ER.24H PO SCH (08:50)
[2021-06-10] MEDS: LEVOTHYROXINE 100 MCG TAB PO SCH (08:51)
[2021-06-10] MEDS: POTASSIUM CHLORIDE ER 10 MEQ TAB.ER.PRT PO SCH (08:51)
[2021-06-10] MEDS: MIRABEGRON 25 MG PO SCH (08:54)
[2021-06-10] MEDS: MULTIVITAMINS, THERA 1 EACH TAB PO SCH (08:55)
[2021-06-10] MEDS ORDERED: ASPIRIN 325 MG TAB PO SCH (09:00)
[2021-06-10] MEDS: SYMBICORT 160-4.5 MCG INHALER INHALATION SCH ×2 (09:11→20:37)
[2021-06-10] MEDS: IPRATROPIUM-ALBUTEROL 3 ML NEB INHALATION SCH ×3 (09:11→20:37)
--- NOTE | 2021-06-10 11:16 | P.CRDCN ---
History of Present Illness Consult date: 06/10/21 History of present illness: HISTORY OF PRESENT ILLNESS: This is a 85-year-old female with a past medical history significant for mild non-obstructive coronary artery disease, TAVR, hypertension, hyperlipidemia, COPD, and congestive heart failure. Patient follows in the office with Dr. Ayala. We have been asked to see the patient in consultation for chest pain. Patient examined at the bedside. Patient is somewhat of a poor historian. She states she has had wounds to her lower extremities for the past 8 weeks. She states they have been managed by her PCP. She reports she has been on antibiotics. The patient has a gauze dressing to her right lower extremity. The patient states she had a episode of chest pain yesterday. She states it felt like a pressure on her chest. She states "it felt like I had a bump on my chest". Patient denied any nausea or vomiting. She states she felt mildly short of breath during this time. She states the pain only lasted for approximately 1 minute and then resolved on its own. She denies having any further episodes of chest pain since that time. The time of my examination she denies chest pain or pressure. She denies shortness of breath. Patient's blood pressure this morning is elevated at 180/73. EKG reveals sinus mechanism with no signs of acute ischemia Chest xray correlate for pulmonary artery hypertension. Aortic ectasia Laboratory data: WBC 8.7. Hemoglobin 10.8. Platelet count 246. Sodium 138. Potassium 4.4. BUN 19. Creatinine 0.86. Lactic acid 1.2. Troponin negative x 3. Current home cardiac medications include metoprolol succinate 25 mg daily, Lasix 20 mg daily, Plavix 75 mg daily, atorvastatin 20 mg daily Most recent echocardiogram obtained in February 2021 revealing ejection fraction 55%. No regional wall motion abnormalities. Mild to mitral regurgitation. Richards scatheter A-V prosthesis. [id number] tricuspid regurgitation. Cardiac catheterization history: 2018 revealing mild pulmonary hypertension. Mild nonobstructive disease involving the right coronary artery. Mild disease involving the left coronary system. Codominant right and left coronary systems. REVIEW OF SYSTEMS: At the time of my exam: CONSTITUTIONAL: Denies fever or chills. HEENT: Denies blurred vision, vision changes, or eye pain. Denies hemoptysis CARDIOVASCULAR: Denies chest pain. Denies orthopnea. Denies PND. Denies palpitations RESPIRATORY: Denies shortness of breath. GASTROINTESTINAL: Denies abdominal pain. Denies nausea or vomiting. HEMATOLOGIC: Denies bleeding disorders. GENITOURINARY: Denies any blood in urine. SKIN: Denies pruitis. Denies rash. PHYSICAL EXAM: VITAL SIGNS: Reviewed. GENERAL: Well-developed in no acute distress. HEENT: Head is normocephalic. Pupils are equal, round. Sclerae anicteric. Mucous membranes of the mouth are moist. Neck supple. No JVD or thyromegaly LUNGS: Respirations even and unlabored. Lungs essentially clear to auscultation bilaterally. HEART: Regular rate and rhythm. S1 and S2 heard. Systolic murmur noted. ABDOMEN: Soft. Nondistended. Nontender. EXTREMITIES: Normal range of motion. No clubbing or cyanosis. Peripheral pulses intact. Dressing to right lower extremity noted. Chronic skin discoloration to bilateral lower extremities. NEUROLOGIC: Awake and alert. ASSESSMENT: Right lower extremity wound Chest pain, atypical, troponin negative 3, acute coronary syndrome ruled out History of severe aortic stenosis with TAVR Chronic diastolic congestive heart failure, ejection fraction 55% Hypertension, uncontrolled Hyperlipidemia COPD Mild nonobstructive CAD, per cardiac catheterization 2018 PLAN: An acute coronary event has been ruled out No need to repeat echocardiogram as this was performed in February 2021 at the office Resume home cardiac medications Add losartan 50mg daily for optimal blood pressure control Infectious disease consulted for right lower extremity wounds Further recommendations pending patient's course Nurse practitioner note has been reviewed by physician. Signing provider agrees with the documented findings, assessment, and plan of care. Past Medical History Past Medical History: Cancer, Chest Pain / Angina, COPD, Dementia, GERD/Reflux, GI Bleed, Musculoskeletal Disorder, Osteoarthritis (OA), Sleep Apnea/CPAP/BIPAP, Thyroid Disorder Additional Past Medical History / Comment(s): INCISIONAL HERNIA(sx), STATES NO CHF, HAS GILLIAN LEG SWELLING, OCCASIONAL VERTIGO, HX NARCOLEPSY, HX DIVERTICU LITIS, HX OF SCOLIOSIS, HX ANEMIA, HX RT BREAST CA, CHEMO AND RADIATION 1998, AND SKIN CA,no cpap used,uti History of Any Multi-Drug Resistant Organisms: ESBL Date of last positivie culture/infection: 12/01/18 ESBL E. coli MDRO Source:: Urine Past Surgical History: Appendectomy, Back Surgery, Bowel Resection, Cholecystectomy, Hernia Repair, Hysterectomy, Joint Replacement, Tonsillectomy Additional Past Surgical History / Comment(s): GILLIAN KNEE REPLACEMENT, (R) mastectomy and lymph node removal 1998, GILLIAN GREAT TOENAILS REMOVED, GILLIAN CATARACT SX,02-28-18 laparoscopic robotic assisted repair of incisional hernia. Past Anesthesia/Blood Transfusion Reactions: No Reported Reaction Additional Past Anesthesia/Blood Transfusion Reaction / Comment(s): past blood transfusions-no reaction Past Psychological History: Anxiety, Depression Additional Psychological History / Comment(s): Lives with daughter. Smoking Status: Former smoker Past Alcohol Use History: None Reported Additional Past Alcohol Use History / Comment(s): STARTED SMOKING 1943, QUIT 1979, 1/2PPD Past Drug Use History: None Reported - Past Family History Mother Additional Family Medical History / Comment(s): MOTHER OF TB WHEN PT WAS 6 MONTHS OLD Father Family Medical History: Coronary Artery Disease (CAD), Myocardial Infarction (MT) Additional Family Medical History / Comment(s): Father 18 years ago from a heart attack. Medications and Allergies Home Medications Medication Instructions Recorded Confirmed Type Levothyroxine Sodium [Synthroid] 100 mcg PO DAILY@79903/07/14 06/09/21 History Multivitamins, Thera [Multivitamin 1 tab PO DAILY@79903/07/14 06/09/21 History (formulary)] Ferrous Sulfate [Iron (65 MG 325 mg PO DAILY@169902/23/18 06/09/21 History Elemental)] Meloxicam [Mobic] 15 mg PO DAILY@79902/23/18 06/09/21 History Furosemide [Lasix] 20 mg PO DAILY@79903/15/18 06/09/21 History Albuterol Nebulized [Ventolin 2.5 mg INHALATION RT-TID 06/08/18 06/09/21 History Nebulized] Budesonide-Formot 160-4.5 Mcg 1 puff INHALATION RT-BID@0800,1700 06/08/18 06/09/21 History [Symbicort 160-4.5 Mcg Inhaler] Albuterol Inhaler [Ventolin Hfa 2 puff INHALATION RT-Q4H PRN 09/20/20 06/09/21 History Inhaler] Atorvastatin [Lipitor] 20 mg PO DAILY@1700 09/20/20 06/09/21 History Cetirizine HCl [Zyrtec] 10 mg PO DAILY@0809/20/20 06/09/21 History Clopidogrel [Plavix] 75 mg PO DAILY@0809/20/20 06/09/21 History Diphenoxylate HCl/Atropine 1 tab PO BID PRN 09/20/20 06/09/21 History [Lomotil 2.5-0.025 mg Tablet] Metoprolol Succinate [Toprol XL] 25 mg PO DAILY@0809/20/20 06/09/21 History Nystatin 100,000 Unit/gm Powd 1 applic TOPICAL BID PRN 09/20/20 06/09/21 History [Mycostatin Powder] Potassium Chloride [Klor-Con 10] 10 meq PO DAILY@0809/20/20 06/09/21 History Vit C/E/Zn/Coppr/Lutein/Zeaxan 2 cap PO DAILY@0800 09/20/20 06/09/21 History [Preservision Areds 2 Softgel] ALPRAZolam [Xanax] 0.25 mg PO BID PRN 06/09/21 06/09/21 History Acetaminophen Tab [Tylenol Tab] 500 mg PO Q4H PRN 06/09/21 06/09/21 History Pilar-Edinburgh Gummies 2 tab PO Q6H PRN 06/09/21 06/09/21 History Bismuth Subsalicylate 262 - 524 mg PO Q6H PRN 06/09/21 06/09/21 History [Pepto-Bismol] Calcium Carbonate/Vitamin D3 1 tab PO DAILY@1700 06/09/21 06/09/21 History [Calcium 600 mg-D3 20 mcg (800 unit)] Cholecalciferol (Vitamin D3) 125 mcg PO DAILY@0 06/09/21 06/09/21 History [Vitamin D3 (125 MCG = 5,000 IU)] Dextromethorphan Polistirex 60 ml PO Q12H PRN 06/09/21 06/09/21 History [Delsym] Escitalopram [Lexapro] 20 mg PO DAILY@1300 06/09/21 06/09/21 History Alie-C 1 tab PO DAILY@17006/09/21 06/09/21 History Gabapentin [Neurontin] 100 mg PO DAILY@1700 06/09/21 06/09/21 History Ipratropium Nebulized [Atrovent 0.5 mg INHALATION RT-TID 06/09/21 06/09/21 History Nebulized 0.2 MG/ML] L.acidoph,Paracasei, B.lactis 1 cap PO DAILY@1700 PRN 06/09/21 06/09/21 History [Probiotic] Meclizine HCl 25 mg PO TID PRN 06/09/21 06/09/21 History Melatonin 10 mg PO HS@199906/09/21 06/09/21 History Mirabegron [Myrbetriq] 25 mg PO DAILY@0800 06/09/21 06/09/21 History Mupirocin 2% Oint [Bactroban 2% 1 applic TOPICAL HS@199906/09/21 06/09/21 History Oint] Super Vitamin B Complex 1 tab PO DAILY@0800 06/09/21 06/09/21 History Allergies Allergy/AdvReac Type Severity Reaction Status Date / Time codeine Allergy Unknown Itching, Verified 06/09/21 15:11 red skin iodine Allergy Unknown Itching, Verified 06/09/21 15:11 red skin Sulfa (Sulfonamide Allergy Unknown Itching, Verified 06/09/21 15:11 Antibiotics) red skin lactose AdvReac belching,ga Verified 06/09/21 15:11 s,bloating Physical Exam Vitals: Vital Signs Temp Pulse Pulse Pulse Resp BP BP 06/10/21 09:20 80 16 06/10/21 09:11 80 16 06/10/21 08:44 97.8 F 77 16 180/73 06/10/21 04:49 98.0 F 80 16 150/75 06/10/21 02:43 16 06/09/21 23:16 98.0 F 84 16 120/76 06/09/21 21:38 16 06/09/21 20:46 98.0 F 67 16 144/77 06/09/21 20:32 82 06/09/21 20:21 76 06/09/21 20:14 97.7 F 81 16 165/66 06/09/21 15:06 18 06/09/21 14:38 97.3 F L 68 18 180/99 Pulse Ox 06/10/21 09:20 06/10/21 09:11 06/10/21 08:44 94 L 06/10/21 04:49 97 06/10/21 02:43 06/09/21 23:16 96 06/09/21 21:38 06/09/21 20:46 06/09/21 20:32 06/09/21 20:21 06/09/21 20:14 95 06/09/21 15:06 06/09/21 14:38 96 Intake and Output 06/09/21 06/10/21 06/10/21 22:59 06:59 14:59 Other: # Voids 1 Weight 73.482 kg 72 kg Results 06/10/21 07:24 06/10/21 07:24 Cardiac Enzymes 06/09/21 06/09/21 06/09/21 Range/Units 11:30 11:30 16:58 AST 21 (14-36) U/L Troponin I <0.012 <0.012 (0.000-0.034) ng/mL 06/09/21 Range/Units 18:14 AST (14-36) U/L Troponin I <0.012 (0.000-0.034) ng/mL Coagulation 06/09/21 Range/Units 11:30 PT 10.4 (9.0-12.0) sec APTT 22.3 (22.0-30.0) sec CBC 06/09/21 06/10/21 Range/Units 11:30 07:24 WBC 11.1 H 8.7 (3.8-10.6) k/uL RBC 4.38 3.06 L (3.80-5.40) m/uL Hgb 13.4 10.8 L (11.4-16.0) gm/dL Hct 40.8 31.8 L (34.0-46.0) % Plt Count 379 D 246 (150-450) k/uL Comprehensive Metabolic Panel 06/09/21 06/10/21 Range/Units 11:30 07:24 Sodium 132 L 138 (137-145) mmol/L Potassium 4.2 4.4 (3.5-5.1) mmol/L Chloride 98 105 (98-107) mmol/L Carbon Dioxide 25 26 (22-30) mmol/L BUN 13 19 H (7-17) mg/dL Creatinine 0.77 0.86 (0.52-1.04) mg/dL Glucose 109 H 88 (74-99) mg/dL Calcium 9.5 9.2 (8.4-10.2) mg/dL AST 21 (14-36) U/L ALT 12 (4-34) U/L Alkaline Phosphatase 70 (38-126) U/L Total Protein 6.8 (6.3-8.2) g/dL Albumin 4.0 (3.5-5.0) g/dL Current Medications Generic Name Dose Route Start Last Admin Trade Name Freq PRN Reason Stop Dose Admin Acetaminophen 500 mg 06/09/21 15:49 Acetaminophen Tab 500 Mg Tab PO Q4H PRN Pain Albuterol Sulfate 2.5 mg 06/09/21 15:49 Albuterol Nebulized 2.5 Mg/3 Ml INHALATION RT-Q4H PRN Shortness Of Breath Albuterol/Ipratropium 3 ml 06/09/21 20:00 06/10/21 09:11 Ipratropium-Albuterol 3 Ml Neb INHALATION 3 ml RT-TID MILANA Administration Aspirin 81 mg 06/11/21 09:00 Aspirin 81 Mg PO DAILY MILANA Atorvastatin Calcium 20 mg 06/09/21 17:00 06/09/21 17:04 Atorvastatin 20 Mg Tab PO 20 mg DAILY@1700 MILANA Administration Bismuth Subsalicylate 262 mg 06/09/21 15:49 Bismuth Subsalicylate 4,192 Mg/240 Ml Bottle PO Q6H PRN UPSET STOMACH Budesonide/Formoterol Fumarate 1 puff 06/09/21 17:00 06/10/21 09:11 Symbicort 160-4.5 Mcg Inhaler INHALATION 1 puff RT-BID@0800,1700 [facility] Administration Calcium Carbonate 1 each 06/09/21 17:00 06/09/21 17:15 Calcium Carb-Vit D 500 Mg-5 Mcg Tab PO 1 each DAILY@1700 MILANA Administration Cholecalciferol 125 mcg 06/09/21 17:00 06/09/21 17:05 Cholecalciferol 25 Mcg (1000 Iu) Tablet PO 125 mcg DAILY@1700 MILANA Administration Clopidogrel Bisulfate 75 mg 06/10/21 08:00 06/10/21 08:50 Clopidogrel 75 Mg Tab PO 75 mg DAILY@0800 [facility] Administration Diphenoxylate HCl/Atropine 1 each 06/09/21 15:49 Diphenox-Atrop 2.5-0.025 Mg 1 Each Tab PO BID PRN Loose Stool Enoxaparin Sodium 40 mg 06/10/21 09:00 06/10/21 08:49 Enoxaparin 40 Mg/0.4 Ml Syringe SQ 40 mg DAILY [facility] Administration Escitalopram Oxalate 20 mg 06/10/21 13:00 Escitalopram 20 Mg Tab PO DAILY@1300 [facility] Famotidine 20 mg 06/09/21 21:00 06/10/21 08:50 Famotidine 20 Mg Tab PO 20 mg BID MILANA Administration Ferrous Sulfate 325 mg 06/09/21 17:00 06/09/21 17:11 Ferrous Sulfate 325 Mg Tab PO 325 mg DAILY@1700 MILANA Administration Furosemide 40 mg 06/09/21 21:00 06/10/21 08:50 Furosemide 10 Mg/Ml 4 Ml Vial IV 40 mg BID [facility] Administration Gabapentin 100 mg 06/09/21 17:00 06/09/21 17:05 Gabapentin 100 Mg Cap PO 100 mg DAILY@1700 [facility] Administration Cefazolin Sodium 2 gm/ Sodium 50 mls @ 100 mls/hr 06/10/21 00:00 06/10/21 08:49 Chloride IVPB 100 mls/hr Q8HR [facility] Administration Levothyroxine Sodium 100 mcg 06/10/21 08:00 06/10/21 08:51 Levothyroxine 100 Mcg Tab PO 100 mcg DAILY@0800 [facility] Administration Losartan Potassium 50 mg 06/10/21 10:00 Losartan 50 Mg Tab PO DAILY [facility] Meclizine HCl 25 mg 06/09/21 15:49 Meclizine 25 Mg Tab PO TID PRN DIZZINESS Melatonin 10 mg 06/09/21 15:49 Melatonin 5 Mg Tablet PO HS@2000 PRN Insomnia Metoprolol Succinate 25 mg 06/10/21 08:00 06/10/21 08:50 Metoprolol Succinate (Er) 25 Mg Tab.Er.24h PO 25 mg DAILY@0800 [facility] Administration Multivitamins 1 each 06/10/21 08:00 06/10/21 08:55 Multivitamins, Thera 1 Each Tab PO Not Given DAILY@0800 [facility] Mupirocin 1 applic 06/09/21 20:00 06/09/21 21:24 Mupirocin 2% Oint 22 Gm Tube TOPICAL 1 applic HS@2000 [facility] Administration Protocol (Mirabegron [ 25 mg 06/10/21 08:00 06/10/21 08:54 Myrbetriq] 25 Mg Tab PO Not Given .Er.24h DAILY@0800 [facility] Nystatin 1 applic 06/09/21 15:49 Nystatin 100,000 Unit/Gm Powd 15 Gm TOPICAL BID PRN Rash Protocol Potassium Chloride 10 meq 06/10/21 08:00 06/10/21 08:51 Potassium Chloride Er 10 Meq Tab.Er.Prt PO 10 meq DAILY@0800 [facility] Administration Intake and Output 06/09/21 06/10/21 06/10/21 22:59 06:59 14:59 Other: # Voids 1 Weight 73.482 kg 72 kg 06/10/21 07:24 06/10/21 07:24
--- NOTE | 2021-06-10 12:03 | P.HPIM ---
History of Present Illness Patient was a pleasant 85-year-old female was brought in for increasing swelling or redness in the cellulitis of the right lower extremity along with stage II ulcer. Patient lives at an assisted living and patient will need more than assisted living as per the family, patient's right lower extremity wound is being managed as an outpatient which she has for 8 weeks. Patient does have a history of aortic stenosis status post TAVR, had an EF of around 40 with 50% with global hypokinesia patient does have bilateral lower extremity edema. Patient is also hyponatremic. Probably hypervolemic hyponatremia. Patient doesn't have any fever chills patient is alert oriented 2 unable to provide any good history. Patient apparently was comparing of chest pain is well because of which troponin was done which was negative EKG showed sinus rhythm without any acute ST-T wave changes. Denied any nausea vomiting. blood pressure is bit elevated to 180/73. REVIEW OF SYSTEMS: All other review of systems is negative except those mentioned was patient is a poor historian. PHYSICAL EXAMINATION: GENERAL: The patient is alert and oriented x3, not in any acute distress. Well developed, well nourished. HEENT: Pupils are round and equally reacting to light. EOMI. No scleral icterus. No conjunctival pallor. Normocephalic, atraumatic. No pharyngeal erythema. No thyromegaly. CARDIOVASCULAR: S1 and S2 present. No murmurs, rubs, or gallops. PULMONARY: Chest is clear to auscultation, no wheezing or crackles. ABDOMEN: Soft, nontender, nondistended, normoactive bowel sounds. No palpable organomegaly. MUSCULOSKELETAL: No joint swelling or deformity. EXTREMITIES: No cyanosis, clubbing, patient does have bilateral lower extremity edema NEUROLOGICAL: Gross neurological examination did not reveal any focal deficits. SKIN: Significant redness in bilateral lower extremity is but there is local is of temperature in the right lower extremity along with skin breakdown and stage II large ulcer in the posterior aspect of the right leg. Assessment and plan -Cellulitis of the right lower extremity: Patient will be started on ceftezolin and infectious disease will be consulted wound care will be consulted. -Compensative chest pain: Cardiology was consulted, will obtain 2 more sets of troponins and EKG. -Bilateral lower extremity edema part of which is peripheral edema patient does have congestive heart failure as well patient had EF of around 45- 50% chronic systolic dysfunction. Patient will be started on Lasix 40 mg IV twice a day monitor kidney function -Congestive heart failure chronic diastolic and systolic dysfunction with mild acute exacerbation -History of aortic stenosis status post aortic replacement -Hypervolemic hyponatremia expected to improve with the Lasix -The history of 4 coronary artery disease -Hypertension uncontrolled elevated -COPD without any acute exacerbation -Sleep apnea -hypothyroidism -Depression DVT prophylaxis:. Lovenox Past Medical History Past Medical History: Cancer, Chest Pain / Angina, COPD, Dementia, GERD/Reflux, GI Bleed, Musculoskeletal Disorder, Osteoarthritis (OA), Sleep Apnea/CPAP/BIPAP, Thyroid Disorder Additional Past Medical History / Comment(s): INCISIONAL HERNIA(sx), STATES NO CHF, HAS GILLIAN LEG SWELLING, OCCASIONAL VERTIGO, HX NARCOLEPSY, HX DIVERTICULITIS, HX OF SCOLIOSIS, HX ANEMIA, HX RT BREAST CA, CHEMO AND RADIATION 1998, AND SKIN CA,no cpap used,uti History of Any Multi-Drug Resistant Organisms: ESBL Date of last positivie culture/infection: 12/01/18 ESBL E. coli MDRO Source:: Urine Past Surgical History: Appendectomy, Back Surgery, Bowel Resection, Cholecystectomy, Hernia Repair, Hysterectomy, Joint Replacement, Tonsillectomy Additional Past Surgical History / Comment(s): GILLIAN KNEE REPLACEMENT, (R) mastectomy and lymph node removal 1998, GILLIAN GREAT TOENAILS REMOVED, GILLIAN CATARACT SX,02-28-18 laparoscopic robotic assisted repair of incisional hernia. Past Anesthesia/Blood Transfusion Reactions: No Reported Reaction Additional Past Anesthesia/Blood Transfusion Reaction / Comment(s): past blood transfusions-no reaction Past Psychological History: Anxiety, Depression Additional Psychological History / Comment(s): Lives with daughter. Smoking Status: Former smoker Past Alcohol Use History: None Reported Additional Past Alcohol Use History / Comment(s): STARTED SMOKING 1943, QUIT 1979, 1/2PPD Past Drug Use History: None Reported - Past Family History Mother Additional Family Medical History / Comment(s): MOTHER OF TB WHEN PT WAS 6 MONTHS OLD Father Family Medical History: Coronary Artery Disease (CAD), Myocardial Infarction ([place]) Additional Family Medical History / Comment(s): Father 18 years ago from a heart attack. Medications and Allergies Home Medications Medication Instructions Recorded Confirmed Type Levothyroxine Sodium [Synthroid] 100 mcg PO DAILY@0800 03/07/14 06/09/21 History Multivitamins, Thera [Multivitamin 1 tab PO DAILY@0803/07/14 06/09/21 History (formulary)] Ferrous Sulfate [Iron (65 MG 325 mg PO DAILY@1700 02/23/18 06/09/21 History Elemental)] Meloxicam [Mobic] 15 mg PO DAILY@0800 02/23/18 06/09/21 History Furosemide [Lasix] 20 mg PO DAILY@0803/15/18 06/09/21 History Albuterol Nebulized [Ventolin 2.5 mg INHALATION RT-TID 06/08/18 06/09/21 History Nebulized] Budesonide-Formot 160-4.5 Mcg 1 puff INHALATION RT-BID@0800,1700 06/08/18 06/09/21 History [Symbicort 160-4.5 Mcg Inhaler] Albuterol Inhaler [Ventolin Hfa 2 puff INHALATION RT-Q4H PRN 09/20/20 06/09/21 History Inhaler] Atorvastatin [Lipitor] 20 mg PO DAILY@1700 09/20/20 06/09/21 History Cetirizine HCl [Zyrtec] 10 mg PO DAILY@0809/20/20 06/09/21 History Clopidogrel [Plavix] 75 mg PO DAILY@0809/20/20 06/09/21 History Diphenoxylate HCl/Atropine 1 tab PO BID PRN 09/20/20 06/09/21 History [Lomotil 2.5-0.025 mg Tablet] Metoprolol Succinate [Toprol XL] 25 mg PO DAILY@0809/20/20 06/09/21 History Nystatin 100,000 Unit/gm Powd 1 applic TOPICAL BID PRN 09/20/20 06/09/21 History [Mycostatin Powder] Potassium Chloride [Klor-Con 10] 10 meq PO DAILY@0800 09/20/20 06/09/21 History Vit C/E/Zn/Coppr/Lutein/Zeaxan 2 cap PO DAILY@0800 09/20/20 06/09/21 History [Preservision Areds 2 Softgel] ALPRAZolam [Xanax] 0.25 mg PO BID PRN 06/09/21 06/09/21 History Acetaminophen Tab [Tylenol Tab] 500 mg PO Q4H PRN 06/09/21 06/09/21 History Pilar-[place] Gummies 2 tab PO Q6H PRN 06/09/21 06/09/21 History Bismuth Subsalicylate 262 - 524 mg PO Q6H PRN 06/09/21 06/09/21 History [Pepto-Bismol] Calcium Carbonate/Vitamin D3 1 tab PO DAILY@17006/09/21 06/09/21 History [Calcium 600 mg-D3 20 mcg (800 unit)] Cholecalciferol (Vitamin D3) 125 mcg PO DAILY@1700 06/09/21 06/09/21 History [Vitamin D3 (125 MCG = 5,000 IU)] Dextromethorphan Polistirex 60 ml PO Q12H PRN 06/09/21 06/09/21 History [Delsym] Escitalopram [Lexapro] 20 mg PO DAILY@1300 06/09/21 06/09/21 History Alie-C 1 tab PO DAILY@17006/09/21 06/09/21 History Gabapentin [Neurontin] 100 mg PO DAILY@1700 06/09/21 06/09/21 History Ipratropium Nebulized [Atrovent 0.5 mg INHALATION RT-TID 06/09/21 06/09/21 History Nebulized 0.2 MG/ML] L.acidoph,Paracasei, B.lactis 1 cap PO DAILY@1700 PRN 06/09/21 06/09/21 History [Probiotic] Meclizine HCl 25 mg PO TID PRN 06/09/21 06/09/21 History Melatonin 10 mg PO HS@199906/09/21 06/09/21 History Mirabegron [Myrbetriq] 25 mg PO DAILY@79906/09/21 06/09/21 History Mupirocin 2% Oint [Bactroban 2% 1 applic TOPICAL HS@199906/09/21 06/09/21 History Oint] Super Vitamin B Complex 1 tab PO DAILY@0806/09/21 06/09/21 History Allergies Allergy/AdvReac Type Severity Reaction Status Date / Time codeine Allergy Unknown Itching, Verified 06/09/21 15:11 red skin iodine Allergy Unknown Itching, Verified 06/09/21 15:11 red skin Sulfa (Sulfonamide Allergy Unknown Itching, Verified 06/09/21 15:11 Antibiotics) red skin lactose AdvReac belching,ga Verified 06/09/21 15:11 s,bloating Physical Exam Vitals: Vital Signs Temp Pulse Pulse Pulse Resp BP BP 06/10/21 09:20 80 16 06/10/21 09:11 80 16 06/10/21 08:44 97.8 F 77 16 180/73 06/10/21 04:49 98.0 F 80 16 150/75 06/10/21 02:43 16 06/09/21 23:16 98.0 F 84 16 120/76 06/09/21 21:38 16 06/09/21 20:46 98.0 F 67 16 144/77 06/09/21 20:32 82 06/09/21 20:21 76 06/09/21 20:14 97.7 F 81 16 165/66 06/09/21 15:06 18 06/09/21 14:38 97.3 F L 68 18 180/99 Pulse Ox 06/10/21 09:20 06/10/21 09:11 06/10/21 08:44 94 L 06/10/21 04:49 97 06/10/21 02:43 06/09/21 23:16 96 06/09/21 21:38 06/09/21 20:46 06/09/21 20:32 06/09/21 20:21 06/09/21 20:14 95 06/09/21 15:06 06/09/21 14:38 96 Intake and Output 06/09/21 06/10/21 06/10/21 22:59 06:59 14:59 Other: # Voids 1 Weight 73.482 kg 72 kg Results CBC & Chem 7: 06/10/21 07:24 06/10/21 07:24 Labs: Abnormal Lab Results - Last 24 Hours (Table) 06/09/21 06/09/21 06/10/21 Range/Units 11:30 11:30 07:24 WBC 11.1 H (3.8-10.6) k/uL RBC (3.80-5.40) m/uL Hgb (11.4-16.0) gm/dL Hct (34.0-46.0) % MCV (80.0-100.0) fL MCH (25.0-35.0) pg Neutrophils # 8.2 H (1.3-7.7) k/uL Sodium 132 L (137-145) mmol/L BUN 19 H (7-17) mg/dL Glucose 109 H (74-99) mg/dL 06/10/21 Range/Units 07:24 WBC (3.8-10.6) k/uL RBC 3.06 L (3.80-5.40) m/uL Hgb 10.8 L (11.4-16.0) gm/dL Hct 31.8 L (34.0-46.0) % MCV 104.2 H D (80.0-100.0) fL MCH 35.4 H (25.0-35.0) pg Neutrophils # (1.3-7.7) k/uL Sodium (137-145) mmol/L BUN (7-17) mg/dL Glucose (74-99) mg/dL Microbiology - Last 24 Hours (Table) 06/09/21 16:07 Anaerobic Culture - Preliminary Leg - Right 06/09/21 16:07 Wound Culture - Preliminary Foot - Right Thrombosis Risk Factor Assmnt - Choose All That Apply Each Factor Represents 1 point: Obesity (BMI >25), Swollen legs (current) Each Risk Factor Represents 3 Points: Age 75 years or older Thrombosis Risk Factor Assessment Total Risk Factor Score: 5 Thrombosis Risk Factor Assessment Level: High Risk
[2021-06-10] MEDS: LOSARTAN 50 MG TAB PO SCH (12:07)
[2021-06-10] MEDS: ESCITALOPRAM 20 MG TAB PO SCH (12:07)
[2021-06-10] MEDS ORDERED: QUEtiapine 25 MG TAB PO PRN (16:08)
--- NOTE | 2021-06-10 16:10 | P.PN ---
Subjective Patient was a pleasant 85-year-old female was brought in for increasing swelling or redness in the cellulitis of the right lower extremity along with stage II ulcer. Patient lives at an assisted living and patient will need more than assisted living as per the family, patient's right lower extremity wound is being managed as an outpatient which she has for 8 weeks. Patient does have a history of aortic stenosis status post TAVR, had an EF of around 40 with 50% with global hypokinesia patient does have bilateral lower extremity edema. Patient is also hyponatremic. Probably hypervolemic hyponatremia. Patient doesn't have any fever chills patient is alert oriented 2 unable to provide any good history. Patient apparently was comparing of chest pain is well because of which troponin was done which was negative EKG showed sinus rhythm without any acute ST-T wave changes. Denied any nausea vomiting. blood pressure is bit elevated to 180/73. 06/10/2021 Patient's hyponatremia improved with IV Lasix patient was subsequently switched to oral Lasix which will be continued patient sick edema signal failure improved redness in the right leg a significant improved as well patient is being continued on ceftezolin cardiology evaluate the patient to go further intervention is being planned from cardiology perspective patient had a recent echocardiogram in month of February no repeat is being up and at this time. Review of systems: Unable to obtain as patient is confused All inpatient medications were reviewed and appropriate changes in these medications as dictated in the interval history and assessment and plan. PHYSICAL EXAMINATION: GENERAL: The patient is alert and oriented x3, not in any acute distress. Well developed, well nourished. HEENT: Pupils are round and equally reacting to light. EOMI. No scleral icterus. No conjunctival pallor. Normocephalic, atraumatic. No pharyngeal erythema. No thyromegaly. CARDIOVASCULAR: S1 and S2 present. No murmurs, rubs, or gallops. PULMONARY: Chest is clear to auscultation, no wheezing or crackles. ABDOMEN: Soft, nontender, nondistended, normoactive bowel sounds. No palpable organomegaly. MUSCULOSKELETAL: No joint swelling or deformity. EXTREMITIES: No cyanosis, clubbing, patient does have bilateral lower extremity edema NEUROLOGICAL: Gross neurological examination did not reveal any focal deficits. SKIN: Significant redness in bilateral lower extremity is but there is local is of temperature in the right lower extremity along with skin breakdown and stage II large ulcer in the posterior aspect of the right leg. Assessment and plan -Cellulitis of the right lower extremity: Patient is on started on ceftezolin and infectious disease will be consulted wound care evaluated the patient - chest pain: Cardiology evaluated the patient troponins are negative ruled out acute current syndromes -Bilateral lower extremity edema part of which is peripheral edema patient does have congestive heart failure as well patient had EF of around 45- 50% chronic systolic dysfunction. Improved peripheral edema patient was switched to oral Lasix -Congestive heart failure chronic diastolic and systolic dysfunction with mild acute exacerbation -History of aortic stenosis status post aortic replacement -Hypervolemic hyponatremia improved with IV Lasix - history of coronary artery disease -Hypertension uncontrolled elevated patient was started on NAN inhibitor -COPD without any acute exacerbation -Sleep apnea -hypothyroidism -Depression DVT prophylaxis:. Lovenox Objective - Vital Signs Vital signs: Vital Signs Temp 98.1 F 06/10/21 15:00 Pulse 75 06/10/21 15:00 Resp 16 06/10/21 15:00 BP 137/72 06/10/21 15:00 Pulse Ox 94 L 06/10/21 15:00 Intake & Output 06/09/21 06/10/21 06/10/21 18:59 06:59 18:59 Output Total 300 Balance -300 Weight 73.482 kg 72 kg Output: Urine 300 Other: # Voids 1 - Labs CBC & Chem 7: 06/10/21 07:24 06/10/21 07:24 Labs: Abnormal Lab Results - Last 24 Hours (Table) 06/10/21 06/10/21 Range/Units 07:24 07:24 RBC 3.06 L (3.80-5.40) m/uL Hgb 10.8 L (11.4-16.0) gm/dL Hct 31.8 L (34.0-46.0) % MCV 104.2 H D (80.0-100.0) fL MCH 35.4 H (25.0-35.0) pg BUN 19 H (7-17) mg/dL Microbiology - Last 24 Hours (Table) 06/09/21 16:07 Anaerobic Culture - Preliminary Leg - Right 06/09/21 16:07 Wound Culture - Preliminary Foot - Right
[2021-06-10] MEDS: CHOLECALCIFEROL 25 MCG (1000 IU) TABLET PO SCH (16:48)
[2021-06-10] MEDS: GABAPENTIN 100 MG CAP PO SCH (16:48)
[2021-06-10] MEDS: CALCIUM CARB-VIT D 500 MG-5 MCG TAB PO SCH (16:48)
[2021-06-10] MEDS: ATORVASTATIN 20 MG TAB PO SCH (16:48)
[2021-06-10] MEDS: FERROUS SULFATE 325 MG TAB PO SCH (16:48)
--- NOTE | 2021-06-10 20:23 | P.CONS ---
History of Present Illness - Reason for Consult Consult date: 06/10/21 Right leg wound and cellulitis Requesting physician: Toma Page - Chief Complaint Right leg pain swelling and redness few days - History of Present Illness Patient is 85-year female presented to the ER at [facility] yesterday morning for evaluation of chest pain that started the night before presentation to the hospital he is also complaining of bilateral lower extremity swelling and the patient did have a more swollen right lower extremity did have some superficial ulceration from ruptured blister patient complaining of pain to the right leg to be more of a sharp in nature intensity is almost 7-8 out of 10 had no radiation denies any drainage from the superficial wound on the leg patient did have some chills but denies high-grade fever no fever was recorded patient did have a white count of 11.1 kidney function was normal pa tient did have a chest x-ray negative for acute findings x-rays of the tibia- fibula no acute bony abnormality foot x-ray with severe arthropathy but no acute findings patient was started on cefazolin infectious was consulted for further management of right lower extremity wound and cellulitis Review of Systems Positive point has been mentioned in the HPI rest of the systems are negative Past Medical History Past Medical History: Cancer, Chest Pain / Angina, COPD, Dementia, GERD/Reflux, GI Bleed, Musculoskeletal Disorder, Osteoarthritis (OA), Sleep Apnea/CPAP/BIPAP, Thyroid Disorder Additional Past Medical History / Comment(s): INCISIONAL HERNIA(sx), STATES NO CHF, HAS GILLIAN LEG SWELLING, OCCASIONAL VERTIGO, HX NARCOLEPSY, HX DIVERTICULITIS, HX OF SCOLIOSIS, HX ANEMIA, HX RT BREAST CA, CHEMO AND RADIATION 1998, AND SKIN CA,no cpap used,uti History of Any Multi-Drug Resistant Organisms: ESBL Year Discovered:: 12/01/18 ESBL E. coli MDRO Source:: Urine Past Surgical History: Appendectomy, Back Surgery, Bowel Resection, Cholecystectomy, Hernia Repair, Hysterectomy, Joint Replacement, Tonsillectomy Additional Past Surgical History / Comment(s): GILLIAN KNEE REPLACEMENT, (R) mastectomy and lymph node removal 1998, GILLIAN GREAT TOENAILS REMOVED, GILLIAN CATARACT SX,02-28-18 laparoscopic robotic assisted repair of incisional hernia. Past Anesthesia/Blood Transfusion Reactions: No Reported Reaction Additional Past Anesthesia/Blood Transfusion Reaction / Comm: past blood transfusions-no reaction Past Psychological History: Anxiety, Depression Additional Psychological History / Comment(s): Lives with daughter. Smoking Status: Former smoker Past Alcohol Use History: None Reported Additional Past Alcohol Use History / Comment(s): STARTED SMOKING 1943, QUIT 1979, 1/2PPD Past Drug Use History: None Reported - Past Family History Mother Additional Family Medical History / Comment(s): MOTHER OF TB WHEN PT WAS 6 MONTHS OLD Father Family Medical History: Coronary Artery Disease (CAD), Myocardial Infarction ([place]) Additional Family Medical History / Comment(s): Father 18 years ago from a heart attack. Medications and Allergies Home Medications Medication Instructions Recorded Confirmed Type Levothyroxine Sodium [Synthroid] 100 mcg PO DAILY@79903/07/14 06/09/21 History Multivitamins, Thera [Multivitamin 1 tab PO DAILY@79903/07/14 06/09/21 History (formulary)] Ferrous Sulfate [Iron (65 MG 325 mg PO DAILY@1700 02/23/18 06/09/21 History Elemental)] Meloxicam [Mobic] 15 mg PO DAILY@79902/23/18 06/09/21 History Furosemide [Lasix] 20 mg PO DAILY@0800 03/15/18 06/09/21 History Albuterol Nebulized [Ventolin 2.5 mg INHALATION RT-TID 06/08/18 06/09/21 History Nebulized] Budesonide-Formot 160-4.5 Mcg 1 puff INHALATION RT-BID@0800,1700 06/08/18 06/09/21 History [Symbicort 160-4.5 Mcg Inhaler] Albuterol Inhaler [Ventolin Hfa 2 puff INHALATION RT-Q4H PRN 09/20/20 06/09/21 History Inhaler] Atorvastatin [Lipitor] 20 mg PO DAILY@1700 09/20/20 06/09/21 History Cetirizine HCl [Zyrtec] 10 mg PO DAILY@0809/20/20 06/09/21 History Clopidogrel [Plavix] 75 mg PO DAILY@0800 09/20/20 06/09/21 History Diphenoxylate HCl/Atropine 1 tab PO BID PRN 09/20/20 06/09/21 History [Lomotil 2.5-0.025 mg Tablet] Metoprolol Succinate [Toprol XL] 25 mg PO DAILY@0800 09/20/20 06/09/21 History Nystatin 100,000 Unit/gm Powd 1 applic TOPICAL BID PRN 09/20/20 06/09/21 History [Mycostatin Powder] Potassium Chloride [Klor-Con 10] 10 meq PO DAILY@0800 09/20/20 06/09/21 History Vit C/E/Zn/Coppr/Lutein/Zeaxan 2 cap PO DAILY@0809/20/20 06/09/21 History [Preservision Areds 2 Softgel] ALPRAZolam [Xanax] 0.25 mg PO BID PRN 06/09/21 06/09/21 History Acetaminophen Tab [Tylenol Tab] 500 mg PO Q4H PRN 06/09/21 06/09/21 History Pilar-[place] Gummies 2 tab PO Q6H PRN 06/09/21 06/09/21 History Bismuth Subsalicylate 262 - 524 mg PO Q6H PRN 06/09/21 06/09/21 History [Pepto-Bismol] Calcium Carbonate/Vitamin D3 1 tab PO DAILY@1700 06/09/21 06/09/21 History [Calcium 600 mg-D3 20 mcg (800 unit)] Cholecalciferol (Vitamin D3) 125 mcg PO DAILY@1700 06/09/21 06/09/21 History [Vitamin D3 (125 MCG = 5,000 IU)] Dextromethorphan Polistirex 60 ml PO Q12H PRN 06/09/21 06/09/21 History [Delsym] Escitalopram [Lexapro] 20 mg PO DAILY@1300 06/09/21 06/09/21 History Alie-C 1 tab PO DAILY@1700 06/09/21 06/09/21 History Gabapentin [Neurontin] 100 mg PO DAILY@0 06/09/21 06/09/21 History Ipratropium Nebulized [Atrovent 0.5 mg INHALATION RT-TID 06/09/21 06/09/21 History Nebulized 0.2 MG/ML] L.acidoph,Paracasei, B.lactis 1 cap PO DAILY@1700 PRN 06/09/21 06/09/21 History [Probiotic] Meclizine HCl 25 mg PO TID PRN 06/09/21 06/09/21 History Melatonin 10 mg PO HS@199906/09/21 06/09/21 History Mirabegron [Myrbetriq] 25 mg PO DAILY@79906/09/21 06/09/21 History Mupirocin 2% Oint [Bactroban 2% 1 applic TOPICAL HS@199906/09/21 06/09/21 History Oint] Super Vitamin B Complex 1 tab PO DAILY@79906/09/21 06/09/21 History Allergies Allergy/AdvReac Type Severity Reaction Status Date / Time codeine Allergy Unknown Itching, Verified 06/09/21 15:11 red skin iodine Allergy Unknown Itching, Verified 06/09/21 15:11 red skin Sulfa (Sulfonamide Allergy Unknown Itching, Verified 06/09/21 15:11 Antibiotics) red skin lactose AdvReac belching,ga Verified 06/09/21 15:11 s,bloating Physical Exam Vitals: Vital Signs Temp Pulse Pulse Pulse Resp BP BP 06/10/21 09:11 80 16 06/10/21 08:44 97.8 F 77 16 180/73 06/10/21 04:49 98.0 F 80 16 150/75 06/10/21 02:43 16 06/09/21 23:16 98.0 F 84 16 120/76 06/09/21 21:38 16 06/09/21 20:46 98.0 F 67 16 144/77 06/09/21 20:32 82 06/09/21 20:21 76 06/09/21 20:14 97.7 F 81 16 165/66 06/09/21 15:06 18 06/09/21 14:38 97.3 F L 68 18 180/99 06/09/21 10:51 98.1 F 75 18 137/82 Pulse Ox 06/10/21 09:11 06/10/21 08:44 94 L 06/10/21 04:49 97 06/10/21 02:43 06/09/21 23:16 96 06/09/21 21:38 06/09/21 20:46 06/09/21 20:32 06/09/21 20:21 08/10/21 20:14 95 06/09/21 15:06 06/09/21 14:38 96 06/09/21 10:51 95 Intake and Output 06/09/21 06/10/21 06/10/21 22:59 06:59 14:59 Other: # Voids 1 Weight 73.482 kg 72 kg GENERAL DESCRIPTION: An elderly female lying in bed, no distress. No tachypnea or accessory muscle of respiration use. HEENT: Shows Pallor , no scleral icterus. Oral mucous membrane is dry. No pharyngeal erythema or thrush NECK: Trachea central, no thyromegaly. LUNGS: Unlabored breathing. Clear to auscultation anteriorly. No wheeze or crackle. HEART: S1, S2, regular rate and rhythm. No loud murmur ABDOMEN: Soft, no tenderness , guarding or rigidity, no organomegaly EXTREMITIES: Right lower leg with superficial ulceration no significant slough tissue some surrounding swelling and redness SKIN: No rash, no masses palpable. NEUROLOGICAL: The patient is awake, alert, oriented x3, mood and affect normal. Results CBC & Chem 7: 06/10/21 07:24 06/10/21 07:24 Labs: Abnormal Lab Results - Last 24 Hours (Table) 06/09/21 06/09/21 06/10/21 Range/Units 11:30 11:30 07:24 WBC 11.1 H (3.8-10.6) k/uL RBC (3.80-5.40) m/uL Hgb (11.4-16.0) gm/dL Hct (34.0-46.0) % MCV (80.0-100.0) fL MCH (25.0-35.0) pg Neutrophils # 8.2 H (1.3-7.7) k/uL Sodium 132 L (137-145) mmol/L BUN 19 H (7-17) mg/dL Glucose 109 H (74-99) mg/dL 06/10/21 Range/Units 07:24 WBC (3.8-10.6) k/uL RBC 3.06 L (3.80-5.40) m/uL Hgb 10.8 L (11.4-16.0) gm/dL Hct 31.8 L (34.0-46.0) % MCV 104.2 H D (80.0-100.0) fL MCH 35.4 H (25.0-35.0) pg Neutrophils # (1.3-7.7) k/uL Sodium (137-145) mmol/L BUN (7-17) mg/dL Glucose (74-99) mg/dL Microbiology - Last 24 Hours (Table) 06/09/21 16:07 Anaerobic Culture - Preliminary Leg - Right 06/09/21 16:07 Wound Culture - Preliminary Foot - Right Assessment and Plan Assessment: patient with acute right lower extremity cellulitis this patient did have a superficial ulceration likely from a ruptured blister and likely from a gram- positive skin jan such as strep clinically doubt MRSA or gram-negative infection (1) Cellulitis of right leg Current Visit: Yes Status: Acute Code(s): L03.115 - CELLULITIS OF RIGHT LOWER LIMB SNOMED Code(s): 186392246 Plan: 1-carlos the area of the redness right leg 2-local wound care with Aquacel silver dressing and Jesse wrap 3-cefazolin 2 g every 8 hours We will follow on clinical condition and cultures to further adjust medication if needed Thank you for this consultation we will follow the patient along with you Time with Patient: Greater than 30
[2021-06-10] MEDS: MUPIROCIN 2% OINT 22 GM TUBE TOPICAL SCH (20:50)
[2021-06-10 21:34] LABS: Chol/HDL Ratio 2.19; LDL Cholesterol,Calculated 48.2 mg/dL (0.0-131.0); VLDL Calculation 15.8 mg/dL (5.00-40.00)
[2021-06-11] MEDS: LOSARTAN 50 MG TAB PO SCH (08:42)
[2021-06-11] MEDS: MULTIVITAMINS, THERA 1 EACH TAB PO SCH (08:42)
[2021-06-11] MEDS: ASPIRIN 81 MG PO SCH (08:42)
[2021-06-11] MEDS: FAMOTIDINE 20 MG TAB PO SCH (08:42)
[2021-06-11] MEDS: LEVOTHYROXINE 100 MCG TAB PO SCH (08:42)
[2021-06-11] MEDS: FUROSEMIDE 20 MG TAB PO SCH (08:42)
[2021-06-11] MEDS: CLOPIDOGREL 75 MG TAB PO SCH (08:43)
[2021-06-11] MEDS: METOPROLOL SUCCINATE (ER) 25 MG TAB.ER.24H PO SCH (08:43)
[2021-06-11] MEDS: POTASSIUM CHLORIDE ER 10 MEQ TAB.ER.PRT PO SCH (08:43)
[2021-06-11] MEDS: SYMBICORT 160-4.5 MCG INHALER INHALATION SCH ×2 (08:49→19:47)
[2021-06-11] MEDS: IPRATROPIUM-ALBUTEROL 3 ML NEB INHALATION SCH ×3 (08:49→19:47)
[2021-06-11] MEDS: ENOXAPARIN 40 MG/0.4 ML SYRINGE SQ SCH (08:53)
--- NOTE | 2021-06-11 12:49 | P.PN ---
Subjective Progress Note Date: 06/11/21 Is a pleasant 85-year-old female with a past medical history significant for mild nonobstructive CAD, status post TAVR, hypertension, hyperlipidemia, COPD and congestive heart failure. She follows in the office with Dr. Ayala. Her asked to see the patient in consultation for chest pain. She's also been d ealing with some wounds and cellulitis of the lower extremities for the past 8 weeks which failed outpatient treatment. Troponins were negative 3, and acute coronary event has been ruled out. Overall this morning upon examination the patient is resting comfortably in bed. Denies any further complaints of chest discomfort. She denies any shortness of breath, palpitations or dizziness. Objective - Vital Signs Vital signs: Vital Signs Temp 99 F 06/11/21 08:00 Pulse 78 06/11/21 08:00 Resp 18 06/11/21 08:00 BP 125/71 06/11/21 08:00 Pulse Ox 92 L 06/11/21 08:00 Intake & Output 06/10/21 06/11/21 06/11/21 18:59 06:59 18:59 Intake Total 120 Output Total 300 850 Balance -300 -850 120 Weight 71 kg Intake: Oral 120 Output: Urine 300 850 - Exam PHYSICAL EXAMINATION: HEENT: Head is atraumatic, normocephalic. Pupils equal, round. Neck is supple. There is no elevated jugular venous pressure. HEART EXAMINATION: Heart sounds regular, S1 and S2 and a systolic murmur. CHEST EXAMINATION: Lungs are clear to auscultation and precussion. No chest wall tenderness is noted on palpation or with deep breathing. ABDOMEN: Soft, nontender. Bowel sounds are heard. No organomegaly noted. EXTREMITIES: 2+ peripheral pulses with evidence of peripheral edema and no calf tenderness noted. Dressing noted to the right lower extremity. Discoloration to bilateral lower extremities consistent with chronic changes. NEUROLOGIC patient is awake and alert. . - Labs CBC & Chem 7: 06/10/21 07:24 06/10/21 07:24 Labs: Microbiology - Last 24 Hours (Table) 06/09/21 16:07 Gram Stain - Preliminary Foot - Right Wound Culture - Preliminary Gram Neg Bacilli 06/09/21 16:07 Blood Culture - Preliminary Blood No Growth after 24 hours Assessment and Plan Assessment: 1 bilateral lower extremity cellulitis with right lower extremity wound #2 chest pain, atypical, acute coronary event ruled out #3 history of severe aortic stenosis status post TAVR #4 chronic diastolic congestive heart failure, ejection fraction 55% #5 hypertension #6 hyperlipidemia #7 COPD #8 mild nonobstructive CAD Plan: From cardiology's perspective dictations were reviewed and we will continue the same. From our standpoint she is stable for discharge home once cleared by primary. At this time we will follow the patient on an as-needed basis. She'll follow-up with an outpatient in the office with Dr. Ayala. SYSTEM DESIGNER note has been reviewed, I agree with a documented findings and plan of care. Patient was seen and examined.
--- NOTE | 2021-06-11 12:53 | XR ---
EXAMINATION TYPE: XR chest 1V DATE OF EXAM: 06/11/2021 COMPARISON: 06/09/2021 HISTORY: Chest pain TECHNIQUE: Single frontal view of the chest is obtained. FINDINGS: Bilateral lower lobe infiltrate with small effusion. Postsurgical change involving the aor ta. Scoliosis and degenerative changes spine. Diffuse osteopenia. Atherosclerotic change aorta. Surgi octavio clips in the right axilla. Underlying COPD noted. No pneumothorax. IMPRESSION: 1. Bilateral infiltrate and pleural effusion similar to the prior exam. 2. COPD.
--- NOTE | 2021-06-11 13:49 | P.PN ---
Subjective Progress Note Date: 06/11/21 Patient was a pleasant 85-year-old female was brought in for increasing swelling or redness in the cellulitis of the right lower extremity along with stage II ulcer. Patient lives at an assisted living and patient will need more than assisted living as per the family, patient's right lower extremity wound is being managed as an outpatient which she has for 8 weeks. Patient does have a history of aortic stenosis status post TAVR, had an EF of around 40 with 50% with global hypokinesia patient does have bilateral lower extremity edema. Patient is also hyponatremic. Probably hypervolemic hyponatremia. Patient doesn't have any fever chills patient is alert oriented 2 unable to provide any good history. Patient apparently was comparing of chest pain is well because of which troponin was done which was negative EKG showed sinus rhythm without any acute ST-T wave changes. Denied any nausea vomiting. blood pressure is bit elevated to 180/73. 06/10/2021 Patient's hyponatremia improved with IV Lasix patient was subsequently switched to oral Lasix which will be continued patient sick edema signal failure improved redness in the right leg a significant improved as well patient is being continued on ceftezolin cardiology evaluate the patient to go further intervention is being planned from cardiology perspective patient had a recent echocardiogram in month of February no repeat is being up and at this time. 06/11/2021 Patient is evaluated today on bedrest. Patient is able to ambulate, PT OT consultation. Patient denies any chest pain, cough, shortness of breath. Patient continues with mild lower extremity edema, improved as compared to yesterday. Patient initially came to the hospital with complaints of shortness of breath, she was evaluated by cardiology services who transition patient from IV Lasix to oral Lasix today. Patient has been cleared by cardiology services f or a follow-up with the office post discharge. Patient is being treated with IV cefazolin for a ulceration to her right lower extremity with associated cellulitis. Patient has been being treated with this outpatient, and has failed therapy this is an ongoing for a total of 8 weeks. Final cultures are pending. Patient will be discharged to rehabilitation services when medically stable. Patient had a chest x-ray today which revealed bilateral infiltrate and pleural effusion similar to the prior exam, COPD. Patient denies any nausea, vomiting, diarrhea. Patient has remained afebrile, heart rate 80s sinus rhythm, blood pressure 125/71, 93% room air. Tylenol as needed for pain. Review of systems: Unable to obtain as patient is confused All inpatient medications were reviewed and appropriate changes in these medications as dictated in the interval history and assessment and plan. PHYSICAL EXAMINATION: GENERAL: The patient is alert and oriented x3, not in any acute distress. Well developed, well nourished. HEENT: Pupils are round and equally reacting to light. EOMI. No scleral icterus. No conjunctival pallor. Normocephalic, atraumatic. No pharyngeal erythema. No thyromegaly. CARDIOVASCULAR: S1 and S2 present. No murmurs, rubs, or gallops. PULMONARY: Chest is clear to auscultation, no wheezing or crackles. ABDOMEN: Soft, nontender, nondistended, normoactive bowel sounds. No palpable organomegaly. MUSCULOSKELETAL: No joint swelling or deformity. EXTREMITIES: No cyanosis, clubbing, patient does have bilateral lower extremity edema NEUROLOGICAL: Gross neurological examination did not reveal any focal deficits. SKIN: Significant redness in bilateral lower extremity is but there is local is of temperature in the right lower extremity along with skin breakdown and stage II large ulcer in the posterior aspect of the right leg. Assessment and plan -Cellulitis of the right lower extremity: Patient is on started on cefepime and infectious disease will be consulted wound care evaluated the patient. Blood cultures are negative at this time. - chest pain: Cardiology evaluated the patient troponins are negative ruled out acute current syndromes cardiology has signed off -Bilateral lower extremity edema part of which is peripheral edema patient does have congestive heart failure as well patient had EF of around 45- 50% chronic systolic dysfunction. Improved peripheral edema patient was switched to oral Lasix -Congestive heart failure chronic diastolic and systolic dysfunction with mild acute exacerbation -History of aortic stenosis status post aortic replacement -Hypervolemic hyponatremia improved with IV Lasix - history of coronary artery disease -Hypertension uncontrolled elevated patient was started on NAN inhibitor -COPD without any acute exacerbation -Sleep apnea -hypothyroidism -Depression DVT prophylaxis:. Lovenox Physical therapy is recommending subacute rehab on discharge, patient and family are in agreement with this plan. Patient has been downgraded today to the medical surgical floor with telemetry monitoring. Once cultures are finalized, antibiotics per infectious disease patient may be discharged, plan is for tomorrow. Objective - Vital Signs Vital signs: Vital Signs Temp 99 F 08/12/21 08:00 Pulse 84 06/11/21 12:50 Resp 18 06/11/21 08:00 BP 125/71 06/11/21 08:00 Pulse Ox 92 L 06/11/21 08:00 Intake & Output 06/10/21 06/11/21 06/11/21 18:59 06:59 18:59 Intake Total 120 Output Total 300 850 Balance -300 -850 120 Weight 71 kg Intake: Oral 120 Output: Urine 300 850 - Labs CBC & Chem 7: 06/10/21 07:24 06/10/21 07:24 Labs: Microbiology - Last 24 Hours (Table) 06/09/21 16:07 Gram Stain - Preliminary Foot - Right Wound Culture - Preliminary Gram Neg Bacilli 06/09/21 16:07 Blood Culture - Preliminary Blood No Growth after 24 hours Assessment and Plan Time with Patient: Greater than 30
[2021-06-11] MEDS: ESCITALOPRAM 20 MG TAB PO SCH (14:00)
--- NOTE | 2021-06-11 15:57 | PN ---
PROGRESS NOTE DATE OF SERVICE: 06/11/2021 REASON FOR FOLLOWUP: Right lower extremity wound and cellulitis. INTERVAL HISTORY: Patient is afebrile. The patient is breathing comfortably. Patient denies having any chest pain. No shortness of breath, cough, abdominal pain, or any worsening pain to the lower extremity. PHYSICAL EXAMINATION: Blood pressure 125/71 with a pulse of 78, temperature 99, she is 92% on room air. General description is an elderly female lying in bed in no distress. Respiratory system: Unlabored breathing, clear to auscultation anteriorly. Heart S1, S2. Regular rate and rhythm. Abdomen soft, no tenderness. Right leg is currently dressed. No drainage on the dressing. LABS: Hemoglobin is 10.1, white count 8.7, BUN of 19, creatinine 0.6. Wound culture showing a Gram-negative bacilli. DIAGNOSTIC IMPRESSION AND PLAN: Patient with right lower extremity wound with secondary cellulitis. Culture now showing a Gram-negative. The patient's Cefazolin switched over to cefepime while waiting for the ID sensitive to this pathogen. Discharge antibiotics based on the culture report. Continue supportive care. MMODL / IJN: [id number] /
[2021-06-11] MEDS: FERROUS SULFATE 325 MG TAB PO SCH (16:03)
[2021-06-11] MEDS: CHOLECALCIFEROL 25 MCG (1000 IU) TABLET PO SCH (16:03)
[2021-06-11] MEDS: GABAPENTIN 100 MG CAP PO SCH (16:03)
[2021-06-11] MEDS: ATORVASTATIN 20 MG TAB PO SCH (16:03)
[2021-06-11] MEDS: CALCIUM CARB-VIT D 500 MG-5 MCG TAB PO SCH (16:03)
[2021-06-11] MEDS: MIRABEGRON 25 MG PO SCH (18:07)
[2021-06-11] MEDS: CEFEPIME 2 GM in SODIUM CHLORIDE 0.9% 100 ML IVPB SCH (20:47)
[2021-06-11] MEDS: MUPIROCIN 2% OINT 22 GM TUBE TOPICAL SCH (20:47)
[2021-06-11 21:52] VITALS: RESP 16
[2021-06-12] MEDS: IPRATROPIUM-ALBUTEROL 3 ML NEB INHALATION SCH ×2 (08:21→14:16)
[2021-06-12] MEDS: SYMBICORT 160-4.5 MCG INHALER INHALATION SCH (08:21)
[2021-06-12] MEDS: MIRABEGRON 25 MG PO SCH (08:24)
[2021-06-12] MEDS: LOSARTAN 50 MG TAB PO SCH (08:27)
[2021-06-12] MEDS: CEFEPIME 2 GM in SODIUM CHLORIDE 0.9% 100 ML IVPB SCH (08:27)
[2021-06-12] MEDS: MULTIVITAMINS, THERA 1 EACH TAB PO SCH (08:27)
[2021-06-12] MEDS: POTASSIUM CHLORIDE ER 10 MEQ TAB.ER.PRT PO SCH (08:27)
[2021-06-12] MEDS: METOPROLOL SUCCINATE (ER) 25 MG TAB.ER.24H PO SCH (08:27)
[2021-06-12] MEDS: FUROSEMIDE 20 MG TAB PO SCH (08:27)
[2021-06-12] MEDS: LEVOTHYROXINE 100 MCG TAB PO SCH (08:27)
[2021-06-12] MEDS: ASPIRIN 81 MG PO SCH (08:27)
[2021-06-12] MEDS: CLOPIDOGREL 75 MG TAB PO SCH (08:27)
[2021-06-12] MEDS: FAMOTIDINE 20 MG TAB PO SCH (08:27)
[2021-06-12] MEDS: ENOXAPARIN 40 MG/0.4 ML SYRINGE SQ SCH (08:27)
--- NOTE | 2021-06-12 13:04 | P.DS ---
Providers Date of admission: 06/09/21 15:16 Attending physician: Toma Page Consults: 06/09/21 16:01 Consult Physician Routine Consulting Provider: Veronica Gee Consult Reason/Comments: cellulitis Do you want consulting provider notified?: Yes [facility] Course: Final diagnoses -Cellulitis of the right lower extremity: Patient is on started on cefepime and infectious disease will be consulted. Cultures cellulitis, patient will complete oral Cipro on discharge. Blood cultures are negative at this time. - chest pain: Cardiology evaluated the patient troponins are negative ruled out acute current syndromes cardiology has signed off -Bilateral lower extremity edema part of which is peripheral edema patient does have congestive heart failure as well patient had EF of around 45- 50% chronic systolic dysfunction. Improved peripheral edema patient was switched to oral Lasix -Congestive heart failure chronic diastolic and systolic dysfunction with mild acute exacerbation, improved with Lasix patient was switched to oral -History of aortic stenosis status post aortic replacement -Hypervolemic hyponatremia improved with IV Lasix - history of coronary artery disease -Hypertension uncontrolled elevated patient was started on NAN inhibitor -COPD without any acute exacerbation -Sleep apnea -hypothyroidism -Depression DVT prophylaxis:. Lovenox Discharge disposition Patient is discharged to [facility] for rehabilitation services in stable condition. Patient has a medically cleared for transfer. Patient will complete a course of antibiotics with oral Cipro, and we'll follow up with wound care. Vital signs are stable today and patient is agreeable with plan of care. Hospital course Patient was a pleasant 85-year-old female was brought in for increasing swelling or redness in the cellulitis of the right lower extremity along with stage II ulcer. Patient lives at an assisted living and patient will need more than assisted living as per the family, patient's right lower extremity wound is being managed as an outpatient which she has for 8 weeks. Patient does have a history of aortic stenosis status post TAVR, had an EF of around 40 with 50% with global hypokinesia patient does have bilateral lower extremity edema. Patient is also hyponatremic. Probably hypervolemic hyponatremia. Patient doesn't have any fever chills patient is alert oriented 2 unable to provide any good history. Patient apparently was comparing of chest pain is well because of which troponin was done which was negative EKG showed sinus rhythm without any acute ST-T wave changes. Denied any nausea vomiting. blood pressure is bit elevated to 180/73. Patient was started in IV cefepime as admission with cultures taken. Patient is being followed by ID. Cultures finalized today which revealed Pseudomonas, culture and sensitivities were reviewed, patient will be discharged on oral Cipro 500 mg twice a day for the next 7 days. Patient had an x-ray done of her right foot, no acute fracture or dislocation. X-ray of her tibia fibula, was negative for any acute osseous abnormality. Patient will be discharged to [facility] for wound care, rehab. All medications have been resumed as appropriate. Patient was also revealed by cardiology services as admission. Acute coronary syndrome has been ruled out, patient denies any chest pain, short of breath, palpitations, dizziness, patient was started on losartan this admission for hypertension. Her blood pressure has improved her level today is 132/75, heart rate sinus rhythm 78. Patient has a mild leukocytosis on admission at 11.1 , has been resolved to 8.7 today we'll recheck in a couple days. Patient's cholesterol panel this admission was within normal limits, cholesterol 118, LDL 48, HDL 54. Troponins were negative 3. Patient can follow-up with infectious disease, cardiology, wound care. Please see medication reconciliation for list of current medications. Patient Condition at Discharge: Fair Plan - Discharge Summary New Discharge Prescriptions: New Aspirin 81 mg PO DAILY chew Famotidine [Pepcid] 20 mg PO DAILY tab Ciprofloxacin HCl [Cipro] 500 mg PO BID 7 Days #14 tab Losartan [Cozaar] 50 mg PO DAILY #0 tab Continue Levothyroxine Sodium [Synthroid] 100 mcg PO DAILY@0800 Multivitamins, Thera [Multivitamin (formulary)] 1 tab PO DAILY@0800 Ferrous Sulfate [Iron (65 MG Elemental)] 325 mg PO DAILY@1700 Meloxicam [Mobic] 15 mg PO DAILY@0800 Furosemide [Lasix] 20 mg PO DAILY@0800 Albuterol Nebulized [Ventolin Nebulized] 2.5 mg INHALATION RT-TID Budesonide-Formot 160-4.5 Mcg [Symbicort 160-4.5 Mcg Inhaler] 1 puff INHALATION RT-BID@0800,1700 Potassium Chloride [Klor-Con 10] 10 meq PO DAILY@0800 Nystatin 100,000 Unit/gm Powd [Mycostatin Powder] 1 applic TOPICAL BID PRN PRN Reason: Rash Metoprolol Succinate [Toprol XL] 25 mg PO DAILY@0800 Diphenoxylate HCl/Atropine [Lomotil 2.5-0.025 mg Tablet] 1 tab PO BID PRN PRN Reason: Loose Stool Clopidogrel [Plavix] 75 mg PO DAILY@0800 Atorvastatin [Lipitor] 20 mg PO DAILY@1700 Albuterol Inhaler [Ventolin Hfa Inhaler] 2 puff INHALATION RT-Q4H PRN PRN Reason: Shortness Of Breath Vit C/E/Zn/Coppr/Lutein/Zeaxan [Preservision Areds 2 Softgel] 2 cap PO EREN Y@0800 Cetirizine HCl [Zyrtec] 10 mg PO DAILY@0800 Calcium Carbonate/Vitamin D3 [Calcium 600 mg-D3 20 mcg (800 unit)] 1 tab PO DAILY@1700 Cholecalciferol (Vitamin D3) [Vitamin D3 (125 MCG = 5,000 IU)] 125 mcg PO DAILY@1700 Escitalopram [Lexapro] 20 mg PO DAILY@1300 Melatonin 10 mg PO HS@2000 ALPRAZolam [Xanax] 0.25 mg PO BID PRN PRN Reason: Anxiety Meclizine HCl 25 mg PO TID PRN PRN Reason: DIZZINESS Alie-C 1 tab PO DAILY@1700 Super Vitamin B Complex 1 tab PO DAILY@0800 Gabapentin [Neurontin] 100 mg PO DAILY@1700 Ipratropium Nebulized [Atrovent Nebulized 0.2 MG/ML] 0.5 mg INHALATION RT-TID L.acidoph,Paracasei, B.lactis [Probiotic] 1 cap PO DAILY@1700 PRN PRN Reason: while on antibiotic Mirabegron [Myrbetriq] 25 mg PO DAILY@0800 Mupirocin 2% Oint [Bactroban 2% Oint] 1 applic TOPICAL HS@2000 Bismuth Subsalicylate [Pepto-Bismol] 262 - 524 mg PO Q6H PRN PRN Reason: UPSET STOMACH Acetaminophen Tab [Tylenol] 500 mg PO Q4H PRN PRN Reason: Pain Dextromethorphan Polistirex [Delsym] 60 ml PO Q12H PRN PRN Reason: Cough [place] Gummies 2 tab PO Q6H PRN PRN Reason: Heartburn Discharge Medication List Levothyroxine Sodium [Synthroid] 100 mcg PO DAILY@0803/07/14 [History] Multivitamins, Thera [Multivitamin (formulary)] 1 tab PO DAILY@0803/07/14 [History] Ferrous Sulfate [Iron (65 MG Elemental)] 325 mg PO DAILY@17002/23/18 [History] Meloxicam [Mobic] 15 mg PO DAILY@0802/23/18 [History] Furosemide [Lasix] 20 mg PO DAILY@0803/15/18 [History] Albuterol Nebulized [Ventolin Nebulized] 2.5 mg INHALATION RT-TID 06/08/18 [History] Budesonide-Formot 160-4.5 Mcg [Symbicort 160-4.5 Mcg Inhaler] 1 puff INHALATION RT-BID@0800,1700 06/08/18 [History] Albuterol Inhaler [Ventolin Hfa Inhaler] 2 puff INHALATION RT-Q4H PRN 09/20/20 [History] Atorvastatin [Lipitor] 20 mg PO DAILY@169909/20/20 [History] Cetirizine HCl [Zyrtec] 10 mg PO DAILY@79909/20/20 [History] Clopidogrel [Plavix] 75 mg PO DAILY@79909/20/20 [History] Diphenoxylate HCl/Atropine [Lomotil 2.5-0.025 mg Tablet] 1 tab PO BID PRN 09/20/20 [History] Metoprolol Succinate [Toprol XL] 25 mg PO DAILY@0809/20/20 [History] Nystatin 100,000 Unit/gm Powd [Mycostatin Powder] 1 applic TOPICAL BID PRN 09/20/20 [History] Potassium Chloride [Klor-Con 10] 10 meq PO DAILY@79909/20/20 [History] Vit C/E/Zn/Coppr/Lutein/Zeaxan [Preservision Areds 2 Softgel] 2 cap PO DAILY@0800 09/20/20 [History] ALPRAZolam [Xanax] 0.25 mg PO BID PRN 06/09/21 [History] Acetaminophen Tab [Tylenol] 500 mg PO Q4H PRN 06/09/21 [History] [place] Gummies 2 tab PO Q6H PRN 06/09/21 [History] Bismuth Subsalicylate [Pepto-Bismol] 262 - 524 mg PO Q6H PRN 06/09/21 [History] Calcium Carbonate/Vitamin D3 [Calcium 600 mg-D3 20 mcg (800 unit)] 1 tab PO DAILY@17006/09/21 [History] Cholecalciferol (Vitamin D3) [Vitamin D3 (125 MCG = 5,000 IU)] 125 mcg PO DAILY@17006/09/21 [History] Dextromethorphan Polistirex [Delsym] 60 ml PO Q12H PRN 06/09/21 [History] Escitalopram [Lexapro] 20 mg PO DAILY@1300 06/09/21 [History] Alie-C 1 tab PO DAILY@169906/09/21 [History] Gabapentin [Neurontin] 100 mg PO DAILY@169906/09/21 [History] Ipratropium Nebulized [Atrovent Nebulized 0.2 MG/ML] 0.5 mg INHALATION RT-TID 06/09/21 [History] L.acidoph,Paracasei, B.lactis [Probiotic] 1 cap PO DAILY@1700 PRN 06/09/21 [History] Meclizine HCl 25 mg PO TID PRN 06/09/21 [History] Melatonin 10 mg PO HS@199906/09/21 [History] Mirabegron [Myrbetriq] 25 mg PO DAILY@79906/09/21 [History] Mupirocin 2% Oint [Bactroban 2% Oint] 1 applic TOPICAL HS@199906/09/21 [History] Super Vitamin B Complex 1 tab PO DAILY@79906/09/21 [History] Aspirin 81 mg PO DAILY chew 06/12/21 [Rx] Ciprofloxacin HCl [Cipro] 500 mg PO BID 7 Days #14 tab 06/12/21 [Rx] Famotidine [Pepcid] 20 mg PO DAILY tab 06/12/21 [Rx] Losartan [Cozaar] 50 mg PO DAILY #0 tab 06/12/21 [Rx] Follow up Appointment(s)/Referral(s): Maury Ayala MD [STAFF PHYSICIAN] - 1 Week Torey Manzanares DO [Primary Care Provider] - 1-2 days Veronica Gee MD [STAFF PHYSICIAN] - 1 Week Ambulatory/Diagnostic Orders: Basic Metabolic Panel [LAB.AMB] Time Frame: 2 Days, Location: None Selected Complete Blood Count w/diff [LAB.AMB] Time Frame: 2 Days, Location: None Selected Discharge Disposition: TRANSFER TO SNF/ECF
[2021-06-12 13:05] VITALS: BP 127/74; PULSE 74; TEMP 98
[2021-06-12] MEDS: ESCITALOPRAM 20 MG TAB PO SCH (13:31)
--- NOTE | 2021-06-12 16:03 | PN ---
PROGRESS NOTE DATE OF SERVICE: 06/12/2021 REASON FOR FOLLOWUP: Right lower extremity wound and cellulitis. INTERVAL HISTORY: Patient is afebrile. The patient is breathing comfortably. Still complaining of pain to the right leg but no worsening. No chest pain, shortness of breath or cough. No abdominal pain or diarrhea. PHYSICAL EXAMINATION: Blood pressure is 132/75, pulse of 78, temperature 97.4. She is 94% on room air. General description is an elderly female lying in bed in no distress. Respiratory system: Unlabored breathing, clear to auscultation anteriorly. Heart: S1, S2. Regular rate and rhythm. Abdomen: Soft, no tenderness. Right leg wound decreased in size. No significant surrounding redness or drainage. LABS: Hemoglobin is 10.1, white count 8.7. Wound culture with Pseudomonas. DIAGNOSTIC IMPRESSION AND PLAN: Patient with right lower extremity wound with secondary cellulitis. Overall improvement on cefepime. Patient to finish therapy with oral Cipro. Local care with Aquacel silver dressing. Close outpatient followup. MMODL / IJN: [id number] /
[2021-06-12] MEDS ORDERED: GABAPENTIN 100 MG CAP PO SCH (17:00)
== END 2021-06-12 15:45 | DRG 602 ==
LOC: EC 10:22 → 3SCARD 15:16 → 5NMEDONC 06-11 21:47
PROVIDERS: ADMIT Internal Medicine; ATTEND Internal Medicine
DX: L03.115 Cellulitis of right lower limb (principal); I50.43 Acute on chronic combined systolic (congestive) and diastolic (congestive) heart failure; E87.1 Hypo-osmolality and hyponatremia; Z16.24 Resistance to multiple antibiotics; E03.9 Hypothyroidism, unspecified; L03.116 Cellulitis of left lower limb; E78.5 Hyperlipidemia, unspecified; F03.90 Unspecified dementia, unspecified severity, without behavioral disturbance, psychotic disturbance, mood disturbance, and anxiety; F32.9 Major depressive disorder, single episode, unspecified; F41.9 Anxiety disorder, unspecified; G47.30 Sleep apnea, unspecified; I11.0 Hypertensive heart disease with heart failure; I25.10 Atherosclerotic heart disease of native coronary artery without angina pectoris; I35.0 Nonrheumatic aortic (valve) stenosis; J44.9 Chronic obstructive pulmonary disease, unspecified; Z79.02 Long term (current) use of antithrombotics/antiplatelets; Z79.1 Long term (current) use of non-steroidal anti-inflammatories (NSAID); Z79.51 Long term (current) use of inhaled steroids; Z79.890 Hormone replacement therapy; Z79.899 Other long term (current) drug therapy; Z82.49 Family history of ischemic heart disease and other diseases of the circulatory system; Z85.3 Personal history of malignant neoplasm of breast; Z87.891 Personal history of nicotine dependence; Z90.11 Acquired absence of right breast and nipple; Z90.710 Acquired absence of both cervix and uterus; Z95.2 Presence of prosthetic heart valve; Z96.653 Presence of artificial knee joint, bilateral; K21.9 Gastro-esophageal reflux disease without esophagitis; K43.2 Incisional hernia without obstruction or gangrene; M19.90 Unspecified osteoarthritis, unspecified site
CPT/HCPCS: 36415; 71045; 71046; 80048; 80053; 80061; 83605; 83735; 83880; 84484; 85025; 85027; 85610; 85730; 87040; 87070; 87075; 87077; 87186; 87205; 93005; 94640

== ENCOUNTER 2021-07-13 16:27 | Inpatient (IN) | payer MEDICARE ==
[2021-07-13] MEDS ORDERED: SODIUM CHLORIDE 0.9% 1,000 ML IV STA (16:43)
--- NOTE | 2021-07-13 16:47 | ED ---
General Adult HPI - General Chief complaint: Fall Stated complaint: Fall Time Seen by Provider: 07/13/21 16:30 Source: patient, EMS, RN notes reviewed Mode of arrival: EMS Limitations: no limitations - History of Present Illness Initial comments: Patient is a pleasant 85-year-old female presenting to the emergency department following a fall. Incident occurred around 9 this morning. Patient was able to get up on her own. Patient did strike her head on the refrigerator. No loss of consciousness. Patient is on Plavix. Patient does fall frequently similar to this because of balance problems, chronic. Patient also has some discomfort of her abdomen and questions if she could've hit her abdomen. Patient states discomfort is mild at this time and does not need any pain medication. - Related Data Home Medications Medication Instructions Recorded Confirmed Levothyroxine Sodium [Synthroid] 100 mcg PO DAILY@0800 03/07/14 07/13/21 Multivitamins, Thera [Multivitamin 1 tab PO DAILY@0800 03/07/14 07/13/21 (formulary)] Ferrous Sulfate [Iron (65 MG 325 mg PO DAILY@1700 02/23/18 07/13/21 Elemental)] Meloxicam [Mobic] 15 mg PO DAILY@0800 02/23/18 07/13/21 Furosemide [Lasix] 20 mg PO DAILY@0800 03/15/18 07/13/21 Albuterol Nebulized [Ventolin 2.5 mg INHALATION RT-TID@,,06/08/18 1 Nebulized] Budesonide-Formot 160-4.5 Mcg 1 puff INHALATION RT-BID@0800,1700 06/08/18 07/13/21 [Symbicort 160-4.5 Mcg Inhaler] Albuterol Inhaler [Ventolin Hfa 2 puff INHALATION RT-Q4H PRN 09/20/20 07/13/21 Inhaler] Atorvastatin [Lipitor] 20 mg PO DAILY@1700 09/20/20 07/13/21 Cetirizine HCl [Zyrtec] 10 mg PO DAILY@0800 09/20/20 07/13/21 Clopidogrel [Plavix] 75 mg PO DAILY@0800 09/20/20 07/13/21 Diphenoxylate HCl/Atropine 1 tab PO BID PRN 09/20/20 07/13/21 [Lomotil 2.5-0.025 mg Tablet] Metoprolol Succinate [Toprol XL] 25 mg PO DAILY@0800 09/20/20 07/13/21 Nystatin 100,000 Unit/gm Powd 1 applic TOPICAL BID PRN 09/20/20 07/13/21 [Mycostatin Powder] Potassium Chloride [Klor-Con 10 ER] 10 meq PO DAILY@0800 09/20/20 07/13/21 Vit C/E/Zn/Coppr/Lutein/Zeaxan 2 cap PO DAILY@0800 09/20/20 07/13/21 [Preservision Areds 2 Softgel] Acetaminophen Tab [Tylenol] 500 mg PO Q4-6H PRN 06/09/21 07/13/21 Pilar-Corydon Gummies 2 tab PO Q6H PRN 06/09/21 07/13/21 Bismuth Subsalicylate 262 - 524 mg PO Q6H PRN 06/09/21 07/13/21 [Pepto-Bismol] Calcium Carbonate/Vitamin D3 1 tab PO DAILY@1700 06/09/21 07/13/21 [Calcium 600 mg-D3 20 mcg (800 unit)] Cholecalciferol (Vitamin D3) 125 mcg PO DAILY@1700 06/09/21 07/13/21 [Vitamin D3 (125 MCG = 5,000 IU)] Dextromethorphan Polistirex 60 mg PO Q12H PRN 06/09/21 07/13/21 [Delsym] Escitalopram [Lexapro] 20 mg PO DAILY@1300 06/09/21 07/13/21 Ipratropium Nebulized [Atrovent 0.5 mg INHALATION RT-TID@,,06/09/21 07/13/21 Nebulized 0.2 MG/ML] L.acidoph,Paracasei, B.lactis 1 cap PO DAILY@1700 PRN 06/09/21 07/13/21 [Probiotic] Meclizine HCl 25 mg PO TID PRN 06/09/21 07/13/21 Melatonin [Melatonin Disolving 10 mg PO HS@199906/09/21 07/13/21 Tablet] Mirabegron [Myrbetriq] 25 mg PO DAILY@0800 08/10/21 09/13/21 Mupirocin 2% Oint [Bactroban 2% 1 applic TOPICAL HS@199906/09/21 07/13/21 Oint] Super Vitamin B Complex 1 tab PO DAILY@79906/09/21 07/13/21 Famotidine [Pepcid] 20 mg PO DAILY@79907/13/21 07/13/21 Losartan [Cozaar] 50 mg PO DAILY@79907/13/21 07/13/21 Previous Rx's Medication Instructions Recorded ALPRAZolam [Xanax] 0.25 mg PO BID PRN #6 tab 06/12/21 Gabapentin [Neurontin] 100 mg PO DAILY@1700 #3 cap 06/12/21 Allergies Allergy/AdvReac Type Severity Reaction Status Date / Time codeine Allergy Unknown Itching, Verified 07/13/21 18:37 red skin iodine Allergy Unknown Itching, Verified 07/13/21 18:37 red skin Sulfa (Sulfonamide Allergy Unknown Itching, Verified 07/13/21 18:37 Antibiotics) red skin lactose AdvReac belching,ga Verified 07/13/21 18:37 s,bloating Review of Systems ROS Statement: Those systems with pertinent positive or pertinent negative responses have been documented in the HPI. ROS Other: All systems not noted in ROS Statement are negative. Constitutional: Denies: fever Eyes: Denies: eye pain ENT: Denies: ear pain Respiratory: Denies: cough Cardiovascular: Denies: chest pain Endocrine: Denies: fatigue Gastrointestinal: Reports: abdominal pain Musculoskeletal: Denies: back pain Skin: Denies: rash Neurological: Reports: as per HPI, headache. Denies: weakness, confusion Past Medical History Past Medical History: Cancer, Chest Pain / Angina, COPD, Dementia, GERD/Reflux, GI Bleed, Musculoskeletal Disorder, Osteoarthritis (OA), Sleep Apnea/CPAP/BIPAP, Thyroid Disorder Additional Past Medical History / Comment(s): INCISIONAL HERNIA(sx), STATES NO CHF, HAS GILLIAN LEG SWELLING, OCCASIONAL VERTIGO, HX NARCOLEPSY, HX DIVERTI CULITIS, HX OF SCOLIOSIS, HX ANEMIA, HX RT BREAST CA, CHEMO AND RADIATION 1998, AND SKIN CA,no cpap used,uti History of Any Multi-Drug Resistant Organisms: ESBL Date of last positivie culture/infection: 12/01/18 ESBL E. coli MDRO Source:: Urine Past Surgical History: Appendectomy, Back Surgery, Bowel Resection, Cholecystectomy, Hernia Repair, Hysterectomy, Joint Replacement, Tonsillectomy Additional Past Surgical History / Comment(s): GILLIAN KNEE REPLACEMENT, (R) mastectomy and lymph node removal 1998, GILLIAN GREAT TOENAILS REMOVED, GILLIAN CATARACT SX,02-28-18 laparoscopic robotic assisted repair of incisional hernia. Past Anesthesia/Blood Transfusion Reactions: No Reported Reaction Additional Past Anesthesia/Blood Transfusion Reaction / Comment(s): past blood transfusions-no reaction Past Psychological History: Anxiety, Depression Smoking Status: Former smoker Past Alcohol Use History: None Reported Past Drug Use History: None Reported - Past Family History Mother Additional Family Medical History / Comment(s): MOTHER OF TB WHEN PT WAS 6 MONTHS OLD Father Family Medical History: Coronary Artery Disease (CAD), Myocardial Infarction ([place]) Additional Family Medical History / Comment(s): Father 18 years ago from a heart attack. General Exam Limitations: no limitations General appearance: alert, in no apparent distress Head exam: Present: normocephalic Eye exam: Present: normal appearance, PERRL, EOMI. Absent: nystagmus ENT exam: Present: normal oropharynx Neck exam: Present: tenderness (C-collar present. Mild tenderness mid cervical spine) Respiratory exam: Present: normal lung sounds bilaterally Cardiovascular Exam: Present: regular rate, normal rhythm GI/Abdominal exam: Present: soft, tenderness (Mild diffuse tenderness) Extremities exam: Present: normal inspection, full ROM. Absent: tenderness Neurological exam: Present: alert, oriented X3, CN II-XII intact. Absent: motor sensory deficit Expanded Patient oriented to: Present: person, place, time Speech: Present: fluid speech Cranial nerves: EOM's Intact: Normal Motor strength exam: RUE: 5, LUE: 5, RLE: 5, LLE: 5 Eye Response: (4) open spontaneously Motor Response: (6) obeys commands Verbal Response: (5) oriented Psychiatric exam: Present: normal affect, normal mood Skin exam: Present: normal color Course Vital Signs 07/13/21 07/13/21 16:32 18:08 Temperature 98.6 F Pulse Rate 70 77 Respiratory 20 20 Rate Blood Pressure 164/87 162/70 O2 Sat by Pulse 99 99 Oximetry Medical Decision Making - Medical Decision Making Patient reevaluated. Patient family updated. Family states patient does not normally fall as normal. They also state patient has been drowsy today prior to the fall. Patient and family updated on results and plan. Family would like patient admitted. Case was discussed with practitioner Brianne Ladd, who will admit covering Dr. Haley Longoria. - Lab Data Result diagrams: 07/13/21 16:54 07/13/21 16:54 Lab Results 07/13/21 07/13/21 07/13/21 Range/Units 16:54 16:54 16:54 WBC 10.5 (3.8-10.6) k/uL RBC 2.99 L (3.80-5.40) m/uL Hgb 10.2 L (11.4-16.0) gm/dL Hct 30.8 L (34.0-46.0) % MCV 103.0 H D (80.0-100.0) fL MCH 34.1 (25.0-35.0) pg MCHC 33.1 (31.0-37.0) g/dL RDW 14.6 (11.5-15.5) % Plt Count 180 (150-450) k/uL MPV 8.0 Neutrophils % 83 % Lymphocytes % 8 % Monocytes % 5 % Eosinophils % 2 % Basophils % 1 % Neutrophils # 8.7 H (1.3-7.7) k/uL Lymphocytes # 0.8 L (1.0-4.8) k/uL Monocytes # 0.5 (0-1.0) k/uL Eosinophils # 0.2 (0-0.7) k/uL Basophils # 0.1 (0-0.2) k/uL Macrocytosis Slight PT 9.8 (9.0-12.0) sec INR 0.9 (<1.2) APTT 22.6 (22.0-30.0) sec Sodium 137 (137-145) mmol/L Potassium 4.7 (3.5-5.1) mmol/L Chloride 104 (98-107) mmol/L Carbon Dioxide 26 (22-30) mmol/L Anion Gap 7 mmol/L BUN 40 H (7-17) mg/dL Creatinine 1.75 H (0.52-1.04) mg/dL Est GFR (CKD-EPI)AfAm 30 (>60 ml/min/1.73 sqM) Est GFR (CKD-EPI)NonAf 26 (>60 ml/min/1.73 sqM) Glucose 104 H (74-99) mg/dL Calcium 9.5 (8.4-10.2) mg/dL Total Bilirubin 0.7 (0.2-1.3) mg/dL AST 33 (14-36) U/L ALT 15 (4-34) U/L Alkaline Phosphatase 68 (38-126) U/L Total Protein 6.6 (6.3-8.2) g/dL Albumin 3.7 (3.5-5.0) g/dL - Radiology Data Radiology results: report reviewed (Computed tomography scan of the spine shows spondylitic changes. No change from prior. Computed tomography scan of brain shows atrophy and hydrocephalus. No change from prior. Computed tomography scan of abdomen and pelvis shows mild pleural reaction and inability) lung bases. No evidence of tr) Disposition Clinical Impression: Renal insufficiency, Falls, Diverticulitis Disposition: ADMITTED IP TO THIS HOSP Is patient prescribed a controlled substance at d/c from ED?: No Referrals: Torey Manzanares DO [Primary Care Provider] - 1-2 days Decision Time: 19:31
[2021-07-13 17:03] LABS: Basophils # (A) 0.1 k/uL (0-0.2); Basophils % (A) 1 %; Eosinophils # (A) 0.2 k/uL (0-0.7); Eosinophils % (A) 2 %; HCT 30.8 % (34.0-46.0); HGB 10.2 gm/dL (11.4-16.0); Lymphocytes # (A) 0.8 k/uL (1.0-4.8); Lymphocytes % (A) 8 %; MCH 34.1 pg (25.0-35.0); MCHC 33.1 g/dL (31.0-37.0); Macrocytosis Slight; Monocytes # (A) 0.5 k/uL (0-1.0); Monocytes % (A) 5 %; Neutrophils # (A) 8.7 k/uL (1.3-7.7); Neutrophils % (A) 83 %; Platelet Count 180 k/uL (150-450); RBC 2.99 m/uL (3.80-5.40); RDW 14.6 % (11.5-15.5); WBC 10.5 k/uL (3.8-10.6)
[2021-07-13 17:15] LABS: Albumin 3.7 g/dL (3.5-5.0); Calcium 9.5 mg/dL (8.4-10.2); Potassium 4.7 mmol/L (3.5-5.1); Total Bilirubin 0.7 mg/dL (0.2-1.3); Total Protein 6.6 g/dL (6.3-8.2)
[2021-07-13 17:30] LABS: INR 0.9 (<1.2); Partial Thromboplastin Time 22.6 sec (22.0-30.0); Prothrombin Time 9.8 sec (9.0-12.0)
[2021-07-13] MEDS ORDERED: SODIUM CHLORIDE 0.9% 500 ML 500 ML IV STA (17:39)
--- NOTE | 2021-07-13 18:08 | CT ---
EXAMINATION TYPE: CT brain regan jiménez con DATE OF EXAM: 07/13/2021 COMPARISON: 05/24/2021 HISTORY: Fall. Pain CT DLP: 1329.1 mGycm Automated exposure control for dose reduction was used. There is cerebral cortical atrophy. There is enlargement of the ventricles. There is hypodensity in t he periventricular white matter. There is no mass effect nor midline shift. There is no sign of intra cranial hemorrhage. The calvarium is intact. Skull base is intact. There is normal aeration of the ma stoid sinuses. There is straightening of the cervical spine. There is a slight kyphotic curvature. There is moderate narrowing of the disc spaces from C4 to C7. Facet joints are intact. There is multilevel facet arthr opathy. There is minimal subluxation at C3-4 and C4-5. IMPRESSION: Multilevel cervical spondylotic changes. No change compared to old exam. Cerebral atrophy and hydrocephalus. Chronic small vessel ischemia. No change compared to old exam. No acute intracranial abnormality.
--- NOTE | 2021-07-13 18:21 | CT ---
EXAMINATION TYPE: CT abdomen pelvis wo con DATE OF EXAM: 07/13/2021 COMPARISON: None HISTORY: Fall. CT DLP: 836.4 mGycm Automated exposure control for dose reduction was used. Images obtained without contrast from the diaphragm to the floor the pelvis. There is some mild atelectasis at the lung bases. There is minimal pleural thickening at the lung bas es. Heart appears enlarged. There is previous aortic valve surgery. There is intact liver and spleen. There is no sign of pancreatic mass. Stomach is intact. There is no adrenal mass. Kidneys have normal size. There is no hydronephrosis. Ureters are not dilat ed. There is no retroperitoneal adenopathy. Bladder distends smoothly. There is no inguinal hernia. There is no free fluid in the pelvis. There i s wall thickening of the sigmoid colon with numerous diverticula. There is no evidence of a bowel obstruction. There is no free air. There is no ascites. There is hyst erectomy. There is thoracolumbar dextroscoliosis deformity. There is no significant lumbar compressio n deformity. The bony pelvis is intact. Hip joints are intact. The lower ribs appear intact. IMPRESSION: There is some mild pleural reaction and atelectasis at the lung bases. Previous bowel surgery. No evidence of traumatic injury in the abdomen and pelvis. There is some mild sigmoid diverticulitis and extensive sigmoid diverticulosis.
[2021-07-13] MEDS ORDERED: NALOXONE 0.4 MG/ML 1 ML VIAL IV PRN (19:37)
[2021-07-13] MEDS ORDERED: MORPHINE SULFATE 4 MG/ML SYRINGE IV PRN (19:37)
[2021-07-13] MEDS ORDERED: ACETAMINOPHEN TAB 325 MG TAB PO PRN (19:37)
[2021-07-13] MEDS: traMADol 50 MG TAB PO PRN (20:14)
[2021-07-13] MEDS: AMPICILLIN-SULBACTAM 1.5 GM in SODIUM CHLORIDE 0.9% 50 ML IVPB SCH ×2 (20:30→23:50)
[2021-07-13] MEDS: SODIUM CHLORIDE 0.9% 1,000 ML IV SCH (20:31)
[2021-07-14] MEDS: traMADol 50 MG TAB PO PRN (02:32)
[2021-07-14 06:16] LABS: African American GFR (CKD) 43 (>60 ml/min/1.73 sqM); Anion Gap 6 mmol/L; Blood Urea Nitrogen 37 mg/dL (7-17); Calcium 8.4 mg/dL (8.4-10.2); Carbon Dioxide 27 mmol/L (22-30); Chloride 107 mmol/L (98-107); Glucose 83 mg/dL (74-99); Non-African American GFR(CKD) 37 (>60 ml/min/1.73 sqM); Potassium 4.3 mmol/L (3.5-5.1); Sodium 140 mmol/L (137-145)
[2021-07-14] MEDS: AMPICILLIN-SULBACTAM 1.5 GM in SODIUM CHLORIDE 0.9% 50 ML IVPB SCH ×3 (07:46→22:46)
[2021-07-14 09:37] LABS: HCT 27.8 % (37.2-46.3); HGB 8.4 g/dL (12.0-15.0); MCH 32.4 pg (27.0-32.0); MCHC 30.2 g/dL (32.0-37.0); MCV 107.3 fL (80.0-97.0); Mean Platelet Volume 10.8 fL (9.5-12.2); Platelet Count 142 X 10*3/uL (140-440); RBC 2.59 X 10*6/uL (4.10-5.20); RDW 14.7 % (11.5-14.5); WBC 8.19 X 10*3/uL (4.50-10.00)
[2021-07-14 10:27] LABS: Basophils # (A) 0.03 X 10*3/uL (0.00-0.10); Basophils % (A) 0.4 %; Eosinophils # (A) 0.18 X 10*3/uL (0.04-0.35); Eosinophils % (A) 2.2 %; Lymphocytes # (A) 0.88 X 10*3/uL (0.90-5.00); Lymphocytes % (A) 10.7 %; Macrocytosis (M) 2+; Monocytes % (A) 8.5 %; Neutrophils # (A) 6.37 X 10*3/uL (1.80-7.70); Neutrophils % (A) 77.8 %
[2021-07-14] MEDS: SODIUM CHLORIDE 0.9% 1,000 ML IV SCH ×2 (10:56→22:46)
[2021-07-14] MEDS ORDERED: traMADol 50 MG TAB PO PRN (11:23)
[2021-07-14] MEDS ORDERED: CALCIUM CARBONATE 500 MG CHEWABLE PO PRN (11:24)
[2021-07-14] MEDS ORDERED: MECLIZINE 25 MG TAB PO PRN (11:24)
[2021-07-14] MEDS ORDERED: NYSTATIN 100,000 UNIT/GM POWD 15 GM TOPICAL PRN (11:24)
[2021-07-14] MEDS ORDERED: ALBUTEROL HFA INHALER INHALATION PRN (11:24)
[2021-07-14] MEDS ORDERED: DEXTROMETHORPHAN POLISTIREX 30 MG/5 ML PO PRN (11:24)
[2021-07-14] MEDS ORDERED: ALBUTEROL NEBULIZED 2.5 MG/3 ML INHALATION SCH (13:00)
[2021-07-14] MEDS ORDERED: IPRATROPIUM 0.5 MG/2.5 ML NEBU INHALATION SCH (13:00)
[2021-07-14] MEDS: IPRATROPIUM-ALBUTEROL 3 ML NEB INHALATION SCH ×2 (13:17→20:53)
[2021-07-14] MEDS: ESCITALOPRAM 20 MG TAB PO SCH (13:28)
--- NOTE | 2021-07-14 14:15 | P.GSCN ---
History of Present Illness Consult date: 07/14/21 Requesting physician: Elin Holland History of present illness: CHIEF COMPLAINT: Fall, abdominal pain HISTORY OF PRESENT ILLNESS: This an 85-year-old female who presented to the emergency department yesterday evening after falling yesterday morning around 9 AM. Her past medical history includes breast cancer status post chemo and radiation, coronary artery disease on Plavix, COPD, dementia, GERD, previous GI bleed, musculoskeletal disorder, thyroid disorder, sleep apnea, and hydrocephalus. Surgical history includes appendectomy, bowel resection, lysis ectomy, hernia repair, hysterectomy, back surgery, joint replacement, and tonsillectomy. The patient states she did strike her head on the refrigerator with no loss of consciousness. The patient states she does often loses her balance and has frequent falls. Patient had also stated she had some abdominal discomfort and was not sure if she hit her abdomen. As part of her evaluation in the emergency department she underwent a CT of the abdomen and pelvis which showed some mild pleural reaction and atelectasis at the lung bases. Previous bowel surgery. No evidence of traumatic injury in the abdomen and pelvis. There is some mild sigmoid diverticulitis and extensive sigmoid diverticulosis. She also underwent a CT of the brain that showed multilevel cervical spondylitic changes. No change compared to old exam. Cerebral atrophy and hydrocephalus. Chronic small vessel ischemia. No change compared to old exam. No acute intracranial abnormality. The patient states she's had some abdominal discomfort in the lower left quadrant for the last 2-3 days. She denies any nausea or vomiting, denies any fever, diarrhea, or blood per rectum. Patient does have a history of diverticulitis in the past. Patient underwent incisional hernia repair by Dr. Don in February 2018 and underwent ileocolectomy and umbilical hernia repair in January 2017. On admission WBC 10.5 hemoglobin 10.2 platelet count 180,000, repeat labs today WBC 8.9 hemoglobin 8.4 platelet count 142,000 INR 0.9. PAST MEDICAL HISTORY: See list. PAST SURGICAL HISTORY: See list. MEDICATIONS: See list. ALLERGIES: See list. SOCIAL HISTORY: No illicit drug use. REVIEW OF SYSTEMS: CONSTITUTIONAL: Denies fever or chills. HEENT: Denies blurred vision, vision changes, or eye pain. Denies hemoptysis ENDOCRINE: Denies heat or cold intolerance. CARDIOVASCULAR: Denies chest pain or pressure. RESPIRATORY: No shortness of breath. GASTROINTESTINAL: Left upper quadrant pain Denies nausea or vomiting. NEURO: Denies history of seizures. Frequent falls. PSYCH: No depression or suicidal ideation HEMATOLOGIC: Denies bleeding disorders. LYMPHATIC: The patient denies any lumps and bumps around the neck. GENITOURINARY: Denies any blood in urine or increased urinary frequency. MUSCULOSKELETAL: Denies myalgias. Denies joint swelling. Denies decreased range of motion beyond patients baseline. SKIN: Denies pruitis. Denies rash. PHYSICAL EXAM: VITAL SIGNS: Reviewed GENERAL: Well-developed in no acute distress. HEENT: No sclera icterus. Extraocular movements grossly intact. Moist buccal mucosa. Head is atraumatic, normocephalic. NECK: Supple without lymphadenopathy. ABDOMEN: Soft. Nondistended. Mild left lower quadrant tenderness NEUROLOGIC: Alert and oriented.. Cranial nerves II through XII grossly intact. SKIN: Well perfused. Good skin turgor. LABORATORY DATA: WBC 8.19 hemoglobin 8.4 hematocrit 27.8 platelet count 142,000 INR 0.9 Sodium 140 potassium 4.3 BUN 37 and creatinine 1.32 glucose 83 albumin 3.7 IMAGING: CT of the abdomen and pelvis which showed some mild pleural reaction and atelectasis at the lung bases. Previous bowel surgery. No evidence of traumatic injury in the abdomen and pelvis. There is some mild sigmoid diverticulitis and extensive sigmoid diverticulosis. CT of the brain that showed multilevel cervical spondylitic changes. No change compared to old exam. Cerebral atrophy and hydrocephalus. Chronic small vessel ischemia. No change compared to old exam. No acute intracranial abnormality. ASSESSMENT: 1. Abdominal pain 2. Diverticulosis with mild diverticulitis per computed tomography scan of the abdomen and pelvis 3. Recent fall PLAN: - Clear liquid diet - Continue IV antibiotics - Protonix 40 mg daily for GI prophylaxis - Continue to hold Plavix and Mobic at this time - Repeat CBC in the a.m. - No plans on surgical intervention at this time, continue conservative management The impression and plan of care has been dictated as directed. I performed a history and examination of this patient, discussed the same with the dictator. I agree with the dictator's note ,documented as a scribe. Any additional findings or plans will be noted. Past Medical History Past Medical History: Cancer, Chest Pain / Angina, COPD, Dementia, GERD/Reflux, GI Bleed, Musculoskeletal Disorder, Osteoarthritis (OA), Sleep Apnea/CPAP/BIPAP, Thyroid Disorder Additional Past Medical History / Comment(s): INCISIONAL HERNIA(sx), STATES NO CHF, HAS GILLIAN LEG SWELLING, OCCASIONAL VERTIGO, HX NARCOLEPSY, HX DIVERTICULITI S, HX OF SCOLIOSIS, HX ANEMIA, HX RT BREAST CA, CHEMO AND RADIATION 1998, AND SKIN CA,no cpap used,uti History of Any Multi-Drug Resistant Organisms: ESBL Year Discovered:: 12/01/18 ESBL E. coli MDRO Source:: Urine Past Surgical History: Appendectomy, Back Surgery, Bowel Resection, Cholecystectomy, Hernia Repair, Hysterectomy, Joint Replacement, Tonsillectomy Additional Past Surgical History / Comment(s): GILLIAN KNEE REPLACEMENT, (R) mastectomy and lymph node removal 1998, GILLIAN GREAT TOENAILS REMOVED, GILLIAN CATARACT SX,02-28-18 laparoscopic robotic assisted repair of incisional hernia. Past Anesthesia/Blood Transfusion Reactions: No Reported Reaction Additional Past Anesthesia/Blood Transfusion Reaction / Comm: past blood tra nsfusions-no reaction Past Psychological History: Anxiety, Depression Additional Psychological History / Comment(s): Lives in [facility] Smoking Status: Former smoker Past Alcohol Use History: None Reported Additional Past Alcohol Use History / Comment(s): STARTED SMOKING 1943, QUIT 1979, 1/2PPD Past Drug Use History: None Reported - Past Family History Mother Additional Family Medical History / Comment(s): MOTHER OF TB WHEN PT WAS 6 MONTHS OLD Father Family Medical History: Coronary Artery Disease (CAD), Myocardial Infarction ([place]) Additional Family Medical History / Comment(s): Father 18 years ago from a heart attack. Medications and Allergies Home Medications Medication Instructions Recorded Confirmed Type Levothyroxine Sodium [Synthroid] 100 mcg PO DAILY@79903/07/14 07/13/21 History Multivitamins, Thera [Multivitamin 1 tab PO DAILY@79903/07/14 07/13/21 History (formulary)] Ferrous Sulfate [Iron (65 MG 325 mg PO DAILY@1700 02/23/18 07/13/21 History Elemental)] Meloxicam [Mobic] 15 mg PO DAILY@0802/23/18 07/13/21 History Furosemide [Lasix] 20 mg PO DAILY@0800 03/15/18 07/13/21 History Albuterol Nebulized [Ventolin 2.5 mg INHALATION RT-TID@06/08/18 07/13/21 History Nebulized] Budesonide-Formot 160-4.5 Mcg 1 puff INHALATION RT-BID@0800,1700 06/08/18 07/13/21 History [Symbicort 160-4.5 Mcg Inhaler] Albuterol Inhaler [Ventolin Hfa 2 puff INHALATION RT-Q4H PRN 09/20/20 07/13/21 History Inhaler] Atorvastatin [Lipitor] 20 mg PO DAILY@1700 09/20/20 07/13/21 History Cetirizine HCl [Zyrtec] 10 mg PO DAILY@0809/20/20 07/13/21 History Clopidogrel [Plavix] 75 mg PO DAILY@0800 09/20/20 07/13/21 History Diphenoxylate HCl/Atropine 1 tab PO BID PRN 09/20/20 07/13/21 History [Lomotil 2.5-0.025 mg Tablet] Metoprolol Succinate [Toprol XL] 25 mg PO DAILY@0800 09/20/20 07/13/21 History Nystatin 100,000 Unit/gm Powd 1 applic TOPICAL BID PRN 09/20/20 07/13/21 History [Mycostatin Powder] Potassium Chloride [Klor-Con 10 ER] 10 meq PO DAILY@0800 09/20/20 07/13/21 History Vit C/E/Zn/Coppr/Lutein/Zeaxan 2 cap PO DAILY@0800 09/20/20 07/13/21 History [Preservision Areds 2 Softgel] Acetaminophen Tab [Tylenol] 500 mg PO Q4-6H PRN 06/09/21 07/13/21 History Pilar-[place] Gummies 2 tab PO Q6H PRN 06/09/21 07/13/21 History Bismuth Subsalicylate 262 - 524 mg PO Q6H PRN 06/09/21 07/13/21 History [Pepto-Bismol] Calcium Carbonate/Vitamin D3 1 tab PO DAILY@1700 06/09/21 07/13/21 History [Calcium 600 mg-D3 20 mcg (800 unit)] Cholecalciferol (Vitamin D3) 125 mcg PO DAILY@1700 06/09/21 07/13/21 History [Vitamin D3 (125 MCG = 5,000 IU)] Dextromethorphan Polistirex 60 mg PO Q12H PRN 06/09/21 07/13/21 History [Delsym] Escitalopram [Lexapro] 20 mg PO DAILY@1300 06/09/21 07/13/21 History Ipratropium Nebulized [Atrovent 0.5 mg INHALATION RT-TID@,,06/09/21 07/13/21 History Nebulized 0.2 MG/ML] L.acidoph,Paracasei, B.lactis 1 cap PO DAILY@1700 PRN 06/09/21 07/13/21 History [Probiotic] Meclizine HCl 25 mg PO TID PRN 06/09/21 07/13/21 History Melatonin [Melatonin Disolving 10 mg PO HS@199906/09/21 07/13/21 History Tablet] Mirabegron [Myrbetriq] 25 mg PO DAILY@0806/09/21 07/13/21 History Mupirocin 2% Oint [Bactroban 2% 1 applic TOPICAL HS@199906/09/21 07/13/21 History Oint] Super Vitamin B Complex 1 tab PO DAILY@0806/09/21 07/13/21 History ALPRAZolam [Xanax] 0.25 mg PO BID PRN #6 tab 06/12/21 07/13/21 Rx Gabapentin [Neurontin] 100 mg PO DAILY@1700 #3 cap 06/12/21 07/13/21 Rx Famotidine [Pepcid] 20 mg PO DAILY@0807/13/21 07/13/21 History Losartan [Cozaar] 50 mg PO DAILY@79907/13/21 07/13/21 History Allergies Allergy/AdvReac Type Severity Reaction Status Date / Time codeine Allergy Unknown Itching, Verified 07/13/21 18:37 red skin iodine Allergy Unknown Itching, Verified 07/13/21 18:37 red skin Sulfa (Sulfonamide Allergy Unknown Itching, Verified 07/13/21 18:37 Antibiotics) red skin lactose AdvReac belching,ga Verified 07/13/21 18:37 s,bloating Surgical - Exam Vital Signs Temp Pulse Resp BP Pulse Ox 98.6 F 70 20 164/87 99 07/13/21 16:32 07/13/21 16:32 07/13/21 16:32 07/13/21 16:32 07/13/21 16:32 Results - Labs 07/14/21 05:25 07/14/21 05:25 Abnormal Lab Results - Last 24 Hours (Table) 07/13/21 07/13/21 07/14/21 Range/Units 16:54 16:54 05:25 RBC 2.99 L 2.59 L (3.80-5.40) m/uL Hgb 10.2 L 8.4 L (11.4-16.0) gm/dL Hct 30.8 L 27.8 L (34.0-46.0) % MCV 103.0 H D 107.3 H (80.0-100.0) fL MCH 32.4 H (27.0-32.0) pg MCHC 30.2 L (32.0-37.0) g/dL RDW 14.7 H (11.5-14.5) % Neutrophils # 8.7 H (1.3-7.7) k/uL Lymphocytes # 0.8 L 0.88 L (1.0-4.8) k/uL BUN 40 H (7-17) mg/dL Creatinine 1.75 H (0.52-1.04) mg/dL Glucose 104 H (74-99) mg/dL 07/14/21 Range/Units 05:25 RBC (3.80-5.40) m/uL Hgb (11.4-16.0) gm/dL Hct (34.0-46.0) % MCV (80.0-100.0) fL MCH (27.0-32.0) pg MCHC (32.0-37.0) g/dL RDW (11.5-14.5) % Neutrophils # (1.3-7.7) k/uL Lymphocytes # (1.0-4.8) k/uL BUN 37 H (7-17) mg/dL Creatinine 1.32 H (0.52-1.04) mg/dL Glucose (74-99) mg/dL Diabetes panel 07/13/21 07/14/21 Range/Units 16:54 05:25 Sodium 137 140 (137-145) mmol/L Potassium 4.7 4.3 (3.5-5.1) mmol/L Chloride 104 107 (98-107) mmol/L Carbon Dioxide 26 27 (22-30) mmol/L BUN 40 H 37 H (7-17) mg/dL Creatinine 1.75 H 1.32 H (0.52-1.04) mg/dL Glucose 104 H 83 (74-99) mg/dL Calcium 9.5 8.4 (8.4-10.2) mg/dL AST 33 (14-36) U/L ALT 15 (4-34) U/L Alkaline Phosphatase 68 (38-126) U/L Total Protein 6.6 (6.3-8.2) g/dL Albumin 3.7 (3.5-5.0) g/dL Calcium panel 07/13/21 07/14/21 Range/Units 16:54 05:25 Calcium 9.5 8.4 (8.4-10.2) mg/dL Albumin 3.7 (3.5-5.0) g/dL Pituitary panel 07/13/21 07/14/21 Range/Units 16:54 05:25 Sodium 137 140 (137-145) mmol/L Potassium 4.7 4.3 (3.5-5.1) mmol/L Chloride 104 107 (98-107) mmol/L Carbon Dioxide 26 27 (22-30) mmol/L BUN 40 H 37 H (7-17) mg/dL Creatinine 1.75 H 1.32 H (0.52-1.04) mg/dL Glucose 104 H 83 (74-99) mg/dL Calcium 9.5 8.4 (8.4-10.2) mg/dL Adrenal panel 07/13/21 07/14/21 Range/Units 16:54 05:25 Sodium 137 140 (137-145) mmol/L Potassium 4.7 4.3 (3.5-5.1) mmol/L Chloride 104 107 (98-107) mmol/L Carbon Dioxide 26 27 (22-30) mmol/L BUN 40 H 37 H (7-17) mg/dL Creatinine 1.75 H 1.32 H (0.52-1.04) mg/dL Glucose 104 H 83 (74-99) mg/dL Calcium 9.5 8.4 (8.4-10.2) mg/dL Total Bilirubin 0.7 (0.2-1.3) mg/dL AST 33 (14-36) U/L ALT 15 (4-34) U/L Alkaline Phosphatase 68 (38-126) U/L Total Protein 6.6 (6.3-8.2) g/dL Albumin 3.7 (3.5-5.0) g/dL
--- NOTE | 2021-07-14 15:48 | P.HPIM ---
History of Present Illness H&P Date: 07/14/21 This is a pleasant 85-year-old female who presented to the emergency department with weakness and frequent falls and dehydration. Patient has a past medical history of breast cancer, angina, chronic obstructive pulmonary disease, dementia, GERD, recent GI bleed, osteoarthritis, sleep apnea, thyroid disorder, multiple surgeries in the abdomen, history of diverticulitis. Patient states she has been having some left lower and right quadrant abdominal discomfort and decreased oral intake. Patient denies any difficulties in urination or burning with urination and denies any nausea or vomiting. In the ER patient had CT of the brain as her most recent fall she struck her head with no loss of c onsciousness showing cerebral atrophy and hydrocephalus with chronic small vessel ischemia and no changes compared to old exam with no intracranial abnormality noted. His with continued abdominal pain also underwent abdomen and pelvis CT showing some mild pleural reaction and atelectasis at the lung bases along with evidence of previous bowel surgery with no evidence of traumatic injury in the abdomen and pelvis with some mild sigmoid diverticulitis and extensive sigmoid diverticulosis. White blood count on admission was 10.5 with a hemoglobin of 10.2 and platelets were 180, sodium is 137 with a potassium 4.7, BUN is 40 and creatinine is elevated at 1.75. COVID-19 was negative. Patient w as started on gentle IV hydration of normal saline along with IV Unasyn and general surgery consulted. Will consult PT/OT for evaluation. Review of Systems Constitutional: Reports weakness Ears, nose, mouth and throat: Denies headache, Denies sore throat Cardiovascular: Denies chest pain, Denies shortness of breath Respiratory: Denies cough Gastrointestinal: Reports abdominal pain, Reports loss of appetite Genitourinary: Denies dysuria, Denies hematuria Musculoskeletal: Reports frequent falls, Reports gait dysfunction, Reports muscle weakness Integumentary: Denies pruritus, Denies rash Neurological: Denies numbness, Denies weakness Psychiatric: Denies anxiety, Denies depression Endocrine: Denies fatigue, Denies weight change Past Medical History Past Medical History: Cancer, Chest Pain / Angina, COPD, Dementia, GERD/Reflux, GI Bleed, Musculoskeletal Disorder, Osteoarthritis (OA), Sleep Apnea/CPAP/BIPAP, Thyroid Disorder Additional Past Medical History / Comment(s): INCISIONAL HERNIA(sx), STATES NO CHF, HAS GILLIAN LEG SWELLING, OCCASIONAL VERTIGO, HX NARCOLEPSY, HX DIVERTICULITIS, HX OF SCOLIOSIS, HX ANEMIA, HX RT BREAST CA, CHEMO AND RADIATION 1998, AND SKIN CA,no cpap used,uti History of Any Multi-Drug Resistant Organisms: ESBL Date of last positivie culture/infection: 12/01/18 ESBL E. coli MDRO Source:: Urine Past Surgical History: Appendectomy, Back Surgery, Bowel Resection, Cholecystectomy, Hernia Repair, Hysterectomy, Joint Replacement, Tonsillectomy Additional Past Surgical History / Comment(s): GILLIAN KNEE REPLACEMENT, (R) mastectomy and lymph node removal 1998, GILLIAN GREAT TOENAILS REMOVED, GILLIAN CATARACT SX,02-28-18 laparoscopic robotic assisted repair of incisional hernia. Past Anesthesia/Blood Transfusion Reactions: No Reported Reaction Additional Past Anesthesia/Blood Transfusion Reaction / Comment(s): past blood transfusions-no reaction Past Psychological History: Anxiety, Depression Additional Psychological History / Comment(s): Lives in [facility] Smoking Status: Former smoker Past Alcohol Use History: None Reported Additional Past Alcohol Use History / Comment(s): STARTED SMOKING 1943, QUIT 1979, 12PPD Past Drug Use History: None Reported - Past Family History Mother Additional Family Medical History / Comment(s): MOTHER OF TB WHEN PT WAS 6 MONTHS OLD Father Family Medical History: Coronary Artery Disease (CAD), Myocardial Infarction ([place]) Additional Family Medical History / Comment(s): Father 18 years ago from a heart attack. Medications and Allergies Home Medications Medication Instructions Recorded Confirmed Type Levothyroxine Sodium [Synthroid] 100 mcg PO DAILY@79903/07/14 07/13/21 History Multivitamins, Thera [Multivitamin 1 tab PO DAILY@79903/07/14 07/13/21 History (formulary)] Ferrous Sulfate [Iron (65 MG 325 mg PO DAILY@1700 02/23/18 07/13/21 History Elemental)] Meloxicam [Mobic] 15 mg PO DAILY@79902/23/18 07/13/21 History Furosemide [Lasix] 20 mg PO DAILY@79903/15/18 07/13/21 History Albuterol Nebulized [Ventolin 2.5 mg INHALATION RT-TID@07,,06/08/18 07/13/21 History Nebulized] Budesonide-Formot 160-4.5 Mcg 1 puff INHALATION RT-BID@0800,1700 0807/13/21 History [Symbicort 160-4.5 Mcg Inhaler] Albuterol Inhaler [Ventolin Hfa 2 puff INHALATION RT-Q4H PRN 09/20/20 07/13/21 History Inhaler] Atorvastatin [Lipitor] 20 mg PO DAILY@1700 09/20/20 07/13/21 History Cetirizine HCl [Zyrtec] 10 mg PO DAILY@0800 09/20/20 07/13/21 History Clopidogrel [Plavix] 75 mg PO DAILY@0800 09/20/20 07/13/21 History Diphenoxylate HCl/Atropine 1 tab PO BID PRN 09/20/20 07/13/21 History [Lomotil 2.5-0.025 mg Tablet] Metoprolol Succinate [Toprol XL] 25 mg PO DAILY@0800 09/20/20 07/13/21 History Nystatin 100,000 Unit/gm Powd 1 applic TOPICAL BID PRN 09/20/20 07/13/21 History [Mycostatin Powder] Potassium Chloride [Klor-Con 10 ER] 10 meq PO DAILY@0800 09/20/20 07/13/21 History Vit C/E/Zn/Coppr/Lutein/Zeaxan 2 cap PO DAILY@0800 09/20/20 07/13/21 History [Preservision Areds 2 Softgel] Acetaminophen Tab [Tylenol] 500 mg PO Q4-6H PRN 06/09/21 07/13/21 History Pilar-[place] Gummies 2 tab PO Q6H PRN 06/09/21 07/13/21 History Bismuth Subsalicylate 262 - 524 mg PO Q6H PRN 06/09/21 07/13/21 History [Pepto-Bismol] Calcium Carbonate/Vitamin D3 1 tab PO DAILY@169906/09/21 07/13/21 History [Calcium 600 mg-D3 20 mcg (800 unit)] Cholecalciferol (Vitamin D3) 125 mcg PO DAILY@1700 06/09/21 07/13/21 History [Vitamin D3 (125 MCG = 5,000 IU)] Dextromethorphan Polistirex 60 mg PO Q12H PRN 06/09/21 07/13/21 History [Delsym] Escitalopram [Lexapro] 20 mg PO DAILY@1300 06/09/21 07/13/21 History Ipratropium Nebulized [Atrovent 0.5 mg INHALATION RT-TID@,,06/09/21 07/13/21 History Nebulized 0.2 MG/ML] L.acidoph,Paracasei, B.lactis 1 cap PO DAILY@1700 PRN 06/09/21 07/13/21 History [Probiotic] Meclizine HCl 25 mg PO TID PRN 06/09/21 07/13/21 History Melatonin [Melatonin Disolving 10 mg PO HS@199906/09/21 07/13/21 History Tablet] Mirabegron [Myrbetriq] 25 mg PO DAILY@0806/09/21 07/13/21 History Mupirocin 2% Oint [Bactroban 2% 1 applic TOPICAL HS@199906/09/21 07/13/21 History Oint] Super Vitamin B Complex 1 tab PO DAILY@0800 06/09/21 07/13/21 History ALPRAZolam [Xanax] 0.25 mg PO BID PRN #6 tab 06/12/21 07/13/21 Rx Gabapentin [Neurontin] 100 mg PO DAILY@1700 #3 cap 06/12/21 07/13/21 Rx Famotidine [Pepcid] 20 mg PO DAILY@0807/13/21 07/13/21 History Losartan [Cozaar] 50 mg PO DAILY@0807/13/21 07/13/21 History Allergies Allergy/AdvReac Type Severity Reaction Status Date / Time codeine Allergy Unknown Itching, Verified 07/13/21 18:37 red skin iodine Allergy Unknown Itching, Verified 07/13/21 18:37 red skin Sulfa (Sulfonamide Allergy Unknown Itching, Verified 07/13/21 18:37 Antibiotics) red skin lactose AdvReac belching,ga Verified 07/13/21 18:37 s,bloating Physical Exam Vitals: Vital Signs Temp Pulse Pulse Resp BP BP Pulse Ox 07/14/21 08:35 16 07/14/21 07:06 98.5 F 66 16 133/57 98 07/14/21 02:00 98.4 F 71 18 157/58 97 07/13/21 20:53 98.1 F 70 17 135/77 98 07/13/21 18:08 77 20 162/70 99 07/13/21 16:32 98.6 F 70 20 164/87 99 Intake and Output 07/13/21 07/14/21 07/14/21 22:59 06:59 14:59 Other: # Voids 2 Weight 104.326 kg Gen: This is a 85-year-old female sitting up in the chair lethargic although arousable alert and oriented 3, ill-appearing, morbidly obese HEENT: Head is atraumatic, normocephalic. Pupils equal, round. Sclerae is anicteric. NECK: Supple. No JVD. No lymphadenopathy. No thyromegaly. LUNGS: Diminished breath sounds bilaterally with some scattered rhonchi noted No intercostal retractions. HEART: Regular rate and rhythm. No murmur. ABDOMEN: Soft. Mild tenderness noted of the left and lower right quadrant on palpation Bowel sounds are present. No masses. EXTREMITIES: No pedal edema. No calf tenderness. NEUROLOGICAL: Patient is asleep although arousable, alert and oriented x3. Diffusely weak Results CBC & Chem 7: 07/14/21 05:25 07/14/21 05:25 Labs: Abnormal Lab Results - Last 24 Hours (Table) 07/13/21 07/13/21 07/14/21 Range/Units 16:54 16:54 05:25 RBC 2.99 L (3.80-5.40) m/uL Hgb 10.2 L (11.4-16.0) gm/dL Hct 30.8 L (34.0-46.0) % MCV 103.0 H D (80.0-100.0) fL Neutrophils # 8.7 H (1.3-7.7) k/uL Lymphocytes # 0.8 L (1.0-4.8) k/uL BUN 40 H 37 H (7-17) mg/dL Creatinine 1.75 H 1.32 H (0.52-1.04) mg/dL Glucose 104 H (74-99) mg/dL Thrombosis Risk Factor Assmnt - DVT/VTE Prophylaxis DVT/VTE Prophylaxis: Pharmacologic Prophylaxis ordered Assessment and Plan Assessment: Weakness with frequent falls, multifactorial, possibly secondary to age-related muscle atrophy Acute renal failure most likely prerenal azotemia secondary to diuretics and poor oral intake possibly secondary to losartan and Mobic Abdominal pain possibly secondary to an incidental finding of mild diverticulitis with extensive sigmoid diverticulosis as noted on CT Gait dysfunction Hypertension COPD not in acute exacerbation Dementia History of GERD History of sleep apnea Hypothyroidism History of diverticulitis multiple bowel surgeries GI prophylaxis: Pepcid DVT prophylaxis: Subcutaneous Lovenox Full code Plan: Recommend continue with IV hydration and repeat labs in the morning. Kidney functions improving on repeat labs today and will continue to monitor closely. Patient continues with abdominal discomfort and general surgery evaluated the patient recommending conservative management and will start her liquid diet and monitor for tolerance. Will have PT/OT evaluate the patient for gait dysfunc tion and weakness with frequent falling. Will continue to hold losartan and Mobic for now and use Ultram as needed along with Tylenol for pain. Will repeat TSH as patient continues to be extremely fatigued and lethargic. Recommend resuming breathing inhalational treatments scheduled and as needed. Patient continues on IV antibiotics and will continue for now. Will repeat a.m. labs and continue to monitor closely. Time with Patient: Greater than 30
[2021-07-14] MEDS: ATORVASTATIN 20 MG TAB PO SCH (16:26)
[2021-07-14] MEDS: CALCIUM CARB-VIT D 500 MG-5 MCG TAB PO SCH (16:26)
[2021-07-14] MEDS: CHOLECALCIFEROL 25 MCG (1000 IU) TABLET PO SCH (16:26)
[2021-07-14] MEDS: GABAPENTIN 100 MG CAP PO SCH (16:26)
[2021-07-14] MEDS: FERROUS SULFATE 325 MG TAB PO SCH (16:26)
[2021-07-14] MEDS: MELATONIN 5 MG TABLET PO SCH (20:33)
[2021-07-14] MEDS: MUPIROCIN 2% OINT 22 GM TUBE TOPICAL SCH (20:36)
[2021-07-14] MEDS: SYMBICORT 160-4.5 MCG INHALER INHALATION SCH (21:03)
[2021-07-15 06:21] LABS: African American GFR (CKD) 64 (>60 ml/min/1.73 sqM); Anion Gap 3 mmol/L; Blood Urea Nitrogen 27 mg/dL (7-17); Calcium 8.7 mg/dL (8.4-10.2); Carbon Dioxide 28 mmol/L (22-30); Chloride 109 mmol/L (98-107); Glucose 84 mg/dL (74-99); Non-African American GFR(CKD) 56 (>60 ml/min/1.73 sqM); Potassium 4.4 mmol/L (3.5-5.1); Sodium 140 mmol/L (137-145)
[2021-07-15 07:42] LABS: T4, Free (Free Thyroxine) 1.02 ng/dL (0.78-2.19)
[2021-07-15] MEDS ORDERED: NON FORMULARY DRUG (Mirabegron [Myrbetriq] 25 MG Tab.Er.24h) PO SCH (08:00)
[2021-07-15] MEDS: METOPROLOL SUCCINATE (ER) 25 MG TAB.ER.24H PO SCH (08:39)
[2021-07-15] MEDS: ENOXAPARIN 40 MG/0.4 ML SYRINGE SQ SCH (08:40)
[2021-07-15] MEDS: CLOPIDOGREL 75 MG TAB PO SCH (08:40)
[2021-07-15] MEDS: FAMOTIDINE 20 MG TAB PO SCH (08:40)
[2021-07-15] MEDS: LEVOTHYROXINE 100 MCG TAB PO SCH (08:40)
[2021-07-15] MEDS: MULTIVITAMINS, THERA 1 EACH TAB PO SCH (08:40)
[2021-07-15] MEDS: LORATADINE 10 MG TAB PO SCH (08:40)
[2021-07-15] MEDS: AMPICILLIN-SULBACTAM 1.5 GM in SODIUM CHLORIDE 0.9% 50 ML IVPB SCH ×2 (08:40→15:21)
[2021-07-15] MEDS: IPRATROPIUM-ALBUTEROL 3 ML NEB INHALATION SCH ×3 (09:24→20:38)
[2021-07-15] MEDS: SYMBICORT 160-4.5 MCG INHALER INHALATION SCH ×2 (09:25→20:38)
[2021-07-15 09:30] LABS: Basophils # (A) 0.03 X 10*3/uL (0.00-0.10); Basophils % (A) 0.6 %; Eosinophils % (A) 3.9 %; HCT 30.3 % (37.2-46.3); HGB 9.4 g/dL (12.0-15.0); Lymphocytes # (A) 0.67 X 10*3/uL (0.90-5.00); MCH 33.5 pg (27.0-32.0); MCV 107.8 fL (80.0-97.0); Mean Platelet Volume 10.8 fL (9.5-12.2); Monocytes # (A) 0.58 X 10*3/uL (0.20-1.00); Monocytes % (A) 11.3 %; Neutrophils # (A) 3.65 X 10*3/uL (1.80-7.70); Neutrophils % (A) 70.8 %; Platelet Count 143 X 10*3/uL (140-440); RBC 2.81 X 10*6/uL (4.10-5.20); RDW 14.4 % (11.5-14.5); WBC 5.15 X 10*3/uL (4.50-10.00)
--- NOTE | 2021-07-15 10:39 | P.PN ---
Subjective Progress Note Date: 07/15/21 CHIEF COMPLAINT: Abdominal pain HISTORY OF PRESENT ILLNESS: 85-year-old female who presented to the emergency department after falling. Patient had reportedly hit her head on the refri gerator but also mentioned during her evaluation emergency department that she had some left lower quadrant abdominal pain and was not sure if it was related to an injury. Patient had a CT of the abdomen and pelvis that showed previous bowel surgery, no evidence of traumatic injury in the abdomen and pelvis. There was some mild sigmoid diverticulitis and extensive sigmoid diverticulosis. Today she reports she still having some left lower quadrant discomfort. Denies any nausea or vomiting. No bowel movement today. Denies any blood per rectum. She remains afebrile. She currently remains on Unasyn. WBC 5.15, hemoglobin 9.4 platelet count 143,000 PHYSICAL EXAM: VITAL SIGNS: Reviewed. GENERAL: Well-developed in no acute distress. HEENT: No sclera icterus. Extraocular movements grossly intact. Moist buccal mucosa. Head is atraumatic, normocephalic. ABDOMEN: Soft. Nondistended. Left lower quadrant tenderness. NEUROLOGIC: Alert and oriented. Cranial nerves II through XII grossly intact. ASSESSMENT: 1. Mild diverticulitis with extensive diverticulosis per computed tomography scan of abdomen and pelvis 2. Abdominal pain 3. Recent fall PLAN: -Advance to full liquid diet for dinner, low fiber diet in the morning -Continue IV antibiotics -Continue Protonix daily for GI prophylaxis -May resume anticoagulation -Repeat CBC, BMP in the morning -No plans on surgical intervention at this time, continue conservative management The impression and plan of care has been dictated as directed. I performed a history and examination of this patient, discussed the same with the dictator. I agree with the dictator's note ,documented as a scribe. Any additional findings or plans will be noted. Objective - Vital Signs Vital signs: Vital Signs Temp 97.7 F 07/15/21 06:56 Pulse 68 07/15/21 09:39 Resp 16 07/15/21 06:56 BP 181/79 07/15/21 06:56 Pulse Ox 99 07/15/21 01:19 Intake & Output 07/14/21 07/15/21 07/15/21 18:59 06:59 18:59 Other: # Voids 1 2 - Labs CBC & Chem 7: 07/15/21 05:21 07/15/21 05:21 Labs: Abnormal Lab Results - Last 24 Hours (Table) 07/15/21 07/15/21 07/15/21 Range/Units 05:21 05:21 05:21 RBC 2.81 L (4.10-5.20) X 10*6/uL Hgb 9.4 L (12.0-15.0) g/dL Hct 30.3 L (37.2-46.3) % MCV 107.8 H (80.0-97.0) fL MCH 33.5 H (27.0-32.0) pg MCHC 31.0 L (32.0-37.0) g/dL Lymphocytes # 0.67 L (0.90-5.00) X 10*3/uL Chloride 109 H (98-107) mmol/L BUN 27 H (7-17) mg/dL TSH 5.140 H (0.465-4.680) mIU/L Microbiology - Last 24 Hours (Table) 07/13/21 20:20 Blood Culture - Preliminary Blood No Growth after 24 hours 07/13/21 20:05 Blood Culture - Preliminary Blood No Growth after 24 hours
[2021-07-15] MEDS: ESCITALOPRAM 20 MG TAB PO SCH (11:54)
[2021-07-15] MEDS: LOSARTAN 50 MG TAB PO SCH (11:55)
[2021-07-15] MEDS: SODIUM CHLORIDE 0.9% 1,000 ML IV SCH (12:06)
[2021-07-15] MEDS ORDERED: QUEtiapine 25 MG TAB PO PRN (14:07)
--- NOTE | 2021-07-15 14:07 | P.PN ---
Subjective Progress Note Date: 07/15/21 This is a pleasant 85-year-old female who presented to the emergency department with weakness and frequent falls and dehydration. Patient has a past medical history of breast cancer, angina, chronic obstructive pulmonary disease, dementia, GERD, recent GI bleed, osteoarthritis, sleep apnea, thyroid disorder, multiple surgeries in the abdomen, history of diverticulitis. Patient states she has been having some left lower and right quadrant abdominal discomfort and decreased oral intake. Patient denies any difficulties in urination or burning with urination and denies any nausea or vomiting. In the ER patient had CT of the brain as her most recent fall she struck her head with no loss of consci ousness showing cerebral atrophy and hydrocephalus with chronic small vessel ischemia and no changes compared to old exam with no intracranial abnormality noted. His with continued abdominal pain also underwent abdomen and pelvis CT showing some mild pleural reaction and atelectasis at the lung bases along with evidence of previous bowel surgery with no evidence of traumatic injury in the abdomen and pelvis with some mild sigmoid diverticulitis and extensive sigmoid diverticulosis. White blood count on admission was 10.5 with a hemoglobin of 10.2 and platelets were 180, sodium is 137 with a potassium 4.7, BUN is 40 and creatinine is elevated at 1.75. COVID-19 was negative. Patient was started on gentle IV hydration of normal saline along with IV Unasyn and general surgery consulted. Will consult PT/OT for evaluation. 07/15/2021 Patient is seen and evaluated in follow-up this morning initially stating her abdominal pain has resolved and asking for more food and is maintained on clear liquids. On reevaluation and after discussing with surgery family at the bedside states she has continued left-sided pain. Patient is eating candy at the bedside and discussed with family along with the patient about continuing with just clear liquids. Patient is continued on IV antibiotics for mild diverticulitis and will continue. Continue with gentle IV hydration and labs have been repeated showing creatinine improved at 0.95, sodium is 140 with a potassium of 4.4, hemoglobin is stable at 9.4 and white blood count is 5.15. TSH was elevated at 5.140 and free T4 is 1.02 and will continue with levothyroxine 100 g daily. Blood pressure elevated today and will resume losartan as this was being held secondary to elevated creatinine. Patient continues to be confused thinking she is at a movie theater. Will add low-dose Seroquel 25 mg at night as needed and this was discussed with family as mentation changes are most likely related to hospitalization. Encouraged opening the windows and sitting up in the chair during the day. Plan was for possible rehab although patient has co-pays that her unaffordable and will be returning to her [facility] with rehab in the home. Review of systems: Constitutional: No reports of fatigue, fever, or chills Cardiovascular: No reports of chest pain or palpitations Respiratory: No reports of shortness of breath or cough GI: No reports of nausea, vomiting, or diarrhea, reports left-sided lower abdominal pain : No reports of dysuria or retention Neurovascular: No reports of weakness or numbness All medications have been reviewed Active Medications Acetaminophen (Acetaminophen Tab 325 Mg Tab) 650 mg PO Q6HR PRN PRN Reason: Mild Pain or Fever > 100.5 Albuterol Sulfate (Albuterol Hfa Inhaler) 2 puff INHALATION RT-Q4H PRN PRN Reason: Shortness Of Breath Albuterol/Ipratropium (Ipratropium-Albuterol 3 Ml Neb) 3 ml INHALATION RT-TID [facility] Last Admin: 07/15/21 12:25 Dose: 3 ml Documented by: Atorvastatin Calcium (Atorvastatin 20 Mg Tab) 20 mg PO DAILY@1700 [facility] Last Admin: 07/14/21 16:26 Dose: 20 mg Documented by: Budesonide/Formoterol Fumarate (Symbicort 160-4.5 Mcg Inhaler) 1 puff INHALATION RT-BID@0800,1700 [facility] Last Admin: 07/15/21 09:25 Dose: 1 puff Documented by: Calcium Carbonate (Calcium Carb-Vit D 500 Mg-5 Mcg Tab) 1 each PO DAILY@1700 [facility] Last Admin: 07/14/21 16:26 Dose: 1 each Documented by: Calcium Carbonate/Glycine (Calcium Carbonate 500 Mg Chewable) 500 mg PO Q6H PRN PRN Reason: Heartburn Cholecalciferol (Cholecalciferol 25 Mcg (1000 Iu) Tablet) 125 mcg PO DAILY@1700 [facility] Last Admin: 07/14/21 16:26 Dose: 125 mcg Documented by: Clopidogrel Bisulfate (Clopidogrel 75 Mg Tab) 75 mg PO DAILY@0800 [facility] Last Admin: 07/15/21 08:40 Dose: 75 mg Documented by: Enoxaparin Sodium (Enoxaparin 40 Mg/0.4 Ml Syringe) 40 mg SQ DAILY [facility] Last Admin: 07/15/21 08:40 Dose: 40 mg Documented by: Escitalopram Oxalate (Escitalopram 20 Mg Tab) 20 mg PO DAILY@1300 [facility] Last Admin: 07/15/21 11:54 Dose: 20 mg Documented by: Famotidine (Famotidine 20 Mg Tab) 20 mg PO DAILY@0800 [facility] Last Admin: 07/15/21 08:40 Dose: 20 mg Documented by: Ferrous Sulfate (Ferrous Sulfate 325 Mg Tab) 325 mg PO DAILY@1700 [facility] Last Admin: 07/14/21 16:26 Dose: 325 mg Documented by: Gabapentin (Gabapentin 100 Mg Cap) 100 mg PO DAILY@1700 [facility] Last Admin: 07/14/21 16:26 Dose: 100 mg Documented by: Ampicillin Sodium/Sulbactam (Sodium 1.5 gm/ Sodium Chloride) 50 mls @ 100 mls/hr IVPB Q8HR [facility] Last Admin: 07/15/21 08:40 Dose: 100 mls/hr Documented by: Sodium Chloride (Saline 0.9%) 1,000 mls @ 75 mls/hr IV .[id number] [facility] Last Admin: 07/15/21 12:06 Dose: Not Given Documented by: Levothyroxine Sodium (Levothyroxine 100 Mcg Tab) 100 mcg PO DAILY@0800 [facility] Last Admin: 07/15/21 08:40 Dose: 100 mcg Documented by: Loratadine (Loratadine 10 Mg Tab) 10 mg PO DAILY@0800 [facility] Last Admin: 07/15/21 08:40 Dose: 10 mg Documented by: Losartan Potassium (Losartan 50 Mg Tab) 50 mg PO DAILY@0800 [facility] Last Admin: 07/15/21 11:55 Dose: 50 mg Documented by: Meclizine HCl (Meclizine 25 Mg Tab) 25 mg PO TID PRN PRN Reason: DIZZINESS Melatonin (Melatonin 5 Mg Tablet) 10 mg PO HS@2000 [facility] Last Admin: 07/14/21 20:33 Dose: Not Given Documented by: Metoprolol Succinate (Metoprolol Succinate (Er) 25 Mg Tab.Er.24h) 25 mg PO DAILY@0800 [facility] Last Admin: 07/15/21 08:39 Dose: 25 mg Documented by: Multivitamins (Multivitamins, Thera 1 Each Tab) 1 each PO DAILY@0800 [facility] Last Admin: 07/15/21 08:40 Dose: 1 each Documented by: Mupirocin (Mupirocin 2% Oint 22 Gm Tube) 1 applic TOPICAL HS@2000 [facility]; Protocol Last Admin: 07/14/21 20:36 Dose: 1 applic Documented by: Naloxone HCl (Naloxone 0.4 Mg/Ml 1 Ml Vial) 0.2 mg IV Q2M PRN PRN Reason: Opioid Reversal Nystatin (Nystatin 100,000 Unit/Gm Powd 15 Gm) 1 applic TOPICAL BID PRN; Protocol PRN Reason: Rash Tramadol HCl (Tramadol 50 Mg Tab) 50 mg PO QID PRN PRN Reason: mODERATE Pain/Discomfort Physical exam: Gen: This is a 85-year-old female sitting up in the chair more awake today although more confused as well, morbidly obese HEENT: Head is atraumatic, normocephalic. Pupils equal, round. Sclerae is anicteric. NECK: Supple. No JVD. No lymphadenopathy. No thyromegaly. LUNGS: Diminished breath sounds bilaterally with some scattered rhonchi noted No intercostal retractions. HEART: Regular rate and rhythm. No murmur. ABDOMEN: Soft. Mild tenderness noted of the left lower quadrant on palpation Bowel sounds are present. No masses. EXTREMITIES: No pedal edema. No calf tenderness. Mild lower extremity edema noted NEUROLOGICAL: Patient is asleep although arousable, alert and oriented x2. Diffusely weak Assessment and plan: Weakness with frequent falls, multifactorial, possibly secondary to age-related muscle atrophy Acute renal failure most likely prerenal azotemia secondary to diuretics and poor oral intake possibly secondary to losartan and Mobic Abdominal pain possibly secondary to an incidental finding of mild diverticuli tis with extensive sigmoid diverticulosis as noted on CT Mild lower extremity edema most likely dependent edema; will add compression stockings and instructed patient to elevate lower extremities while at rest Gait dysfunction Hypertension COPD not in acute exacerbation Dementia History of GERD History of sleep apnea Hypothyroidism History of diverticulitis multiple bowel surgeries GI prophylaxis: Pepcid DVT prophylaxis: Subcutaneous Lovenox Full code Plan: Recommend continue with IV hydration and repeat labs in the morning. Kidney functions improved on repeat labs today and will continue to monitor closely. Patient continues with abdominal discomfort and general surgery evaluated the shae amador recommending conservative management and will continue clear liquid diet and monitor for tolerance as patient continues with left-sided lower quadrant pain. Kidney functions improved and will resume losartan as blood pressure has been elevated today. Patient continues on IV antibiotics and will continue for now. Patient was evaluated by PT OT therapy recommending subacute rehab although patient has high co-pays and has used her maximum amount of rehab days and unable to afford paying out of pocket for rehab and will return to [facility] and will arrange for home care with possible rehab there. Case management following. Will add low-dose Seroquel at night as needed for in creased confusion or agitation as patient continues to be confused which is most likely a component of hospitalization. Multiple family members at the bedside and discussed treatment plan. We'll monitor for 24 hours with possible discharge to [facility] tomorrow. Objective - Vital Signs Vital signs: Vital Signs Temp 97.7 F 07/15/21 06:56 Pulse 74 07/15/21 06:56 Resp 16 07/15/21 06:56 BP 181/79 07/15/21 06:56 Pulse Ox 99 07/15/21 01:19 Intake & Output 07/14/21 07/15/21 07/15/21 18:59 06:59 18:59 Other: # Voids 1 2 - Labs CBC & Chem 7: 07/15/21 05:21 07/15/21 05:21 Labs: Abnormal Lab Results - Last 24 Hours (Table) 07/14/21 07/15/21 07/15/21 Range/Units 05:25 05:21 05:21 RBC 2.59 L (4.10-5.20) X 10*6/uL Hgb 8.4 L (12.0-15.0) g/dL Hct 27.8 L (37.2-46.3) % MCV 107.3 H (80.0-97.0) fL MCH 32.4 H (27.0-32.0) pg MCHC 30.2 L (32.0-37.0) g/dL RDW 14.7 H (11.5-14.5) % Lymphocytes # 0.88 L (0.90-5.00) X 10*3/uL Chloride 109 H (98-107) mmol/L BUN 27 H (7-17) mg/dL TSH 5.140 H (0.465-4.680) mIU/L Microbiology - Last 24 Hours (Table) 07/13/21 20:20 Blood Culture - Preliminary Blood No Growth after 24 hours 07/13/21 20:05 Blood Culture - Preliminary Blood No Growth after 24 hours
[2021-07-15] MEDS: CHOLECALCIFEROL 25 MCG (1000 IU) TABLET PO SCH (17:02)
[2021-07-15] MEDS: FERROUS SULFATE 325 MG TAB PO SCH (17:03)
[2021-07-15] MEDS: CALCIUM CARB-VIT D 500 MG-5 MCG TAB PO SCH (17:03)
[2021-07-15] MEDS: GABAPENTIN 100 MG CAP PO SCH (17:03)
[2021-07-15] MEDS: ATORVASTATIN 20 MG TAB PO SCH (17:03)
[2021-07-15] MEDS: MUPIROCIN 2% OINT 22 GM TUBE TOPICAL SCH (22:19)
[2021-07-15] MEDS: MELATONIN 5 MG TABLET PO SCH (22:19)
[2021-07-15] MEDS: AMOXIC-POT CLAV 875-125MG 1 EACH TAB PO SCH (22:27)
[2021-07-16] MEDS: SODIUM CHLORIDE 0.9% 1,000 ML IV SCH (04:09)
[2021-07-16 06:07] LABS: African American GFR (CKD) 78 (>60 ml/min/1.73 sqM); Anion Gap 4 mmol/L; Blood Urea Nitrogen 19 mg/dL (7-17); Calcium 8.8 mg/dL (8.4-10.2); Carbon Dioxide 29 mmol/L (22-30); Chloride 108 mmol/L (98-107); Glucose 86 mg/dL (74-99); Non-African American GFR(CKD) 67 (>60 ml/min/1.73 sqM); Sodium 141 mmol/L (137-145)
[2021-07-16] MEDS: IPRATROPIUM-ALBUTEROL 3 ML NEB INHALATION SCH ×2 (08:13→12:56)
[2021-07-16] MEDS: SYMBICORT 160-4.5 MCG INHALER INHALATION SCH (08:13)
[2021-07-16 08:14] VITALS: RESP 18
[2021-07-16 09:10] LABS: Basophils # (A) 0.03 X 10*3/uL (0.00-0.10); Basophils % (A) 0.6 %; Eosinophils # (A) 0.17 X 10*3/uL (0.04-0.35); Eosinophils % (A) 3.2 %; HGB 8.4 g/dL (12.0-15.0); Lymphocytes # (A) 0.59 X 10*3/uL (0.90-5.00); Lymphocytes % (A) 11.1 %; MCH 32.1 pg (27.0-32.0); MCV 106.9 fL (80.0-97.0); Mean Platelet Volume 10.8 fL (9.5-12.2); Monocytes # (A) 0.58 X 10*3/uL (0.20-1.00); Monocytes % (A) 10.9 %; Neutrophils # (A) 3.93 X 10*3/uL (1.80-7.70); Neutrophils % (A) 73.8 %; Platelet Count 139 X 10*3/uL (140-440); RBC 2.62 X 10*6/uL (4.10-5.20); RDW 14.1 % (11.5-14.5); WBC 5.32 X 10*3/uL (4.50-10.00)
[2021-07-16] MEDS: MULTIVITAMINS, THERA 1 EACH TAB PO SCH (09:43)
[2021-07-16] MEDS: LOSARTAN 50 MG TAB PO SCH (09:44)
[2021-07-16] MEDS: ENOXAPARIN 40 MG/0.4 ML SYRINGE SQ SCH (09:44)
[2021-07-16] MEDS: AMOXIC-POT CLAV 875-125MG 1 EACH TAB PO SCH (09:45)
[2021-07-16] MEDS: FAMOTIDINE 20 MG TAB PO SCH (09:46)
[2021-07-16] MEDS: LEVOTHYROXINE 100 MCG TAB PO SCH (09:46)
[2021-07-16] MEDS: LORATADINE 10 MG TAB PO SCH (09:46)
[2021-07-16] MEDS: CLOPIDOGREL 75 MG TAB PO SCH (09:46)
[2021-07-16] MEDS: METOPROLOL SUCCINATE (ER) 25 MG TAB.ER.24H PO SCH (09:46)
--- NOTE | 2021-07-16 10:50 | P.PN ---
Subjective Progress Note Date: 07/16/21 CHIEF COMPLAINT: Abdominal pain HISTORY OF PRESENT ILLNESS: 85-year-old female who presented to the emergency department after falling. Patient had reportedly hit her head on the refri gerator but also mentioned during her evaluation emergency department that she had some left lower quadrant abdominal pain and was not sure if it was related to an injury. Patient had a CT of the abdomen and pelvis that showed previous bowel surgery, no evidence of traumatic injury in the abdomen and pelvis. There was some mild sigmoid diverticulitis and extensive sigmoid diverticulosis. Today she reports her pain has improved. Denies any nausea or vomiting. Patient reports having a bowel movement today. No blood in the stool. She remains afebrile. She currently remains on Unasyn. WBC 5.32, hemoglobin 8.4. PHYSICAL EXAM: VITAL SIGNS: Reviewed. GENERAL: Well-developed in no acute distress. HEENT: No sclera icterus. Extraocular movements grossly intact. Moist buccal mucosa. Head is atraumatic, normocephalic. ABDOMEN: Soft. Nondistended. Nontender. NEUROLOGIC: Alert and oriented. Cranial nerves II through XII grossly intact. ASSESSMENT: 1. Mild diverticulitis with extensive diverticulosis per computed tomography scan of abdomen and pelvis 2. Abdominal pain 3. Recent fall PLAN: -Continue current diet -Continue Protonix daily for GI prophylaxis -May resume anticoagulation -No plans on surgical intervention at this time, continue conservative management -Patient is cleared for discharge from Gen. surgery will follow up in one week The impression and plan of care has been dictated as directed. I performed a history and examination of this patient, discussed the same with the dictator. I agree with the dictator's note ,documented as a scribe. Any additional findings or plans will be noted. Objective - Vital Signs Vital signs: Vital Signs Temp 98.3 F 07/16/21 01:20 Pulse 76 07/16/21 08:21 Resp 18 07/16/21 08:21 BP 151/70 07/16/21 01:20 Pulse Ox 97 07/16/21 08:14 Intake & Output 07/15/21 07/16/21 07/16/21 18:59 06:59 18:59 Intake Total 680 50 Balance 680 50 Intake: Intake, IV Titration 100 Amount Ampicillin-Sulbactam 1.5 100 gm In Sodium Chloride 0.9 % 50 ml @ 100 mls/hr IVPB Q8HR [facility] Rx#:[id number] Oral 580 50 Other: Voiding Method External Catheter # Voids 2 1 - Labs CBC & Chem 7: 07/16/21 04:38 07/16/21 04:38 Labs: Abnormal Lab Results - Last 24 Hours (Table) 07/15/21 07/15/21 07/16/21 Range/Units 05:12 05:21 04:38 RBC 2.81 L 2.62 L (4.10-5.20) X 10*6/uL Hgb 9.4 L 8.4 L (12.0-15.0) g/dL Hct 30.3 L 28.0 L (37.2-46.3) % MCV 107.8 H 106.9 H (80.0-97.0) fL MCH 33.5 H 32.1 H (27.0-32.0) pg MCHC 31.0 L 30.0 L (32.0-37.0) g/dL Plt Count 139 L (140-440) X 10*3/uL Lymphocytes # 0.67 L 0.59 L (0.90-5.00) X 10*3/uL Chloride (98-107) mmol/L BUN (7-17) mg/dL Vitamin B12 1186.0 H (200.0-944.0) pg/mL 07/16/21 Range/Units 04:38 RBC (4.10-5.20) X 10*6/uL Hgb (12.0-15.0) g/dL Hct (37.2-46.3) % MCV (80.0-97.0) fL MCH (27.0-32.0) pg MCHC (32.0-37.0) g/dL Plt Count (140-440) X 10*3/uL Lymphocytes # (0.90-5.00) X 10*3/uL Chloride 108 H (98-107) mmol/L BUN 19 H (7-17) mg/dL Vitamin B12 (200.0-944.0) pg/mL Microbiology - Last 24 Hours (Table) 07/13/21 20:05 Blood Culture - Preliminary Blood No Growth after 48 hours 07/13/21 20:20 Blood Culture - Preliminary Blood No Growth after 48 hours
[2021-07-16 10:58] VITALS: PULSE 79; TEMP 97.9
[2021-07-16] MEDS: ESCITALOPRAM 20 MG TAB PO SCH (12:48)
[2021-07-16 12:52] VITALS: BP 164/77
--- NOTE | 2021-07-18 00:42 | P.DS ---
Providers Date of admission: 07/13/21 19:37 Expected date of discharge: 07/16/21 Attending physician: Danielle Vergara Consults: 07/14/21 09:05 Consult Physician Urgent Consulting Provider: Rainer Don Consult Reason/Comments: diverticulitis Do you want consulting provider notified?: Yes [facility] Course: Final Diagnosis Weakness with frequent falls, multifactorial, possibly secondary to age-related muscle atrophy Acute renal failure most likely prerenal azotemia secondary to diuretics and poor oral intake possibly secondary to losartan and Mobic Abdominal pain possibly secondary to an incidental finding of mild diverticulitis with extensive sigmoid diverticulosis as noted on CT Mild lower extremity edema most likely dependent edema Gait dysfunction Hypertension COPD not in acute exacerbation Dementia History of GERD History of sleep apnea Hypothyroidism History of diverticulitis multiple bowel surgeries GI prophylaxis DVT prophylaxis Full code Discharge disposition Patient is being discharged in a stable condition with guarded prognosis to [facility] where she resides. Patient will follow-up with visiting physicians in the outpatient setting upon discharge. Patient will continue on augmentin twice daily for 5 days to complete the course. Total time taken is greater than 35 minutes. Hospital course This is a pleasant 85-year-old female who presented to the emergency department with weakness and frequent falls and dehydration. Patient has a past medical history of breast cancer, angina, chronic obstructive pulmonary disease, dementia, GERD, recent GI bleed, osteoarthritis, sleep apnea, thyroid disorder, multiple surgeries in the abdomen, history of diverticulitis. Patient states she has been having some left lower and right quadrant abdominal discomfort and decreased oral intake. Patient denies any difficulties in urination or burning with urination and denies any nausea or vomiting. In the ER patient had CT of the brain as her most recent fall she struck her head with no loss of consciousness showing cerebral atrophy and hydrocephalus with chronic small vessel ischemia and no changes compared to old exam with no intracranial abnormality noted. His with continued abdominal pain also underwent abdomen and pelvis CT showing some mild pleural reaction and atelectasis at the lung bases along with evidence of previous bowel surgery with no evidence of traumatic injury in the abdomen and pelvis with some mild sigmoid diverticulitis and extensive sigmoid diverticulosis. White blood count on admission was 10.5 with a hemoglobin of 10.2 and platelets were 180, sodium is 137 with a potassium 4.7, BUN is 40 and creatinine is elevated at 1.75. COVID-19 was negative. Patient was started on gentle IV hydration of normal saline along with IV Unasyn and general surgery consulted. Will consult PT/OT for evaluation. 07/15/2021 Patient is seen and evaluated in follow-up this morning initially stating her abdominal pain has resolved and asking for more food and is maintained on clear liquids. On reevaluation and after discussing with surgery family at the bed side states she has continued left-sided pain. Patient is eating candy at the bedside and discussed with family along with the patient about continuing with just clear liquids. Patient is continued on IV antibiotics for mild diverticulitis and will continue. Continue with gentle IV hydration and labs have been repeated showing creatinine improved at 0.95, sodium is 140 with a potassium of 4.4, hemoglobin is stable at 9.4 and white blood count is 5.15. TSH was elevated at 5.140 and free T4 is 1.02 and will continue with levothyroxine 100 g daily. Blood pressure elevated today and will resume losartan as this was being held secondary to elevated creatinine. Patient continues to be confused thinking she is at a movie theater. Will add low-dose Seroquel 25 mg at night as needed and this was discussed with family as mentation changes are most likely related to hospitalization. Encouraged opening the windows and sitting up in the chair during the day. Plan was for possible rehab although patient has co-pays that her unaffordable and will be returning to her [facility] with rehab in the home. 07/16/2021 Patient is seen in follow-up with no acute overnight issues noted. Patient is tolerating low fiber diet with no further reports of abdominal pain. Patient will continue on oral augmentin twice daily for 5 days and then may discontinue. Patient to follow with Dr. Don outpatient as needed. Lasix will be resumed. Patient also requiring 2 L of oxygen which is being arranged secondary to COPD. Currently no reports of chest pain, shortness of breath, or palpitations. Patient is afebrile. No reports of nausea or vomiting and patient is tolerating diet. Patient will be discharged to [facility] where she resides. On exam vital signs are stable. Cardio S1, S2 are muffled. Respiratory system shows diminished breath sounds at the bases with no wheezing or rhonchi noted. Abdomen is soft and nontender. Nervous system shows no focal deficits. Please refer to medication reconciliation sheet for a list of medications. Patient Condition at Discharge: Stable Plan - Discharge Summary New Discharge Prescriptions: New Amoxic-Pot Clav 875-125Mg [Augmentin 875-125] 1 each PO Q12HR 5 Days #10 tab Ipratropium-Albuterol Nebulize [Duoneb 0.5 mg-3 mg/3 ml Soln] 3 ml INHALATION RT-TID 30 Days #90 ml QUEtiapine [SEROquel] 25 mg PO HS PRN #30 tab PRN Reason: Agitation traMADol HCl [Ultram] 50 mg PO BID #10 tab Continue Levothyroxine Sodium [Synthroid] 100 mcg PO DAILY@0800 Multivitamins, Thera [Multivitamin (formulary)] 1 tab PO DAILY@0800 Ferrous Sulfate [Iron (65 MG Elemental)] 325 mg PO DAILY@1700 Meloxicam [Mobic] 15 mg PO DAILY@0800 Furosemide [Lasix] 20 mg PO DAILY@0800 Albuterol Nebulized [Ventolin Nebulized] 2.5 mg INHALATION RT-TID@07,, Budesonide-Formot 160-4.5 Mcg [Symbicort 160-4.5 Mcg Inhaler] 1 puff INHALATION RT-BID@0800,1700 Potassium Chloride [Klor-Con 10 ER] 10 meq PO DAILY@0800 Nystatin 100,000 Unit/gm Powd [Mycostatin Powder] 1 applic TOPICAL BID PRN PRN Reason: Rash Metoprolol Succinate [Toprol XL] 25 mg PO DAILY@0800 Diphenoxylate HCl/Atropine [Lomotil 2.5-0.025 mg Tablet] 1 tab PO BID PRN PRN Reason: Diarrhea Clopidogrel [Plavix] 75 mg PO DAILY@0800 Atorvastatin [Lipitor] 20 mg PO DAILY@1700 Albuterol Inhaler [Ventolin Hfa Inhaler] 2 puff INHALATION RT-Q4H PRN PRN Reason: Shortness Of Breath Vit C/E/Zn/Coppr/Lutein/Zeaxan [Preservision Areds 2 Softgel] 2 cap PO DAILY@0800 Cetirizine HCl [Zyrtec] 10 mg PO DAILY@0800 Calcium Carbonate/Vitamin D3 [Calcium 600 mg-D3 20 mcg (800 unit)] 1 tab PO DAILY@1700 Cholecalciferol (Vitamin D3) [Vitamin D3 (125 MCG = 5,000 IU)] 125 mcg PO DAILY@1700 Escitalopram [Lexapro] 20 mg PO DAILY@1300 Melatonin [Melatonin Disolving Tablet] 10 mg PO HS@2000 Meclizine HCl 25 mg PO TID PRN PRN Reason: DIZZINESS ALPRAZolam [Xanax] 0.25 mg PO BID PRN #6 tab PRN Reason: Anxiety Losartan [Cozaar] 50 mg PO DAILY@0800 Super Vitamin B Complex 1 tab PO DAILY@0800 Ipratropium Nebulized [Atrovent Nebulized 0.2 MG/ML] 0.5 mg INHALATION RT- TID@07,, L.acidoph,Paracasei, B.lactis [Probiotic] 1 cap PO DAILY@1700 PRN PRN Reason: while on antibiotic Mirabegron [Myrbetriq] 25 mg PO DAILY@0800 Mupirocin 2% Oint [Bactroban 2% Oint] 1 applic TOPICAL HS@2000 Bismuth Subsalicylate [Pepto-Bismol] 262 - 524 mg PO Q6H PRN PRN Reason: UPSET STOMACH Acetaminophen Tab [Tylenol] 500 mg PO Q4-6H PRN PRN Reason: Pain Dextromethorphan Polistirex [Delsym] 60 mg PO Q12H PRN PRN Reason: Cough Pilar-[place] Gummies 2 tab PO Q6H PRN PRN Reason: Heartburn Gabapentin [Neurontin] 100 mg PO DAILY@1700 #3 cap Famotidine [Pepcid] 20 mg PO DAILY@0800 No Action methocarbamoL [Robaxin] 500 mg PO QID PRN #12 tab PRN Reason: Pain Discharge Medication List Levothyroxine Sodium [Synthroid] 100 mcg PO DAILY@0800 03/07/14 [History] Multivitamins, Thera [Multivitamin (formulary)] 1 tab PO DAILY@0800 03/07/14 [History] Ferrous Sulfate [Iron (65 MG Elemental)] 325 mg PO DAILY@1700 02/23/18 [History] Meloxicam [Mobic] 15 mg PO DAILY@0802/23/18 [History] Furosemide [Lasix] 20 mg PO DAILY@0800 03/15/18 [History] Albuterol Nebulized [Ventolin Nebulized] 2.5 mg INHALATION RT-TID@07,,06/08/18 [History] Budesonide-Formot 160-4.5 Mcg [Symbicort 160-4.5 Mcg Inhaler] 1 puff INHALATION RT-BID@0800,1700 06/08/18 [History] Albuterol Inhaler [Ventolin Hfa Inhaler] 2 puff INHALATION RT-Q4H PRN 09/20/20 [History] Atorvastatin [Lipitor] 20 mg PO DAILY@169909/20/20 [History] Cetirizine HCl [Zyrtec] 10 mg PO DAILY@79909/20/20 [History] Clopidogrel [Plavix] 75 mg PO DAILY@79909/20/20 [History] Diphenoxylate HCl/Atropine [Lomotil 2.5-0.025 mg Tablet] 1 tab PO BID PRN 09/20/20 [History] Metoprolol Succinate [Toprol XL] 25 mg PO DAILY@79909/20/20 [History] Nystatin 100,000 Unit/gm Powd [Mycostatin Powder] 1 applic TOPICAL BID PRN 09/20/20 [History] Potassium Chloride [Klor-Con 10 ER] 10 meq PO DAILY@0809/20/20 [History] Vit C/E/Zn/Coppr/Lutein/Zeaxan [Preservision Areds 2 Softgel] 2 cap PO DAILY@0809/20/20 [History] Acetaminophen Tab [Tylenol] 500 mg PO Q4-6H PRN 06/09/21 [History] Pilar-[place] Gummies 2 tab PO Q6H PRN 06/09/21 [History] Bismuth Subsalicylate [Pepto-Bismol] 262 - 524 mg PO Q6H PRN 06/09/21 [History] Calcium Carbonate/Vitamin D3 [Calcium 600 mg-D3 20 mcg (800 unit)] 1 tab PO DAILY@169906/09/21 [History] Cholecalciferol (Vitamin D3) [Vitamin D3 (125 MCG = 5,000 IU)] 125 mcg PO DAILY@169906/09/21 [History] Dextromethorphan Polistirex [Delsym] 60 mg PO Q12H PRN 06/09/21 [History] Escitalopram [Lexapro] 20 mg PO DAILY@1300 06/09/21 [History] Ipratropium Nebulized [Atrovent Nebulized 0.2 MG/ML] 0.5 mg INHALATION RT-TI D@07,13,19 06/09/21 [History] L.acidoph,Paracasei, B.lactis [Probiotic] 1 cap PO DAILY@1700 PRN 06/09/21 [History] Meclizine HCl 25 mg PO TID PRN 06/09/21 [History] Melatonin [Melatonin Disolving Tablet] 10 mg PO HS@199906/09/21 [History] Mirabegron [Myrbetriq] 25 mg PO DAILY@0800 06/09/21 [History] Mupirocin 2% Oint [Bactroban 2% Oint] 1 applic TOPICAL HS@199906/09/21 [History] Super Vitamin B Complex 1 tab PO DAILY@0806/09/21 [History] ALPRAZolam [Xanax] 0.25 mg PO BID PRN #6 tab 06/12/21 [Rx] Gabapentin [Neurontin] 100 mg PO DAILY@1700 #3 cap 06/12/21 [Rx] Famotidine [Pepcid] 20 mg PO DAILY@0800 07/13/21 [History] Losartan [Cozaar] 50 mg PO DAILY@0800 07/13/21 [History] Amoxic-Pot Clav 875-125Mg [Augmentin 875-125] 1 each PO Q12HR 5 Days #10 tab 07/16/21 [Rx] Ipratropium-Albuterol Nebulize [Duoneb 0.5 mg-3 mg/3 ml Soln] 3 ml INHALATION RT-TID 30 Days #90 ml 07/16/21 [Rx] QUEtiapine [SEROquel] 25 mg PO HS PRN #30 tab 07/16/21 [Rx] traMADol HCl [Ultram] 50 mg PO BID #10 tab 07/16/21 [Rx] methocarbamoL [Robaxin] 500 mg PO QID PRN #12 tab 07/17/21 [Rx] Follow up Appointment(s)/Referral(s): [facility] [NON-STAFF] - As Needed Chidi Romero [NON-STAFF] - (*Nikc Murillo will deliver the portable oxygen tank to the bedside. [facility] - please call Nick Murillo as soon as patient gets home to set up delivery of the oxygen concentrator. ) Torey Manzanares, [Primary Care Provider] - 1-2 days (Family/Carers to contact office to arrange follow-up visit with Dr Manzanares on discharge. ) Rainer Don MD [STAFF PHYSICIAN] - 07/28/21 1:15 pm Ambulatory/Diagnostic Orders: Complete Blood Count w/diff [LAB.AMB] Time Frame: 3 Days, Location: None Selected Patient Instructions/Handouts: Diverticulitis (DC), Fall Prevention for Older Adults (DC), Leg Edema (ED) Activity/Diet/Wound Care/Special Instructions: Patient is returning to [facility] continue low fiber diet Continue with antibiotics for 5 days and then may discontinue Follow-up surgery outpatient as needed Repeat labs in 2-3 days to monitor CBC and BMP Follow-up with primary care provider on discharge Discharge Disposition: HOME WITH HOME HEALTH SERVICES
== END 2021-07-16 14:29 | disposition home health service (06) | DRG 683 ==
LOC: EC 16:27 → 4SSUR 19:37
PROVIDERS: ADMIT Hospitalist; ATTEND Hospitalist
DX: N17.9 Acute kidney failure, unspecified (principal); J98.11 Atelectasis; K57.32 Diverticulitis of large intestine without perforation or abscess without bleeding; G91.9 Hydrocephalus, unspecified; J44.9 Chronic obstructive pulmonary disease, unspecified; K57.30 Diverticulosis of large intestine without perforation or abscess without bleeding; Z20.822 Contact with and (suspected) exposure to COVID-19; E03.9 Hypothyroidism, unspecified; E86.0 Dehydration; F03.90 Unspecified dementia, unspecified severity, without behavioral disturbance, psychotic disturbance, mood disturbance, and anxiety; R79.89 Other specified abnormal findings of blood chemistry; F32.9 Major depressive disorder, single episode, unspecified; G31.89 Other specified degenerative diseases of nervous system; F41.9 Anxiety disorder, unspecified; T50.2X5A Adverse effect of carbonic-anhydrase inhibitors, benzothiadiazides and other diuretics, initial encounter; I10 Essential (primary) hypertension; I25.10 Atherosclerotic heart disease of native coronary artery without angina pectoris; M62.562 Muscle wasting and atrophy, not elsewhere classified, left lower leg; M62.561 Muscle wasting and atrophy, not elsewhere classified, right lower leg; M47.812 Spondylosis without myelopathy or radiculopathy, cervical region; R29.6 Repeated falls; W19.XXXA Unspecified fall, initial encounter; X58.XXXA Exposure to other specified factors, initial encounter; Z79.02 Long term (current) use of antithrombotics/antiplatelets; Z96.653 Presence of artificial knee joint, bilateral; Z79.1 Long term (current) use of non-steroidal anti-inflammatories (NSAID); Z79.51 Long term (current) use of inhaled steroids; Z79.890 Hormone replacement therapy; Z79.899 Other long term (current) drug therapy; Z85.3 Personal history of malignant neoplasm of breast; Z87.891 Personal history of nicotine dependence; Z90.11 Acquired absence of right breast and nipple; Z90.49 Acquired absence of other specified parts of digestive tract; Z90.710 Acquired absence of both cervix and uterus; Z92.21 Personal history of antineoplastic chemotherapy; Z92.3 Personal history of irradiation; Z88.5 Allergy status to narcotic agent; Z91.011 Allergy to milk products; Z88.2 Allergy status to sulfonamides; Z91.041 Radiographic dye allergy status; Z87.19 Personal history of other diseases of the digestive system; Z98.42 Cataract extraction status, left eye; Z98.41 Cataract extraction status, right eye
CPT/HCPCS: 36415; 70450; 72125; 74176; 80048; 80053; 82607; 84439; 84443; 85025; 85610; 85730; 87040; 87635; 94640; 94760; 96360; 96361; 99285

== ENCOUNTER 2021-07-17 16:17 | Emergency (ER) | payer MEDICARE ==
[2021-07-17 16:30] VITALS: TEMP 98.2
[2021-07-17] MEDS ORDERED: methocarbamoL 500 MG TAB PO STA (17:19)
[2021-07-17 18:00] LABS: Basophils % (A) 1 %; Eosinophils # (A) 0.3 k/uL (0-0.7); Eosinophils % (A) 4 %; HCT 26.1 % (34.0-46.0); Lymphocytes % (A) 13 %; MCHC 32.9 g/dL (31.0-37.0); MCV 103.5 fL (80.0-100.0); Macrocytosis Slight; Mean Platelet Volume 7.6; Monocytes # (A) 0.5 k/uL (0-1.0); Monocytes % (A) 7 %; Neutrophils # (A) 5.4 k/uL (1.3-7.7); Neutrophils % (A) 73 %; Platelet Count 160 k/uL (150-450); RBC 2.52 m/uL (3.80-5.40); RDW 13.6 % (11.5-15.5); WBC 7.4 k/uL (3.8-10.6)
[2021-07-17 18:18] LABS: INR 0.9 (<1.2); Prothrombin Time 9.8 sec (9.0-12.0)
[2021-07-17 18:19] LABS: Albumin 3.1 g/dL (3.5-5.0); Calcium 8.3 mg/dL (8.4-10.2); Partial Thromboplastin Time 20.7 sec (22.0-30.0); Total Bilirubin 0.9 mg/dL (0.2-1.3); Total Protein 6.1 g/dL (6.3-8.2)
[2021-07-17 18:23] LABS: HGB 8.6 gm/dL (11.4-16.0)
--- NOTE | 2021-07-17 19:04 | CT ---
EXAMINATION TYPE: CT ChestAbdPelvis wo con DATE OF EXAM: 07/17/2021 COMPARISON: CT abdomen 07/13/2021 HISTORY: Chest and abdominal pain bilat. CT DLP: 707.4 mGycm Automated exposure control for dose reduction was used. Images obtained from the thoracic inlet to the floor the pelvis with no contrast. There is no pneumot horax. Thoracic aorta is atheromatous. There is no mediastinal adenopathy. Heart is borderline enlarg ed. There is aortic valve surgery. There is calcification of the bronchial cartilage. There is bedolla ry artery calcification. There are mild bilateral pleural effusions with basilar pulmonary atelectasi s. There are clips from cholecystectomy. Liver spleen pancreas appear intact. The bile ducts are not dil ated. Stomach is intact. Common bile duct measures 14 mm. Intrahepatic bile ducts appear normal. There is no adrenal mass. Kidneys show no hydronephrosis. Kidneys have normal contour. There is no ev idence of renal mass. Ureters are not dilated. There is no retroperitoneal adenopathy. Bladder disten ds smoothly. There is no inguinal hernia. There are multiple sigmoid diverticula. There is some mild fat stranding around the mid sigmoid colon. There is no mesenteric edema. There is no ascites or free air. There is no bowel obstruction. There is an apparent right hemicolectomy. There is thoracolumbar dextroscoliotic deformity. There is spondylotic changes in the thoracic and pillo mbar spine. There is no significant compression deformity. Bony pelvis is intact. Hip joints are inta ct. There is arthritic change in the shoulder joints. There is no evidence of a rib fracture. IMPRESSION: Mild cardiomegaly. Pleural effusions and basilar mild infiltrate and atelectasis increased compared t o recent exam. There is evidence of some mild sigmoid diverticulitis without change compared to old exam. No abscess .
--- NOTE | 2021-07-17 19:08 | ED ---
General Adult HPI - General Chief complaint: Abdominal Pain Stated complaint: Abd Pain Time Seen by Provider: 07/17/21 17:00 Source: patient, EMS Mode of arrival: EMS Limitations: no limitations - History of Present Illness Initial comments: This Is an 85-year-old female with a recent diagnosis of diverticulitis who presents emergency department for left-sided abdominal and flank pain. The patient states that since she was discharged she's been having increasing amount of pain in her left side. She points to her left upper quadrant and left chest wall when she describes this pain. She states is worse with coughing and certain movements area states that it has not been well controlled at the nursing facility so she came to the emergency department. She denies any fevers or chills. No nausea, vomiting, or diarrhea. She denies any other acute complaints. Family at bedside states that she has not been eating and drinking as much over the last 24 hours. Also states that he is been somewhat refusing her medications. No other complaints. - Related Data Home Medications Medication Instructions Recorded Confirmed Levothyroxine Sodium [Synthroid] 100 mcg PO DAILY@0800 03/07/14 07/13/21 Multivitamins, Thera [Multivitamin 1 tab PO DAILY@0800 03/07/14 07/13/21 (formulary)] Ferrous Sulfate [Iron (65 MG 325 mg PO DAILY@1700 02/23/18 07/13/21 Elemental)] Meloxicam [Mobic] 15 mg PO DAILY@0800 02/23/18 07/13/21 Furosemide [Lasix] 20 mg PO DAILY@0800 03/15/18 07/13/21 Albuterol Nebulized [Ventolin 2.5 mg INHALATION RT-TID@,,06/08/18 07/13/21 Nebulized] Budesonide-Formot 160-4.5 Mcg 1 puff INHALATION RT-BID@0800,1700 06/08/18 07/13/21 [Symbicort 160-4.5 Mcg Inhaler] Albuterol Inhaler [Ventolin Hfa 2 puff INHALATION RT-Q4H PRN 09/20/20 07/13/21 Inhaler] Atorvastatin [Lipitor] 20 mg PO DAILY@1700 09/20/20 07/13/21 Cetirizine HCl [Zyrtec] 10 mg PO DAILY@0800 09/20/20 07/13/21 Clopidogrel [Plavix] 75 mg PO DAILY@0800 09/20/20 07/13/21 Diphenoxylate HCl/Atropine 1 tab PO BID PRN 09/20/20 07/13/21 [Lomotil 2.5-0.025 mg Tablet] Metoprolol Succinate [Toprol XL] 25 mg PO DAILY@0800 09/20/20 07/13/21 Nystatin 100,000 Unit/gm Powd 1 applic TOPICAL BID PRN 09/20/20 07/13/21 [Mycostatin Powder] Potassium Chloride [Klor-Con 10 ER] 10 meq PO DAILY@0800 09/20/20 07/13/21 Vit C/E/Zn/Coppr/Lutein/Zeaxan 2 cap PO DAILY@0800 09/20/20 07/13/21 [Preservision Areds 2 Softgel] Acetaminophen Tab [Tylenol] 500 mg PO Q4-6H PRN 06/09/21 07/13/21 Pilar-[place] Gummies 2 tab PO Q6H PRN 06/09/21 07/13/21 Bismuth Subsalicylate 262 - 524 mg PO Q6H PRN 06/09/21 07/13/21 [Pepto-Bismol] Calcium Carbonate/Vitamin D3 1 tab PO DAILY@1700 06/09/21 07/13/21 [Calcium 600 mg-D3 20 mcg (800 unit)] Cholecalciferol (Vitamin D3) 125 mcg PO DAILY@1700 06/09/21 07/13/21 [Vitamin D3 (125 MCG = 5,000 IU)] Dextromethorphan Polistirex 60 mg PO Q12H PRN 06/09/21 07/13/21 [Delsym] Escitalopram [Lexapro] 20 mg PO DAILY@1300 06/09/21 07/13/21 Ipratropium Nebulized [Atrovent 0.5 mg INHALATION RT-TID@,,06/09/21 07/13/21 Nebulized 0.2 MG/ML] L.acidoph,Paracasei, B.lactis 1 cap PO DAILY@1700 PRN 06/09/21 07/13/21 [Probiotic] Meclizine HCl 25 mg PO TID PRN 06/09/21 07/13/21 Melatonin [Melatonin Disolving 10 mg PO HS@199906/09/21 07/13/21 Tablet] Mirabegron [Myrbetriq] 25 mg PO DAILY@79906/09/21 07/13/21 Mupirocin 2% Oint [Bactroban 2% 1 applic TOPICAL HS@199906/09/21 07/13/21 Oint] Super Vitamin B Complex 1 tab PO DAILY@79906/09/21 07/13/21 Famotidine [Pepcid] 20 mg PO DAILY@79907/13/21 07/13/21 Losartan [Cozaar] 50 mg PO DAILY@79907/13/21 07/13/21 Previous Rx's Medication Instructions Recorded ALPRAZolam [Xanax] 0.25 mg PO BID PRN #6 tab 06/12/21 Gabapentin [Neurontin] 100 mg PO DAILY@1700 #3 cap 06/12/21 Amoxic-Pot Clav 875-125Mg 1 each PO Q12HR 5 Days #10 tab 07/16/21 [Augmentin 875-125] Ipratropium-Albuterol Nebulize 3 ml INHALATION RT-TID 30 Days #90 07/16/21 [Duoneb 0.5 mg-3 mg/3 ml Soln] ml QUEtiapine [SEROquel] 25 mg PO HS PRN #30 tab 07/16/21 traMADol HCl [Ultram] 50 mg PO BID #10 tab 07/16/21 methocarbamoL [Robaxin] 500 mg PO QID PRN #12 tab 07/17/21 Allergies Allergy/AdvReac Type Severity Reaction Status Date / Time codeine Allergy Unknown Itching, Verified 07/13/21 18:37 red skin iodine Allergy Unknown Itching, Verified 07/13/21 18:37 red skin Sulfa (Sulfonamide Allergy Unknown Itching, Verified 07/13/21 18:37 Antibiotics) red skin lactose AdvReac belching,ga Verified 07/13/21 18:37 s,bloating Review of Systems ROS Statement: Those systems with pertinent positive or pertinent negative responses have been documented in the HPI. ROS Other: All systems not noted in ROS Statement are negative. Past Medical History Past Medical History: Cancer, Chest Pain / Angina, COPD, Dementia, GERD/Reflux, GI Bleed, Musculoskeletal Disorder, Osteoarthritis (OA), Sleep Apnea/CPAP/BIPAP, Thyroid Disorder Additional Past Medical History / Comment(s): INCISIONAL HERNIA(sx), STATES NO CHF, HAS GILLIAN LEG SWELLING, OCCASIONAL VERTIGO, HX NARCOLEPSY, HX DIVERTICULITIS, HX OF SCOLIOSIS, HX ANEMIA, HX RT BREAST CA, CHEMO AND RADIATION 1998, AND SKIN CA,no cpap used,uti History of Any Multi-Drug Resistant Organisms: ESBL Date of last positivie culture/infection: 12/01/18 ESBL E. coli MDRO Source:: Urine Past Surgical History: Appendectomy, Back Surgery, Bowel Resection, Cholecystectomy, Hernia Repair, Hysterectomy, Joint Replacement, Tonsillectomy Additional Past Surgical History / Comment(s): GILLIAN KNEE REPLACEMENT, (R) mastectomy and lymph node removal 1998, GILLIAN GREAT TOENAILS REMOVED, GILLIAN CATARACT SX,02-28-18 laparoscopic robotic assisted repair of incisional hernia. Past Anesthesia/Blood Transfusion Reactions: No Reported Reaction Additional Past Anesthesia/Blood Transfusion Reaction / Comment(s): past blood transfusions-no reaction Past Psychological History: Anxiety, Depression Smoking Status: Former smoker Past Alcohol Use History: None Reported Past Drug Use History: None Reported - Past Family History Mother Additional Family Medical History / Comment(s): MOTHER OF TB WHEN PT WAS 6 MONTHS OLD Father Family Medical History: Coronary Artery Disease (CAD), Myocardial Infarction (RI) Additional Family Medical History / Comment(s): Father 18 years ago from a heart attack. General Exam - General Exam Comments Initial Comments: Constitutional: Awake alert Appears comfortable Head: Normocephalic atraumatic Eyes: no conjunctival injection No scleral icterus EOMI Neck: No JVD Supple Heart: Regular rate rhythm normal S1-S2 no murmurs Lungs: Clear to auscultation bilaterally No wheezing No rales, the patient has tenderness over the left chest wall just under the left breast Abdomen: Soft nondistended mild tenderness to the left upper quadrant and left flank region Extremities: Non edematous DP pulses intact Radial pulses intact Neuro: A&Ox3 No focal neurologic deficits Psych: Appropriate mood and affect Limitations: no limitations Course Vital Signs 07/17/21 07/17/21 07/17/21 16:23 17:54 19:02 Temperature 98.2 F Pulse Rate 71 61 60 Respiratory 18 18 18 Rate Blood Pressure 132/56 153/64 144/65 O2 Sat by Pulse 94 L 98 98 Oximetry 07/17/21 20:29 Temperature Pulse Rate 62 Respiratory 20 Rate Blood Pressure 160/75 O2 Sat by Pulse 98 Oximetry Medical Decision Making - Medical Decision Making Is a 85-year-old female who presents emergency department for left-sided chest wall and abdominal pain. The patient had repeat CT of the chest abdomen and pelvis. This did not reveal any acute fractures of the ribs. Show persistent inflammation around the sigmoid colon consistent with her history of diverticulitis. No complication from this. No abscess formation. Patient did have a mild acute kidney injury likely secondary to patient's decreased by mouth intake. The patient was given 500 mL of fluid in the emergency department. Patient is chronically anemic.She states that she felt much improved after given Robaxin emergency department. I'm going to send her home with this for home. She can continue to monitor her symptoms and return if she has any worsening or changing symptoms. Family at bedside agreed with this plan as well. All questions were answered. - Lab Data Result diagrams: 07/17/21 17:49 07/17/21 17:49 Lab Results 07/17/21 07/17/21 07/17/21 Range/Units 17:49 17:49 17:49 WBC 7.4 (3.8-10.6) k/uL RBC 2.52 L (3.80-5.40) m/uL Hgb 8.6 L D (11.4-16.0) gm/dL Hct 26.1 L (34.0-46.0) % MCV 103.5 H (80.0-100.0) fL MCH 34.0 (25.0-35.0) pg MCHC 32.9 (31.0-37.0) g/dL RDW 13.6 (11.5-15.5) % Plt Count 160 (150-450) k/uL MPV 7.6 Neutrophils % 73 % Lymphocytes % 13 % Monocytes % 7 % Eosinophils % 4 % Basophils % 1 % Neutrophils # 5.4 (1.3-7.7) k/uL Lymphocytes # 1.0 (1.0-4.8) k/uL Monocytes # 0.5 (0-1.0) k/uL Eosinophils # 0.3 (0-0.7) k/uL Basophils # 0.0 (0-0.2) k/uL Macrocytosis Slight PT 9.8 (9.0-12.0) sec INR 0.9 (<1.2) APTT 20.7 L (22.0-30.0) sec Sodium 135 L (137-145) mmol/L Potassium 5.0 (3.5-5.1) mmol/L Chloride 103 (98-107) mmol/L Carbon Dioxide 28 (22-30) mmol/L Anion Gap 4 mmol/L BUN 20 H (7-17) mg/dL Creatinine 1.27 H (0.52-1.04) mg/dL Est GFR (CKD-EPI)AfAm 45 (>60 ml/min/1.73 sqM) Est GFR (CKD-EPI)NonAf 39 (>60 ml/min/1.73 sqM) Glucose 84 (74-99) mg/dL Calcium 8.3 L (8.4-10.2) mg/dL Total Bilirubin 0.9 (0.2-1.3) mg/dL AST 74 H (14-36) U/L ALT 73 H (4-34) U/L Alkaline Phosphatase 145 H (38-126) U/L Total Protein 6.1 L (6.3-8.2) g/dL Albumin 3.1 L (3.5-5.0) g/dL Disposition Clinical Impression: Dehydration, Rib contusion, Diverticulitis Disposition: HOME SELF-CARE Condition: Stable Instructions (If sedation given, give patient instructions): Rib Contusion (ED) Prescriptions: methocarbamoL [Robaxin] 500 mg PO QID PRN #12 tab PRN Reason: Pain Is patient prescribed a controlled substance at d/c from ED?: No Referrals: Torey Manzanares DO [Primary Care Provider] - 1-2 days
[2021-07-17] MEDS ORDERED: SODIUM CHLORIDE 0.9% 500 ML 500 ML IV ONE (19:22)
[2021-07-17 20:31] VITALS: BP 160/75; PULSE 62; RESP 20
== END 2021-07-17 20:31 | disposition home or self-care (01) ==
LOC: EC 16:17
DX: K57.32 Diverticulitis of large intestine without perforation or abscess without bleeding (principal); E86.0 Dehydration; S20.219A Contusion of unspecified front wall of thorax, initial encounter; I25.10 Atherosclerotic heart disease of native coronary artery without angina pectoris; J44.9 Chronic obstructive pulmonary disease, unspecified; K21.9 Gastro-esophageal reflux disease without esophagitis; M19.90 Unspecified osteoarthritis, unspecified site; F32.9 Major depressive disorder, single episode, unspecified; F41.9 Anxiety disorder, unspecified; F03.90 Unspecified dementia, unspecified severity, without behavioral disturbance, psychotic disturbance, mood disturbance, and anxiety; Z79.02 Long term (current) use of antithrombotics/antiplatelets; Z79.1 Long term (current) use of non-steroidal anti-inflammatories (NSAID); Z79.51 Long term (current) use of inhaled steroids; Z79.890 Hormone replacement therapy; Z79.899 Other long term (current) drug therapy; Z82.49 Family history of ischemic heart disease and other diseases of the circulatory system; Z87.891 Personal history of nicotine dependence; Z88.2 Allergy status to sulfonamides; Z90.49 Acquired absence of other specified parts of digestive tract; X58.XXXA Exposure to other specified factors, initial encounter
CPT/HCPCS: 36415; 71250; 74176; 80053; 85025; 85610; 85730; 99284